=== PATIENT | female | born 1935 | race Caucasian/White ===

== ENCOUNTER 2016-07-17 08:41 | Emergency (ER) | payer MEDICARE, MEDICAID ==
[~2016-07-17] VITALS: Ht 154.9 cm; Wt 63.5 kg
[~2016-07-17 08:41] MED LIST: ACET325T38 PO; ALPR.25T PO; ALPR.5T PO; ALPR0.5T PO; ALPR0.5T7 PO; AMIT50TA3 PO; AMLO10TA82 PO; AMLO5TAB2 PO; ASP325T PO; ASP81TEC PO; ASPI81TA19 PO; BSP5T PO; BUSPIRONE 7.5MG PO; CARV12.5 PO; CARV12.53 PO; CARV3.122 PO; CARV3.12T PO; CHOL10003 PO; CITA10TA70 PO; CPR500T PO; DCS100C PO; DICL75TA2 PO; DIPH-681 PO; DIPH1TAB25 PO; DONE10TA41 PO; DONE10TA5 PO; DPAS20025 PO; ESCI20TA38 PO; ESCT10T PO; FLT05NA16 NSEACH; FLUT16SP22 NS; FLUT50DI IH; Famotidine PO; HCT25T PO; HSCO125 SL; KCL20TCR PO; LISI1TAB10 PO; LISI1TAB78 PO; LOPE2CAP PO; LORA10TA7 PO; LSNP20T PO; LVT.05T PO; Lisinopril PO; MECL-124 PO; MECL12.579 PO; MIRT15TA8 PO; MIRT45TA5 PO; MTP50T PO; NFAMINITAB PO; NISO8.5T PO; NITR1PAT3 TD; Nystatin PO; OMEP-10 PO; OMEP20TA2 PO; OMEP40CA36 PO; ONDN4T PO; POTA99TA15 PO; PRD20T PO; QUET25TA PO; QUET25TA33 PO; QUET50TA PO; QUET50TA43 PO; SIMV20TA3 PO; TRAZ-144 PO; TRZ100T PO; [UNRECOGNIZED DRUG - CODE] PO; [UNRECOGNIZED DRUG - CODE] PO; exforge PO
[2016-07-17 08:54] LABS: BASOPHILS % (AUTO) 1 % (0-10); EOSINOPHILS # (AUTO) 0.2 10^3/uL (0.0-0.3); EOSINOPHILS % (AUTO) 3 % (0-10); LYMPHOCYTES # (AUTO) 1.2 X 10^3 (1.0-4.0); LYMPHOCYTES % (AUTO) 19 % (12-44); MEAN CORPUSCULAR HEMOGLOBIN 31 PG (25-34); MEAN CORPUSCULAR HGB CONC 34 G/DL (32-36); MEAN CORPUSCULAR VOLUME 91 FL (80-99); MEAN PLATELET VOLUME 9.7 FL (7.4-10.4); MONOCYTES # (AUTO) 0.4 X 10^3 (0.0-1.0); MONOCYTES % (AUTO) 7 % (0-12); NEUTROPHILS # (AUTO) 4.4 X 10^3 (1.8-7.8); NEUTROPHILS % (AUTO) 71 % (42-75); PLATELET COUNT 303 10^3/uL (130-400); RED BLOOD COUNT 4.32 10^6/uL (4.35-5.85); RED CELL DISTRIBUTION WIDTH 12.4 % (10.0-14.5); WHITE BLOOD COUNT 6.2 10^3/uL (4.3-11.0)
[2016-07-17 09:05] LABS: INR 1.1 (0.8-1.4); PROTHROMBIN TIME PATIENT 13.7 SEC (12.2-14.7)
[2016-07-17 09:13] LABS: ALANINE AMINOTRANSFERASE 25 U/L (0-55); ALBUMIN 3.8 G/DL (3.2-4.5); ANION GAP 10 MMOL/L (5-14); ASPARTATE AMINO TRANSFERASE 22 U/L (5-34); BILIRUBIN,TOTAL 0.4 MG/DL (0.1-1.0); BLOOD UREA NITROGEN 18 MG/DL (7-18); BUN/CREATININE RATIO 18; CALCIUM 8.8 MG/DL (8.5-10.1); CARBON DIOXIDE 21 MMOL/L (21-32); CHLORIDE 113 MMOL/L (98-107); CREATININE SERUM 1.01 MG/DL (0.60-1.30); GFR ESTIMATED 52; GLUCOSE 110 MG/DL (70-105); POTASSIUM 3.5 MMOL/L (3.6-5.0); SODIUM 144 MMOL/L (135-145); TOTAL PROTEIN 6.7 G/DL (6.4-8.2)
--- NOTE | 2016-07-17 09:14 | Diagnostic Imaging Report ---
EXAMINATION: CT head without contrast. INDICATION: Unresponsive Contiguous axial sections were taken through the skull. There is no mass, shift of midline or hemorrhage to suggest an acute intracranial abnormality. As noted on the prior exam of 06/08/15 there is a prominent area of involving the left temporal and parietal lobes. Most likely this is a sequela from prior infarcts. There are also small areas of low density in the periventricular white matter bilaterally. These too may be related to previous infarcts. The ventricles are unchanged in size when compared to the prior exam. The cortical atrophy seen previously has not progressed. The bone windows show no evidence for a skull fracture. There is mucosal thickening of the left sphenoid sinus. This was also present on the prior exam. The sinuses are otherwise generally clear although the maxillary sinuses were not visualized in their entirety. The orbits seem to be symmetrical. There may be a long-standing fracture of the left infraorbital rim. IMPRESSION: 1. There is no evidence for an acute intracranial abnormality. When compare to the prior study there has been no adverse change. 2. If clinical concern regarding an acute abnormality persists, then MRI would be recommended for further study. 3. These results were discussed with Dr. Apodaca in the ER. Dictated by: Dictated on workstation # [id number]
[2016-07-17 09:20] LABS: TROPONIN I < 0.30 NG/ML (<0.30)
--- NOTE | 2016-07-17 09:28 | ED Neurological Problem ---
General Chief Complaint: Neuro-Stroke Like Symptoms Stated Complaint: WEAKNESS Nursing Triage Note: TO ED PER EMS FROM LONGTERM FOUND IN DOOR WAY OF ROOM CONFUSED APX 8A PMH OF STROKE AND TIA Nursing Sepsis Screen: No Definite Risk Source: patient, EMS, long term records, caregiver Exam Limitations: no limitations History of Present Illness Time seen by provider: 08:42 Initial Comments This 80-year-old woman presents to the emergency room from the long term where she was found to become generally weak this morning. She was found in her doorway having difficulty standing and with altered mental status. She reportedly would roll her eyes back and was not responding to staff. Last known well time was sometime last night. She arrives via EMS. 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 Her deficits today seem exacerbated per staff and family. She was noted to seem sluggish yesterday when seen by her primary care provider. Her Cymbalta dose was decreased and Xanax was stopped. Fingerstick blood sugar was 101. She is alert for this provider and talkative but is disoriented to place, age and month. Stroke activation was paged and patient was taken promptly to CT. Allergies and Home Medications Allergies Coded Allergies: Penicillins (Verified Allergy, Unknown, 10/11/13) Home Medications 5 ML SUSP #60 5 ML PO Q6HR Prescribed by: BRET NEGRON on 10/12/142030 10 MG TAB #30 10 MG PO DAILY@0900 Prescribed by: BRET NEGRON on 10/12/142030 20 MG TABLET #30 20 MG PO DAILY Prescribed by: BRET NEGRON on 10/12/142030 Acetaminophen 325 Mg Tablet 650 MG PO Q4H PRN PRN PAIN (Reported) TAKES 2 (325MG) TABLETS - NOT TO EXCEED 3GM OF ACETAMINOPHEN IN 24 HOURS FROM ALL SOURCES Aspirin 81 Mg Chew 81 MG PO DAILY (Reported) Carvedilol 12.5 Mg Tablet #60 12.5 MG PO BID Prescribed by: BRET NEGRON on 10/12/142030 Dipyridamole/Aspirin 1 Ea Cap 30Days 1 EA PO BID Prescribed by: RENETTA ELIZONDO on 10/05/14 0946 Donepezil Hcl 10 Mg Tablet 10 MG PO HS (Reported) Levothyroxine Sodium 50 Mcg Tab 50 MCG PO DAILY @ 1400 (Reported) Loratadine 10 Mg Tablet 10 MG PO DAILY (Reported) TAKE 1 (10MG) TABLET DAILY FOR CONGESTION FOR 3 WEEKS. START DATE 09-29-14 Quetiapine Fumarate 50 Mg Tabsr 50 MG PO HS (Reported) Simvastatin 20 Mg Tablet 20 MG PO HS (Reported) Constitutional: see HPI Eyes: No Symptoms Reported Ears, Nose, Mouth, Throat: no symptoms reported Respiratory: no symptoms reported Cardiovascular: no symptoms reported Gastrointestinal: no symptoms reported Genitourinary: no symptoms reported : No Musculoskeletal: no symptoms reported Skin: no symptoms reported Psychiatric/Neurological: See HPI Endocrine: No Symptoms Reported Past Goitxcy-Dbzoap-Gnqglm Hx Patient Social History Alcohol Use: Denies Use Recreational Drug Use: No Smoking Status: Never a Smoker Recent Foreign Travel: No Contact w/Someone Who Travel: No Recent Infectious Disease Expo: No Recent Hopitalizations: Yes ([facility] K+) Immunizations Up To Date Tetanus Booster (TDap): Unknown Date of Pneumonia Vaccine: Nov 22, 2009 Date of Influenza Vaccine: Feb 22, 2014 Seasonal Allergies Seasonal Allergies: No Surgeries HX Surgeries: Yes Surgeries: Hysterectomy Respiratory Hx Respiratory Disorders: No Cardiovascular Hx Cardiac Disorders: Yes Cardiac Disorders: High Cholesterol, Hypertension Neurological Hx Neurological Disorders: Yes (ALZHEIMERS. 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 Genitourinary Hx Genitourinary Disorders: Yes (history of urinary tract infections) Gastrointestinal Hx Gastrointestinal Disorders: Yes Gastrointestinal Disorders: Diverticulosis Musculoskeletal Hx Musculoskeletal Disorders: No Endocrine Hx Endocrine Disorders: No HEENT HX ENT Disorders: Yes HEENT Disorders: Glaucoma Cancer Hx Cancer: No Psychosocial Hx Psychiatric Problems: Yes Behavioral Health Disorders: Sleep Difficulties, Anxiety, Depression Integumentary HX Skin/Integumentary Disorder: No Blood Transfusions Hx Blood Disorders: No Adverse Reaction to a Blood Tr: No Family Medical History Significant Family History: Heart Disease Family Medial History: Alcoholism 03 FATHER Cancer BROTHERS/SISTERS(9 ALL TOGETHE Family history: Alzheimer's disease Family history: Arthritis 03 MOTHER BROTHERS/SISTERS(9 ALL TOGETHE Family history: Breast disease BROTHERS/SISTERS(9 ALL TOGETHE Family history: Cardiovascular disease 03 FATHER BROTHERS/SISTERS(9 ALL TOGETHE Family history: Hypertension 03 MOTHER BROTHERS/SISTERS(9 ALL TOGETHE Heart disease 03 FATHER BROTHERS/SISTERS(9 ALL TOGETHE Malignant neoplasm of lung BROTHERS/SISTERS(9 ALL TOGETHE Myocardial infarction 03 FATHER BROTHERS/SISTERS(9 ALL TOGETHE Psychotic disorder BROTHERS/SISTERS(9 ALL TOGETHE Physical Exam Vital Signs Vital Sign - Last 12Hours 07/17/16 08:41 Temp 97.6 Pulse 64 Resp 18 B/P 110/67 Pulse Ox 96 O2 Delivery Room Air Capillary Refill : Less Than 3 Seconds General Appearance: WD/WN no apparent distress HEENT: PERRL/EOMI normal ENT inspection pharynx normal Neck: normal inspection Respiratory: lungs clear normal breath sounds no respiratory distress no accessory muscle use Cardiovascular: regular rate, rhythm no edema no murmur Gastrointestinal: normal bowel sounds non tender soft Back: normal inspection Extremities: normal inspection no pedal edema Neurologic/Psychiatric: alert normal mood/affect other (patient has chronic deficits and generalized weakness. She has difficulty with speech and dysphasia at baseline. NIH stroke score was 11. Most of the scores due to chronic deficits.) Stroke NIH Stroke Scale Assessment Select: Initial Level of Consciousness: 0=Alert Level of Consciousness-Questio: 2=Answer neither question LOC Commands: 2=Performs neither task Gaze: 0=Normal Visual Al[place]ga: 0=No visual loss Facial Movement (Facial Paresi: 1=Minor paralysis Motor Function-Arms Right: 0=No drift Motor Function-Arms Left: 0=No drift Motor Function-Legs Right: 2=Some effort/gravity Motor Function-Legs Left: 2=Some effort/gravity Limb Ataxia: 0=Absent Sensory: 1=Mild to Moderate loss Best Language: 1=Mild to moderat aphasia Dysarthria: 1=Mild to moderate loss Extinction & Inattention: 1=Visual,tactile,auditory NIH Stroke Scale Score: 11 Stroke Thrombolytic Exclusion History of CVA: Yes Severe Hypertension: No GI or Bleed: No Subarachnoid Hemorrhage: No Intracranial Neoplasm/Aneurysm: No Puncture of Non-Compressible V: No Recent CPR: No Diabetic Hemorrhagic Retinopat: No Organ Biopsy: No Recent Obstetric Delivery: No Significant Hepatic Dysfunctio: No NIH Stoke Scale >22: No Improving Symptoms: Yes Progress/Results/Core Measures Results/Orders Lab Results Laboratory Tests Test 07/17/16 08:41 07/17/16 08:58 07/17/16 09:37 Range/Units Activated Partial Thromboplast Time 32 24-35 SEC Alanine Aminotransferase (ALT/SGPT) 25 0-55 U/L Albumin 3.8 3.2-4.5 G/DL Alkaline Phosphatase 83 40-136 U/L Anion Gap 10 5-14 MMOL/L Aspartate Amino Transf (AST/SGOT) 22 5-34 U/L BUN/Creatinine Ratio 18 Basophils # (Auto) 0.0 0.0-0.1 10^3/uL Basophils (%) (Auto) 1 0-10 % Blood Urea Nitrogen 18 7-18 MG/DL Calcium Level 8.8 8.5-10.1 MG/DL Carbon Dioxide Level 21 21-32 MMOL/L Chloride Level 113 H 98-107 MMOL/L Creatinine 1.01 0.60-1.30 MG/DL D-Dimer 0.44 0.00-0.49 UG/ML Eosinophils # (Auto) 0.2 0.0-0.3 10^3/uL Eosinophils (%) (Auto) 3 0-10 % Estimat Glomerular Filtration Rate 52 Free Thyroxine 0.89 0.70-1.48 NG/DL Glucose Level 110 H 70-105 MG/DL Hematocrit 39 35-52 % Hemoglobin 13.5 11.5-16.0 G/DL INR Comment 1.1 0.8-1.4 Lymphocytes # (Auto) 1.2 1.0-4.0 X 10^3 Lymphocytes (%) (Auto) 19 12-44 % Mean Corpuscular Hemoglobin 31 25-34 PG Mean Corpuscular Hemoglobin Concent 34 32-36 G/DL Mean Corpuscular Volume 91 80-99 FL Mean Platelet Volume 9.7 7.4-10.4 FL Monocytes # (Auto) 0.4 0.0-1.0 X 10^3 Monocytes (%) (Auto) 7 0-12 % Neutrophils # (Auto) 4.4 1.8-7.8 X 10^3 Neutrophils (%) (Auto) 71 42-75 % Platelet Count 303 130-400 10^3/uL Potassium Level 3.5 L 3.6-5.0 MMOL/L Prothrombin Time 13.7 12.2-14.7 SEC Red Blood Count 4.32 L 4.35-5.85 10^6/uL Red Cell Distribution Width 12.4 10.0-14.5 % Sodium Level 144 135-145 MMOL/L Thyroid Stimulating Hormone (TSH) 1.41 0.35-4.94 UIU/ML Total Bilirubin 0.4 0.1-1.0 MG/DL Total Protein 6.7 6.4-8.2 G/DL Troponin I < 0.30 <0.30 NG/ML White Blood Count 6.2 4.3-11.0 10^3/uL Glucometer 103 70-110 MG/DL Urine Bacteria TRACE /HPF Urine Bilirubin NEGATIVE NEGATIVE Urine Casts NONE /LPF Urine Clarity CLEAR Urine Color YELLOW Urine Crystals NONE /LPF Urine Culture Indicated YES Urine Glucose (UA) NEGATIVE NEGATIVE Urine Ketones NEGATIVE NEGATIVE Urine Leukocyte Esterase 1+ H NEGATIVE Urine Mucus NEGATIVE /LPF Urine Nitrite NEGATIVE NEGATIVE Urine Protein 1+ H NEGATIVE Urine RBC 0-2 /HPF Urine RBC (Auto) NEGATIVE NEGATIVE Urine Specific Hunters 1.020 1.016-1.022 Urine Squamous Epithelial Cells 2-5 /HPF Urine Urobilinogen NORMAL NORMAL MG/DL Urine WBC 2-5 /HPF Urine pH 6 5-9 Micro Results Microbiology 07/17/16 Influenza Types A,B Antigen (DEBBIE) - Final, Complete My Orders Orders-MITCHELL APODACA MD Ct Head Wo-R/O Stroke (07/17/16 08:44) Cbc With Automated Diff (07/17/16 08:48) Protime With Inr (07/17/16 08:48) Partial Thromboplastin Time (07/17/16 08:48) Comprehensive Metabolic Panel (07/17/16 08:48) Fibrin Degradation Products (07/17/16 08:48) Troponin I (07/17/16 08:48) Ua Culture If Indicated (07/17/16 08:48) Chest 1 View, Ap/Pa Only (07/17/16 08:48) Catheter(Urinary) Insert & Ass 03,15 (07/17/16 08:48) Ekg Tracing (07/17/16 08:48) Nothing By Mouth (07/17/16 Lunch) Accucheck Stat ONCE (07/17/16 08:48) Saline Lock/Iv-Start (07/17/16 08:48) Saline Lock/Iv-Start (07/17/16 08:48) Vital Signs-Stroke Q1H (07/17/16 08:48) O2 (07/17/16 08:48) Intake & Output 06,14,22 (07/17/16 08:48) Monitor-Rhythm Ecg Trace Only (07/17/16 08:48) Dysphagia Screening Tool (07/17/16 08:48) Urine Culture (07/17/16 09:37) Influenza A And B Antigens (07/17/16 10:41) Thyroid Stimulating Hormone (07/17/16 10:41) Free T4 (Free Thyroxine) (07/17/16 10:41) Vital Signs/I&O Vital Sign - Last 12Hours 07/17/16 07/17/16 07/17/16 07/17/16 08:41 08:53 09:45 11:25 Temp 97.6 Pulse 64 66 58 Resp 18 18 18 B/P 110/67 172/80 149/69 Pulse Ox 96 96 96 94 O2 Delivery Room Air Room Air Blood Pressure Mean: 81 Point of Care Testing Finger Stick Blood Glucose: 103 Progress Note #1: Time: 10:45 Progress Note Patient's workup was essentially unremarkable with the exception of intermittent bigeminy. I did get the patient up to walk. She was able to rise on her own power but required assistance with walking to prevent from falling over backwards. Family reports that she seems weaker and more sluggish than usual. It was noted that patient is due to have thyroid labs checked in September. Progress Note #2: Progress Note Thyroid labs were normal. Influenza screen was negative. I discussed the case with Dr. Elizondo who would like the patient to return back to the long term. He reports she has had numerous episodes similar to this in the past and generally recovers without incident. Instructions were written for long term staff to monitor her closely and check on her frequently. She is not to ambulate without assistance. ECG Initial ECG Impression Date: Jul 17, 2016 Initial ECG Impression Time: 09:30 Initial ECG Rate: 59 Comment Sinus rhythm alternating with ventricular bigeminy. No ST elevation or depression. No abnormal intervals or axis deviation. Diagnostic Imaging Diagonstic Imaging: CT Plain Films/CT/US/NM/MRI: head Comments CT head viewed by me and report reviewed. See report below: NAME: JONAS SALGADO Khadijah [facility] REC#: [id number] PT STATUS: REG ER : 1935 PHYSICIAN: MITCHELL APODACA MD ADMIT DATE: 07/17/16/ER Draft Date of Exam:07/17/16 CT HEAD WO-R/O STROKE EXAMINATION: CT head without contrast. INDICATION: Unresponsive Contiguous axial sections were taken through the skull. There is no mass, shift of midline or hemorrhage to suggest an acute intracranial abnormality. As noted on the prior exam of 06/08/15 there is a prominent area of involving the left temporal and parietal lobes. Most likely this is a sequela from prior infarcts. There are also small areas of low density in the periventricular white matter bilaterally. These too may be related to previous infarcts. The ventricles are unchanged in size when compared to the prior exam. The cortical atrophy seen previously has not progressed. The bone windows show no evidence for a skull fracture. There is mucosal thickening of the left sphenoid sinus. This was also present on the prior exam. The sinuses are otherwise generally clear although the maxillary sinuses were not visualized in their entirety. The orbits seem to be symmetrical. There may be a long-standing fracture of the left infraorbital rim. IMPRESSION: 1. There is no evidence for an acute intracranial abnormality. When compare to the prior study there has been no adverse change. 2. If clinical concern regarding an acute abnormality persists, then MRI would be recommended for further study. 3. These results were discussed with Dr. Apodaca in the ER. Dictated on workstation # [id number] Dict: 07/17/16 0852 Trans: 07/17/16 0913 [facility] [id number] Interpreted by: LUZ MARINA GALLOWAY MD Diagonstic Imaging: Xray Plain Films/CT/US/NM/MRI: chest Comments Chest x-ray viewed by me and report reviewed. See report below: NAME: JONAS SALGADO [facility] REC#: [id number] PT STATUS: REG ER : 1935 PHYSICIAN: MITCHELL APODACA MD ADMIT DATE: 07/17/16/ER Draft Date of Exam:07/17/16 CHEST 1 VIEW, AP/PA ONLY EXAM: Portable erect AP chest at 8:49 a.m. INDICATION: Weakness FINDINGS: There is a better inspiratory effort on this study than on the prior exam of 08/21/15. Allowing for this technical factor, the heart size is within normal limits. There is persistent elevation of the right hemidiaphragm. However, the lungs seem generally clear and well-aerated. There is no sign of failure, pneumonia or pleural effusion to suggest an acute abnormality. The mediastinum is not widened. The osseous structures are intact. IMPRESSION: There is no evidence for an acute cardiopulmonary abnormality. Dictated on workstation # [id number] Dict: 07/17/1632 Trans: 07/17/1642 [facility] [id number] Interpreted by: LUZ MARINA GALLOWAY MD Departure Impression Impression: Primary Impression: Generalized weakness Additional Impressions: Altered mental status Qualified Code: R41.82 - Altered mental status, unspecified Bigeminy Disposition: 01 HOME, SELF-CARE Condition: Improved Departure-Patient Inst. Decision time for Depature: 11:30 Referrals: [facility] (PCP) Primary Care Physician Patient Instructions: Preventing Falls in the Older Adult Add. Discharge Instructions: DO NOT ALLOW PATIENT TO AMBULATE WITHOUT SUPERVISION. PLEASE ASSIST PATIENT IN AMBULATION AND UP TO BATHROOM AT LEAST EVERY 4 HOURS. PATIENT HAS DIFFICULTY GETTING ATTENTION FROM STAFF DUE TO HER SPEECH DEFICITS. FOLLOW-UP WITH PRIMARY CARE PROVIDER WITHIN THE NEXT WEEK. All discharge instructions reviewed with patient and/or family. Voiced understanding. MITCHELL APODACA MD Jul 17, 2016 09:28
--- NOTE | 2016-07-17 09:42 | Diagnostic Imaging Report ---
EXAM: Portable erect AP chest at 8:49 a.m. INDICATION: Weakness FINDINGS: There is a better inspiratory effort on this study than on the prior exam of 08/21/15. Allowing for this technical factor, the heart size is within normal limits. There is persistent elevation of the right hemidiaphragm. However, the lungs seem generally clear and well-aerated. There is no sign of failure, pneumonia or pleural effusion to suggest an acute abnormality. The mediastinum is not widened. The osseous structures are intact. IMPRESSION: There is no evidence for an acute cardiopulmonary abnormality. Dictated by: Dictated on workstation # [id number]
[2016-07-17 09:45] VITALS: BP 172/80
[2016-07-17 09:50] LABS: BILIRUBIN,URINE NEGATIVE (NEGATIVE); KETONES,URINE NEGATIVE (NEGATIVE); LEUKOCYTE ESTERASE ,URINE 1+ (NEGATIVE); NITRITE,URINE NEGATIVE (NEGATIVE); PH,URINE 6 (5-9); PROTEIN,URINE 1+ (NEGATIVE); UROBILINOGEN,URINE NORMAL (NORMAL)
[2016-07-17 11:21] LABS: THYROID STIMULATING HORMONE 1.41 UIU/ML (0.35-4.94)
[2016-07-17 11:25] VITALS: BP 149/69
[2016-07-17 13:14] VITALS: BP 168/66
== END 2016-07-17 13:14 ==
LOC: EDUNIT# 08:41 → ER 08:42
DX: R41.82 Altered mental status, unspecified (principal); R53.1 Weakness; R00.8 Other abnormalities of heart beat; I69.921 Dysphasia following unspecified cerebrovascular disease; I10 Essential (primary) hypertension; Z79.82 Long term (current) use of aspirin; Z79.899 Other long term (current) drug therapy
CPT/HCPCS: 36415; 51701; 70450; 71010; 80053; 81000; 82962; 84439; 84443; 84484; 85025; 85379; 85610; 85730; 87088; 87804; 93005; 93041

== ENCOUNTER 2018-02-03 06:19 | Outpatient (CLI) | payer MEDICARE, MEDICAID ==
[~2018-02-03] VITALS: Ht 154.9 cm; Wt 79.8 kg
[2018-02-03] MEDS ORDERED: DPAS20025 PO (14:18)
[2018-02-03] MEDS ORDERED: CETI10TA17 PO (14:25)
[2018-02-03] MEDS ORDERED: LEVO50TA6 PO (14:25)
[2018-02-03] MEDS ORDERED: GUAI400T71 PO (14:25)
[2018-02-03] MEDS ORDERED: AMLO10TA6 PO (14:25)
[2018-02-03] MEDS ORDERED: DULO30CA3 PO (14:25)
[2018-02-03] MEDS ORDERED: MIRT30TA PO (14:25)
[2018-02-03] MEDS ORDERED: DOCU-143 PO (14:25)
[2018-02-03] MEDS ORDERED: MELA1TAB27 PO (14:25)
[2018-02-03] MEDS ORDERED: TRAM50TA2 PO (14:25)
[2018-02-03] MEDS ORDERED: LISI-552 PO (14:25)
[2018-02-03] MEDS ORDERED: CRV25T PO (14:25)
[2018-02-03] MEDS ORDERED: MEMA1CAP3 PO (14:25)
[2018-02-03] MEDS ORDERED: MONT10TA24 PO (14:25)
== END 2018-02-03 14:26 | disposition home or self-care (01) ==
LOC: PREOP 06:19
PROVIDERS: ATTEND Specialist
DX: Z01.818 Encounter for other preprocedural examination (principal)

== ENCOUNTER 2018-02-05 08:17 | Day surgery (SDC) | payer MEDICARE, MEDICAID ==
[~2018-02-05] VITALS: Ht 154.9 cm; Wt 79.8 kg
[~2018-02-05 08:17] MED LIST changes: +AMLO10TA6 PO; +CETI10TA17 PO; +CRV25T PO; +DOCU-143 PO; +DULO30CA3 PO; +GUAI400T71 PO; +LEVO50TA6 PO; +LISI-552 PO; +MELA1TAB27 PO; +MEMA1CAP3 PO; +MIRT30TA PO; +MONT10TA24 PO; +TRAM50TA2 PO
--- OUTSIDE RECORDS SUMMARY | 2018-02-05 08:21 | XMS REPORT ---
Author Author [facility] Medical Staff Organization [facility] Address [address] [place], [place] [id number] Phone [phone] Summary purpose CCDA Sent to [facility] Chief Complaint and Reason for Visit No authorized Reason for Visit (Admitting Diagnosis) is available for this visit. Problem list No authorized problems tracked for continuity of care are available for this visit. Encounters No authorized problems tracked for encounter diagnoses are available for this visit. Medications No medications recorded for this patient visit Allergies, adverse reactions, alerts Allergen Category Ingredient Status Reaction Severity Onset Penicillins Drug Penicillins Active Immunizations No immunizations recorded for this patient visit Relevant diagnostic tests and/or laboratory data No authorized results are available for this patient visit History of procedures No procedures recorded for this patient visit. Functional status No functional or cognitive status observations are available for this visit. Vital signs No authorized vital signs are available for this visit. Social history No Social History or smoking status observations were recorded for this visit. ( Unknown if ever smoked.) Treatment Plan No treatment plan text is available for this visit. Hospital discharge instructions No discharge instruction text is available for this visit.
--- OUTSIDE RECORDS SUMMARY | 2018-02-05 08:21 | XMS REPORT ---
Author Author [facility] Medical Staff Organization [facility] Address [address] [place], [place] [id number] Phone [phone] Summary purpose CCDA Sent to [facility] Chief Complaint and Reason for Visit No [...] for this patient visit History of procedures Procedure Code Code Type Description Date Performed Performing Physician 77513 CPT-4 ELECTROCARDIOGRAM REPORT 08-30-2016 [facility] Functional status No functional or cognitive status [...]
--- OUTSIDE RECORDS SUMMARY | 2018-02-05 08:21 | XMS REPORT ---
Author Author [facility] Medical Staff Organization [facility] Address [address] [place], [place] [id number] Phone [phone] Summary purpose CCDA Sent to [facility] Chief Complaint and Reason for Visit [...] Code Type Description Date Performed Performing Physician 36229 CPT-4 ELECTROCARDIOGRAM REPORT 08-26-2016 [facility] Functional status No functional or cognitive status [...]
--- OUTSIDE RECORDS SUMMARY | 2018-02-05 08:22 | XMS REPORT ---
Author Author MAXIMO SMALL Organization [facility] Address [address] [place] [address] Care Team Providers Care Ice Skater Name Role Phone MAXIMO SMALL Unavailable PROBLEMS Type Condition ICD9-CM Code [id number] Code Onset Dates Condition Status SNOMED Code Problem Benign essential hypertension I10 Active 1392683 Problem Hypothyroidism E03.9 Active 35556346 Problem CVA (cerebral vascular accident) I63.9 Active 782202355 Problem Major depressive disorder with single episode, in full remission F32.5 Active 67955058 Problem Arthropathy, unspecified M12.9 Active 850480773 Problem Reactive depression F32.9 Active 40142376 Problem 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 Active 98605604 Problem Other insomnia G47.09 Active 070149202 Problem Allergy, subsequent encounter T78.40XD Active 931098039 Problem 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, unspecified hemiplegia type I69.353 Active 448320523 Problem 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 Active 500880647 Problem Alzheimers disease with late onset G30.1 Active 014469763 Problem Glaucoma of both eyes, unspecified glaucoma H40.9 Active 35906602 Problem Gastroesophageal reflux disease without esophagitis K21.9 Active 666679087 Problem Aphasia R47.01 Active 61778556 Problem CVA, old, 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 Active 591039368 ALLERGIES No Information ENCOUNTERS Encounter Location Date Diagnosis [facility] [address] [facility] [id number] [address] Jan, [facility] [address] [place] [id number] Jan, Skin tag L91.8 [facility] [address] [facility] [id number], [place] [address] Dec, Arthropathy, unspecified M12.9 [facility] [place] [facility] [address] [place] [address] 07924- 2066 Dec, [facility] [id number] [place] [address] 08831- 6466 Nov, Arthropathy, unspecified M12.9 [facility] [address] [place] [id number] Nov, Major depressive disorder with single episode, in full remission F32.5 and CVA, old, 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 [facility] [id number] [place] [address] 08965- 4810 Nov, [facility] [id number] [place] [address] 62372- 2459 Nov, Arthropathy, unspecified M12.9 [facility] [id number] [place] [address] 64919- 6376 Oct, [facility] [id number] [place] [address] 31397- 2668 Oct, Arthropathy, unspecified M12.9 [facility] [id number] [place] [address] 62471- 2779 September, [facility] [address] [place] [id number] September, Reactive airway disease that is not asthma R09.89 [facility] [address] [place] [id number] September, Benign essential hypertension I10 and CVA, old, 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 [facility] [id number] [place] [address] 12122- 0603 September, [facility] [id number] [place] [address] 65746- 1217 September, Arthropathy, unspecified M12.9 [facility] [id number] [place] [address] 89427- 7289 Aug, [facility] [id number] [place] [address] 01649- 7836 Aug, [facility] [address] [id number] [address] Aug, Arthropathy, unspecified M12.9 [facility] [address] [place] [id number] Jul, Diarrhea, unspecified type R19.7 [facility] [address] [place] [address] [id number]- 3879 Jul, Arthropathy, unspecified M12.9 [facility] [id number] [place] [address] [id number] Jun, Arthropathy, unspecified M12.9 [facility] [id number] [place] [address] 825122- 5896 May, Arthropathy, unspecified M12.9 [facility] [id number] [place] [address] [id number] May, [facility] [address] [place] [id number] May, Localized edema R60.0 [facility] [id number] [place] [address] [id number] May, [facility] [id number] [place] [address] 53817823- 1601 Apr, Arthropathy, unspecified M12.9 [facility] [address] [place] [address] 41691- 0476 Mar, Arthropathy, unspecified M12.9 [facility] [address] [place] [address] [id number]- 5877 Feb, Reactive depression F32.9 and 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 [facility] [address] [place] [address] 97357- 7021 Feb, Reactive depression F32.9 and Rash R21 [facility] [address] [place] [address] 37184- 5101 Feb, Arthropathy, unspecified M12.9 [facility] [address] [place] [address] 42313- 1722 Feb, [facility] [id number] [place] [address] 86702- 5419 Jan, Reactive depression F32.9 ; Other insomnia G47.09 and 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 [facility] [id number] [place] [address] 58082- 5338 Jan, [facility] [id number] [place] [address] 02012- 1473 Jan, Arthropathy, unspecified M12.9 [facility] [id number] [place] [address] 91789- 0673 Jan, [facility] [id number] [place] [address] 77461- 8797 Dec, Arthropathy, unspecified M12.9 [facility] [address] [place] [id number] Dec, Skin tag L91.8 ; Wart of scalp B07.9 and Weight gain R63.5 [facility] [id number] [place] [address] [id number] Dec, [facility] [id number] [place] [address] 06462- 9292 Dec, Reactive depression F32.9 [facility] [id number] [place] [address] [id number] Nov, Arthropathy, unspecified M12.9 [facility] [id number] [place] [address] 83524- 8250 Oct, [facility] [id number] [place] [address] 93660- 5018 Oct, Arthropathy, unspecified M12.9 [facility] [address] [place] [id number] September, Reactive depression F32.9 and CVA (cerebral vascular accident) I63.9 [facility] [address] [address] 1609 September, Arthropathy, unspecified M12.9 [facility] [address] [address] 5172 September, [facility] [address] [place] [address] 02598- 7922 September, Arthropathy, unspecified M12.9 [facility] [address] [place] [address] 13657- 5336 Aug, Arthropathy, unspecified M12.9 [facility] [id number] [place] [address] 29303- 6473 Aug, [facility] [id number] [place] [address] [id number] Aug, [facility] [id number] [place] [address] 62420- 7263 Jul, [facility] [address] [place] [address] 59205- 9285 Jul, [facility] [id number] [place] [address] [id number] Jul, [facility] [address] [place] [id number] Jun, Reactive depression F32.9 [facility] [address] [place] [address] 34819- 4100 Jun, Reactive depression F32.9 [facility] [id number] [place] [address] [id number] Jun, [facility] [address] [place] [id number] Jun, Reactive depression F32.9 and Other insomnia G47.09 [facility] [address] [address]- 3929 Jun, [facility] [id number] [place] [address] 65874- 0426 May, [facility] [address] [id number] May, [facility] [address] [place] [id number] Apr, CVA, old, 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 ; Allergy, subsequent encounter T78.40XD and Reactive depression F32.9 [facility] [address] 60630- 5726 Mar, [facility] [address] [place] [id number] Feb, Benign essential hypertension I10 [facility] [address] 40026- 4676 Feb, [facility] [address] 60811- 4396 Feb, [facility] [address] 35728- 7516 Feb, [facility] [address] 60578- 2346 Feb, [facility] [address] 03760- 7586 Feb, [facility] [id number] [place] [address] 08825- 8456 Jan, [facility] [address] 86271 2546 Jan, [facility] [facility] [address] [place] [id number] Jan, CVA, old, 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 and Benign essential hypertension I10 [facility] [address] 41665 2546 Dec, [facility] [address] 39222 2546 Nov, [facility] [address] [place] [address]- 5181 14 Nov, 2015 [facility] [id number] [place] [address] 12522- 3048 Oct, [facility] [id number] [place] [address] 30797- 4123 Oct, [facility] [id number] [place] [address] 05869- 8167 Oct, 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 ; Benign essential hypertension I10 ; Reactive depression F32.9 and Urinary frequency R35.0 [facility] [id number] [place] [address] 26717- 0866 Aug, UTI (urinary tract infection) N39.0 [facility] [id number] [place] [address] 37800- 2667 Aug, 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 [facility] [id number] [place] [address] 40124- 5592 Jul, Benign essential hypertension I10 ; CVA, old, 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 and Hypothyroidism E03.9 [facility] [id number] [place] [address] 31161- 6809 Jun, [facility] [id number] [place] [address] 32831- 7478 Jun, Acute diarrhea R19.7 [facility] [id number] [place] [address] 00017- 5273 May, CVA (cerebral vascular accident) I63.9 [facility] [id number] [place] [address] 63690- 7272 Apr, [facility] [id number] [place] [address] 80747- 1202 Apr, [facility] [id number] [place] [address] 18123- 8426 Apr, [place] [facility] [id number] [place] [address] 21905- 3523 Apr, [facility] [id number] [place] [address] 14612- 0327 Apr, CVA (cerebral vascular accident) I63.9 and Constipation K59.00 [facility] [id number] [place] [address] 29211- 1664 Apr, [facility] [address] 89955- 2987 Mar, [facility] [id number] [place] [address] 08287- 9870 Mar, [facility] [address] 42695- 8694 Mar, [facility] [id number] [place] [address] 48508- 7062 Mar, [facility] [id number] [place] [address] 48104- 0657 Feb, [facility] [id number] [place] [address] 35129- 9658 Feb, CVA, old, 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 ; Allergic rhinitis J30.9 and Benign essential hypertension I10 [facility] [id number] [place] [address] 01650- 8172 Dec, CVA (cerebral vascular accident) 434.91 [facility] [id number] [place] [address] 57888- 7154 Dec, [facility] [id number] [place] [address] 73262- 4484 Oct, [facility] [id number] [place] [address] 36870- 4029 Oct, [facility] [id number] [place] [address] 71918- 7006 Oct, CVA (cerebral vascular accident) 434.91 [facility] [address] [address]- 1553 Oct, [facility] [address] [address]- 2226 September, [facility] [address] [address]- 0544 September, Allergic rhinitis 477.9 and Arthropathy 716.90 [facility] [address], [place] [address]- 5779 Aug, [facility] [address] [address]- 5392 Aug, [facility] [address], [place] [address]- 4507 Jun, [facility] [address] [address]- 7954 Jun, [address] [place] [id number] Jun, [facility] [address], [place] [address]- 8755 Jun, [facility] [address], [place] [address]- 8562 Jun, [facility] [address], [place] [address]- 8440 Jun, [facility] [address], [place] [address]- 8079 Jun, [facility] [address] [address]- 1126 May, [facility] [address]- 2526 May, [facility] [address] [address]- 5997 May, [facility] [place] [facility] [address] [id number] [place] [address]- 5309 May, [facility] [address] [id number] [place] [address]- 5359 Apr, [facility] [address] [id number] [place] [address]- 4178 Apr, [facility] [address] [id number] [place] [address]- 0575 Apr, [facility] [address] [facility] [place] [id number] Apr, [facility] [address] [id number] [place] [address]- 2597 Apr, [facility] [address] [id number] [place] [address]- 2924 Apr, [facility] [address] [id number] [place] [address]- 8114 Apr, [facility] [address] [id number] [place] [address]- 4379 Apr, [facility] [address] [id number] [place] [address]- 2841 Apr, [facility] [address] [id number] [place] [address]- 0331 Apr, [facility] [place] [facility] [address] [id number] [place] [address]- 6817 Apr, [facility] [place] [facility] [address] [id number] [place] [address]- 9851 Mar, [facility] [place] [facility] [address] [id number] [place] [address]- 5148 Mar, [facility] [place] [facility] [address] [id number] [place] [address]- 7666 Mar, [facility] [place] [facility] [address] [id number] [place] [address]- 5786 Mar, [facility] [place] [facility] [address] [id number] [place] [address]- 6764 Mar, [facility] [place] [facility] [address] [id number] [place] [address]- 6766 Mar, [facility] [place] [facility] [address] [id number] [place] [address]- 3850 Mar, [facility] [place] [facility] [address] [id number] [place] [address]- 4961 Mar, [facility] [place] [facility] [address] [id number] [place] [address]- 4258 Mar, [facility] [place] [facility] [address] [id number] [place] [address]- 7632 Mar, [facility] [place] [facility] [address] [id number] [place] [address]- 0067 Mar, [facility] [place] [facility] [address] [id number] [place] [address]- 2799 Mar, [facility] [place] [facility] [address] [id number] [place] [address]- 0926 Mar, [facility] [place] [facility] [address] [id number] [place] [address]- 3830 Feb, [facility] [place] [facility] [address] [id number] [place] [address]- 1866 Feb, [facility] [place] [facility] [address] [id number], [place] [address]- 7138 30 Feb, 2014 [facility] [place] [facility] [address] [id number] [place] [address]- 9870 30 Feb, 2014 [facility] [place] [facility] [address] [id number] [place] [address]- 8560 Feb, [facility] [place] [facility] [address] [id number] [place] [address]- 6333 Feb, [facility] [place] [facility] [address] [id number] [place] [address]- 8884 Feb, [facility] [place] [facility] [address] [id number] [place] [address]- 5494 Feb, [facility] [place] [facility] [address] [id number] [place] [address]- 4449 Jan, [facility] [place] [facility] [address] [id number] [place] [address]- 5128 Jan, [facility] [place] [facility] [address] [id number] [place] [address]- 6195 Dec, [facility] [place] [facility] [address] [id number] [place] [address]- 9823 Dec, [facility] [place] [facility] [address] [id number] [place] [address]- 9442 Dec, [facility] [place] [facility] [address] [id number] [place] [address]- 8767 Dec, [facility] [place] [facility] [address] [id number] [place] [address]- 6153 Nov, [facility] [place] [facility] [address] [id number] [place] [address]- 1851 Nov, [facility] [place] [facility] [address] [id number] [place] [address]- 8416 Nov, [facility] [place] [facility] [address] [id number] [place] [address]- 6087 Nov, [facility] [place] [facility] [address] [id number] [place] [address]- 7266 Nov, [facility] [place] [facility] [address] [id number] [place] [address]- 3260 Nov, [facility] [place] [facility] [address] [id number] [place] [address]- 4622 Nov, [facility] [place] [facility] [address] [id number] [place] [address]- 4649 Oct, [facility] [place] [facility] [address] [id number] [place] [address]- 5840 Oct, [facility] [place] [facility] [address] [id number] [place] [address]- 5160 Oct, [facility] [place] [facility] [address] [id number] [place] [address]- 4660 Oct, [facility] [place] [facility] [address] [id number] [place] [address]- 6368 Oct, [facility] [place] [facility] [address] [id number] [place] [address]- 3295 Oct, [facility] [place] [facility] [address] [id number] [place] [address]- 7857 September, [facility] [place] [facility] [address] [id number] [place] [address]- 2326 September, [facility] [place] [facility] [address] [id number] [place] [address]- 4890 September, [facility] [place] [facility] [address] [id number] [place] [address]- 1641 September, [facility] [place] [facility] [address] [id number] [place] [address]- 4189 September, [facility] [place] [facility] [address] [id number] [place] [address]- 5917 September, [facility] [place] [facility] [address] [id number] [place] [address]- 9933 September, [facility] [place] [facility] [address] [id number] [place] [address]- 2291 September, [facility] [place] [facility] [address] [id number] [place] [address]- 5848 September, [facility] [place] [facility] [address] [id number] [place] [address]- 6979 Aug, [facility] [place] [facility] [address] [id number] [place] [address]- 3521 Jun, [facility] [place] [facility] [address] [id number] [place] 9643 Jun, [facility] [place] [facility] [address] [id number] [place] [address]- 8640 May, [facility] [place] [facility] [address] [id number] [place] [address]- 9735 Mar, [facility] [place] [facility] [address] [id number] [place] [address]- 5902 Mar, [facility] [place] [facility] [address] [id number] [place] [address]- 7061 Oct, [facility] [place] [facility] [address] [id number] [place] [address]- 7336 September, [facility] [place] [facility] [address] [id number] [place] [address]- 1200 September, [facility] [place] [facility] [address] [id number] [place] [address]- 1446 Aug, [facility] [place] [facility] [address] [id number] [place] [address] Jul, [facility] [place] [facility] [address] [id number] [place] [address] May, [facility] [place] [facility] [address] [id number], [place] [address] May, [facility] [place] [facility] [address] [id number], [place] [address] May, [facility] [place] [facility] [address] [id number] [place] [address] Feb, [facility] [place] [facility] [address] [id number] [place] [address] Feb, [facility] [place] [facility] [address] [id number] [place] [address] Feb, [facility] [place] [facility] [address] [id number] [place] [address] Feb, [facility] [address] [id number] [place] [address] Feb, [facility] [address] [id number] [place] [id number] Feb, [facility] [address] [id number] [place] [address] Feb, [facility] [place] [facility] [address] [id number] [place] [address] Feb, [facility] [address] [id number] [place] [address] Feb, [facility] [place] [facility] [address] [id number] [place] [address] Jan, [facility] [address] [id number] [place] [address] Dec, [facility] [address] [id number] [place] [address] Dec, [facility] [place] [facility] [address] [id number] [place] [address] Dec, [facility] [address] [id number] [place] [address] Nov, [facility] [place] [facility] [address] [id number] [place] [address] Nov, [facility] [place] [facility] [address] [id number] [place] [address] Oct, [facility] [place] [facility] [address] [id number] [place] [address] September, [facility] [place] [facility] [address] [id number] [place] [address] Aug, [facility] [place] [facility] [address] [id number] [place] [address] Aug, [facility] [address] [facility] [id number], [place] [address] Jul, [facility] [address] [id number], [place] [address] Jul, [facility] [address] [facility] [id number], [place] [address] Jul, [facility] [address] [id number], [place] [address] Jun, [facility] [address] [facility] [id number], [place] [address] Jun, IMMUNIZATIONS No Known Immunizations SOCIAL HISTORY Never Assessed REASON FOR VISIT Controlled Med Refill PLAN OF CARE VITAL SIGNS MEDICATIONS Medication Instructions Dosage Frequency Start Date End Date Duration Status Tramadol HCl 50 mg Orally Once a day at HS 1 tablet Jul, 28 days Active RESULTS No Results PROCEDURES No Known procedures INSTRUCTIONS MEDICATIONS ADMINISTERED No Known Medications
--- OUTSIDE RECORDS SUMMARY | 2018-02-05 08:23 | XMS REPORT ---
Author Author MAXIMO SMALL [facility] Address [address] [place] [address] Care Team Providers Care Site Technician Name Role Phone MAXIMO SMALL Unavailable PROBLEMS Type Condition ICD9-CM Code SXD79-HT Code Onset Dates Condition Status SNOMED Code Problem Benign essential hypertension I10 Active 4883892 Problem Hypothyroidism E03.9 Active 24279879 Problem CVA (cerebral vascular accident) I63.9 Active 682276332 Problem Major depressive disorder with single episode, in full remission F32.5 Active 34692148 Problem Arthropathy, unspecified M12.9 Active 099376939 Problem Reactive depression F32.9 Active 37138830 Problem 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 Active 31550973 Problem Other insomnia G47.09 Active 283961242 Problem Allergy, subsequent encounter T78.40XD Active 381406684 Problem 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, unspecified hemiplegia type I69.353 Active 828619489 Problem 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 Active 041242763 Problem Alzheimers disease with late onset G30.1 Active 885162125 Problem Glaucoma of both eyes, unspecified glaucoma H40.9 Active 80091872 Problem Gastroesophageal reflux disease without esophagitis K21.9 Active 392276892 Problem Aphasia R47.01 Active 67813838 Problem CVA, old, 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 Active 442152996 ALLERGIES No Information ENCOUNTERS Encounter Location Date Diagnosis [facility] [id number], [place] [address] Dec, Arthropathy, unspecified M12.9 [facility] [id number], [place] [address] Dec, [facility] [id number], [place] [address] Nov, Arthropathy, unspecified M12.9 [facility] [address] [place] [id number] Nov, Major depressive disorder with single episode, in full remission F32.5 and CVA, old, 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 [facility] [id number] [place] [address] 20067- 7486 Nov, [facility] [id number] [place] [address] [id number]- 4806 Nov, Arthropathy, unspecified M12.9 [facility] [id number] [place] [address] 63056- 3556 Oct, [facility] [id number] [place] [address] 63189- 7996 Oct, Arthropathy, unspecified M12.9 [facility] [id number] [place] [address] 31896- 9476 September, [facility] [address] [place] [id number] September, Reactive airway disease that is not asthma R09.89 [facility] [address] [place] [id number] September, Benign essential hypertension I10 and CVA, old, 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 [facility] [address] [place] [address] 44778- 2206 September, [facility] [id number] [place] [address] 53679- 6926 September, Arthropathy, unspecified M12.9 [facility] [id number] [place] [address] 68105- 3016 Aug, [facility] [id number] [place] [address] 00904- 5606 Aug, [facility] [address] [place] [address] [id number]- 2377 Aug, Arthropathy, unspecified M12.9 [facility] [address] [place] [id number] Jul, Diarrhea, unspecified type R19.7 [facility] [id number] [place] [address] 33271- 6309 Jul, Arthropathy, unspecified M12.9 [facility] [id number] [place] [address] [id number] Jun, Arthropathy, unspecified M12.9 [facility] [id number] [place] [address] 76443- 5464 May, Arthropathy, unspecified M12.9 [facility] [id number] [place] [address] [id number] May, [facility] [address] [id number] May, Localized edema R60.0 [facility] [id number] [place] [address] [id number] May, [facility] [id number] [place] [address] 13428- 2465 Apr, Arthropathy, unspecified M12.9 [facility] [id number] [place] [address] 75944- 9044 Mar, Arthropathy, unspecified M12.9 [facility] [address] [place] [address] 74458- 4901 Feb, Reactive depression F32.9 and 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 [facility] [id number] [place] [address] 52976- 3764 Feb, Reactive depression F32.9 and Rash R21 [facility] [address] [address]- [address] Feb, Arthropathy, unspecified M12.9 [facility] [id number] [place] [address] 08304- 4135 Feb, [facility] [id number] [place] [address] 46530- 1800 Jan, Reactive depression F32.9 ; Other insomnia G47.09 and 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 [facility] [address] [place] [address] 04604- 1797 Jan, [facility] [id number] [place] [address] 94989- 7289 Jan, Arthropathy, unspecified M12.9 [facility] [id number] [place] [address] 11575- 6496 Jan, [facility] [id number] [place] [address] 22773- 3097 Dec, Arthropathy, unspecified M12.9 [facility] [address] [place] [id number] Dec, Skin tag L91.8 ; Wart of scalp B07.9 and Weight gain R63.5 [facility] [id number] [place] [address] [id number] Dec, [facility] [address] [place] [address] 44715- 9144 Dec, Reactive depression F32.9 [facility] [id number] [place] [address] [id number] Nov, Arthropathy, unspecified M12.9 [facility] [address], [place] [address] 8181 Oct, [facility] [address] [place] [address] 37836- 1447 Oct, Arthropathy, unspecified M12.9 [facility] [address] [id number] September, Reactive depression F32.9 and CVA (cerebral vascular accident) I63.9 [facility] [id number], [place] [address] 0710 September, Arthropathy, unspecified M12.9 [facility] [address], [place] [address]- 8517 September, [facility] [address] [place] [address] 51094- 5282 September, Arthropathy, unspecified M12.9 [facility] [address], [place] [address] 74[address] Aug, Arthropathy, unspecified M12.9 [facility] [id number] [place] [address] 24832- 5141 Aug, [facility] [id number] [place] [address] [id number] Aug, [facility] [id number] [place] [address] 41252- 7090 Jul, [facility] [id number] [place] [address] 46989- 5676 Jul, [facility] [id number] [place] [address] [id number] Jul, [facility] [address] [id number] Jun, Reactive depression F32.9 [facility] [id number] [place] [address] 51512 2546 Jun, Reactive depression F32.9 [facility] [id number] [place] [address] [id number] Jun, [facility] [address] [id number] Jun, Reactive depression F32.9 and Other insomnia G47.09 [facility] [address] [place] [address] 98096 2546 Jun, [facility] [address] [place] [address] 82325 2546 May, [facility] [id number] [id number] May, [facility] [address] [id number] Apr, CVA, old, 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 ; Allergy, subsequent encounter T78.40XD and Reactive depression F32.9 [facility] [id number] [place] [address] 37934 2546 Mar, [facility] [address] [id number] Feb, Benign essential hypertension I10 [facility] [id number] [place] [address] 48567- 3576 Feb, [facility] [id number] [place] [address] 98017- 5167 Feb, [facility] [id number] [place] [address] 30747- 1126 Feb, [facility] [id number] [place] [address] [id number]- 2218 Feb, [facility] [id number] [place] [address] 77937- 2475 Feb, [facility] [id number] [place] [address] 70470- 1075 Jan, [facility] [id number] [place] [address] 01849- 4946 Jan, [facility] [address] [id number] Jan, CVA, old, 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 and Benign essential hypertension I10 [facility] [id number] [place] [address] 99036- 7116 Dec, [facility] [address] [place] [address] 14879- 4776 Nov, [facility] [id number] [place] [address] 729485- 6252 Nov, [facility] [address] [place] [address] [id number]- 7585 Oct, [facility] [id number] [place] [address] 79480- 6710 Oct, [facility] [id number] [place] [address] 50774- 1567 Oct, 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 ; Benign essential hypertension I10 ; Reactive depression F32.9 and Urinary frequency R35.0 [facility] [id number] [place] [address] 27424- 5628 14 Aug, 2015 UTI (urinary tract infection) N39.0 [facility] [id number] [place] [address] 05367- 9681 Aug, 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 [facility] [id number] [place] [address] 78094- 6074 Jul, Benign essential hypertension I10 ; CVA, old, 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 and Hypothyroidism E03.9 [facility] [id number] [place] [address] 53296- 0941 Jun, [facility] [id number] [place] [address] 88549- 9443 Jun, Acute diarrhea R19.7 [facility] [id number] [place] [address] 21602- 0544 May, CVA (cerebral vascular accident) I63.9 [facility] [id number] [place] [address] 17559 2545 Apr, [facility] [id number] [place] [address] 94952 2548 Apr, [facility] [id number] [place] [address] 43908- 1952 Apr, [facility] [id number] [place] [address] 34540- 2549 Apr, [facility] [id number] [place] [address] 79361- 6765 Apr, CVA (cerebral vascular accident) I63.9 and Constipation K59.00 [facility] [id number] [place] [address] 42019- 2649 Apr, [facility] [id number] [place] [address] 92923- 2387 Mar, [facility] [id number] [place] [address] 64956- 1594 Mar, [facility] [address] 38039- 5211 Mar, [facility] [address] 64627- 1437 Mar, [facility] [id number] [place] [address] 14312- 1767 Feb, [facility] [address] 21875- 1342 Feb, CVA, old, 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 ; Allergic rhinitis J30.9 and Benign essential hypertension I10 [facility] [id number] [place] [address] 51893- 8820 Dec, CVA (cerebral vascular accident) 434.91 [facility] [id number] [place] [address] 61671- 1740 Dec, [facility] [id number] [place] [address] 51913- 2480 Oct, [facility] [id number] [place] [address] 60543- 2442 Oct, [facility] [id number] [place] [address] 46082- 8386 Oct, CVA (cerebral vascular accident) 434.91 [facility] [id number] [place] [address] 79104- 0515 Oct, [facility] [address] 08463- 1274 September, [facility] [address], [place] [address]- 3836 September, Allergic rhinitis 477.9 and Arthropathy 716.90 [facility] [address] [facility] [id number] [address]- 3099 Aug, [facility] [address] [place] [address] 55486- 6252 Aug, [facility] [address] [facility] [id number] [place] [address] 06626- 5769 Jun, [facility] [address] [place] [address] 08858- 2639 Jun, [facility] [address] [place] [id number] Jun, [facility] [address] [place] [address] 44630- 7520 Jun, [facility] [address], [place] [address]- 8112 Jun, [facility] [id number] [place] [address] 10873- 9871 Jun, [facility] [address], [place] [address]- 5563 Jun, [facility] [address], [place] [address]- 1609 May, [facility] [address], [place] [address]- 8263 May, [facility] [address], [place] [address]- 8519 May, [facility] [address] 1698 May, [facility] [id number], [place] [address]- 6003 Apr, [facility] [address] [id number] [place] [address]- 5702 Apr, [facility] [place] [facility] [address] [id number] [place] [address]- 2972 Apr, [facility] [address] [facility] [id number] Apr, [facility] [place] [facility] [address] [id number] [place] [address]- 4526 Apr, [facility] [place] [facility] [address] [id number] [place] [address]- 0524 Apr, [facility] [place] [facility] [address] [id number] [place] [address]- 7742 Apr, [facility] [place] [facility] [address] [id number] [place] [address]- 4955 Apr, [facility] [place] [facility] [address] [id number] [place] [address]- 4082 Apr, [facility] [place] [facility] [address] [id number] [place] [address]- 6720 Apr, [facility] [place] [facility] [address] [id number] [place] [address]- 1630 Apr, [facility] [place] [facility] [address] [id number] [place] [address]- 8403 Mar, [facility] [place] [facility] [address] [id number] [place] [address]- 3725 Mar, [facility] [place] [facility] [address] [id number] [place] [address]- 9028 Mar, [facility] [place] [facility] [address] [id number] [place] [address]- 1526 Mar, [facility] [place] [facility] [address] [id number] [place] [address]- 5756 17 Mar, 2014 [facility] [place] [facility] [address] [id number] [place] [address]- 9796 Mar, [facility] [place] [facility] [address] [id number] [place] [address]- 8957 Mar, [facility] [place] [facility] [address] [id number] [place] [address]- 3242 Mar, [facility] [place] [facility] [address] [id number] [place] [address]- 7822 Mar, [facility] [place] [facility] [address] [id number] [place] [address]- 2203 Mar, [facility] [place] [facility] [address] [id number] [place] [address]- 8308 Mar, [facility] [place] [facility] [address] [id number] [place] [address]- 3799 Mar, [facility] [place] [facility] [address] [id number] [place] [address]- 3953 Mar, [facility] [place] [facility] [address] [id number] [place] [address]- 6362 Feb, [facility] [place] [facility] [address] [id number] [place] [address]- 5142 31 Feb, 2014 [facility] [place] [facility] [address] [id number] [place] [address]- 5589 30 Feb, 2014 [facility] [place] [facility] [address] [id number], [place] [address]- 4727 30 Feb, 2014 [facility] [place] [facility] [address] [id number], [place] [address]- 8687 Feb, [facility] [place] [facility] [address] [id number] [place] [address]- 9629 28 Feb, 2014 [facility] [place] [facility] [address] [id number] [place] [address]- 0921 Feb, [facility] [place] [facility] [address] [id number] [place] [address]- 7790 10 Feb, 2014 [facility] [place] [facility] [address] [id number] [place] [address]- 3499 Jan, [facility] [place] [facility] [address] [id number] [place] [address]- 7530 Jan, [facility] [place] [facility] [address] [id number] [place] [address]- 3725 Dec, [facility] [place] [facility] [address] [id number] [place] [address]- 0294 Dec, [facility] [place] [facility] [address] [id number] [place] [address]- 0847 Dec, [facility] [place] [facility] [address] [id number] [place] [address]- 0729 Dec, [facility] [place] [facility] [address] [id number] [place] [address]- 3234 Nov, [facility] [place] [facility] [address] [id number] [place] [address]- 4450 Nov, [facility] [place] [facility] [address] [id number] [place] [address]- 4162 Nov, [facility] [place] [facility] [address] [id number] [place] [address]- 7242 Nov, [facility] [place] [facility] [address] [id number] [place] [address]- 8436 Nov, [facility] [place] [facility] [address] [id number] [place] [address]- 8321 Nov, [facility] [place] [facility] [address] [id number] [place] [address]- 1654 Nov, [facility] [place] [facility] [address] [id number] [place] [address]- 1706 Oct, [facility] [place] [facility] [address] [id number] [place] [address]- 7425 Oct, [facility] [place] [facility] [address] [id number] [place] [address]- 5623 Oct, [facility] [place] [facility] [address] [id number] [place] [address]- 2485 Oct, [facility] [place] [facility] [address] [id number] [place] [address]- 8196 Oct, [facility] [place] [facility] [address] [id number] [place] [address]- 8980 Oct, [facility] [place] [facility] [address] [id number] [place] [address]- 4396 September, [facility] [place] [facility] [address] [id number] [place] [address]- 2535 September, [facility] [place] [facility] [address] [id number] [place] [address]- 4309 September, [facility] [place] [facility] [address] [id number] [place] [address]- 0604 September, [facility] [place] [facility] [address] [id number] [place] [address]- 6319 September, [facility] [place] [facility] [address] [id number] [place] [address]- 5458 September, [facility] [place] [facility] [address] [id number] [place] [address]- 2656 September, [facility] [place] [facility] [address] [id number] [place] [address]- 0118 September, [facility] [place] [facility] [address] [id number], [place] [address]- 2265 September, [facility] [place] [facility] [address] [id number] [place] [address]- 7786 Aug, [facility] [place] [facility] [address] [id number] [place] [address]- 0714 Jun, [facility] [place] [facility] [address] [id number] [place] [address]- 7665 Jun, [facility] [place] [facility] [address] [id number], [place] [address]- 6285 May, [facility] [address] [id number] [place] [address]- 1167 Mar, [facility] [address] [id number], [place] [address] Mar, [facility] [address] [id number] [place] [address] Oct, [facility] [address] [id number] [place] [address] September, [facility] [address] [id number] [place] [address] September, [facility] [address] [id number] [place] [address] Aug, [facility] [address] [id number], [place] [address] Jul, [facility] [address] [id number] [place] [address] May, [facility] [address] [id number] [address] May, [facility] [address] [id number] [address] May, [facility] [address] [id number], [place] [address] Feb, [facility] [address] [id number], [place] [address] Feb, [facility] [address] [id number] [place] [address] Feb, [facility] [address] [facility] [id number] [place] [address] Feb, [facility] [address] [id number] [address] Feb, [facility] [address] [id number] [place] [id number] Feb, [facility] [address] [id number] [place] [address] Feb, [facility] [address] [id number] [place] [address] Feb, [facility] [address] [id number] [place] [address] Feb, [facility] [address] [id number] [place] [address] Jan, [facility] [address] [id number] [place] [address] Dec, [facility] [address] [id number] [place] [address] Dec, [facility] [address] [id number] [place] [address] Dec, [facility] [address] [id number] [place] [address] Nov, [facility] [address] [id number] [place] [address] Nov, [facility] [address] [id number] [place] [address] Oct, [facility] [place] [facility] [address] [id number] [place] [address] September, [facility] [address] [id number] [place] [address] Aug, [facility] [place] [facility] [address] [id number] [place] [address] Aug, [facility] [place] [facility] [address] [id number] [place] [address] Jul, [facility] [place] [facility] [address] [id number] [place] [address] Jul, [facility] [address] [facility] [id number] [place] [address] Jul, [facility] [address] [facility] [id number], [place] [address] Jun, [facility] [address] [facility] [id number], [place] [address] Jun, IMMUNIZATIONS No Known Immunizations SOCIAL HISTORY [...]
--- OUTSIDE RECORDS SUMMARY | 2018-02-05 08:23 | XMS REPORT ---
Author Author RENETTA ELIZONDO Organization [facility] Address [address] [place] [address] Care Team Providers Care Operating Room Specialist Name Role Phone RENETTA ELIZONDO Unavailable PROBLEMS Type Condition ICD9-CM Code NLL04-KJ Code Onset Dates Condition Status SNOMED Code Problem Benign essential hypertension I10 Active 2626258 Problem Hypothyroidism E03.9 Active 03705070 Problem CVA (cerebral vascular accident) I63.9 Active 397209137 Problem Major depressive disorder with single episode, in full remission F32.5 Active 52729065 Problem Arthropathy, unspecified M12.9 Active 994471788 Problem Reactive depression F32.9 Active 91579990 Problem 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 Active 37667665 Problem Other insomnia G47.09 Active 130148747 Problem Allergy, subsequent encounter T78.40XD Active 233895850 Problem 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, unspecified hemiplegia type I69.353 Active 153572573 Problem 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 Active 383414711 Problem Alzheimers disease with late onset G30.1 Active 271538531 Problem Glaucoma of both eyes, unspecified glaucoma H40.9 Active 78257559 Problem Gastroesophageal reflux disease without esophagitis K21.9 Active 394497540 Problem Aphasia R47.01 Active 37026602 Problem CVA, old, 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 Active 775100581 ALLERGIES No Information ENCOUNTERS Encounter Location Date Diagnosis [facility] [id number] [address] Dec, Arthropathy, unspecified M12.9 [facility] [id number] [address] Dec, [facility] [id number] [address] Nov, Arthropathy, unspecified M12.9 [facility] [address] [place] [id number] Nov, Major depressive disorder with single episode, in full remission F32.5 and CVA, old, 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 [facility] [id number] [place] [address] 01175- 4542 Nov, [facility] [id number] [place] [address] 83709- 1578 Nov, Arthropathy, unspecified M12.9 [facility] [id number] [place] [address] 27652- 1867 Oct, [facility] [id number] [place] [address] 46619- 5741 Oct, Arthropathy, unspecified M12.9 [facility] [id number] [place] [address] 83087- 3720 September, [facility] [address] [id number] September, Reactive airway disease that is not asthma R09.89 [facility] [address] [place] [id number] September, Benign essential hypertension I10 and CVA, old, 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 [facility] [id number] [place] [address] 56108- 0735 September, [facility] [id number] [place] [address] 39510- 6709 September, Arthropathy, unspecified M12.9 [facility] [id number] [place] [address] 97735- 6268 Aug, [facility] [id number] [place] [address] 50811- 6697 Aug, [facility] [id number] [place] [address] 79766- 6034 Aug, Arthropathy, unspecified M12.9 [facility] [address] [place] [id number] Jul, Diarrhea, unspecified type R19.7 [facility] [id number] [place] [address] 48946- 5468 Jul, Arthropathy, unspecified M12.9 [facility] [id number] [place] [address] [id number] Jun, Arthropathy, unspecified M12.9 [facility] [id number] [place] [address] 64797- 3614 May, Arthropathy, unspecified M12.9 [facility] [id number] [place] [address] [id number] May, [facility] [address] [place] [id number] May, Localized edema R60.0 [facility] [id number] [place] [address] [id number] May, [facility] [id number] [place] [address] 80165- 4236 Apr, Arthropathy, unspecified M12.9 [facility] [id number] [place] [address] 81474- 4544 Mar, Arthropathy, unspecified M12.9 [facility] [id number] [place] [address] 48716- 8657 Feb, Reactive depression F32.9 and 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 [facility] [id number] [place] [address] 37085- 3993 Feb, Reactive depression F32.9 and Rash R21 [facility] [address] [address]- 8328 Feb, Arthropathy, unspecified M12.9 [facility] [id number] [place] [address] 41664- 4639 Feb, [facility] [address] [address]- 0044 Jan, Reactive depression F32.9 ; Other insomnia G47.09 and 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 [facility] [id number] [place] [address] 51813- 8728 Jan, [facility] [address] [place] [address] 71678- 2602 Jan, Arthropathy, unspecified M12.9 [facility] [id number] [place] [address] 74064- 9268 Jan, [facility] [id number] [place] [address] 80805- 3170 Dec, Arthropathy, unspecified M12.9 [facility] [address] [place] [id number] Dec, Skin tag L91.8 ; Wart of scalp B07.9 and Weight gain R63.5 [facility] [id number] [place] [address] [id number] Dec, [facility] [address] [place] [address] 45543- 0728 Dec, Reactive depression F32.9 [facility] [id number] [place] [address] [id number] Nov, Arthropathy, unspecified M12.9 [facility] [address], [place] [address] 5919 Oct, [facility] [address] [place] [address] 47149- 8121 Oct, Arthropathy, unspecified M12.9 [facility] [address] [place] [id number] September, Reactive depression F32.9 and CVA (cerebral vascular accident) I63.9 [facility] [address], [place] [address] 3418 September, Arthropathy, unspecified M12.9 [facility] [id number] [address] September, [facility] [address], [place] [address]- 4745 September, Arthropathy, unspecified M12.9 [facility] [address], [place] [address] 2008 Aug, Arthropathy, unspecified M12.9 [facility] [address] [place] [address] 19453- 0684 Aug, [facility] [id number] [place] [address] [phone] Aug, [facility] [address] [place] [address] 22170- 4057 Jul, [facility] [address] [place] [address] 06852- 8216 Jul, [facility] [id number] [place] [address] [id number] Jul, [facility] [address] [place] [id number] Jun, Reactive depression F32.9 [facility] [id number] [place] [address] 86942- 8556 Jun, Reactive depression F32.9 [facility] [id number] [address] Jun, [facility] [address] [place] [address] Jun, Reactive depression F32.9 and Other insomnia G47.09 [facility] [address], [place] [address]- 7736 Jun, [facility] [address] [place] [address] 93770- 4656 May, [facility] [address] [id number] May, [facility] [address] [place] [address] Apr, CVA, old, 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 ; Allergy, subsequent encounter T78.40XD and Reactive depression F32.9 [facility] [id number] [place] [address] 57692 2546 Mar, [facility] [address] [place] [id number] Feb, Benign essential hypertension I10 [facility] [address] 79590- 0926 Feb, [facility] [id number] [place] [address] 42124- 6466 Feb, [facility] [id number] [place] [address] 38368- 6806 Feb, [facility] [id number] [place] [address] 72541- 6006 Feb, [facility] [id number] [place] [address] 49805- 1326 Feb, [facility] [id number] [place] [address] 43141- 7246 Jan, [facility] [id number] [place] [address] 90557- 6456 Jan, [facility] [address] [place] [id number] Jan, CVA, old, 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 and Benign essential hypertension I10 [facility] [id number] [place] [address] 94669- 7566 Dec, [facility] [id number] [place] [address] 14127- 1126 Nov, [facility] [id number] [place] [address] 57364- 2636 Nov, [facility] [id number] [place] [address] 38951- 1946 Oct, [facility] [address] [place] [address]- 4444 Oct, [facility] [id number] [place] [address] 15274- 3590 Oct, 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 ; Benign essential hypertension I10 ; Reactive depression F32.9 and Urinary frequency R35.0 [facility] [id number] [place] [address] 60852- 5736 14 Aug, 2015 UTI (urinary tract infection) N39.0 [facility] [id number] [place] [address] 05539 2540 07 Aug, 2015 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 [facility] [id number] [place] [address] 65589- 6526 Jul, Benign essential hypertension I10 ; CVA, old, 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 and Hypothyroidism E03.9 [facility] [id number] [place] [address] 24929- 8796 Jun, [facility] [id number] [place] [address] 67830- 2985 Jun, Acute diarrhea R19.7 [facility] [id number] [place] [address] 30991- 7982 May, CVA (cerebral vascular accident) I63.9 [facility] [id number] [place] [address] 54468- 0796 Apr, [facility] [id number] [place] [address] 21267 2546 Apr, [facility] [id number] [place] [address] 57726- 1846 Apr, [facility] [id number] [place] [address] 88298- 5856 Apr, [facility] [address] [place] [address] 05438- 6395 Apr, CVA (cerebral vascular accident) I63.9 and Constipation K59.00 [facility] [id number] [place] [address] 26935- 2476 Apr, [facility] [id number] [place] [address] 47051- 9835 Mar, [facility] [id number] [place] [address] 44776- 4826 Mar, [facility] [id number] [place] [address] 66267- 9565 Mar, [facility] [id number] [place] [address] 93917- 5888 Mar, [facility] [id number] [place] [address] 04985- 2821 Feb, [facility] [id number] [place] [address] 83790- 5429 Feb, CVA, old, 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 ; Allergic rhinitis J30.9 and Benign essential hypertension I10 [facility] [id number] [place] [address] 75401- 0706 Dec, CVA (cerebral vascular accident) 434.91 [facility] [id number] [place] [address] 08043- 9396 Dec, [facility] [id number] [place] [address] 52734- 9669 Oct, [facility] [id number] [place] [address] 58369- 8177 Oct, [facility] [id number] [place] [address] 56019- 4414 Oct, CVA (cerebral vascular accident) 434.91 [facility] [id number] [place] [address] 44157- 9497 Oct, [facility] [id number] [place] [address] 24462- 7171 September, [facility] [id number], [place] [address]- 5954 September, Allergic rhinitis 477.9 and Arthropathy 716.90 [facility] [address] [facility] [id number] [address]- 8600 Aug, [facility] [address], [place] [address]- 0104 Aug, [facility] [address] [facility] [id number] [address]- 6982 Jun, [facility] [address], [place] [address]- 8840 Jun, [facility] [address] [place] [id number] Jun, [facility] [address] [address]- 1670 Jun, [facility] [address] [address]- 4136 Jun, [facility] [address] [address]- 6674 Jun, [facility] [address], [place] [address]- 8102 Jun, [facility] [id number], [place] [address]- 6285 May, [facility] [id number] [address]- 1831 May, [facility] [id number], [place] [address]- 7933 May, [facility] [id number], [place] [address]- 7260 May, [facility] [id number] [address]- 7191 Apr, [facility] [place] [facility] [address] [id number] [place] [address]- 0759 Apr, [facility] [address] [id number] [place] [address]- 3513 Apr, [facility] [address] [facility] [id number] Apr, [facility] [address] [id number] [place] [address]- 7740 Apr, [facility] [place] [facility] [address] [id number] [place] [address]- 3501 Apr, [facility] [place] [facility] [address] [id number] [place] [address]- 8689 Apr, [facility] [place] [facility] [address] [id number] [place] [address]- 5423 Apr, [facility] [place] [facility] [address] [id number] [place] [address]- 1612 Apr, [facility] [place] [facility] [address] [id number] [place] [address]- 2717 Apr, [facility] [place] [facility] [address] [id number] [place] [address]- 0953 Apr, [facility] [place] [facility] [address] [id number] [place] [address]- 4223 Mar, [facility] [place] [facility] [address] [id number] [place] [address]- 2558 Mar, [facility] [place] [facility] [address] [id number] [place] [address]- 1211 Mar, [facility] [place] [facility] [address] [id number] [place] [address]- 3222 Mar, [facility] [place] [facility] [address] [id number] [place] [address]- 1443 Mar, [facility] [place] [facility] [address] [id number] [place] [address]- 4192 Mar, [facility] [place] [facility] [address] [id number] [place] [address]- 6961 Mar, [facility] [place] [facility] [address] [id number] [place] [address]- 5146 Mar, [facility] [place] [facility] [address] [id number] [place] [address]- 5605 Mar, [facility] [place] [facility] [address] [id number] [place] [address]- 5608 Mar, [facility] [place] [facility] [address] [id number] [place] [address]- 3593 Mar, [facility] [place] [facility] [address] [id number] [place] [address]- 9096 Mar, [facility] [place] [facility] [address] [id number] [place] [address]- 5617 Mar, [facility] [place] [facility] [address] [id number] [place] [address]- 3014 Feb, [facility] [place] [facility] [address] [id number] [place] [address]- 0806 Feb, [facility] [place] [facility] [address] [id number] [place] [address]- 3097 Feb, [facility] [place] [facility] [address] [id number] [place] [address]- 8850 30 Feb, 2014 [facility] [place] [facility] [address] [id number] [address]- 2268 Feb, [facility] [place] [facility] [address] [id number] [place] [address]- 6754 Feb, [facility] [place] [facility] [address] [id number] [place] [address]- 5182 Feb, [facility] [place] [facility] [address] [id number] [place] [address]- 9777 Feb, [facility] [place] [facility] [address] [id number] [place] [address]- 1227 Jan, [facility] [place] [facility] [address] [id number] [place] [address]- 7700 Jan, [facility] [place] [facility] [address] [id number] [place] [address]- 8234 Dec, [facility] [place] [facility] [address] [id number] [place] [address]- 7269 Dec, [facility] [place] [facility] [address] [id number] [place] [address]- 3541 Dec, [facility] [place] [facility] [address] [id number] [place] [address]- 2297 Dec, [facility] [place] [facility] [address] [id number] [place] [address]- 2090 Nov, [facility] [place] [facility] [address] [id number] [place] [address]- 4360 Nov, [facility] [place] [facility] [address] [id number] [place] [address]- 7026 Nov, [facility] [place] [facility] [address] [id number] [place] [address]- 2169 Nov, [facility] [place] [facility] [address] [id number] [place] [address]- 2241 Nov, [facility] [place] [facility] [address] [id number] [place] [address]- 0117 Nov, [facility] [place] [facility] [address] [id number] [place] [address]- 7832 Nov, [facility] [place] [facility] [address] [id number] [place] [address]- 7160 Oct, [facility] [place] [facility] [address] [id number] [place] [address]- 6807 Oct, [facility] [place] [facility] [address] [id number] [place] [address]- 7813 Oct, [facility] [place] [facility] [address] [id number] [place] [address]- 9879 Oct, [facility] [place] [facility] [address] [id number] [place] [address]- 1703 Oct, [facility] [place] [facility] [address] [id number] [place] 6533 Oct, [facility] [place] [facility] [address] [id number] [place] [address]- 2288 September, [facility] [place] [facility] [address] [id number] [place] [address]- 7891 September, [facility] [place] [facility] [address] [id number] [place] [address]- 8085 September, [facility] [place] [facility] [address] [id number] [place] [address]- 0752 September, [facility] [place] [facility] [address] [id number] [place] [address]- 3303 September, [facility] [place] [facility] [address] [id number] [place] [address]- 1583 September, [facility] [place] [facility] [address] [id number] [place] [address]- 2746 September, [facility] [place] [facility] [address] [id number] [place] [address]- 9765 September, [facility] [place] [facility] [address] [id number] [place] [address]- 6441 September, [facility] [place] [facility] [address] [id number] [place] [address]- 8988 Aug, [facility] [place] [facility] [address] [id number] [place] [address]- 9171 Jun, [facility] [place] [facility] [address] [id number] [place] [address]- 8687 Jun, [facility] [place] [facility] [address] [id number], [place] [address]- 2546 May, [facility] [address] [id number] [place] [address]- 8517 Mar, [facility] [address] [id number] [place] [address] Mar, [facility] [address] [id number] [place] [address] Oct, [facility] [address] [id number] [place] [address] September, [facility] [address] [id number] [place] [address] September, [facility] [address] [id number] [place] [address] Aug, [facility] [address] [id number] [place] [address] Jul, [facility] [address] [id number] [place] [address] May, [facility] [address] [id number] [place] [address] May, [facility] [address] [id number] [place] [address] May, [facility] [address] [id number], [place] [address] Feb, [facility] [address] [id number], [place] [address] Feb, [facility] [address] [id number] [place] [address] Feb, [facility] [address] [facility] [id number] [place] [address] Feb, [facility] [address] [facility] [id number] [place] [address] Feb, [facility] [address] [id number][place] [id number] Feb, [facility] [address] [id number] [place] [address] Feb, [facility] [place] [facility] [address] [id number] [place] [address] Feb, [facility] [place] [facility] [address] [id number] [place] [address] Feb, [facility] [place] [facility] [address] [id number] [place] [address] Jan, [facility] [place] [facility] [address] [id number] [place] [address] Dec, [facility] [place] [facility] [address] [id number] [place] [address] Dec, [facility] [place] [facility] [address] [id number] [place] [address] Dec, [facility] [place] [facility] [address] [id number] [place] [address] Nov, [facility] [place] [facility] [address] [id number] [place] [address] Nov, [facility] [place] [facility] [address] [id number] [place] [address] Oct, [facility] [place] [facility] [address] [id number] [place] [address] September, [facility] [place] [facility] [address] [id number] [place] [address] Aug, [facility] [place] [facility] [address] [id number] [place] [address] Aug, [facility] [place] [facility] [address] [facility] [id number] [place] [address] Jul, [facility] [place] [facility] [address] [id number], [place] [address] Jul, [facility] [address] [facility] [id number] [place] [id number] Jul, [facility] [address] [facility] [id number], [place] [address] 17 Jun, 2011 [facility] [address] [facility] [id number] [place] [address] 16 Jun, 2011 IMMUNIZATIONS No Known Immunizations SOCIAL HISTORY Never Assessed REASON FOR VISIT Requests return call PLAN OF CARE VITAL SIGNS MEDICATIONS Unknown Medications RESULTS No Results PROCEDURES No Known procedures INSTRUCTIONS MEDICATIONS ADMINISTERED No Known Medications
--- OUTSIDE RECORDS SUMMARY | 2018-02-05 08:24 | XMS REPORT ---
Author Author MAXIMO SMALL [facility] Address [address] [place] [address] Care Team Providers Care Health Actuary Name Role Phone MAXIMO SMALL Unavailable PROBLEMS Type Condition ICD9-CM Code [id number] Code Onset Dates Condition Status SNOMED Code Problem Benign essential hypertension I10 Active 1672242 Problem Hypothyroidism E03.9 Active 39623510 Problem CVA (cerebral vascular accident) I63.9 Active 089195705 Problem Major depressive disorder with single episode, in full remission F32.5 Active 61518852 Problem Arthropathy, unspecified M12.9 Active 402585495 Problem Reactive depression F32.9 Active 70315859 Problem 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 Active 42069740 Problem Other insomnia G47.09 Active 661533567 Problem Allergy, subsequent encounter T78.40XD Active 024622247 Problem 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, unspecified hemiplegia type I69.353 Active 052897561 Problem 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 Active 705441306 Problem Alzheimers disease with late onset G30.1 Active 176904151 Problem Glaucoma of both eyes, unspecified glaucoma H40.9 Active 05292838 Problem Gastroesophageal reflux disease without esophagitis K21.9 Active 948469779 Problem Aphasia R47.01 Active 24662947 Problem CVA, old, 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 Active [id number] ALLERGIES No Information ENCOUNTERS Encounter Location Date Diagnosis [facility] [place] [address] [facility] [id number] [address] Dec, [facility] [place] [address] [facility] [id number] [id number] Nov, Arthropathy, unspecified M12.9 [email or web address] [address] [place] [id number] Nov, Major depressive disorder with single episode, in full remission F32.5 and CVA, old, 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 [facility] [place] [id number] [place] [address] 92205- 0900 Nov, [facility] [place] [id number] [place] [address] 14614- 2355 Nov, Arthropathy, unspecified M12.9 [facility] [place] [address] [address]- 3906 Oct, [place] [id number] [place] [address] 31997- 7163 Oct, Arthropathy, unspecified M12.9 [place] [id number] [place] [address] 08398- 8655 September, [employer] [address] [place] [id number] September, Reactive airway disease that is not asthma R09.89 [facility] [address] [place] [id number] September, Benign essential hypertension I10 and CVA, old, 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 [place] [id number] [place] [address] 57119- 5242 September, [place] [id number] [place] [address] 18854- 2074 September, Arthropathy, unspecified M12.9 [place] [facility] [id number] [place] [address] 94549- 8966 Aug, [place] [id number] [place] [address] 00533- 3820 Aug, [facility] [place] [id number] [place] [address] 63314- 8767 Aug, Arthropathy, unspecified M12.9 [facility] [address] [place] [id number] Jul, Diarrhea, unspecified type R19.7 [place] [id number] [place] [address] 312751- 5436 Jul, Arthropathy, unspecified M12.9 [facility] [id number] [id number] Jun, Arthropathy, unspecified M12.9 [facility] [place] [address]005[address], [place] [address] 67[address] May, Arthropathy, unspecified M12.9 [facility] [id number] [place] [address] [id number] May, [facility] [address] [place] [id number] May, Localized edema R60.0 [facility] [id number] [place] [address] [id number] May, [facility] [place] [address] [place] [address] 18149- 0228 Apr, Arthropathy, unspecified M12.9 [facility] [place] [id number] [place] [address] 10602- 1864 Mar, Arthropathy, unspecified M12.9 [facility] [place] [address] [place] [address] 12319- 6012 Feb, Reactive depression F32.9 and 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 [facility] [place] [address] [place] [address] 82457- 4858 Feb, Reactive depression F32.9 and Rash R21 [facility] [place] [address]00565[address], [place] [address] 5115 Feb, Arthropathy, unspecified M12.9 [facility] [place] [id number] [place] [address] 42730- 2387 Feb, [facility] [place] [address], [place] [address] 69[address] Jan, Reactive depression F32.9 ; Other insomnia G47.09 and 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 [facility] [place] [id number] [place] [address] 32539- 1732 Jan, [facility] [place] [id number] [place] [address] 61328- 9164 Jan, Arthropathy, unspecified M12.9 [facility] [place] [id number] [place] [address] 13806- 4723 Jan, [facility] [place] [id number] [place] [address] 81759- 4710 Dec, Arthropathy, unspecified M12.9 [facility] [address] [place] [id number] Dec, Skin tag L91.8 ; Wart of scalp B07.9 and Weight gain R63.5 [facility] [id number] [place] [id number] Dec, [facility] [place] [id number] [place] [address] 09242- 6050 Dec, Reactive depression F32.9 [facility] [id number] [place] [address] [id number] Nov, Arthropathy, unspecified M12.9 [facility] [place] [id number] [place] [address] 26236- 7261 Oct, [facility] [place] [address] [place] [address] 80102- 3708 Oct, Arthropathy, unspecified M12.9 [facility] [address] [place] [id number] September, Reactive depression F32.9 and CVA (cerebral vascular accident) I63.9 [facility] [place] [id number] [place] [address] 24550- 2786 September, Arthropathy, unspecified M12.9 [facility] [place] [address] [place] [address] 80128- 0149 September, [facility] [place] [id number] [place] [address] 79317- 3916 September, Arthropathy, unspecified M12.9 [facility] [place] [address] [place] [address] 48906- 2156 Aug, Arthropathy, unspecified M12.9 [facility] [place] [address] [place] [address] 64189- 3676 Aug, [facility] [id number] [place] [address] [id number] Aug, [facility] [place] [address] [place] [address] 88705- 0322 Jul, [facility] [place] [id number] [place] [address] 90115- 5796 Jul, [facility] [id number] [place] [address] [id number] Jul, [facility] [address] [place] [id number] Jun, Reactive depression F32.9 [facility] [place] [address] [place] [address] 64658- 1018 Jun, Reactive depression F32.9 [facility] [id number] [place] [address] [id number] Jun, [facility] [address] [place] [id number] Jun, Reactive depression F32.9 and Other insomnia G47.09 [facility] [place] [address] [place] [address] 45737- 2136 Jun, [facility] [place] [id number] [place] [address] 56761- 6259 May, [facility] [id number] [place] [address] [id number] May, [facility] [address] [place] [id number] Apr, CVA, old, 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 ; Allergy, subsequent encounter T78.40XD and Reactive depression F32.9 [facility] [place] [address] [facility] [id number], [place] [address] 5156 Mar, [facility] [address] [place] [id number] Feb, Benign essential hypertension I10 [facility] [place] [address] [facility] [id number], [place] [address]- 6296 Feb, [facility] [place] [address] [facility] [id number] [place] [address] 42691- 7296 Feb, [facility] [place] [address] [facility] [id number] [place] [address] 53040- 2376 Feb, [facility] [place] [id number] [place] [address] 14861- 0426 Feb, [facility] [place] [id number] [place] [address] 26766- 3906 Feb, [facility] [place] [id number] [place] [address] 17363- 9286 Jan, [facility] [place] [address], [place] [address]- 9316 Jan, [facility] [address] [place] [id number] Jan, CVA, old, 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 and Benign essential hypertension I10 [facility] [place] [address], [place] [address] 2546 Dec, [facility] [place] [address], [place] [address]- 4856 Nov, [facility] [place] [id number], [place] [address]- 2204 Nov, [facility] [place] [address], [place] [address]- 8246 Oct, [facility] [place] [address], [place] [address] 2546 Oct, [facility] [place] [id number] [place] [address] 20563- 0498 Oct, 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 ; Benign essential hypertension I10 ; Reactive depression F32.9 and Urinary frequency R35.0 [facility] [place] [id number] [place] [address] 89869- 6635 14 Aug, 2015 UTI (urinary tract infection) N39.0 [facility] [place] [id number] [place] [address] 93047- 2977 07 Aug, 2015 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 [facility] [place] [id number] [place] [address] 75880- 7604 Jul, Benign essential hypertension I10 ; CVA, old, 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 and Hypothyroidism E03.9 [facility] [place] [id number] [place] [address] 73964- 5929 Jun, [facility] [place] [address] 70652- 0101 Jun, Acute diarrhea R19.7 [facility] [place] [id number] [place] [address] 72913- 4128 May, CVA (cerebral vascular accident) I63.9 [facility] [place] [id number] [place] [address] 58843- 7006 16 Apr, 2015 [facility] [place] [id number] [place] [address] 25104- 6455 Apr, [facility] [place] [id number] [place] [address] 02789 254 15 Apr, 2015 [facility] [place] [id number] [place] [address] 79962- 0742 04 Apr, 2015 [facility] [place] [id number] [place] [address] 27101 2545 03 Apr, 2015 CVA (cerebral vascular accident) I63.9 and Constipation K59.00 [facility] [place] [address] 44035- 0535 Apr, [facility] [place] [address], [place] [address]- 8499 Mar, [facility] [place] [id number] [place] [address] 883477- 3328 Mar, [facility] [place] [id number] [place] [address] 612090- 6018 Mar, [facility] [place] [id number] [place] [address] 103782- 2341 Mar, [facility] [place] [id number] [place] [address] 601462- 9131 Feb, [facility] [place] [id number] [place] [address] 539697- 9476 Feb, CVA, old, 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 ; Allergic rhinitis J30.9 and Benign essential hypertension I10 [facility] [place] [id number] [place] [address] 74474- 4169 Dec, CVA (cerebral vascular accident) 434.91 [facility] [place] [id number] [place] [address] 62483- 4249 Dec, [facility] [place] [id number] [place] [address] 09244- 0555 Oct, [facility] [place] [id number] [place] [address] 77263- 3127 Oct, [facility] [place] [id number] [place] [address] 42508- 3005 Oct, CVA (cerebral vascular accident) 434.91 [facility] [place] [address] [place] [address] 476159- 5456 Oct, [facility] [place] [id number] [place] [address] 79599- 2372 September, [facility] [place] [address] [place] [address] 75840- 4997 September, Allergic rhinitis 477.9 and Arthropathy 716.90 [facility] [address], [place] [address]- 6119 Aug, [facility] [address], [place] [address]- 3292 Aug, [facility] [address], [place] [address]- 3017 Jun, [facility] [address], [place] [address]- 5143 Jun, [facility] [address] [place] [id number] Jun, [facility] [address], [place] [address]- 2486 Jun, [facility] [place] [address], [place] [address]- 4627 Jun, [facility] [address], [place] [address]- 8505 Jun, [facility] [address], [place] [address]- 8891 Jun, [facility] [address], [place] [address]- 0177 May, [facility] [address], [place] [address]- 3422 May, [facility] [id number], [place] [address]- 7959 May, [facility] [address], [place] [address]- 3493 May, [facility] [address], [place] [address]- 5855 Apr, [facility] [id number], [place] [address]- 6894 Apr, [facility] [address] [id number] [place] [address]- 7600 18 Apr, 2014 [facility] [address] [facility] [id number] Apr, [facility] [address] [id number] [place] [address]- 8824 Apr, [facility] [address] [id number] [place] [address]- 5753 Apr, [facility] [place] [facility] [address] [id number] [place] [address]- 7742 Apr, [facility] [place] [facility] [address] [id number] [place] [address]- 9525 Apr, [facility] [place] [facility] [address] [id number] [place] [address]- 8986 Apr, [facility] [place] [facility] [address] [id number] [place] [address]- 3045 Apr, [facility] [place] [facility] [address] [id number] [place] [address]- 2401 Apr, [facility] [place] [facility] [address] [id number] [place] [address]- 8910 Mar, [facility] [place] [facility] [address] [id number] [place] [address]- 4862 Mar, [facility] [place] [facility] [address] [id number] [place] [address]- 4826 Mar, [facility] [place] [facility] [address] [id number] [place] [address]- 9247 Mar, [facility] [place] [facility] [address] [id number] [place] [address]- 5143 Mar, [facility] [place] [facility] [address] [id number] [place] [address]- 7571 Mar, [facility] [place] [facility] [address] [id number] [place] [address]- 9081 Mar, [facility] [place] [facility] [address] [id number] [place] [address]- 1362 Mar, [facility] [place] [facility] [address] [id number] [place]- 0998 Mar, [facility] [place] [facility] [address] [id number] [place] [address]- 9481 Mar, [facility] [place] [facility] [address] [id number] [place] [address]- 2649 Mar, [facility] [place] [facility] [address] [id number] [place] [address]- 1711 Mar, [facility] [place] [facility] [address] [id number] [place] [address]- 8217 Mar, [facility] [place] [facility] [address] [id number] [place] [address]- 1712 Feb, [facility] [place] [facility] [address] [id number] [place] [address]- 3536 Feb, [facility] [place] [facility] [address] [id number] [place] [address]- 0287 Feb, [facility] [place] [facility] [address] [id number] [place] [address]- 1108 30 Feb, 2014 [facility] [place] [facility] [address] [id number] [place] [address]- 6556 Feb, [facility] [place] [facility] [address] [id number] [place] [address]- 9727 28 Feb, 2014 [facility] [place] [facility] [address] [id number] [place] [address]- 9616 Feb, [facility] [place] [facility] [address] [id number] [place] [address]- 6951 10 Feb, 2014 [facility] [place] [facility] [address] [id number] [place]- 3436 11 Jan, 2014 [facility] [place] [facility] [address] [id number] [place] [address]- 6308 Jan, [facility] [place] [facility] [address] [id number] [place] [address]- 8315 Dec, [facility] [place] [facility] [address] [id number] [place] [address]- 8469 Dec, [facility] [place] [facility] [address] [id number] [place] [address]- 7272 Dec, [facility] [place] [facility] [address] [id number] [place] [address]- 6347 Dec, [facility] [place] [facility] [address] [id number] [place] [address]- 3117 Nov, [facility] [place] [facility] [address] [id number] [place] [address] Nov, [facility] [place] [facility] [address] [id number] [place] [address] Nov, [facility] [place] [facility] [address] [id number] [place] [address] Nov, [facility] [place] [facility] [address] [id number] [place] [address] Nov, [facility] [place] [facility] [address] [id number] [place] [address] Nov, [facility] [place] [facility] [address] [id number] [place] [address] Nov, [facility] [place] [facility] [address] [id number] [place] [address] Oct, [facility] [place] [facility] [address] [id number] [place] [address] Oct, [facility] [place] [facility] [address] [id number] [place] [address] Oct, [facility] [place] [facility] [address] [id number] [place] [address] Oct, [facility] [place] [facility] [address] [id number] [place] [address] Oct, [facility] [address] [id number] [place] [address] Oct, [facility] [place] [facility] [address] [id number] [place] [address] September, [facility] [address] [id number] [place] [address] September, [facility] [place] [facility] [address] [id number] [place] [address] September, [facility] [address] [id number] [place] [address] September, [facility] [address] [id number] [place] [address] September, [facility] [address] [id number] [place] [address] September, [facility] [address] [id number] [place] [address] September, [facility] [place] [facility] [address] [id number] [place] [address] September, [facility] [address] [id number] [place] [address] September, [facility] [place] [facility] [address] [id number] [place] [address] Aug, [facility] [place] [facility] [address] [id number] [place] [address] Jun, [facility] [place] [facility] [address] [id number] [place] [address] Jun, [facility] [place] [facility] [address] [id number] [place] [id number] May, [facility] [place] [facility] [address] [id number] [place] [address] Mar, [facility] [address] [id number], [place] [address] Mar, [facility] [address] [id number], [place] [address] Oct, [facility] [address] [id number], [place] [address] September, [facility] [address] [id number], [place] [address] September, [facility] [address] [id number] [place] [address] Aug, [facility] [address] [id number], [place] [address] Jul, [facility] [address] [id number], [place] [address] May, [facility] [address] [id number], [place] [address] May, [facility] [address] [id number], [place] [address] May, [facility] [address] [facility] [id number], [place] [address] Feb, [facility] [address] [id number], [place] [address] Feb, [facility] [place] [facility] [address] [id number], [place] [address] Feb, [facility] [address] [id number], [place] [address] Feb, [facility] [address] [facility] [id number], [place] [address] Feb, [facility] [address] [id number] [id number] Feb, [facility] [address] [id number], [place] [address] Feb, [facility] [place] [facility] [address] [id number] [place] [address] Feb, [facility] [place] [facility] [address] [id number] [place] [address] Feb, [facility] [place] [facility] [address] [id number] [place] [address] Jan, [facility] [place] [facility] [address] [id number] [place] [address] Dec, [facility] [place] [facility] [address] [id number] [place] [address] Dec, [facility] [place] [facility] [address] [id number] [place] [address] Dec, [facility] [place] [facility] [address] [id number] [place] [address] Nov, [facility] [place] [facility] [address] [id number] [place] [address] Nov, [facility] [place] [facility] [address] [id number] [place] [address] Oct, [facility] [place] [facility] [address] [id number] [place] [address] September, [facility] [place] [facility] [address] [id number] [place] [address] Aug, [facility] [place] [facility] [address] [id number] [place] [address] Aug, [facility] [place] [facility] [address] [id number] [place] [address] Jul, [facility] [place] [facility] [address] [id number] [place] [address] 16 Jul, 2011 [facility] [place] [facility] [address] [id number] [place] [address] Jul, [facility] [place] [facility] [address] [facility] [id number] [place] [id number] 17 Jun, 2011 [facility] [address] [facility] [id number], [place] [address] Jun, IMMUNIZATIONS No Known Immunizations SOCIAL HISTORY Never Assessed REASON FOR VISIT Medication List Updated PLAN OF CARE VITAL SIGNS MEDICATIONS Medication Instructions Dosage Frequency Start Date End Date Duration Status Zyrtec Allergy 10 MG Orally Once a day 1 tablet 24h Active Namzaric 28-10 MG Orally Once a day 1 capsule in the evening 24h Active Tramadol HCl 50 mg Orally Once a day at HS 1 tablet Jul, 28 days Active Colace 100 mg Orally once weekly on Thursday for constipation 1 capsule Active Melatonin 3 MG Orally Once a day 2 tablets at bedtime as needed with food 24h May, Active Artificial Saliva - 2 drops in both eyes Active Remeron 30 MG Orally Once a day 1 tablet at bedtime 24h Active Loperamide HCl 2 MG Orally every 6 hours as needed for supplement related to diarrhea 1 capsule as needed Active Cymbalta 30 MG Orally 2 times a day 1 capsule 12h Active Amlodipine Besylate 10 MG Orally Once a day 1 tablet 24h Active Singulair 10 MG Orally Once a day 1 tablet in the evening 24h Aug, 30 day(s) Active Aggrenox 25-200 MG Orally Twice a day 1 capsule 12h Active Pepcid 20 MG Orally Once a day 1 tablet at bedtime 24h Active Levothroid 50 MCG Orally Once a day 1 tablet on an empty stomach in the morning 24h Active Guaifenesin 400 mg Orally 2 times a day as needed for cough and congestion 1 tablet as needed September, Active Tums 500 mg Orally every 1 hours as needed for supplement 3 tablet Active Coreg 25 MG Orally 2 times a day 1 tablet 12h Active Milk of Magnesia Concentrate 2400 MG/10ML Orally Once a day prn constipation 30 ML Active Tylenol Extra Strength 500 mg Orally every 8 hours as needed for moderate pain 2 tablet as needed Active Lisinopril 20 MG Orally Once a day 1 tablet 24h Active RESULTS No Results PROCEDURES No Known procedures INSTRUCTIONS MEDICATIONS ADMINISTERED No Known Medications
--- OUTSIDE RECORDS SUMMARY | 2018-02-05 08:24 | XMS REPORT ---
Author Author MAXIMO SMALL [facility] Address [address] [place] [address] Care Team Providers Care Behavioral Therapy Coordinator Name Role Phone MAXIMO SMALL Unavailable PROBLEMS Type Condition ICD9-CM Code EIS90-DD Code Onset Dates Condition Status SNOMED Code Problem Benign essential hypertension I10 Active 6759564 Problem Hypothyroidism E03.9 Active 77301733 Problem CVA (cerebral vascular accident) I63.9 Active 417619636 Problem Major depressive disorder with single episode, in full remission F32.5 Active 98471177 Problem Arthropathy, unspecified M12.9 Active 216238338 Problem Reactive depression F32.9 Active 94477552 Problem 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 Active 83149551 Problem Other insomnia G47.09 Active 664052207 Problem Allergy, subsequent encounter T78.40XD Active 398710434 Problem 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, unspecified hemiplegia type I69.353 Active 514973570 Problem 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 Active 588140484 Problem Alzheimers disease with late onset G30.1 Active 070718784 Problem Glaucoma of both eyes, unspecified glaucoma H40.9 Active 11925250 Problem Gastroesophageal reflux disease without esophagitis K21.9 Active 854066060 Problem Aphasia R47.01 Active 80947023 Problem CVA, old, 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 Active 905119933 ALLERGIES No Information ENCOUNTERS Encounter Location Date Diagnosis [facility], [place] [address] [facility] [id number], [place] [address] Dec, [facility], [place] [address] [facility] [id number] [id number] Nov, Arthropathy, unspecified M12.9 [employer] [address] [id number] Nov, Major depressive disorder with single episode, in full remission F32.5 and CVA, old, 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 [facility], [place] [id number] [place] [address] 25220- 6695 Nov, [facility], [place] [id number] [place] [address] 09956- 1466 Nov, Arthropathy, unspecified M12.9 [facility], [place] [address] [address]- 4541 Oct, [place] [id number] [place] [address] 91063- 9594 Oct, Arthropathy, unspecified M12.9 [place] [id number] [place] [address] 95636- 9489 September, [employer] [address] [place] [id number] September, Reactive airway disease that is not asthma R09.89 [employer] [address] [place] [id number] September, Benign essential hypertension I10 and CVA, old, 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 [place] [id number] [place] [address] 43652- 2727 September, [place] [id number] [place] [address] 00644- 0294 September, Arthropathy, unspecified M12.9 [place] [id number] [place] [address] 38993- 5439 Aug, [place] [id number] [place] [address] 11965- 1369 Aug, [facility], [place] [id number] [place] [address] 84519- 7458 Aug, Arthropathy, unspecified M12.9 [employer] [address] [place] [id number] Jul, Diarrhea, unspecified type R19.7 [place] [id number] [place] [address] 132317- 4356 Jul, Arthropathy, unspecified M12.9 [facility] [id number] [id number] Jun, Arthropathy, unspecified M12.9 [facility], [place] [address], [place] [address] 0146 May, Arthropathy, unspecified M12.9 [facility] [id number] [place] [address] [phone] May, [employer] [address] [place] [id number] May, Localized edema R60.0 [facility] [id number] [place] [address] [id number] May, [facility], [place] [id number] [place] [address] 02569- 0428 Apr, Arthropathy, unspecified M12.9 [facility], [place] [id number] [place] [address] 76548- 0789 Mar, Arthropathy, unspecified M12.9 [facility], [place] [id number] [place] [address] 37280- 4717 Feb, Reactive depression F32.9 and 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 [facility], [place] [id number] [place] [address] 04916- 3014 Feb, Reactive depression F32.9 and Rash R21 [facility], [place] [address], [place] [address] 3374 Feb, Arthropathy, unspecified M12.9 [facility], [place] [id number] [place] [address] 47132- 7484 Feb, [facility], [place] [address], [place] [address] 2084 Jan, Reactive depression F32.9 ; Other insomnia G47.09 and 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 [facility], [place] [id number] [place] [address] 04935- 7691 Jan, [facility], [place] [id number] [place] [address] 54772- 5885 Jan, Arthropathy, unspecified M12.9 [facility], [place] [id number] [place] [address] 09862- 4567 Jan, [facility], [place] [id number] [place] [address] 43962- 8391 Dec, Arthropathy, unspecified M12.9 [employer] [address] [place] [id number] Dec, Skin tag L91.8 ; Wart of scalp B07.9 and Weight gain R63.5 [facility] [id number] [place] [address] [id number] Dec, [facility], [place] [id number] [place] [address] 73345- 6225 Dec, Reactive depression F32.9 [facility] [id number] [place] [address] [id number] Nov, Arthropathy, unspecified M12.9 [facility], [place] [id number] [place] [address] 32553- 3093 Oct, [facility], [place] [address] [place] [address] 24440- 0654 Oct, Arthropathy, unspecified M12.9 [employer] [address] [place] [id number] September, Reactive depression F32.9 and CVA (cerebral vascular accident) I63.9 [facility], [place] [id number] [place] [address] 69457- 1203 September, Arthropathy, unspecified M12.9 [facility], [place] [id number] [place] [address] 05669- 8993 September, [facility], [place] [id number] [place] [address] 56050- 8166 September, Arthropathy, unspecified M12.9 [facility], [place] [id number] [place] [address] 32692- 7926 Aug, Arthropathy, unspecified M12.9 [facility], [place] [id number] [place] [address] 79185- 3776 Aug, [facility] [id number] [place] [address] [id number] Aug, [facility], [place] [id number] [place] [address] 66841- 3749 Jul, [facility], [place] [id number] [place] [address] 37111- 8456 Jul, [facility] [id number] [place] [address] [id number] Jul, [employer] [address] [place] [id number] Jun, Reactive depression F32.9 [facility], [place] [id number] [place] [address] 98994- 1741 Jun, Reactive depression F32.9 [facility] [id number] [place] [address] [id number] Jun, [employer] [address] [place] [id number] Jun, Reactive depression F32.9 and Other insomnia G47.09 [facility], [place] [id number] [place] [address] 48517- 1156 Jun, [facility], [place] [id number] [place] [address] 95867- 4000 May, [facility] [id number] [place] [address] [id number] May, [employer] [address] [id number] Apr, CVA, old, 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 ; Allergy, subsequent encounter T78.40XD and Reactive depression F32.9 [facility], [place] [address] [facility] [id number], [place] [address]- 7176 Mar, [employer] [address] [id number] Feb, Benign essential hypertension I10 [facility], [place] [address] [facility] [id number], [place] [address]- 8366 Feb, [facility], [place] [address] [facility] [id number] [place] [address] 52422- 5756 Feb, [facility], [place] [address] [facility] [id number] [place] [address] 25721- 5476 Feb, [facility], [place] [id number] [place] [address] 03904- 5976 Feb, [facility], [place] [id number] [place] [address] 94423- 4136 Feb, [facility], [place] [id number] [place] [address] 48676- 3336 Jan, [facility], [place] [address], [place] [address]- 8896 Jan, [employer] [address] [id number] Jan, CVA, old, 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 and Benign essential hypertension I10 [facility], [place] [address], [place] [address] 2546 Dec, [facility], [place] [address], [place] [address]- 9416 Nov, [facility], [place] [address] [id number], [place] [address]- 9509 Nov, [facility], [place] [address], [place] [address]- 0346 Oct, [facility], [place] [address], [place] [address] 2546 Oct, [facility], [place] [id number] [place] [address] 75572- 0242 Oct, 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 ; Benign essential hypertension I10 ; Reactive depression F32.9 and Urinary frequency R35.0 [facility], [place] [id number] [place] [address] 87382- 0445 14 Aug, 2015 UTI (urinary tract infection) N39.0 [facility], [place] [id number] [place] [address] 56906- 1667 07 Aug, 2015 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 [facility], [place] [id number] [place] [address] 98723- 0030 Jul, Benign essential hypertension I10 ; CVA, old, 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 and Hypothyroidism E03.9 [facility], [place] [id number] [place] [address] 99068- 6765 Jun, [facility], [place] [address] [address]- 0174 Jun, Acute diarrhea R19.7 [facility], [place] [id number] [place] [address] 89094- 7863 May, CVA (cerebral vascular accident) I63.9 [facility], [place] [id number] [place] [address] 42137- 5634 16 Apr, 2015 [facility], [place] [id number] [place] [address] 00585- 7871 Apr, [facility], [place] [id number] [place] [address] 24866 2545 15 Apr, 2015 [facility], [place] [id number] [place] [address] 29723- 1383 04 Apr, 2015 [facility] [place] [id number] [place] [address] 64831 254 03 Apr, 2015 CVA (cerebral vascular accident) I63.9 and Constipation K59.00 [facility], [place] [address] 12132- 0124 Apr, [facility], [place] [address], [place] [address]- 1782 Mar, [facility], [place] [id number] [place] [address] 648764- 5253 Mar, [facility], [place] [id number] [place] [address] 338978- 9860 Mar, [facility], [place] [id number] [place] [address] 894694- 7733 Mar, [facility], [place] [id number] [place] [address] 965608- 6879 Feb, [facility], [place] [id number] [place] [address] 370500- 2167 Feb, CVA, old, 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 ; Allergic rhinitis J30.9 and Benign essential hypertension I10 [facility], [place] [id number] [place] [address] 64038- 3319 Dec, CVA (cerebral vascular accident) 434.91 [facility], [place] [id number] [place] [address] 25643- 8325 Dec, [facility], [place] [id number] [place] [address] 11046- 5070 Oct, [facility], [place] [id number] [place] [address] 20230- 5069 Oct, [facility], [place] [id number] [place] [address] 91236- 0930 Oct, CVA (cerebral vascular accident) 434.91 [facility], [place] [id number] [place] [address] 318494- 9001 Oct, [facility], [place] [id number] [place] [address] 12650- 6055 September, [facility], [place] [id number] [place] [address] 27119- 6534 September, Allergic rhinitis 477.9 and Arthropathy 716.90 [facility] [address], [place] [address]- 6358 Aug, [facility] [address], [place] [address]- 8315 Aug, [facility] [address], [place] [address]- 3220 Jun, [facility] [address], [place] [address]- 7235 Jun, [facility] [address] [id number] Jun, [facility] [address], [place] [address]- 9086 Jun, [facility] [place] [address], [place] [address]- 3287 Jun, [facility] [address], [place] [address]- 0576 Jun, [facility] [address], [place] [address]- 6509 Jun, [facility] [address], [place] [address]- 1470 May, [facility] [address], [place] [address]- 4865 May, [facility] [id number], [place] [address]- 8382 May, [facility] [address], [place] [address]- 7716 May, [facility] [address], [place] [address]- 2920 Apr, [facility] [id number], [place] [address]- 4544 Apr, [facility] [address] [id number] [place] [address]- 1711 18 Apr, 2014 [facility] [address] [facility] [id number] Apr, [facility] [address] [id number] [place] [address]- 3150 Apr, [facility] [address] [id number] [place] [address]- 1899 Apr, [facility] [place] [facility] [address] [id number] [place] [address]- 0583 Apr, [facility] [place] [facility] [address] [id number] [place] [address]- 5412 Apr, [facility] [place] [facility] [address] [id number] [place] [address]- 8125 Apr, [facility] [place] [facility] [address] [id number] [place] [address]- 2658 Apr, [facility] [place] [facility] [address] [id number] [place] [address]- 8825 Apr, [facility] [place] [facility] [address] [id number] [place] [address]- 7208 Mar, [facility] [place] [facility] [address] [id number] [place] [address]- 7065 Mar, [facility] [place] [facility] [address] [id number] [place] [address]- 0099 Mar, [facility] [place] [facility] [address] [id number] [place] [address]- 8005 Mar, [facility] [place] [facility] [address] [id number] [place] [address]- 1417 Mar, [facility] [place] [facility] [address] [id number] [place] [address]- 5824 Mar, [facility] [place] [facility] [address] [id number] [place] [address]- 2548 Mar, [facility] [place] [facility] [address] [id number] [place] [address]- 2769 Mar, [facility] [place] [facility] [address] [id number] [place]- 1551 Mar, [facility] [place] [facility] [address] [id number] [place] [address]- 4024 Mar, [facility] [place] [facility] [address] [id number] [place] [address]- 4495 Mar, [facility] [place] [facility] [address] [id number] [place] [address]- 9903 Mar, [facility] [place] [facility] [address] [id number] [place] [address]- 9214 Mar, [facility] [place] [facility] [address] [id number] [place] [address]- 9369 Feb, [facility] [place] [facility] [address] [id number] [place] [address]- 7547 Feb, [facility] [place] [facility] [address] [id number] [place] [address]- 3635 Feb, [facility] [place] [facility] [address] [id number] [place] [address]- 2638 30 Feb, 2014 [facility] [place] [facility] [address] [id number] [place] [address]- 7893 Feb, [facility] [place] [facility] [address] [id number] [place] [address]- 0203 28 Feb, 2014 [facility] [place] [facility] [address] [id number] [place] [address]- 5997 Feb, [facility] [place] [facility] [address] [id number] [place] [address]- 0368 10 Feb, 2014 [facility] [place] [facility] [address] [id number] [place] 6261 11 Jan, 2014 [facility] [place] [facility] [address] [id number] [place] [address]- 9987 Jan, [facility] [place] [facility] [address] [id number] [place] [address]- 1095 Dec, [facility] [place] [facility] [address] [id number] [place] [address]- 0495 Dec, [facility] [place] [facility] [address] [id number] [place] [address]- 9639 Dec, [facility] [place] [facility] [address] [id number] [place] [address]- 7403 Dec, [facility] [place] [facility] [address] [id number] [place] [address] Nov, [facility] [place] [facility] [address] [id number] [place] [address] Nov, [facility] [place] [facility] [address] [id number] [place] [address] Nov, [facility] [place] [facility] [address] [id number] [place] [address] Nov, [facility] [place] [facility] [address] [id number] [place] [address] Nov, [facility] [place] [facility] [address] [id number] [place] [address] Nov, [facility] [place] [facility] [address] [id number] [place] [address] Nov, [facility] [place] [facility] [address] [id number] [place] [address] Oct, [facility] [place] [facility] [address] [id number] [place] [address] Oct, [facility] [place] [facility] [address] [id number] [place] [address] Oct, [facility] [place] [facility] [address] [id number] [place] [address] Oct, [facility] [place] [facility] [address] [id number] [place] [address] Oct, [facility] [address] [id number] [place] [address] Oct, [facility] [place] [facility] [address] [id number] [place] [address] September, [facility] [address] [id number] [place] [address] September, [facility] [place] [facility] [address] [id number] [place] [address] September, [facility] [address] [id number] [place] [address] September, [facility] [address] [id number] [place] [address] September, [facility] [address] [id number] [place] [address] September, [facility] [address] [id number] [place] [address] September, [facility] [place] [facility] [address] [id number] [place] [address] September, [facility] [address] [id number] [place] [address] September, [facility] [place] [facility] [address] [id number] [place] [address] Aug, [facility] [place] [facility] [address] [id number] [place] [address] Jun, [facility] [place] [facility] [address] [id number] [place] [address] Jun, [facility] [place] [facility] [address] [id number] [place] [address] May, [facility] [place] [facility] [address] [id number] [place] [address] Mar, [facility] [address] [id number], [place] [address] Mar, [facility] [address] [id number], [place] [address] Oct, [facility] [address] [id number], [place] [address] September, [facility] [address] [id number], [place] [address] September, [facility] [address] [id number] [place] [address] Aug, [facility] [address] [id number], [place] [address] Jul, [facility] [address] [id number], [place] [address] May, [facility] [address] [id number], [place] [address]- [address] May, [facility] [address] [id number], [place] [address] May, [facility] [address] [facility] [id number], [place] [address] Feb, [facility] [address] [id number], [place] [address] Feb, [facility] [place] [facility] [address] [id number], [place] [address] Feb, [facility] [address] [id number], [place] [address] Feb, [facility] [address] [facility] [id number], [place] [address] Feb, [facility] [address] [id number] [id number] Feb, [facility] [address] [id number] [address] Feb, [facility] [place] [facility] [address] [id number] [place] [address] Feb, [facility] [place] [facility] [address] [id number] [place] [address] Feb, [facility] [place] [facility] [address] [id number] [place] [address] Jan, [facility] [place] [facility] [address] [id number] [place] [address] Dec, [facility] [place] [facility] [address] [id number] [place] [address] Dec, [facility] [place] [facility] [address] [id number] [place] [address] Dec, [facility] [place] [facility] [address] [id number] [place] [address] Nov, [facility] [place] [facility] [address] [id number] [place] [address] Nov, [facility] [place] [facility] [address] [id number] [place] [address] Oct, [facility] [place] [facility] [address] [id number] [place] [address] September, [facility] [place] [facility] [address] [id number] [place] [address] Aug, [facility] [place] [facility] [address] [id number] [place] [address] Aug, [facility] [place] [facility] [address] [id number] [place] [address] Jul, [facility] [place] [facility] [address] [id number] [place] [address] 16 Jul, 2011 [facility] [place] [facility] [address] [id number] [place] [address] Jul, [facility] [place] [facility] [address] [facility] [id number] [place] [address] Jun, [facility] [address] [facility] [id number], [place] [address] Jun, IMMUNIZATIONS No Known Immunizations SOCIAL HISTORY [...]
--- OUTSIDE RECORDS SUMMARY | 2018-02-05 08:25 | XMS REPORT ---
Author Author MAXIMO SMALL 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 Name Role Phone MAXIMO SMALL Unavailable PROBLEMS Type Condition ICD9-CM Code EVC89-OP Code Onset Dates Condition Status SNOMED Code Problem Benign essential hypertension I10 Active 3014263 Problem Hypothyroidism E03.9 Active 44911105 Problem CVA (cerebral vascular accident) I63.9 Active 330964360 Problem Major depressive disorder with single episode, in full remission F32.5 Active 87428243 Problem Arthropathy, unspecified M12.9 Active 471663446 Problem Reactive depression F32.9 Active 03388978 Problem 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 Active 04552866 Problem Other insomnia G47.09 Active 472181802 Problem Allergy, subsequent encounter T78.40XD Active 752338250 Problem 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, unspecified hemiplegia type I69.353 Active 631960736 Problem 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 Active 507525732 Problem Alzheimers disease with late onset G30.1 Active 088398971 Problem Glaucoma of both eyes, unspecified glaucoma H40.9 Active 61980450 Problem Gastroesophageal reflux disease without esophagitis K21.9 Active 562690469 Problem Aphasia R47.01 Active 14764951 Problem CVA, old, 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 Active 925660728 ALLERGIES No Information ENCOUNTERS Encounter Location Date Diagnosis [facility] [address] [facility] [id number] [address] Dec, [facility] [address] [facility] [id number] [address] Nov, Arthropathy, unspecified M12.9 [employer] [address] [place] [id number] Nov, Major depressive disorder with single episode, in full remission F32.5 and CVA, old, 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 [facility] [id number] [place] [address] 30089- 6347 Nov, [facility] [id number] [place] [address] 52124- 6195 Nov, Arthropathy, unspecified M12.9 [facility] [address] [address]- [address] Oct, [facility] [id number] [place] [address] 25051- 7786 Oct, Arthropathy, unspecified M12.9 [facility] [id number] [place] [address] 41777- 0753 September, [employer] [address] [place] [id number] September, Reactive airway disease that is not asthma R09.89 [employer] [address] [place] [id number] September, Benign essential hypertension I10 and CVA, old, 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 [facility] [id number] [place] [address] 01112- 1630 September, [facility] [id number] [place] [address] 22630- 7299 September, Arthropathy, unspecified M12.9 [facility] [id number] [place] [address] 84442- 3438 Aug, [facility] [id number] [place] [address] 15792- 9709 Aug, [facility] [id number] [place] [address] 96594- 5838 Aug, Arthropathy, unspecified M12.9 [employer] [address] [place] [id number] Jul, Diarrhea, unspecified type R19.7 [facility] [id number] [place] [address] 501594- 2826 Jul, Arthropathy, unspecified M12.9 [facility] [id number] [address] Jun, Arthropathy, unspecified M12.9 [facility] [address] [address] 3[address] May, Arthropathy, unspecified M12.9 [facility] [id number] [place] [address] [id number] May, [employer] [address] [place] [id number] May, Localized edema R60.0 [facility] [id number] [place] [address] [id number] May, [facility] [address] [place] [address] 19304- 5338 Apr, Arthropathy, unspecified M12.9 [facility] [address] [place] [address] 32885- 1168 Mar, Arthropathy, unspecified M12.9 [facility] [address] [place] [address] 88851- 3400 Feb, Reactive depression F32.9 and 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 [facility] [address] [place] [address] 06371- 9528 Feb, Reactive depression F32.9 and Rash R21 [facility] [address]65[address] [address] 3533 Feb, Arthropathy, unspecified M12.9 [facility] [address] [place] [address] 16708- 0097 Feb, [facility] [address] [address] 2058 Jan, Reactive depression F32.9 ; Other insomnia G47.09 and 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 [facility] [address] [place] [address] 93365- 8025 Jan, [facility] [id number] [place] [address] 12364- 4768 Jan, Arthropathy, unspecified M12.9 [facility] [id number] [place] [address] 32440- 3356 Jan, [facility] [id number] [place] [address] 53527- 1156 Dec, Arthropathy, unspecified M12.9 [employer] [address] [place] [id number] Dec, Skin tag L91.8 ; Wart of scalp B07.9 and Weight gain R63.5 [facility] [id number] [place] [address] [id number] Dec, [facility] [id number] [place] [address] 88072- 0629 Dec, Reactive depression F32.9 [facility] [id number] [place] [address] [id number] Nov, Arthropathy, unspecified M12.9 [facility] [id number] [place] [address] 09367- 6101 Oct, [facility] [address] [place] [address] 07786- 5334 Oct, Arthropathy, unspecified M12.9 [employer] [address] [place] [id number] September, Reactive depression F32.9 and CVA (cerebral vascular accident) I63.9 [facility] [id number] [place] [address] 16253- 4476 September, Arthropathy, unspecified M12.9 [facility] [address] [place] [address] 54802- 9437 September, [facility] [id number] [place] [address] 05651- 9066 September, Arthropathy, unspecified M12.9 [facility] [address] [place] [address] 07431- 8166 Aug, Arthropathy, unspecified M12.9 [facility] [address] [place] [address] 52829- 9456 Aug, [facility] [id number] [place] [address] [id number] Aug, [facility] [address] [place] [address] 61879- 7517 Jul, [facility] [id number] [place] [address] 95768- 0706 Jul, [facility] [id number] [place] [address] [id number] Jul, [employer] [address] [place] [id number] Jun, Reactive depression F32.9 [facility] [address] [place] [address] 37500- 1931 Jun, Reactive depression F32.9 [facility] [id number] [place] [address] [id number] Jun, [employer] [address] [place] [id number] Jun, Reactive depression F32.9 and Other insomnia G47.09 [facility] [address] [place] [address] 80913- 1926 Jun, [facility] [address] [place] [address] 64023- 2512 May, [facility] [id number] [place] [address] [id number] May, [employer] [address] [place] [id number] Apr, CVA, old, 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 ; Allergy, subsequent encounter T78.40XD and Reactive depression F32.9 [facility] [address] [facility] [id number] [address] 8696 Mar, [employer] [address] [place] [id number] Feb, Benign essential hypertension I10 [facility] [address] [facility] [id number] [address]- 9566 Feb, [facility] [address] [facility] [id number] [place] [address] 07204- 7236 Feb, [facility] [address] [facility] [id number] [place] [address] 18760- 6456 Feb, [facility] [id number] [place] [address] 97211- 7036 Feb, [facility] [id number] [place] [address] 88087- 8956 Feb, [facility] [id number] [place] [address] 99179- 7166 Jan, [facility] [address] [address] 1996 Jan, [employer] [address] [place] [id number] Jan, CVA, old, 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 and Benign essential hypertension I10 [facility] [address] [address] 2546 Dec, [facility] [address] [address]- 4196 Nov, [facility] [id number] [address]- 2409 Nov, [facility] [address] [address]- 5626 Oct, [facility] [address] [address] 2546 Oct, [facility] [id number] [place] [address] 25489- 1161 Oct, 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 ; Benign essential hypertension I10 ; Reactive depression F32.9 and Urinary frequency R35.0 [facility] [id number] [place] [address] 69647- 1486 14 Aug, 2015 UTI (urinary tract infection) N39.0 [facility] [id number] [place] [address] 99835- 9563 07 Aug, 2015 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 [facility] [id number] [place] [address] 86763- 2831 Jul, Benign essential hypertension I10 ; CVA, old, 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 and Hypothyroidism E03.9 [facility] [id number] [place] [address] 30101- 6716 Jun, [facility] [address] 87007- 8356 Jun, Acute diarrhea R19.7 [facility] [id number] [place] [address] 34459- 7931 May, CVA (cerebral vascular accident) I63.9 [facility] [id number] [place] [address] 63348- 5594 16 Apr, 2015 [facility] [id number] [place] [address] 41384- 5219 Apr, [facility] [id number] [place] [address] 55894 2542 15 Apr, 2015 [facility] [id number] [place] [address] 76217- 5758 04 Apr, 2015 [facility] [id number] [place] [address] 93842 2544 03 Apr, 2015 CVA (cerebral vascular accident) I63.9 and Constipation K59.00 [facility] [address] 24572- 8248 Apr, [facility] [address] [address]- 2119 Mar, [facility] [id number] [place] [address] 945304- 0556 Mar, [facility] [id number] [place] [address] 004710- 2658 Mar, [facility] [id number] [place] [address] 729818- 8154 Mar, [facility] [id number] [place] [address] 338814- 7562 Feb, [facility] [id number] [place] [address] 207420- 6460 Feb, CVA, old, 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 ; Allergic rhinitis J30.9 and Benign essential hypertension I10 [facility] [id number] [place] [address] 76983- 6244 Dec, CVA (cerebral vascular accident) 434.91 [facility] [id number] [place] [address] 49731- 6827 Dec, [facility] [id number] [place] [address] 45267- 0684 Oct, [facility] [id number] [place] [address] 36585- 2480 Oct, [facility] [id number] [place] [address] 52383- 8961 Oct, CVA (cerebral vascular accident) 434.91 [facility] [address] [place] [address] 145391- 4450 Oct, [facility] [id number] [place] [address] 72478- 5569 September, [facility] [address] [place] [address] 43541- 6304 September, Allergic rhinitis 477.9 and Arthropathy 716.90 [facility] [address] [address]- 4728 Aug, [facility] [address], [place] [address]- 6715 Aug, [facility] [address], [place] [address]- 1483 Jun, [facility] [address], [place] [address]- 3094 Jun, [facility] [address] [id number] Jun, [facility] [address], [place] [address]- 7084 Jun, [facility] [address] [address]- 9491 Jun, [facility] [address], [place] [address]- 3580 Jun, [facility] [address], [place] [address]- 1435 Jun, [facility] [address], [place] [address]- 2004 May, [facility] [address], [place] [address]- 8439 May, [facility] [id number] [address]- 5478 May, [facility] [address], [place] [address]- 6565 May, [facility] [address], [place] [address]- 0823 Apr, [facility] [id number] [address]- 1052 Apr, [facility] [address] [id number] [place] [address]- 7341 18 Apr, 2014 [facility] [address] [facility] [id number] Apr, [facility] [address] [id number] [place] [address]- 2657 Apr, [facility] [address] [id number] [place] [address]- 8799 Apr, [facility] [place] [facility] [address] [id number] [place] [address]- 4015 Apr, [facility] [place] [facility] [address] [id number] [place] [address]- 8536 Apr, [facility] [place] [facility] [address] [id number] [place] [address]- 7364 Apr, [facility] [place] [facility] [address] [id number] [place] [address]- 9039 Apr, [facility] [place] [facility] [address] [id number] [place] [address]- 8868 Apr, [facility] [place] [facility] [address] [id number] [place] [address]- 6352 Mar, [facility] [place] [facility] [address] [id number] [place] [address]- 9758 Mar, [facility] [place] [facility] [address] [id number] [place] [address]- 5720 Mar, [facility] [place] [facility] [address] [id number] [place] [address]- 9933 Mar, [facility] [place] [facility] [address] [id number] [place] [address]- 9147 Mar, [facility] [place] [facility] [address] [id number] [place] [address]- 6057 Mar, [facility] [place] [facility] [address] [id number] [place] [address]- 9079 Mar, [facility] [place] [facility] [address] [id number] [place] [address]- 7542 Mar, [facility] [place] [facility] [address] [id number] [place] 6634 Mar, [facility] [place] [facility] [address] [id number] [place] [address]- 4022 Mar, [facility] [place] [facility] [address] [id number] [place] [address]- 5203 Mar, [facility] [place] [facility] [address] [id number] [place] [address]- 8722 Mar, [facility] [place] [facility] [address] [id number] [place] [address]- 9278 Mar, [facility] [place] [facility] [address] [id number] [place] [address]- 8488 Feb, [facility] [place] [facility] [address] [id number] [place] [address]- 3872 Feb, [facility] [place] [facility] [address] [id number] [place] [address]- 7030 Feb, [facility] [place] [facility] [address] [id number] [place] [address]- 8613 30 Feb, 2014 [facility] [place] [facility] [address] [id number] [place] [address]- 6639 Feb, [facility] [place] [facility] [address] [id number] [place] [address]- 0698 28 Feb, 2014 [facility] [place] [facility] [address] [id number] [place] [address]- 6257 Feb, [facility] [place] [facility] [address] [id number] [place] [address]- 7191 10 Feb, 2014 [facility] [place] [facility] [address] [id number] [place]- 3069 11 Jan, 2014 [facility] [place] [facility] [address] [id number] [place] [address]- 7155 Jan, [facility] [place] [facility] [address] [id number] [place] [address]- 2459 Dec, [facility] [place] [facility] [address] [id number] [place] [address]- 6043 Dec, [facility] [place] [facility] [address] [id number] [place] [address]- 3026 Dec, [facility] [place] [facility] [address] [id number] [place] [address]- 8093 Dec, [facility] [place] [facility] [address] [id number] [place] [address]- 7095 Nov, [facility] [place] [facility] [address] [id number] [place] [address]- 6318 Nov, [facility] [place] [facility] [address] [id number] [place] [address]- 9321 Nov, [facility] [place] [facility] [address] [id number] [place] [address]- 2871 Nov, [facility] [place] [facility] [address] [id number] [place] [address]- 5887 Nov, [facility] [place] [facility] [address] [id number] [place] [address]- 2775 Nov, [facility] [place] [facility] [address] [id number] [place] [address]- 3650 Nov, [facility] [place] [facility] [address] [id number] [place] [address]- 5279 Oct, [facility] [place] [facility] [address] [id number] [place] [address]- 6059 Oct, [facility] [place] [facility] [address] [id number] [place] [address]- 7302 Oct, [facility] [place] [facility] [address] [id number] [place] [address]- 7289 Oct, [facility] [place] [facility] [address] [id number] [place] [address]- 5096 Oct, [facility] [address] [id number] [place] [address]- 9503 Oct, [facility] [place] [facility] [address] [id number] [place] [address]- 1588 September, [facility] [address] [id number] [place] [address]- 2924 September, [facility] [place] [facility] [address] [id number] [place] [address]- 9689 September, [facility] [address] [id number] [place] [address]- 6448 September, [facility] [address] [id number] [place] [address]- 7044 September, [facility] [address] [id number] [place] [address]- 3538 September, [facility] [address] [id number] [place] [address]- 0759 September, [facility] [place] [facility] [address] [id number] [place] [address]- 2110 September, [facility] [address] [id number] [place] [address]- 1855 September, [facility] [place] [facility] [address] [id number] [place] [address]- 7379 Aug, [facility] [place] [facility] [address] [id number] [place] [address]- 7413 Jun, [facility] [place] [facility] [address] [id number] [place] [address]- 5644 Jun, [facility] [place] [facility] [address] [id number] [place] [address]- 1626 May, [facility] [place] [facility] [address] [id number] [place] [address]- 2416 Mar, [facility] [address] [id number] [address] Mar, [facility] [address] [id number] [address] Oct, [facility] [address] [id number] [address] September, [facility] [address] [id number] [address] September, [facility] [address] [id number] [place] [address] Aug, [facility] [address] [id number] [address] Jul, [facility] [address] [id number] [address] May, [facility] [address] [id number], [place] [address] May, [facility] [address] [id number] [address] May, [facility] [address] [facility] [id number] [address] Feb, [facility] [address] [id number], [place] [address] Feb, [facility] [place] [facility] [address] [id number] [address] Feb, [facility] [address] [id number] [address] Feb, [facility] [address] [facility] [id number][place] [address] Feb, [facility] [address] [id number] [id number] Feb, [facility] [address] [id number][place] [address] Feb, [facility] [place] [facility] [address] [id number] [place] [address] Feb, [facility] [place] [facility] [address] [id number] [place] [address] Feb, [facility] [place] [facility] [address] [id number] [place] [address] Jan, [facility] [place] [facility] [address] [id number] [place] [address] Dec, [facility] [place] [facility] [address] [id number] [place] [address] Dec, [facility] [place] [facility] [address] [id number] [place] [address] Dec, [facility] [place] [facility] [address] [id number] [place] [address] Nov, [facility] [place] [facility] [address] [id number] [place] [address] Nov, [facility] [place] [facility] [address] [id number] [place] [address] Oct, [facility] [place] [facility] [address] [id number] [place] [address] September, [facility] [place] [facility] [address] [id number] [place] [address] Aug, [facility] [place] [facility] [address] [id number] [place] [address] Aug, [facility] [place] [facility] [address] [id number] [place] [address] Jul, [facility] [place] [facility] [address] [id number] [place] [address] 16 Jul, 2011 [facility] [place] [facility] [address] [id number] [place] [address] Jul, [facility] [place] [facility] [address] [facility] [id number] [place] [id number] Jun, [facility] [address] [facility] [id number] [place] [id number] Jun, IMMUNIZATIONS No Known Immunizations SOCIAL HISTORY Never Assessed REASON FOR VISIT med refill PLAN OF CARE VITAL SIGNS MEDICATIONS Unknown Medications RESULTS No Results PROCEDURES No Known procedures INSTRUCTIONS MEDICATIONS ADMINISTERED No Known Medications
--- OUTSIDE RECORDS SUMMARY | 2018-02-05 08:25 | XMS REPORT ---
Author Author MAXIMO SMALL [facility] Address [address] [place] [address] Care Team Providers Care Cub Reporter Name Role Phone MAXIMO SMALL Unavailable PROBLEMS Type Condition ICD9-CM Code RQO26-ZU Code Onset Dates Condition Status SNOMED Code Problem Benign essential hypertension I10 Active 1909813 Problem Hypothyroidism E03.9 Active 06550287 Problem CVA (cerebral vascular accident) I63.9 Active 076051809 Problem Major depressive disorder with single episode, in full remission F32.5 Active 33059344 Problem Arthropathy, unspecified M12.9 Active 441377774 Problem Reactive depression F32.9 Active 37742826 Problem 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 Active 70589153 Problem Other insomnia G47.09 Active 837271807 Problem Allergy, subsequent encounter T78.40XD Active 930609966 Problem 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, unspecified hemiplegia type I69.353 Active 972634201 Problem 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 Active 595875590 Problem Alzheimers disease with late onset G30.1 Active 791246489 Problem Glaucoma of both eyes, unspecified glaucoma H40.9 Active 09813058 Problem Gastroesophageal reflux disease without esophagitis K21.9 Active 776899188 Problem Aphasia R47.01 Active 47414275 Problem CVA, old, 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 Active 799093833 ALLERGIES No Information ENCOUNTERS Encounter Location Date Diagnosis [facility] [address] [facility] [id number], [place] [address] Dec, [facility] [address] [facility] [id number] [address] Nov, Arthropathy, unspecified M12.9 [facility] [address] [place] [id number] Nov, Major depressive disorder with single episode, in full remission F32.5 and CVA, old, 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 [address] [place] [id number] September, Reactive airway disease that is not asthma R09.89 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 [facility] [id number] [place] [address] 43305- 9156 September, [facility] [id number] [place] [address] 08847- 2059 September, Arthropathy, unspecified M12.9 [facility] [id number] [place] [address] 29158- 5055 Aug, [facility] [id number] [place] [address] 68068- 6392 Aug, [facility] [id number] [place] [address] 26627- 9765 Aug, Arthropathy, unspecified M12.9 [facility] [address] [place] [id number] Jul, Diarrhea, unspecified type R19.7 [facility] [id number] [place] [address] 925383- 4656 Jul, Arthropathy, unspecified M12.9 [facility] [place] [id number] [id number] Jun, Arthropathy, unspecified M12.9 [facility] [address]00565[address], [place] [address] May, Arthropathy, unspecified M12.9 [facility] [place] [id number] [place] [address] [id number] May, [facility] [address] [place] [id number] May, Localized edema R60.0 [facility] [place] [id number] [place] [address] [id number] May, [facility] [address] [place] [address] 32865- 9966 Apr, Arthropathy, unspecified M12.9 [facility] [address] [place] [address] 78923- 4126 Mar, Arthropathy, unspecified M12.9 [facility] [address] [place] [address] 10434- 2594 Feb, Reactive depression F32.9 and 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 [facility] [address] [place] [address] 15457- 1007 Feb, Reactive depression F32.9 and Rash R21 [facility] [address], [place] [address] 8680 Feb, Arthropathy, unspecified M12.9 [facility] [address] [place] [address] 14130- 4885 Feb, [facility] [address], [place] [address] 7332 Jan, Reactive depression F32.9 ; Other insomnia G47.09 and 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 [facility] [address] [place] [address] 04927- 6198 Jan, [facility] [id number] [place] [address] 36837- 1552 Jan, Arthropathy, unspecified M12.9 [facility] [id number] [place] [address] 06952- 6180 Jan, [facility] [id number] [place] [address] 49306- 5655 Dec, Arthropathy, unspecified M12.9 [facility] [address] [place] [id number] Dec, Skin tag L91.8 ; Wart of scalp B07.9 and Weight gain R63.5 [facility] [place] [id number] [place] [address] [id number] Dec, [facility] [id number] [place] [address] 75512- 4780 Dec, Reactive depression F32.9 [facility] [place] [id number] [place] [address] [id number] Nov, Arthropathy, unspecified M12.9 [facility] [id number] [place] [address] 45043- 4686 Oct, [facility] [address] [place] [address] 88914- 9617 Oct, Arthropathy, unspecified M12.9 [facility] [address] [place] [id number] September, Reactive depression F32.9 and CVA (cerebral vascular accident) I63.9 [facility] [id number] [place] [address] 35742- 1115 September, Arthropathy, unspecified M12.9 [facility] [address] [place] [address] 99423- 1105 September, [facility] [id number] [place] [address] 70884- 2636 September, Arthropathy, unspecified M12.9 [facility] [address] [place] [address] 20300- 9156 Aug, Arthropathy, unspecified M12.9 [facility] [address] [place] [address] 89158- 6986 Aug, [facility] [place] [id number] [place] [address] [id number] Aug, [facility] [address] [place] [address] 07242- 9503 Jul, [facility] [id number] [place] [address] 19569- 8196 Jul, [facility] [place] [id number] [place] [address] [id number] Jul, [facility] [address] [place] [id number] Jun, Reactive depression F32.9 [facility] [address] [place] [address] 92238- 0878 Jun, Reactive depression F32.9 [facility] [place] [id number] [place] [address] [id number] Jun, [facility] [address] [place] [id number] Jun, Reactive depression F32.9 and Other insomnia G47.09 [facility] [address] [place] [address] 87332- 4946 Jun, [facility] [address] [place] [address] 39974- 7770 May, [facility] [place] [id number] [place] [address] [id number] May, [facility] [address] [place] [id number] Apr, CVA, old, 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 ; Allergy, subsequent encounter T78.40XD and Reactive depression F32.9 [facility] [address] [facility] [id number], [place] [address] 3826 Mar, [facility] [address] [place] [id number] Feb, Benign essential hypertension I10 [facility] [address] [facility] [id number], [place] [address] 6976 Feb, [facility] [address] [facility] [place] [id number] [place] [address] 20264- 4696 Feb, [facility] [address] [facility] [place] [id number] [place] [address] 08553- 2946 Feb, [facility] [id number] [place] [address] 97552- 3816 Feb, [facility] [id number] [place] [address] 81977- 8116 Feb, [facility] [id number] [place] [address] 29618- 2786 Jan, [facility] [address], [place] [address]- 0796 Jan, [facility] [address] [place] [id number] Jan, CVA, old, 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 and Benign essential hypertension I10 [facility] [address], [place] [address] 2546 Dec, [facility] [address], [place] [address]- 5506 Nov, [facility] [id number], [place] [address]- 8254 Nov, [facility] [address], [place] [address]- 7536 Oct, [facility] [address], [place] [address] 2546 Oct, [facility] [id number] [place] [address] 45971- 2787 Oct, 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 ; Benign essential hypertension I10 ; Reactive depression F32.9 and Urinary frequency R35.0 [facility] [id number] [place] [address] 28105- 2428 14 Aug, 2015 UTI (urinary tract infection) N39.0 [facility] [id number] [place] [address] 93721- 6451 07 Aug, 2015 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 [facility] [id number] [place] [address] 03842- 7339 Jul, Benign essential hypertension I10 ; CVA, old, 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 and Hypothyroidism E03.9 [facility] [id number] [place] [address] 52546- 3688 Jun, [facility] [address] 76943- 0214 Jun, Acute diarrhea R19.7 [facility] [id number] [place] [address] 01692- 4379 May, CVA (cerebral vascular accident) I63.9 [facility] [id number] [place] [address] 91108- 6816 16 Apr, 2015 [facility] [id number] [place] [address] 47273- 2299 Apr, [facility] [id number] [place] [address] 79186 2541 15 Apr, 2015 [facility] [id number] [place] [address] 18873- 6885 04 Apr, 2015 [facility] [id number] [place] [address] 63778 2541 03 Apr, 2015 CVA (cerebral vascular accident) I63.9 and Constipation K59.00 [facility] [address] 94717- 0795 Apr, [facility] [address], [place] [address]- 1168 Mar, [facility] [id number] [place] [address] 841294- 4615 Mar, [facility] [id number] [place] [address] 103065- 9069 Mar, [facility] [id number] [place] [address] 204928- 8252 Mar, [facility] [id number] [place] [address] 359638- 8378 Feb, [facility] [id number] [place] [address] 936787- 8115 Feb, CVA, old, 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 ; Allergic rhinitis J30.9 and Benign essential hypertension I10 [facility] [id number] [place] [address] 81836- 9389 Dec, CVA (cerebral vascular accident) 434.91 [facility] [id number] [place] [address] 50172- 5355 Dec, [facility] [id number] [place] [address] 67702- 8265 Oct, [facility] [id number] [place] [address] 27077- 2000 Oct, [facility] [id number] [place] [address] 55366- 4495 Oct, CVA (cerebral vascular accident) 434.91 [facility] [address] [place] [address] 502236- 5810 Oct, [facility] [id number] [place] [address] 50700- 6525 September, [facility] [address] [place] [address] 17173- 6276 September, Allergic rhinitis 477.9 and Arthropathy 716.90 [facility] [address], [place] [address]- 8830 Aug, [facility] [address], [place] [address]- 7328 Aug, [facility] [address], [place] [address]- 6277 Jun, [facility] [address], [place] [address]- 3371 Jun, [facility] [address] [id number] Jun, [facility] [address], [place] [address]- 6544 Jun, [facility] [address], [place] [address]- 6955 Jun, [facility] [address], [place] [address]- 0792 Jun, [facility] [address], [place] [address]- 0662 Jun, [facility] [address], [place] [address]- 9132 May, [facility] [address], [place] [address]- 0758 May, [facility] [id number], [place] [address]- 5887 May, [facility] [address], [place] [address]- 9947 May, [facility] [address], [place] [address]- 7204 Apr, [facility] [id number], [place] [address]- 0373 Apr, [facility] [address] [id number] [place] [address]- 3556 18 Apr, 2014 [facility] [address] [id number] Apr, [facility] [address] [id number] [place] [address]- 9392 Apr, [facility] [address] [id number] [place] [address]- 5693 Apr, [facility] [place] [facility] [address] [id number] [place] [address]- 9457 Apr, [facility] [place] [facility] [address] [id number] [place] [address]- 3768 Apr, [facility] [place] [facility] [address] [id number] [place] [address]- 6710 Apr, [facility] [place] [facility] [address] [id number] [place] [address]- 8604 Apr, [facility] [place] [facility] [address] [id number] [place] [address]- 5810 Apr, [facility] [place] [facility] [address] [id number] [place] [address]- 1224 Mar, [facility] [place] [facility] [address] [id number] [place] [address]- 9796 Mar, [facility] [place] [facility] [address] [id number] [place] [address]- 0999 Mar, [facility] [place] [facility] [address] [id number] [place] [address]- 2795 Mar, [facility] [place] [facility] [address] [id number] [place] [address]- 4191 Mar, [facility] [place] [facility] [address] [id number] [place] [address]- 2208 Mar, [facility] [place] [facility] [address] [id number] [place] [address]- 9171 Mar, [facility] [place] [facility] [address] [id number] [place] [address]- 4147 Mar, [facility] [place] [facility] [address] [id number] [place] 0416 Mar, [facility] [place] [facility] [address] [id number] [place] [address]- 0966 Mar, [facility] [place] [facility] [address] [id number] [place] [address]- 6682 Mar, [facility] [place] [facility] [address] [id number] [place] [address]- 9328 Mar, [facility] [place] [facility] [address] [id number] [place] [address]- 8273 Mar, [facility] [place] [facility] [address] [id number] [place] [address]- 3649 Feb, [facility] [place] [facility] [address] [id number] [place] [address]- 9686 Feb, [facility] [place] [facility] [address] [id number] [place] [address]- 9560 Feb, [facility] [place] [facility] [address] [id number] [place] [address]- 3333 30 Feb, 2014 [facility] [place] [facility] [address] [id number] [place] [address]- 7189 Feb, [facility] [place] [facility] [address] [id number] [place] [address]- 6028 28 Feb, 2014 [facility] [place] [facility] [address] [id number] [place] [address]- 0183 Feb, [facility] [place] [facility] [address] [id number] [place] [address]- 2957 10 Feb, 2014 [facility] [place] [facility] [address] [id number] [place] 9768 11 Jan, 2014 [facility] [place] [facility] [address] [id number] [place] [address]- 2512 Jan, [facility] [place] [facility] [address] [id number] [place] [address]- 3737 Dec, [facility] [place] [facility] [address] [id number] [place] [address]- 3836 Dec, [facility] [place] [facility] [address] [id number] [place] [address]- 5892 Dec, [facility] [place] [facility] [address] [id number] [place] [address]- 8760 Dec, [facility] [place] [facility] [address] [id number] [place] [address]- 2053 Nov, [facility] [place] [facility] [address] [id number] [place] [address]- 0827 Nov, [facility] [place] [facility] [address] [id number] [place] [address]- 9875 Nov, [facility] [place] [facility] [address] [id number] [place] [address]- 5492 Nov, [facility] [place] [facility] [address] [id number] [place] [address]- 6540 Nov, [facility] [place] [facility] [address] [id number] [place] [address]- 1396 Nov, [facility] [place] [facility] [address] [id number] [place] [address]- 3732 Nov, [facility] [place] [facility] [address] [id number] [place] [address]- 5183 Oct, [facility] [place] [facility] [address] [id number] [place] [address]- 4297 Oct, [facility] [place] [facility] [address] [id number] [place] [address]- 9947 Oct, [facility] [place] [facility] [address] [id number] [place] [address]- 7996 Oct, [facility] [place] [facility] [address] [id number] [place] [address]- 3586 Oct, [facility] [address] [id number] [place] [address]- 7390 Oct, [facility] [place] [facility] [address] [id number] [place] [address]- 6505 September, [facility] [address] [id number] [place] [address]- 7293 September, [facility] [place] [facility] [address] [id number] [place] [address]- 7931 September, [facility] [address] [id number] [place] [address]- 0468 September, [facility] [address] [id number] [place] [address] September, [facility] [address] [id number] [place] [address] September, [facility] [address] [id number] [place] [address] September, [facility] [place] [facility] [address] [id number] [place] [address] September, [facility] [address] [id number] [place] [address] September, [facility] [place] [facility] [address] [id number] [place] [address] Aug, [facility] [place] [facility] [address] [id number] [place] [address] Jun, [facility] [place] [facility] [address] [id number] [place] [address] Jun, [facility] [place] [facility] [address] [id number] [place] [address] May, [facility] [place] [facility] [address] [id number] [place] [address] Mar, [facility] [address] [id number], [place] [address] Mar, [facility] [address] [id number], [place] [address] Oct, [facility] [address] [id number], [place] [address] September, [facility] [address] [id number], [place] [address] September, [facility] [address] [id number] [place] [address] Aug, [facility] [address] [id number], [place] [address] Jul, [facility] [address] [id number], [place] [address] May, [facility] [address] [id number], [place] [address] May, [facility] [address] [id number], [place] [address] May, [facility] [address] [facility] [id number], [place] [address] Feb, [facility] [address] [id number], [place] [address] Feb, [facility] [place] [facility] [address] [id number], [place] [address] Feb, [facility] [address] [id number], [place] [address] Feb, [facility] [address] [facility] [id number], [place] [address] Feb, [facility] [address] [id number] [id number] Feb, [facility] [address] [id number], [place] [address] Feb, [facility] [place] [facility] [address] [id number] [place] [address] Feb, [facility] [place] [facility] [address] [id number] [place] [address] Feb, [facility] [place] [facility] [address] [id number] [place] [address] Jan, [facility] [place] [facility] [address] [id number] [place] [address] Dec, [facility] [place] [facility] [address] [id number] [place] [address] Dec, [facility] [place] [facility] [address] [id number] [place] [address] Dec, [facility] [place] [facility] [address] [id number] [place] [address] Nov, [facility] [place] [facility] [address] [id number] [place] [address] Nov, [facility] [place] [facility] [address] [id number] [place] [address] Oct, [facility] [place] [facility] [address] [id number] [place] [address] September, [facility] [place] [facility] [address] [id number] [place] [address] Aug, [facility] [place] [facility] [address] [id number] [place] [address] Aug, [facility] [place] [facility] [address] [id number] [place] [address] Jul, [facility] [place] [facility] [address] [id number] [place] [address] 16 Jul, 2011 [facility] [place] [facility] [address] [id number] [place] [address] Jul, [facility] [place] [facility] [address] [facility] [place] [id number] [place] [address] 17 Jun, 2011 [facility] [address] [facility] [id number] [address] Jun, IMMUNIZATIONS No Known Immunizations SOCIAL HISTORY Never Assessed REASON FOR VISIT Allergies PLAN OF CARE Activity Details Follow Up prn Reason: VITAL SIGNS MEDICATIONS Medication Instructions Dosage Frequency Start Date End Date Duration Status Melatonin 3 MG Orally Once a day 2 tablets at bedtime as needed with food 24h May, Active Albuterol Sulfate (2.5 MG/3ML) 0.083% Inhalation every 6 hours 3 ml as needed 6h September, Active Guaifenesin 400 mg Orally 2 times a day 1 tablet as needed 12h September, Active Pepcid 20 mg Orally Once a day 1 tablet at bedtime 24h September,Oct 30 day(s) Active Tramadol HCl 50 mg Orally Once a day at HS 1 tablet Jul, 28 days Active Singulair 10 MG Orally Once a day 1 tablet in the evening 24h Aug, 30 day(s) Active Colace 100 mg Orally once a week 1 capsule Active RESULTS No Results PROCEDURES Procedure Date Ordered Result Body Site Minor complication (15 mins) October 20, 2017 INSTRUCTIONS MEDICATIONS ADMINISTERED No Known Medications
--- OUTSIDE RECORDS SUMMARY | 2018-02-05 08:26 | XMS REPORT ---
Author Author MAXIMO SMALL [facility] Address [address] [place] [address] Care Team Providers Care Beet End Supervisor Name Role Phone MAXIMO SMALL Unavailable PROBLEMS Type Condition ICD9-CM Code CRG19-EO Code Onset Dates Condition Status SNOMED Code Problem Benign essential hypertension I10 Active 9303404 Problem Hypothyroidism E03.9 Active 46154357 Problem CVA (cerebral vascular accident) I63.9 Active 018435654 Problem Major depressive disorder with single episode, in full remission F32.5 Active 01189046 Problem Arthropathy, unspecified M12.9 Active 132339428 Problem Reactive depression F32.9 Active 02733282 Problem 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 Active 18923270 Problem Other insomnia G47.09 Active 537891026 Problem Allergy, subsequent encounter T78.40XD Active 798651289 Problem 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, unspecified hemiplegia type I69.353 Active 733312702 Problem 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 [id number], [place] [address] Dec, [facility] [place] [address] 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 [facility] [place] [id number] [place] [address] 15891- 4047 Nov, [facility] [place] [id number] [place] [address] 06931- 4796 Nov, Arthropathy, unspecified M12.9 [facility] [place] [address] [address] Oct, [facility] [id number] [place] [address] 07730- 9285 Oct, Arthropathy, unspecified M12.9 [facility] [id number] [place] [address] 54797- 2388 September, [employer] [address] [place] [id number] September, Reactive airway disease that is not asthma R09.89 [employer] [address] [place] [id number] September, Benign essential hypertension I10 and CVA, old, 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 [facility] [id number] [place] [address] 76814- 7825 September, [facility] [id number] [place] [address] 43828- 0232 September, Arthropathy, unspecified M12.9 [facility] [id number] [place] [address] 65640- 3619 Aug, [facility] [id number] [place] [address] 77082- 9160 Aug, [facility] [place] [id number] [place] [address] 95452- 1307 Aug, Arthropathy, unspecified M12.9 [employer] [address] [place] [id number] Jul, Diarrhea, unspecified type R19.7 [facility] [facility] [id number] [place] [address] 424270- 2206 Jul, Arthropathy, unspecified M12.9 [facility] [id number] [id number] Jun, Arthropathy, unspecified M12.9 [facility] [place] [address]65[address], [place] [address] May, Arthropathy, unspecified M12.9 [facility] [id number] [place] [address] [id number] May, [employer] [address] [place] [id number] May, Localized edema R60.0 [facility] [id number] [place] [address] [id number] May, [facility] [place] [id number] [place] [address] 86611- 8947 Apr, Arthropathy, unspecified M12.9 [facility] [place] [id number] [place] [address] 58290- 5388 Mar, Arthropathy, unspecified M12.9 [facility] [place] [id number] [place] [address] 48589- 1107 Feb, Reactive depression F32.9 and 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 [facility] [place] [address] [place] [address] 60862- 4248 Feb, Reactive depression F32.9 and Rash R21 [facility] [place] [address], [place] [address] 4933 Feb, Arthropathy, unspecified M12.9 [facility] [place] [address] [place] [address] 03304- 6222 Feb, [facility] [place] [address], [place] [address] 2658 Jan, Reactive depression F32.9 ; Other insomnia G47.09 and 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 [facility] [place] [address] [place] [address] 20257- 0367 Jan, [facility] [place] [id number] [place] [address] 24665- 1196 Jan, Arthropathy, unspecified M12.9 [facility] [place] [id number] [place] [address] 67458- 2628 Jan, [facility] [place] [id number] [place] [address] 51670- 9186 Dec, Arthropathy, unspecified M12.9 [employer] [address] [place] [id number] Dec, Skin tag L91.8 ; Wart of scalp B07.9 and Weight gain R63.5 [facility] [id number] [place] [address] [id number] Dec, [facility] [place] [id number] [place] [address] 01718- 3637 Dec, Reactive depression F32.9 [facility] [id number] [place] [address] [id number] Nov, Arthropathy, unspecified M12.9 [facility] [place] [id number] [place] [address] 18141- 0142 Oct, [facility] [place] [address] [place] [address] 98115- 3784 Oct, Arthropathy, unspecified M12.9 [employer] [address] [place] [id number] September, Reactive depression F32.9 and CVA (cerebral vascular accident) I63.9 [facility] [place] [id number] [place] [address] 52680- 2821 September, Arthropathy, unspecified M12.9 [facility] [place] [address] [place] [address] 56104- 8439 September, [facility] [place] [id number] [place] [address] 00812- 8826 September, Arthropathy, unspecified M12.9 [facility] [place] [address] [place] [address] 90235- 7046 Aug, Arthropathy, unspecified M12.9 [facility] [place] [id number] [place] [address] 67058- 9966 Aug, [facility] [id number] [place] [address] [id number] Aug, [facility] [place] [address] [place] [address] 91308- 0177 Jul, [facility] [place] [id number] [place] [address] 66227- 0956 Jul, [facility] [id number] [place] [address] [id number] Jul, [employer] [address] [place] [id number] Jun, Reactive depression F32.9 [facility] [place] [address] [place] [address] 75989- 9681 Jun, Reactive depression F32.9 [facility] [id number] [place] [address] [id number] Jun, [employer] [address] [place] [id number] Jun, Reactive depression F32.9 and Other insomnia G47.09 [facility] [place] [address] [place] [address] 02081- 5776 Jun, [facility] [place] [address] [place] [address] 65626- 5352 May, [facility] [id number] [place] [address] [id number] May, [employer] [address] [place] [id number] Apr, CVA, old, 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 [id number], [place] [address]- 4786 Mar, [employer] [address] [place] [id number] Feb, Benign essential hypertension I10 [facility] [place] [address] [facility] [id number], [place] [address]- 6746 Feb, [facility] [place] [address] [facility] [id number] [place] [address] 20760- 0456 Feb, [facility] [place] [address] [facility] [id number] [place] [address] 63765- 5206 Feb, [facility] [place] [id number] [place] [address] 62741- 1976 Feb, [facility] [place] [id number] [place] [address] 51730- 8086 Feb, [facility] [place] [id number] [place] [address] 70018- 0816 Jan, [facility] [place] [address], [place] [address]- 9396 Jan, [employer] [address] [place] [id number] Jan, CVA, old, 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 and Benign essential hypertension I10 [facility] [place] [address], [place] [address] 2546 Dec, [facility] [place] [address], [place] [address]- 7146 Nov, [facility] [place] [id number], [place] [address]- 8238 Nov, [facility] [place] [address], [place] [address]- 0936 Oct, [facility] [place] [address], [place] [address] 2546 Oct, [facility] [place] [id number] [place] [address] 41167- 8162 Oct, 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 ; Benign essential hypertension I10 ; Reactive depression F32.9 and Urinary frequency R35.0 [facility] [place] [id number] [place] [address] 51134- 8439 14 Aug, 2015 UTI (urinary tract infection) N39.0 [facility] [place] [id number] [place] [address] 13842- 0620 07 Aug, 2015 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 [facility] [place] [id number] [place] [address] 32155- 8658 Jul, Benign essential hypertension I10 ; CVA, old, 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 and Hypothyroidism E03.9 [facility] [place] [id number] [place] [address] 51773- 3036 Jun, [facility] [place] [address] 35502- 5790 Jun, Acute diarrhea R19.7 [facility] [place] [id number] [place] [address] 02825- 9619 May, CVA (cerebral vascular accident) I63.9 [facility] [place] [id number] [place] [address] 76847- 8931 16 Apr, 2015 [facility] [place] [id number] [place] [address] 61285- 3822 Apr, [facility] [place] [id number] [place] [address] 26619 2549 15 Apr, 2015 [facility] [place] [id number] [place] [address] 23728- 5754 04 Apr, 2015 [facility] [place] [id number] [place] [address] 61104 2548 03 Apr, 2015 CVA (cerebral vascular accident) I63.9 and Constipation K59.00 [facility] [place] [address] 11628- 0732 Apr, [facility] [place] [address], [place] [address]- 8242 Mar, [facility] [place] [id number] [place] [address] 341847- 3402 Mar, [facility] [place] [id number] [place] [address] 013453- 1395 Mar, [facility] [place] [id number] [place] [address] 881249- 5533 Mar, [facility] [place] [id number] [place] [address] 561937- 1658 Feb, [facility] [place] [id number] [place] [address] 063186- 2380 Feb, CVA, old, 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 ; Allergic rhinitis J30.9 and Benign essential hypertension I10 [facility] [place] [id number] [place] [address] 16630- 7595 Dec, CVA (cerebral vascular accident) 434.91 [facility] [place] [id number] [place] [address] 76488- 8698 Dec, [facility] [place] [id number] [place] [address] 38961- 7435 Oct, [facility] [place] [id number] [place] [address] 24815- 0413 Oct, [facility] [place] [id number] [place] [address] 44441- 5596 Oct, CVA (cerebral vascular accident) 434.91 [facility] [place] [address] [place] [address] 123619- 7828 Oct, [facility] [place] [id number] [place] [address] 02653- 9639 September, [facility] [place] [address] [place] [address] 25919- 2765 September, Allergic rhinitis 477.9 and Arthropathy 716.90 [facility] [address], [place] [address]- 0816 Aug, [facility] [address], [place] [address]- 0558 Aug, [facility] [address]65100[place], [place] [address]- 4279 Jun, [facility] [address], [place] [address]- 5283 Jun, [facility] [address] [place] [id number] Jun, [facility] [address]100[place], [place] [address]- 6383 Jun, [facility] [place] [address], [place] [address]- 2364 Jun, [facility] [address], [place] [address]- 1084 Jun, [facility] [address], [place] [address]- 9690 Jun, [facility] [address], [place] [address]- 3781 May, [facility] [address], [place] [address]- 7615 May, [facility] [id number], [place] [address]- 6040 May, [facility] [address], [place] [address]- 4358 May, [facility] [address], [place] [address]- 9969 Apr, [facility] [id number], [place] [address]- 6443 Apr, [facility] [address] [id number] [place] [address]- 2808 18 Apr, 2014 [facility] [address] [facility] [id number] Apr, [facility] [address] [id number] [place] [address]- 7124 Apr, [facility] [address] [id number] [place] [address]- 8799 Apr, [facility] [place] [facility] [address] [id number] [place] [address]- 1313 Apr, [facility] [place] [facility] [address] [id number] [place] [address]- 8474 Apr, [facility] [place] [facility] [address] [id number] [place] [address]- 1944 Apr, [facility] [place] [facility] [address] [id number] [place] [address]- 1865 Apr, [facility] [place] [facility] [address] [id number] [place] [address]- 3033 Apr, [facility] [place] [facility] [address] [id number] [place] [address]- 4028 Mar, [facility] [place] [facility] [address] [id number] [place] [address]- 3620 Mar, [facility] [place] [facility] [address] [id number] [place] [address]- 8460 Mar, [facility] [place] [facility] [address] [id number] [place] [address]- 9744 Mar, [facility] [place] [facility] [address] [id number] [place] [address]- 9785 Mar, [facility] [place] [facility] [address] [id number] [place] [address]- 2643 Mar, [facility] [place] [facility] [address] [id number] [place] [address]- 7355 Mar, [facility] [place] [facility] [address] [id number] [place] [address]- 6510 Mar, [facility] [place] [facility] [address] [id number] [place] 0500 Mar, [facility] [place] [facility] [address] [id number] [place] [address]- 6660 Mar, [facility] [place] [facility] [address] [id number] [place] [address]- 4859 Mar, [facility] [place] [facility] [address] [id number] [place] [address]- 4404 Mar, [facility] [place] [facility] [address] [id number] [place] [address]- 5654 Mar, [facility] [place] [facility] [address] [id number] [place] [address]- 4311 Feb, [facility] [place] [facility] [address] [id number] [place] [address]- 2336 Feb, [facility] [place] [facility] [address] [id number] [place] [address]- 0306 Feb, [facility] [place] [facility] [address] [id number] [place] [address]- 6135 30 Feb, 2014 [facility] [place] [facility] [address] [id number] [place] [address]- 9257 Feb, [facility] [place] [facility] [address] [id number] [place] [address]- 7189 28 Feb, 2014 [facility] [place] [facility] [address] [id number] [place] [address]- 0721 Feb, [facility] [place] [facility] [address] [id number] [place] [address]- 1076 10 Feb, 2014 [facility] [place] [facility] [address] [id number] [place] [address] 11 Jan, 2014 [facility] [place] [facility] [address] [id number] [place] [address] Jan, [facility] [place] [facility] [address] [id number] [place] [address] Dec, [facility] [place] [facility] [address] [id number] [place] [address] Dec, [facility] [place] [facility] [address] [id number] [place] [address] Dec, [facility] [place] [facility] [address] [id number] [place] [address] Dec, [facility] [place] [facility] [address] [id number] [place] [address] Nov, [facility] [place] [facility] [address] [id number] [place] [address] Nov, [facility] [place] [facility] [address] [id number] [place] [address] Nov, [facility] [place] [facility] [address] [id number] [place] [address] Nov, [facility] [place] [facility] [address] [id number] [place] [address] Nov, [facility] [place] [facility] [address] [id number] [place] [address] Nov, [facility] [place] [facility] [address] [id number] [place] [address] Nov, [facility] [place] [facility] [address] [id number] [place] [address] Oct, [facility] [place] [facility] [address] [id number] [place] [address] Oct, [facility] [place] [facility] [address] [id number] [place] [address] Oct, [facility] [place] [facility] [address] [id number] [place] [address] Oct, [facility] [place] [facility] [address] [id number] [place] [address] Oct, [facility] [address] [id number] [place] [address] Oct, [facility] [place] [facility] [address] [id number] [place] [address] September, [facility] [address] [id number] [place] [address] September, [facility] [place] [facility] [address] [id number] [place] [address] September, [facility] [address] [id number] [place] [address] September, [facility] [address] [id number] [place] [address] September, [facility] [address] [id number] [place] [address] September, [facility] [address] [id number] [place] [address] September, [facility] [place] [facility] [address] [id number] [place] [address] September, [facility] [address] [id number] [place] [address] September, [facility] [place] [facility] [address] [id number] [place] [address] Aug, [facility] [place] [facility] [address] [id number] [place] [address] Jun, [facility] [place] [facility] [address] [id number] [place] [address] Jun, [facility] [place] [facility] [address] [id number] [place] [address] May, [facility] [place] [facility] [address] [id number] [place] [address] Mar, [facility] [address] [id number], [place] [address] Mar, [facility] [address] [id number], [place] [address] Oct, [facility] [address] [id number], [place] [address] September, [facility] [address] [id number], [place] [address] September, [facility] [address] [id number] [place] [address] Aug, [facility] [address] [id number], [place] [address] Jul, [facility] [address] [id number], [place] [address] May, [facility] [address] [id number], [place] [address] May, [facility] [address] [id number], [place] [address] May, [facility] [address] [facility] [id number], [place] [address] Feb, [facility] [address] [id number], [place] [address] Feb, [facility] [place] [facility] [address] [id number], [place] [address] Feb, [facility] [address] [id number], [place] [address] Feb, [facility] [address] [facility] [id number], [place] [address] Feb, [facility] [address] [id number][place] [id number] Feb, [facility] [address] [id number], [place] [address] Feb, [facility] [place] [facility] [address] [id number] [place] [address] Feb, [facility] [place] [facility] [address] [id number] [place] [address] Feb, [facility] [place] [facility] [address] [id number] [place] [address] Jan, [facility] [place] [facility] [address] [id number] [place] [address] Dec, [facility] [place] [facility] [address] [id number] [place] [address] Dec, [facility] [place] [facility] [address] [id number] [place] [address] Dec, [facility] [place] [facility] [address] [id number] [place] [address] Nov, [facility] [place] [facility] [address] [id number] [place] [address] Nov, [facility] [place] [facility] [address] [id number] [place] [address] Oct, [facility] [place] [facility] [address] [id number] [place] [address] September, [facility] [place] [facility] [address] [id number] [place] [address] Aug, [facility] [place] [facility] [address] [id number] [place] [address] Aug, [facility] [place] [facility] [address] [id number] [place] [address] Jul, [facility] [place] [facility] [address] [id number] [place] [address] 16 Jul, 2011 [facility] [place] [facility] [address] [id number] [place] [address] Jul, [facility] [place] [facility] [address] [facility] [id number] [place] [address] 17 Jun, 2011 [facility] [address] [facility] [id number] [place] [address] Jun, IMMUNIZATIONS No Known Immunizations SOCIAL HISTORY Never Assessed REASON FOR VISIT routine visit PLAN OF CARE Activity Details Follow Up prn Reason: VITAL SIGNS MEDICATIONS Medication Instructions Dosage Frequency Start Date End Date Duration Status Pepcid 20 mg Orally Once a day 1 tablet at bedtime 24h September,Oct 30 day(s) Active Colace 100 mg Orally once a week 1 capsule Active Melatonin 3 MG Orally Once a day 2 tablets at bedtime as needed with food 24h May, Active Tramadol HCl 50 mg Orally Once a day at HS 1 tablet Jul, 28 days Active Singulair 10 MG Orally Once a day 1 tablet in the evening 24h Aug, 30 day(s) Active RESULTS No Results PROCEDURES Procedure Date Ordered Result Body Site Stable Visit (10 minutes) October 06, 2017 INSTRUCTIONS MEDICATIONS ADMINISTERED No Known Medications
--- OUTSIDE RECORDS SUMMARY | 2018-02-05 08:26 | XMS REPORT ---
Author Author MAXIMO SMALL [facility] Address [address] [place] [address] Care Team Providers Care Flying I Instructor Name Role Phone MAXIMO SMALL Unavailable PROBLEMS Type Condition ICD9-CM Code UFV37-FZ Code Onset Dates Condition Status SNOMED Code Problem Benign essential hypertension I10 Active 9725174 Problem Hypothyroidism E03.9 Active 97092531 Problem CVA (cerebral vascular accident) I63.9 Active 679182397 Problem Major depressive disorder with single episode, in full remission F32.5 Active 39700119 Problem Arthropathy, unspecified M12.9 Active 472925399 Problem Reactive depression F32.9 Active 19577056 Problem 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 Active 61336289 Problem Other insomnia G47.09 Active 600717181 Problem Allergy, subsequent encounter T78.40XD Active 885365123 Problem 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, unspecified hemiplegia type I69.353 Active 548180618 Problem 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 Active 677802600 Problem Alzheimers disease with late onset G30.1 Active 335194189 Problem Glaucoma of both eyes, unspecified glaucoma H40.9 Active 87346369 Problem Gastroesophageal reflux disease without esophagitis K21.9 Active 602728018 Problem Aphasia R47.01 Active 63029779 Problem CVA, old, 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 Active 801574551 ALLERGIES No Information ENCOUNTERS Encounter Location Date Diagnosis [facility] [id number] [address] Nov, Arthropathy, unspecified M12.9 [facility] [employer] [address] [id number] Nov, Major depressive disorder with single episode, in full remission F32.5 and CVA, old, 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 [facility] [id number] [place] [address] 91644- 8331 Nov, [facility] [id number] [place] [address] 54458- 6153 Nov, Arthropathy, unspecified M12.9 [facility] [id number] [place] [address] 69003- 6240 Oct, [facility] [id number] [place] [address] 78772- 4967 Oct, Arthropathy, unspecified M12.9 [facility] [id number] [place] [address] 05097- 5818 September, [employer] [address] [place] [id number] September, Reactive airway disease that is not asthma R09.89 [facility] [address] [place] [id number] September, Benign essential hypertension I10 and CVA, old, 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 [facility] [id number] [place] [address] 96581- 5458 September, [facility] [id number] [place] [address] 17910- 6634 September, Arthropathy, unspecified M12.9 [facility] [id number] [place] [address] 49887- 7467 Aug, [facility] [id number] [place] [address] 47297- 0015 Aug, [facility] [id number] [place] [address] 90198- 8169 Aug, Arthropathy, unspecified M12.9 [employer] [facility] [address] [place] [id number] Jul, Diarrhea, unspecified type R19.7 [facility] [address] [address] Jul, Arthropathy, unspecified M12.9 [facility] [id number] [place] [id number] Jun, Arthropathy, unspecified M12.9 [facility] [id number] [place] [address] 485449- 6136 May, Arthropathy, unspecified M12.9 [facility] [id number] [place] [address] May, [employer] [address] [id number] May, Localized edema R60.0 [facility] [id number] [place] [address] [id number] May, [facility] [id number] [place] [address] 43815- 7887 Apr, Arthropathy, unspecified M12.9 [facility] [address] [place] [address] 64501- 7249 Mar, Arthropathy, unspecified M12.9 [facility] [address] [place] [address] 75534- 5565 Feb, Reactive depression F32.9 and 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 [facility] [id number] [place] [address] 21837- 8099 Feb, Reactive depression F32.9 and Rash R21 [facility] [id number] [place] [address] 31611- 9736 Feb, Arthropathy, unspecified M12.9 [facility] [id number] [place] [address] 80216- 3959 Feb, [facility] [id number] [place] [address] 07035- 3582 Jan, Reactive depression F32.9 ; Other insomnia G47.09 and 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 [facility] [id number] [place] [address] 90098- 4557 Jan, [facility] [id number] [address] 5970 Jan, Arthropathy, unspecified M12.9 [facility] [address] [address]- 0896 Jan, [facility] [id number] [place] [address] 05503- 7820 Dec, Arthropathy, unspecified M12.9 [facility] [address] [id number] Dec, Skin tag L91.8 ; Wart of scalp B07.[address] [facility] [id number] [place] [address] [id number] Dec, [facility] [id number] [place] [address] 77891- 8395 Dec, Reactive depression F32.9 [facility] [id number] [place] [address] [id number] Nov, Arthropathy, unspecified M12.9 [facility] [address] [address] 4107 Oct, [facility] [address] [address]- 8935 Oct, Arthropathy, unspecified M12.9 [employer] [facility] [address] [id number] September, Reactive depression F32.9 and CVA (cerebral vascular accident) I63.9 [facility] [address] [address] 3781 September, Arthropathy, unspecified M12.9 [facility] [address] [address]- 5302 September, [facility] [address] [address] 1285 September, Arthropathy, unspecified M12.9 [facility] [id number] [place] [address] 84010- 2317 Aug, Arthropathy, unspecified M12.9 [facility] [address] 21145[address]- [address]130 Aug, [facility] [id number] [place] [address] [id number] Aug, [facility] [address] 10842- 8934 Jul, [facility] [address] 51071- 7326 Jul, [address] [id number] Jul, [employer] [facility] [address] [place] [id number] Jun, Reactive depression F32.9 [facility] [address] [address]- 8826 Jun, Reactive depression F32.9 [facility] [id number] [place] [address] [id number] Jun, [facility] [employer] [address] [place] [address] Jun, Reactive depression F32.9 and Other insomnia G47.09 [facility] [id number] [place] [address] 38503- 0848 Jun, [facility] [id number] [place] [address] [id number]- 9120 May, 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 ; Allergy, subsequent encounter T78.40XD and Reactive depression F32.9 [facility] [id number] [place] [address] 72295- 2723 Mar, [facility] [address] [id number] Feb, Benign essential hypertension I10 [facility] [address] [address]- 8796 Feb, [facility] [address] [address]- 7276 Feb, [facility] [id number] [place] [address] 42161- 6085 Feb, [facility] [address] [place] [address] 77671- 2851 Feb, [facility] [id number] [place] [address] 59308- 1238 Feb, [facility] [id number] [place] [address] 08154- 7195 Jan, [facility] [id number] [place] [address] 73035- 3906 Jan, [facility] [address] [id number] Jan, CVA, old, 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 and Benign essential hypertension I10 [facility] [address] [address]- 0446 Dec, [facility] [address] [address]- 5206 Nov, [facility] [address] [address]- 9846 Nov, [facility] [address] [address]- 6608 Oct, [facility] [id number] [address]- 0936 Oct, [facility] [address] [address]- 6632 Oct, 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 ; Benign essential hypertension I10 ; Reactive depression F32.9 and Urinary frequency R35.0 [facility] [id number] [place] [address] 98968- 7642 14 Aug, 2015 UTI (urinary tract infection) N39.0 [facility] [id number] [place] [address] 29749 2546 07 Aug, 2015 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 [facility] [id number] [place] [address] 80548 2546 Jul, Benign essential hypertension I10 ; CVA, old, 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 and Hypothyroidism E03.9 [facility] [address] 93106- 9936 Jun, [facility] [id number] [place] [address] 10396- 5233 Jun, Acute diarrhea R19.7 [facility] [address] [address]75 2549 May, CVA (cerebral vascular accident) I63.9 [facility] [id number] [place] [address] 76917- 5454 16 Apr, 2015 [facility] [id number] [place] [address] 30578 2540 16 Apr, 2015 [facility] [id number] [place] [address] 03664 2546 15 Apr, 2015 [facility] [id number] [place] [address] 65696 2546 Apr, [facility] [id number] [place] [address] 16911 2547 03 Apr, 2015 CVA (cerebral vascular accident) I63.9 and Constipation K59.00 [facility] [id number] [place] [address] 78326 2549 Apr, [facility] [address] 39917- 5523 Mar, [facility] [address] [place] [address] 09191- 4593 Mar, [facility] [id number] [place] [address] 71797- 1030 Mar, [facility] [id number] [place] [address] 02074- 8981 Mar, [facility] [id number] [place] [address] 01560- 3711 Feb, [facility] [id number] [place] [address] 90076- 3516 Feb, CVA, old, 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 ; Allergic rhinitis J30.9 and Benign essential hypertension I10 [facility] [id number] [place] [address] 67954- 3251 Dec, CVA (cerebral vascular accident) 434.91 [facility] [id number] [place] [address] 26775- 4694 Dec, [facility] [id number] [place] [address] 34367- 5534 Oct, [facility] [id number] [place] [address] 27524- 5213 Oct, [facility] [id number] [place] [address] 38525- 7573 Oct, CVA (cerebral vascular accident) 434.91 [facility] [id number] [place] [address] 42741- 9396 Oct, [facility] [id number] [place] [address] 87204- 7453 September, [facility] [id number] [place] [address] 28222- 7209 September, Allergic rhinitis 477.9 and Arthropathy 716.90 [facility] [id number] [place] [address] 86403- 5782 14 Aug, 2014 [facility] [address] [id number] [place] [address]- 3729 Aug, [facility] [address] [id number] [place] [address]- 1361 Jun, [facility] [address] [facility] [id number] [place] [address]- 5542 Jun, [facility] [address] [place] [id number] Jun, [facility] [address] [id number] [place] [address]- 9206 Jun, [facility] [address] [facility] [id number] [place] [address]- 2727 Jun, [facility] [address] [facility] [id number] [place] [address]- 0737 Jun, [facility] [address] [facility] [id number] [place] [address]- 5002 Jun, [facility] [address] [facility] [id number] [place] [address]- 5412 May, [facility] [address] [facility] [id number] [place] [address]- 6218 May, [facility] [address] [facility] [id number] [place] [address]- 7097 May, [facility] [address] [facility] [id number] [place] [address]- 9291 May, [facility] [address] [facility] [id number] [place] [address]- 3963 Apr, [facility] [address] [id number] [place] [address]- 1483 Apr, [facility] [address] [facility] [id number] [place] [address]- 1843 Apr, [facility] [address] [place] [id number] 04 Apr, 2014 [facility] [place] [facility] [address] [id number] [place] [address]- 3492 Apr, [facility] [place] [facility] [address] [id number] [place] [address]- 3417 Apr, [facility] [place] [facility] [address] [id number] [place] [address]- 9835 Apr, [facility] [place] [facility] [address] [id number] [place] [address]- 4300 Apr, [facility] [place] [facility] [address] [id number] [place] [address]- 6446 Apr, [facility] [place] [facility] [address] [id number] [place] [address]- 8731 Apr, [facility] [place] [facility] [address] [id number] [place] [address]- 8543 Apr, [facility] [place] [facility] [address] [id number] [place] [address]- 4695 Mar, [facility] [place] [facility] [address] [id number] [place] [address]- 9983 Mar, [facility] [place] [facility] [address] [id number] [place] [address]- 2076 Mar, [facility] [place] [facility] [address] [id number] [place] [address]- 8915 Mar, [facility] [place] [facility] [address] [id number] [place] [address]- 7705 Mar, [facility] [place] [facility] [address] [id number] [place] [address]- 1532 Mar, [facility] [place] [facility] [address] [id number] [place] [address]- 5559 Mar, [facility] [place] [facility] [address] [id number] [place] [address]- 8176 Mar, [facility] [place] [facility] [address] [id number] [place] [address]- 7717 Mar, [facility] [place] [facility] [address] [id number] [place] [address]- 1192 Mar, [facility] [place] [facility] [address] [id number] [place] [address]- 9547 Mar, [facility] [place] [facility] [address] [id number] [place] [address]- 6174 Mar, [facility] [place] [facility] [address] [id number] [place] [address]- 9857 Mar, [facility] [place] [facility] [address] [id number] [place] [address]- 8587 Feb, [facility] [place] [facility] [address] [id number] [place] [address]- 3577 Feb, [facility] [place] [facility] [address] [id number] [place] [address]- 2471 Feb, [facility] [place] [facility] [address] [id number] [place] [address]- 8593 30 Feb, 2014 [facility] [place] [facility] [address] [id number] [place] [address]- 8532 Feb, [facility] [place] [facility] [address] [id number] [place] [address]- 5345 Feb, [facility] [place] [facility] [address] [id number] [place] [address]- 4811 Feb, [facility] [place] [facility] [address] [id number] [place] [address]- 5772 Feb, [facility] [place] [facility] [address] [id number] [place] [address]- 1639 11 Jan, 2014 [facility] [place] [facility] [address] [id number] [place] 0718 11 Jan, 2014 [facility] [place] [facility] [address] [id number] [place] [address]- 4148 Dec, [facility] [place] [facility] [address] [id number] [place] [address]- 1296 Dec, [facility] [place] [facility] [address] [id number] [place] [address]- 8473 Dec, [facility] [place] [facility] [address] [id number] [place] [address]- 4255 Dec, [facility] [place] [facility] [address] [id number] [place] [address]- 3156 Nov, [facility] [place] [facility] [address] [id number] [place] [address]- 2121 Nov, [facility] [place] [facility] [address] [id number] [place] [address]- 6001 Nov, [facility] [place] [facility] [address] [id number] [place] [address]- 6597 Nov, [facility] [place] [facility] [address] [id number] [place] [address]- 6640 Nov, [facility] [place] [facility] [address] [id number] [place] [address]- 9148 Nov, [facility] [place] [facility] [address] [id number] [place] [address]- 8330 Nov, [facility] [place] [facility] [address] [id number] [place] [address]- 7119 Oct, [facility] [place] [facility] [address] [id number] [place] [address]- 2572 Oct, [facility] [place] [facility] [address] [id number] [place] [address]- 5219 Oct, [facility] [place] [facility] [address] [id number] [place] [address]- 7928 Oct, [facility] [place] [facility] [address] [id number] [place] [address]- 1583 Oct, [facility] [place] [facility] [address] [id number] [place] [address]- 2428 Oct, [facility] [address] [id number] [place] [address]- 0711 September, [facility] [place] [facility] [address] [id number] [place] [address]- 6004 September, [facility] [address] [id number] [place] [address]- 4455 September, [facility] [place] [facility] [address] [id number] [place] [address]- 5339 September, [facility] [address] [id number] [place] [address]- 3903 September, [facility] [address] [id number] [place] [address]- 6463 September, [facility] [address] [id number] [place] [address]- 5723 September, [facility] [address] [id number] [place] [address]- 0855 September, [facility] [address] [id number] [place] [address]- 5888 September, [facility] [address] [id number] [place] [address]- 7563 Aug, [facility] [place] [facility] [address] [id number] [place] [address] Jun, [facility] [place] [facility] [address] [id number] [place] [address] Jun, [facility] [place] [facility] [address] [id number] [place] [address] May, [facility] [place] [facility] [address] [id number] [place] [address] Mar, [facility] [place] [facility] [address] [id number] [place] [address] Mar, [facility] [address] [id number] [place] [address] Oct, [facility] [address] [id number] [place] [address] September, [facility] [address] [facility] [id number] [place] [address] September, [facility] [address] [id number] [place] [address] Aug, [facility] [address] [id number] [place] [address] Jul, [facility] [address] [id number] [place] [address] May, [facility] [address] [id number] [place] [address] May, [facility] [address] [id number] [place] [address] May, [facility] [address] [id number] [place] [address] Feb, [facility] [address] [facility] [id number] [place] [address] Feb, [facility] [address] [id number] [place] [address] Feb, [facility] [address] [id number] [place] [address] Feb, [facility] [address] [facility] [id number] [place] [address] Feb, [facility] [address] [id number][place] [id number] Feb, [facility] [address] [facility] [id number] [place] [address] Feb, [facility] [address] [facility] [id number] [place] [address] Feb, [facility] [place] [facility] [address] [id number] [place] [address] Feb, [facility] [place] [facility] [address] [id number] [place] [address] Jan, [facility] [place] [facility] [address] [id number] [place] [address] Dec, [facility] [place] [facility] [address] [id number] [place] [address] Dec, [facility] [place] [facility] [address] [id number] [place] [address] Dec, [facility] [place] [facility] [address] [id number] [place] [address] Nov, [facility] [place] [facility] [address] [facility] [id number] [place] [address] Nov, [facility] [place] [facility] [address] [facility] [id number] [place] [address] Oct, [facility] [place] [facility] [address] [facility] [id number] [place] [address] September, [facility] [place] [facility] [address] [facility] [id number] [place] [address] Aug, [facility] [place] [facility] [address] [id number] [place] [address] Aug, [facility] [place] [facility] [address] [facility] [id number] [place] [address] Jul, [facility] [place] [facility] [address] [id number] [place] [address] Jul, [facility] [place] [facility] [address] [facility] [id number] [place] [address] Jul, [facility] [place] [facility] [address] [facility] [id number] [place] [address] Jun, [facility] [place] [facility] [address] [facility] [id number] [place] [id number] Jun, 2011 IMMUNIZATIONS No Known Immunizations SOCIAL HISTORY Never Assessed REASON FOR VISIT Acid reflux PLAN OF CARE VITAL SIGNS MEDICATIONS Medication Instructions Dosage Frequency Start Date End Date Duration Status Pepcid 20 mg Orally Once a day 1 tablet at bedtime 24h September,Oct 30 day(s) Active RESULTS No Results PROCEDURES No Known procedures INSTRUCTIONS MEDICATIONS ADMINISTERED No Known Medications
--- OUTSIDE RECORDS SUMMARY | 2018-02-05 08:27 | XMS REPORT ---
Author Author MAXIMO SMALL [facility] Address [address] [place] [address] Care Team Providers Care Mobile Service Rv Technician Name Role Phone MAXIMO SMALL Unavailable PROBLEMS Type Condition ICD9-CM Code VDV90-GE Code Onset Dates Condition Status SNOMED Code Problem Benign essential hypertension I10 Active 8724474 Problem Hypothyroidism E03.9 Active 18182700 Problem CVA (cerebral vascular accident) I63.9 Active 686574029 Problem Major depressive disorder with single episode, in full remission F32.5 Active 22900952 Problem Arthropathy, unspecified M12.9 Active 027125068 Problem Reactive depression F32.9 Active 73487942 Problem 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 Active 79587861 Problem Other insomnia G47.09 Active 500337334 Problem Allergy, subsequent encounter T78.40XD Active 251669622 Problem 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, unspecified hemiplegia type I69.353 Active 774702941 Problem 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 Active 910955863 Problem Alzheimers disease with late onset G30.1 Active 606183188 Problem Glaucoma of both eyes, unspecified glaucoma H40.9 Active 74806720 Problem Gastroesophageal reflux disease without esophagitis K21.9 Active 802482007 Problem Aphasia R47.01 Active 82603520 Problem CVA, old, 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 Active 456937534 ALLERGIES No Information ENCOUNTERS Encounter Location Date Diagnosis [facility] [id number] [address] Nov, Arthropathy, unspecified M12.9 [employer] [address] [place] [id number] Nov, Major depressive disorder with single episode, in full remission F32.5 and CVA, old, 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 [facility] [address] [place] [address] 22234- 7906 Nov, [facility] [id number] [place] [address] 15658- 5077 Nov, Arthropathy, unspecified M12.9 [facility] [id number] [place] [address] 50744- 6700 Oct, [facility] [id number] [place] [address] 43344- 0385 Oct, Arthropathy, unspecified M12.9 [facility] [id number] [place] [address] 51771- 5608 September, [facility] [address] [place] [id number] September, Reactive airway disease that is not asthma R09.89 [facility] [address] [place] [id number] September, Benign essential hypertension I10 and CVA, old, 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 [facility] [id number] [place] [address] 34369- 7107 September, [facility] [id number] [place] [address] 45784- 0542 September, Arthropathy, unspecified M12.9 [facility] [address] [place] [address] 61847- 2550 Aug, [facility] [address] [place] [address] 05998- 8359 Aug, [facility] [address] [place] [address] 67717- 2228 Aug, Arthropathy, unspecified M12.9 [employer] [address] [place] [id number] Jul, Diarrhea, unspecified type R19.7 [facility] [address] [address] 1007 Jul, Arthropathy, unspecified M12.9 [facility] [id number] [id number] Jun, Arthropathy, unspecified M12.9 [facility] [address] [place] [address] 918095- 5806 May, Arthropathy, unspecified M12.9 [facility] [id number] [id number] May, [employer] [address] [place] [id number] May, Localized edema R60.0 [facility] [id number] [place] [address] [id number] May, [facility] [id number] [place] [address] 55512- 8821 Apr, Arthropathy, unspecified M12.9 [facility] [address] [place] [address] 51497- 6992 Mar, Arthropathy, unspecified M12.9 [facility] [address] [place] [address] 17906- 2979 Feb, Reactive depression F32.9 and 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 [facility] [address] [place] [address] 43933- 9450 Feb, Reactive depression F32.9 and Rash R21 [facility] [address] [place] [address] 79941- 1147 Feb, Arthropathy, unspecified M12.9 [facility] [id number] [place] [address] 71209- 3120 Feb, [facility] [id number] [place] [address] 99224- 0776 Jan, Reactive depression F32.9 ; Other insomnia G47.09 and 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 [facility] [address] [place] [address] 08495- 0674 Jan, [facility] [id number] [address] 4612 Jan, Arthropathy, unspecified M12.9 [facility] [address] [address] 0326 Jan, [facility] [id number] [place] [address] 21947- 1818 Dec, Arthropathy, unspecified M12.9 [employer] [address] [place] [id number] Dec, Skin tag L91.8 ; Wart of scalp B07.9 and Weight gain R63.5 [facility] [id number] [place] [address] [id number] Dec, [facility] [id number] [place] [address] 88927- 6113 Dec, Reactive depression F32.9 [facility] [id number] [place] [address] [id number] Nov, Arthropathy, unspecified M12.9 [facility] [address] [address] 5360 Oct, [facility] [address] [address] 7050 Oct, Arthropathy, unspecified M12.9 [facility] [address] [id number] September, Reactive depression F32.9 and CVA (cerebral vascular accident) I63.9 [facility] [address] [address] September, Arthropathy, unspecified M12.9 [facility] [address] [address] 6650 September, [facility] [address] [address] 2236 September, Arthropathy, unspecified M12.9 [facility] [id number] [place] [address] 46901- 2289 Aug, Arthropathy, unspecified M12.9 [facility] [address] [id number]- 1898 Aug, [facility] [id number] [place] [address] [phone] Aug, [facility] [address] 02278- 6105 Jul, [facility] [address] 82406- 9837 Jul, [address] [id number] Jul, [facility] [address] [place] [id number] Jun, Reactive depression F32.9 [facility] [address] 876[address]99- 6114 Jun, Reactive depression F32.9 [facility] [id number] [place] [address] [id number] Jun, [employer] [address] [place] [id number] Jun, Reactive depression F32.9 and Other insomnia G47.09 [facility] [id number] [place] [address] 29611- 4284 Jun, [facility] [id number] [place] [address] 11220102- 9856 May, [facility] [id number] [place] [address] [phone] May, [employer] [address] [place] [id number] Apr, CVA, old, 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 ; Allergy, subsequent encounter T78.40XD and Reactive depression F32.9 [facility] [id number] [place] [address] 32013- 7812 Mar, [employer] [address] [place] [id number] Feb, Benign essential hypertension I10 [facility] [address] [address]- 2026 Feb, [facility] [address] [address] 5076 Feb, [facility] [id number] [place] [address] 30293- 2051 Feb, [facility] [address] [place] [address] 25924- 0344 Feb, [facility] [id number] [place] [address] 27299- 7814 Feb, [facility] [id number] [place] [address] 86118- 6794 Jan, [facility] [id number] [place] [address] 39008- 1156 Jan, [employer] [address] [place] [id number] Jan, CVA, old, 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 and Benign essential hypertension I10 [facility] [address] [address]- 6796 Dec, [facility] [address] [address]- 2866 Nov, [facility] [address] [address]- 8266 Nov, [facility] [address] [address]- 6213 Oct, [facility] [id number] [address]- 3626 Oct, [facility] [address] [address]- 6386 Oct, 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 ; Benign essential hypertension I10 ; Reactive depression F32.9 and Urinary frequency R35.0 [facility] [id number] [place] [address] 66903- 2700 14 Aug, 2015 UTI (urinary tract infection) N39.0 [facility] [id number] [place] [address] 09392 2546 07 Aug, 2015 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 [facility] [id number] [place] [address] 71408 2546 Jul, Benign essential hypertension I10 ; CVA, old, 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 and Hypothyroidism E03.9 [facility] [address] 88576- 7706 Jun, [facility] [id number] [place] [address] 02475- 5878 Jun, Acute diarrhea R19.7 [facility] [address] 80012 2545 May, CVA (cerebral vascular accident) I63.9 [facility] [id number] [place] [address] 68564- 0531 16 Apr, 2015 [facility] [id number] [place] [address] 39940 2540 16 Apr, 2015 [facility] [id number] [place] [address] 57560 2546 15 Apr, 2015 [facility] [id number] [place] [address] 67358 2546 Apr, [facility] [id number] [place] [address] 07082 2549 03 Apr, 2015 CVA (cerebral vascular accident) I63.9 and Constipation K59.00 [facility] [id number] [place] [address] 39045 254 Apr, [facility] [address] 88631- 1331 Mar, [facility] [address] [place] [address] 62232- 5038 Mar, [facility] [id number] [place] [address] 71516- 9913 Mar, [facility] [id number] [place] [address] 50603- 3678 Mar, [facility] [id number] [place] [address] 28416- 6319 Feb, [facility] [id number] [place] [address] 84450- 2696 Feb, CVA, old, 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 ; Allergic rhinitis J30.9 and Benign essential hypertension I10 [facility] [id number] [place] [address] 18900- 7977 Dec, CVA (cerebral vascular accident) 434.91 [facility] [id number] [place] [address] 14326- 4342 Dec, [facility] [id number] [place] [address] 55328- 9487 Oct, [facility] [id number] [place] [address] 32526- 0517 Oct, [facility] [id number] [place] [address] 54807- 4046 Oct, CVA (cerebral vascular accident) 434.91 [facility] [id number] [place] [address] 97412- 3129 Oct, [facility] [id number] [place] [address] 89703- 5455 September, [facility] [id number] [place] [address] 34206- 7743 September, Allergic rhinitis 477.9 and Arthropathy 716.90 [facility] [id number] [place] [address] 95435- 2197 14 Aug, 2014 [facility] [address] [id number] [place] [address]- 3577 Aug, [facility] [address] [id number] [place] [address]- 3851 Jun, [facility] [address] [facility] [id number] [place] [address]- 4046 Jun, [facility] [address] [place] [id number] Jun, [facility] [address] [id number] [place] [address]- 9607 Jun, [facility] [address] [facility] [id number] [place] [address]- 7191 Jun, [facility] [address] [facility] [id number] [place] [address]- 7619 Jun, [facility] [address] [facility] [id number] [place] [address]- 8646 Jun, [facility] [address] [facility] [id number] [place] [address]- 0982 May, [facility] [address] [facility] [id number] [place] [address]- 2913 May, [facility] [address] [facility] [id number] [place] [address]- 4500 May, [facility] [address] [facility] [id number] [place] [address]- 8774 May, [facility] [address] [facility] [id number] [place] [address]- 6358 Apr, [facility] [address] [id number] [place] [address]- 6738 Apr, [facility] [address] [facility] [id number] [place] [address]- 5273 Apr, [facility] [address] [id number] 04 Apr, 2014 [facility] [place] [facility] [address] [id number] [place] [address]- 6905 Apr, [facility] [place] [facility] [address] [id number] [place] [address]- 0479 Apr, [facility] [place] [facility] [address] [id number] [place] [address]- 3811 Apr, [facility] [place] [facility] [address] [id number] [place] [address]- 1010 Apr, [facility] [place] [facility] [address] [id number] [place] [address]- 9270 Apr, [facility] [place] [facility] [address] [id number] [place] [address]- 7862 Apr, [facility] [place] [facility] [address] [id number] [place] [address]- 9782 Apr, [facility] [place] [facility] [address] [id number] [place] [address]- 8544 Mar, [facility] [place] [facility] [address] [id number] [place] [address]- 1792 Mar, [facility] [place] [facility] [address] [id number] [place] [address]- 1352 Mar, [facility] [place] [facility] [address] [id number] [place] [address]- 4191 Mar, [facility] [place] [facility] [address] [id number] [place] [address]- 7852 Mar, [facility] [place] [facility] [address] [id number] [place] [address]- 3257 Mar, [facility] [place] [facility] [address] [id number] [place] [address]- 0989 Mar, [facility] [place] [facility] [address] [id number] [place] [address]- 0760 Mar, [facility] [place] [facility] [address] [id number] [place] [address]- 8296 Mar, [facility] [place] [facility] [address] [id number] [place] [address]- 2086 Mar, [facility] [place] [facility] [address] [id number] [place] [address]- 2482 Mar, [facility] [place] [facility] [address] [id number] [place] [address]- 3686 Mar, [facility] [place] [facility] [address] [id number] [place] [address]- 3247 Mar, [facility] [place] [facility] [address] [id number] [place] [address]- 4165 Feb, [facility] [place] [facility] [address] [id number] [place] [address]- 7170 Feb, [facility] [place] [facility] [address] [id number] [place] [address]- 6976 Feb, [facility] [place] [facility] [address] [id number] [place] [address]- 8475 30 Feb, 2014 [facility] [place] [facility] [address] [id number] [place] [address]- 9615 Feb, [facility] [place] [facility] [address] [id number] [place] [address]- 1339 Feb, [facility] [place] [facility] [address] [id number] [place] [address]- 6347 Feb, [facility] [place] [facility] [address] [id number] [place] [address]- 2886 Feb, [facility] [place] [facility] [address] [id number] [place] [address]- 9533 11 Jan, 2014 [facility] [place] [facility] [address] [id number] [place] 1358 11 Jan, 2014 [facility] [place] [facility] [address] [id number] [place] [address]- 8368 Dec, [facility] [place] [facility] [address] [id number] [place] [address]- 9960 Dec, [facility] [place] [facility] [address] [id number] [place] [address]- 2861 Dec, [facility] [place] [facility] [address] [id number] [place] [address]- 3935 Dec, [facility] [place] [facility] [address] [id number] [place] [address]- 1352 Nov, [facility] [place] [facility] [address] [id number] [place] [address]- 1830 Nov, [facility] [place] [facility] [address] [id number] [place] [address]- 9440 Nov, [facility] [place] [facility] [address] [id number] [place] [address]- 2119 Nov, [facility] [place] [facility] [address] [id number] [place] [address]- 7884 Nov, [facility] [place] [facility] [address] [id number] [place] [address]- 7775 Nov, [facility] [place] [facility] [address] [id number] [place] [address]- 3084 Nov, [facility] [place] [facility] [address] [id number] [place] [address]- 8419 Oct, [facility] [place] [facility] [address] [id number] [place] [address]- 4536 Oct, [facility] [place] [facility] [address] [id number] [place] [address]- 6361 Oct, [facility] [place] [facility] [address] [id number] [place] [address]- 4789 Oct, [facility] [place] [facility] [address] [id number] [place] [address]- 7734 Oct, [facility] [place] [facility] [address] [id number] [place] [address] Oct, [facility] [address] [id number] [place] [address] September, [facility] [place] [facility] [address] [id number] [place] [address] September, [facility] [address] [id number] [place] [address] September, [facility] [place] [facility] [address] [id number] [place] [address] September, [facility] [address] [id number] [place] [address] September, [facility] [address] [id number] [place] [address] September, [facility] [address] [id number] [place] [address] September, [facility] [address] [id number] [place] [address] September, [facility] [address] [id number] [place] [address] September, [facility] [address] [id number] [place] [address] Aug, [facility] [place] [facility] [address] [id number] [place] [address] Jun, [facility] [place] [facility] [address] [id number] [place] [address] Jun, [facility] [place] [facility] [address] [id number] [place] [address] May, [facility] [place] [facility] [address] [id number] [place] [address] Mar, [facility] [place] [facility] [address] [id number] [place] [address] Mar, [facility] [address] [id number] [place] [address] Oct, [facility] [address] [id number] [place] [address] September, [facility] [address] [facility] [id number] [place] [address] September, [facility] [address] [id number] [place] [address] Aug, [facility] [address] [id number] [place] [address] Jul, [facility] [address] [id number] [place] [address] May, [facility] [address] [id number] [place] [address] May, [facility] [address] [id number] [place] [address] May, [facility] [address] [id number] [place] [address] Feb, [facility] [address] [facility] [id number] [place] [address] Feb, [facility] [address] [id number] [place] [address] Feb, [facility] [address] [id number] [place] [address] Feb, [facility] [address] [facility] [id number] [place] [address] Feb, [facility] [address] [id number] [id number] Feb, [facility] [address] [facility] [id number] [place] [address] Feb, [facility] [address] [facility] [id number] [place] [address] Feb, [facility] [place] [facility] [address] [id number] [place] [address] Feb, [facility] [place] [facility] [address] [id number] [place] [address] Jan, [facility] [place] [facility] [address] [id number] [place] [address] Dec, [facility] [place] [facility] [address] [id number] [place] [address] Dec, [facility] [place] [facility] [address] [id number] [place] [address] Dec, [facility] [place] [facility] [address] [id number] [place] [id number] Nov, [facility] [place] [facility] [address] [facility] [id number] [place] [address] Nov, [facility] [place] [facility] [address] [facility] [id number] [place] [address] Oct, [facility] [place] [facility] [address] [facility] [id number] [place] [address] September, [facility] [place] [facility] [address] [facility] [id number] [place] [address] Aug, [facility] [place] [facility] [address] [id number] [place] [address] Aug, [facility] [place] [facility] [address] [facility] [id number] [place] [address] Jul, [facility] [place] [facility] [address] [id number] [place] [address] Jul, [facility] [place] [facility] [address] [facility] [id number] [place] [address] Jul, [facility] [place] [facility] [address] [facility] [id number] [place] [address] Jun, [facility] [place] [facility] [address] [facility] [id number] [place] [id number] Jun, 2011 IMMUNIZATIONS No Known Immunizations SOCIAL HISTORY Never Assessed REASON FOR VISIT allergies PLAN OF CARE VITAL SIGNS MEDICATIONS Medication Instructions Dosage Frequency Start Date End Date Duration Status Singulair 10 MG Orally Once a day 1 tablet in the evening 24h Aug, 30 day(s) Active RESULTS No Results PROCEDURES No Known procedures INSTRUCTIONS MEDICATIONS ADMINISTERED No Known Medications
--- OUTSIDE RECORDS SUMMARY | 2018-02-05 08:27 | XMS REPORT ---
Author Author MAXIMO SMALL [facility] Address [address] [place] [address] Care Team Providers Care Extension Course Coordinator Name Role Phone MAXIMO SMALL Unavailable PROBLEMS Type Condition ICD9-CM Code NQG06-CC Code Onset Dates Condition Status SNOMED Code Problem Benign essential hypertension I10 Active 0301749 Problem Hypothyroidism E03.9 Active 70009125 Problem CVA (cerebral vascular accident) I63.9 Active 254376221 Problem Major depressive disorder with single episode, in full remission F32.5 Active 85453431 Problem Arthropathy, unspecified M12.9 Active 171450880 Problem Reactive depression F32.9 Active 34282069 Problem 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 Active 71012208 Problem Other insomnia G47.09 Active 984169331 Problem Allergy, subsequent encounter T78.40XD Active 648964245 Problem 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, unspecified hemiplegia type I69.353 Active 682211986 Problem 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 Active 348216115 Problem Alzheimers disease with late onset G30.1 Active 400649772 Problem Glaucoma of both eyes, unspecified glaucoma H40.9 Active 19173082 Problem Gastroesophageal reflux disease without esophagitis K21.9 Active 152804147 Problem Aphasia R47.01 Active 24753766 Problem CVA, old, 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 Active 715045992 ALLERGIES No Information ENCOUNTERS Encounter Location Date Diagnosis [facility] [id number], [place] [address] Nov, Arthropathy, unspecified M12.9 [facility] [address] [id number] Nov, Major depressive disorder with single episode, in full remission F32.5 and CVA, old, 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 [facility] [id number] [place] [address] 04854- 6257 Nov, [facility] [id number] [place] [address] 39471- 1190 Nov, Arthropathy, unspecified M12.9 [facility] [id number] [place] [address] 83065- 4919 Oct, [facility] [id number] [place] [address] 36113- 6731 Oct, Arthropathy, unspecified M12.9 [facility] [id number] [place] [address] 66268- 2345 September, [facility] [address] [place] [id number] September, Reactive airway disease that is not asthma R09.89 [facility] [address] [place] [id number] September, Benign essential hypertension I10 and CVA, old, 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 [facility] [id number] [place] [address] 63978- 5059 September, [facility] [id number] [place] [address] 90780- 6851 September, Arthropathy, unspecified M12.9 [facility] [id number] [place] [address] 37401- 9360 Aug, [facility] [address] [place] [address] 86854- 7165 Aug, [facility] [address] [place] [address] 40749- 2569 Aug, Arthropathy, unspecified M12.9 [facility] [address] [place] [id number] Jul, Diarrhea, unspecified type R19.7 [facility] [address], [place] [address] Jul, Arthropathy, unspecified M12.9 [facility] [address] [id number] Jun, Arthropathy, unspecified M12.9 [facility] [address] [place] [address] 031544- 4416 May, Arthropathy, unspecified M12.9 [facility] [id number] [id number] May, [facility] [address] [id number] May, Localized edema R60.0 [facility] [id number] [place] [address] [id number] May, [facility] [id number] [place] [address] 45311- 8739 Apr, Arthropathy, unspecified M12.9 [facility] [id number] [place] [address] 34733- 2865 Mar, Arthropathy, unspecified M12.9 [facility] [address] [place] [address] 17740- 2443 Feb, Reactive depression F32.9 and 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 [facility] [address] [place] [address] 33529- 2869 Feb, Reactive depression F32.9 and Rash R21 [facility] [address] [place] [address] 95160- 6365 Feb, Arthropathy, unspecified M12.9 [facility] [id number] [place] [address] 78621- 4745 Feb, [facility] [id number] [place] [address] 64815- 0512 Jan, Reactive depression F32.9 ; Other insomnia G47.09 and 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 [facility] [address] [place] [address] 82010- 5434 Jan, [facility] [id number], [place] [address] 7705 Jan, Arthropathy, unspecified M12.9 [facility] [address], [place] [address] 9096 Jan, [facility] [id number] [place] [address] 30047- 3630 Dec, Arthropathy, unspecified M12.9 [facility] [address] [id number] Dec, Skin tag L91.8 ; Wart of scalp B07.9 and Weight gain R63.5 [facility] [id number] [place] [address] [id number] Dec, [facility] [id number] [place] [address] 31605- 2720 Dec, Reactive depression F32.9 [facility] [id number] [place] [address] [id number] Nov, Arthropathy, unspecified M12.9 [facility] [address], [place] [address] 4715 Oct, [facility] [address], [place] [address] 5298 Oct, Arthropathy, unspecified M12.9 [facility] [address] [id number] September, Reactive depression F32.9 and CVA (cerebral vascular accident) I63.9 [facility] [address], [place] [address] 8483 September, Arthropathy, unspecified M12.9 [facility] [address], [place] [address] 8796 September, [facility] [address], [place] [address] 7193 September, Arthropathy, unspecified M12.9 [facility] [id number] [place] [address] 27620- 6545 Aug, Arthropathy, unspecified M12.9 [facility] [address] [id number]- 3364 Aug, [facility] [id number] [place] [address] [id number] Aug, [facility] [address] 43871- 4788 Jul, [facility] [address] 11125- 1470 Jul, [place] [address] [id number] Jul, [facility] [address] [place] [id number] Jun, Reactive depression F32.9 [facility] [address] [id number]- 6331 Jun, Reactive depression F32.9 [facility] [id number] [place] [id number] Jun, [facility] [address] [place] [address] Jun, Reactive depression F32.9 and Other insomnia G47.09 [facility] [id number] [place] [address] 04855- 0659 Jun, [facility] [id number] [place] [address] 17205376- 6849 May, 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 ; Allergy, subsequent encounter T78.40XD and Reactive depression F32.9 [facility] [id number] [place] [address] 01793- 0348 Mar, [facility] [address] [id number] Feb, Benign essential hypertension I10 [facility] [address], [place] [address]- 8076 Feb, [facility] [address], [place] [address]- 6606 Feb, [facility] [id number] [place] [address] 85966- 2916 Feb, [facility] [address] [place] [address] 98852- 2573 Feb, [facility] [id number] [place] [address] 93816- 8432 Feb, [facility] [id number] [place] [address] 33214- 0353 Jan, [facility] [id number] [place] [address] 23661- 5366 Jan, [facility] [address] [id number] Jan, CVA, old, 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 and Benign essential hypertension I10 [facility] [address], [place] [address]- 7796 Dec, [facility] [address], [place] [address]- 4506 Nov, [facility] [address], [place] [address]- 5876 Nov, [facility] [address], [place] [address]- 2894 Oct, [facility] [address], [place] [address]- 9876 Oct, [facility] [address], [place] [address]- 2783 Oct, 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 ; Benign essential hypertension I10 ; Reactive depression F32.9 and Urinary frequency R35.0 [facility] [id number] [place] [address] 28747- 1930 14 Aug, 2015 UTI (urinary tract infection) N39.0 [facility] [id number] [place] [address] 57281 2546 07 Aug, 2015 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 [facility] [id number] [place] [address] 26958 2546 Jul, Benign essential hypertension I10 ; CVA, old, 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 and Hypothyroidism E03.9 [facility] [address] 67868- 3976 Jun, [facility] [id number] [place] [address] 90735- 1484 Jun, Acute diarrhea R19.7 [facility] [address] 77253 2545 May, CVA (cerebral vascular accident) I63.9 [facility] [id number] [place] [address] 80510- 1166 16 Apr, 2015 [facility] [id number] [place] [address] 86758 2541 16 Apr, 2015 [facility] [id number] [place] [address] 55376 2546 15 Apr, 2015 [facility] [id number] [place] [address] 81413 2546 Apr, [facility] [id number] [place] [address] 25955 2541 03 Apr, 2015 CVA (cerebral vascular accident) I63.9 and Constipation K59.00 [facility] [id number] [place] [address] 24272 2549 Apr, [facility] [address] 21864- 8376 Mar, [facility] [address] [place] [address] 78260- 0788 Mar, [facility] [id number] [place] [address] 99454- 3571 Mar, [facility] [id number] [place] [address] 37580- 2995 Mar, [facility] [id number] [place] [address] 90494- 0910 Feb, [facility] [id number] [place] [address] 59624- 2246 Feb, CVA, old, 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 ; Allergic rhinitis J30.9 and Benign essential hypertension I10 [facility] [id number] [place] [address] 97859- 5144 Dec, CVA (cerebral vascular accident) 434.91 [facility] [id number] [place] [address] 39269- 0331 Dec, [facility] [id number] [place] [address] 69644- 3891 Oct, [facility] [id number] [place] [address] 42059- 7293 Oct, [facility] [id number] [place] [address] 47758- 5226 Oct, CVA (cerebral vascular accident) 434.91 [facility] [id number] [place] [address] 06897- 7513 Oct, [facility] [id number] [place] [address] 69917- 2456 September, [facility] [id number] [place] [address] 11749- 7553 September, Allergic rhinitis 477.9 and Arthropathy 716.90 [facility] [id number] [place] [address] 77676- 5258 14 Aug, 2014 [facility] [address] [id number] [place] [address]- 3343 Aug, [facility] [address] [id number], [place] [address]- 5917 Jun, [facility] [address] [facility] [id number] [place] [address]- 6708 Jun, [facility] [address] [place] [id number] Jun, [facility] [address] [id number] [place] [address]- 4961 Jun, [facility] [address] [facility] [id number] [place] [address]- 1579 Jun, [facility] [address] [facility] [id number], [place] [address]- 5155 Jun, [facility] [address] [facility] [id number] [place] [address]- 6835 Jun, [facility] [address] [facility] [id number], [place] [address]- 4842 May, [facility] [address] [facility] [id number], [place] [address]- 3311 May, [facility] [address] [facility] [id number], [place] [address]- 6040 May, [facility] [address] [facility] [id number], [place] [address]- 6315 May, [facility] [address] [facility] [id number], [place] [address]- 1840 Apr, [facility] [address] [id number] [place] [address]- 5552 Apr, [facility] [address] [facility] [id number], [place] [address]- 1741 Apr, [facility] [address] [id number] 04 Apr, 2014 [facility] [place] [facility] [address] [id number] [place] [address]- 0312 Apr, [facility] [place] [facility] [address] [id number] [place] [address]- 3587 Apr, [facility] [place] [facility] [address] [id number] [place] [address]- 2774 Apr, [facility] [place] [facility] [address] [id number] [place] [address]- 4932 Apr, [facility] [place] [facility] [address] [id number] [place] [address]- 4112 Apr, [facility] [place] [facility] [address] [id number] [place] [address]- 2390 Apr, [facility] [place] [facility] [address] [id number] [place] [address]- 8742 Apr, [facility] [place] [facility] [address] [id number] [place] [address]- 4589 Mar, [facility] [place] [facility] [address] [id number] [place] [address]- 9830 Mar, [facility] [place] [facility] [address] [id number] [place] [address]- 0678 Mar, [facility] [place] [facility] [address] [id number] [place] [address]- 3051 Mar, [facility] [place] [facility] [address] [id number] [place] [address]- 2487 Mar, [facility] [place] [facility] [address] [id number] [place] [address]- 5160 Mar, [facility] [place] [facility] [address] [id number] [place] [address]- 2968 Mar, [facility] [place] [facility] [address] [id number] [place] [address]- 2616 Mar, [facility] [place] [facility] [address] [id number] [place] [address]- 9383 Mar, [facility] [place] [facility] [address] [id number] [place] [address]- 0351 Mar, [facility] [place] [facility] [address] [id number] [place] [address]- 3046 Mar, [facility] [place] [facility] [address] [id number] [place] [address]- 8305 Mar, [facility] [place] [facility] [address] [id number] [place] [address]- 0021 Mar, [facility] [place] [facility] [address] [id number] [place] [address]- 7057 Feb, [facility] [place] [facility] [address] [id number] [place] [address]- 2012 Feb, [facility] [place] [facility] [address] [id number] [place] [address]- 3523 Feb, [facility] [place] [facility] [address] [id number] [place] [address]- 4970 30 Feb, 2014 [facility] [place] [facility] [address] [id number] [place] [address]- 3152 Feb, [facility] [place] [facility] [address] [id number] [place] [address]- 5307 Feb, [facility] [place] [facility] [address] [id number] [place] [address]- 0502 Feb, [facility] [place] [facility] [address] [id number] [place] [address]- 2828 Feb, [facility] [place] [facility] [address] [id number] [place] [address]- 3425 11 Jan, 2014 [facility] [place] [facility] [address] [id number] [place] 3005 11 Jan, 2014 [facility] [place] [facility] [address] [id number] [place] [address]- 4634 Dec, [facility] [place] [facility] [address] [id number] [place] [address]- 1258 Dec, [facility] [place] [facility] [address] [id number] [place] [address]- 0506 Dec, [facility] [place] [facility] [address] [id number] [place] [address]- 6200 Dec, [facility] [place] [facility] [address] [id number] [place] [address]- 2214 Nov, [facility] [place] [facility] [address] [id number] [place] [address]- 1719 Nov, [facility] [place] [facility] [address] [id number] [place] [address]- 2068 Nov, [facility] [place] [facility] [address] [id number] [place] [address]- 4841 Nov, [facility] [place] [facility] [address] [id number] [place] [address]- 3454 Nov, [facility] [place] [facility] [address] [id number] [place] [address]- 7527 Nov, [facility] [place] [facility] [address] [id number] [place] [address]- 9648 Nov, [facility] [place] [facility] [address] [id number] [place] [address]- 4778 Oct, [facility] [place] [facility] [address] [id number] [place] [address]- 9771 Oct, [facility] [place] [facility] [address] [id number] [place] [address]- 4631 Oct, [facility] [place] [facility] [address] [id number] [place] [address]- 3247 Oct, [facility] [place] [facility] [address] [id number] [place] [address]- 6302 Oct, [facility] [place] [facility] [address] [id number] [place] [address]- 5339 Oct, [facility] [address] [id number] [place] [address]- 1887 September, [facility] [place] [facility] [address] [id number] [place] [address]- 5508 September, [facility] [address] [id number] [place] [address]- [address], [facility] [place] [facility] [address] [id number] [place] [address]- 5556 September, [facility] [address] [id number] [place] [address]- 6073 September, [facility] [address] [id number] [place] [address]- 2406 September, [facility] [address] [id number] [place] [address] September, [facility] [address] [id number] [place] [address] September, [facility] [address] [id number] [place] [address] September, [facility] [address] [id number] [place] [address] Aug, [facility] [place] [facility] [address] [id number] [place] [address] Jun, [facility] [place] [facility] [address] [id number] [place] [address] Jun, [facility] [place] [facility] [address] [id number] [place] [address] May, [facility] [place] [facility] [address] [id number] [place] [address] Mar, [facility] [place] [facility] [address] [id number] [place] [address] Mar, [facility] [address] [id number], [place] [address] Oct, [facility] [address] [id number], [place] [address] September, [facility] [address] [facility] [id number], [place] [address] September, [facility] [address] [id number], [place] [address] Aug, [facility] [address] [id number] [place] [address] Jul, [facility] [address] [id number], [place] [address] May, [facility] [address] [id number], [place] [address] May, [facility] [address] [id number], [place] [address] May, [facility] [address] [id number], [place] [address] Feb, [facility] [address] [facility] [id number], [place] [address] Feb, [facility] [address] [id number], [place] [address] Feb, [facility] [address] [id number], [place] [address] Feb, [facility] [address] [facility] [id number], [place] [address] Feb, [facility] [address] [id number][place] [id number] Feb, [facility] [address] [facility] [id number], [place] [address] Feb, [facility] [address] [facility] [id number], [place] [address] Feb, [facility] [place] [facility] [address] [id number] [place] [address] Feb, [facility] [place] [facility] [address] [id number] [place] [address] Jan, [facility] [place] [facility] [address] [id number] [place] [address] Dec, [facility] [place] [facility] [address] [id number] [place] [address] Dec, [facility] [place] [facility] [address] [id number] [place] [address] Dec, [facility] [place] [facility] [address] [id number] [place] [address] Nov, [facility] [place] [facility] [address] [facility] [id number] [place] [address] Nov, [facility] [place] [facility] [address] [facility] [id number] [place] [address] Oct, [facility] [place] [facility] [address] [facility] [id number] [place] [address] September, [facility] [place] [facility] [address] [facility] [id number] [place] [address] Aug, [facility] [place] [facility] [address] [id number] [place] [address] Aug, [facility] [place] [facility] [address] [facility] [id number] [place] [address] Jul, [facility] [place] [facility] [address] [id number] [place] [address] Jul, [facility] [place] [facility] [address] [facility] - [facility] [id number] [place] [address] Jul, [facility] [place] [facility] [address] [facility] [id number] [place] [address] Jun, [facility] [place] [facility] [address] [facility] [id number] [place] [id number] Jun, 2011 IMMUNIZATIONS No Known Immunizations SOCIAL HISTORY Never Assessed REASON FOR VISIT Controlled Med Refill 09/29/17 PLAN OF CARE VITAL SIGNS MEDICATIONS Medication Instructions Dosage Frequency Start Date End Date Duration Status Tramadol HCl 50 mg Orally Once a day at HS 1 tablet Jul, 28 days Active RESULTS No Results PROCEDURES No Known procedures INSTRUCTIONS MEDICATIONS ADMINISTERED No Known Medications
--- OUTSIDE RECORDS SUMMARY | 2018-02-05 08:28 | XMS REPORT ---
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 Active 00363539 Problem Hypothyroidism E03.9 Active 19364216 Problem Allergy, subsequent encounter T78.40XD Active 342808303 Problem Reactive depression F32.9 Active 33277483 Problem Aphasia R47.01 Active 04786550 Problem 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 Active 287201446 Problem 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, unspecified hemiplegia type I69.353 Active 249925103 Problem Alzheimers disease with late onset G30.1 Active 096447525 Problem Glaucoma of both eyes, unspecified glaucoma H40.9 Active 97245199 Problem Gastroesophageal reflux disease without esophagitis K21.9 Active [id number] ALLERGIES No Information ENCOUNTERS Encounter Location Date Diagnosis [facility] [place] [address] [facility] [id number] [address] Nov, [facility] [place] [address] [id number] [address] Nov, Arthropathy, unspecified M12.9 [facility] [place] [address] [id number] [address] Oct, [facility] [place] [id number] [place] [address] [id number]- 1018 Oct, Arthropathy, unspecified M12.9 [facility] [place] [id number] [place] [address] 75106- 6813 September, [facility] [address] [place] [id number] September, Reactive airway disease that is not asthma R09.89 [facility] [address] [place] [id number] September, Benign essential hypertension I10 and CVA, old, 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 [place] [address] [address] September, [place] [address] [address] September, Arthropathy, unspecified M12.9 [place] [address] 96394- 4804 Aug, [facility] [place] [id number] [place] [address] 31906- 6194 Aug, [facility] [place] [id number] [place] [address] 96487- 1173 Aug, Arthropathy, unspecified M12.9 [facility] [address] [place] [id number] Jul, Diarrhea, unspecified type R19.7 [facility] [place] [id number] [place] [address] 79907- 5796 Jul, Arthropathy, unspecified M12.9 [facility] [id number] [place] [address] [id number] Jun, Arthropathy, unspecified M12.9 [facility] [place] [id number] [place] [address] 25869- 1493 May, Arthropathy, unspecified M12.9 [facility] [id number] [place] [address] [id number] May, [facility] [address] [place] [id number] May, Localized edema R60.0 [facility] [id number] [place] [address] [id number] May, [facility] [place] [id number] [place] [address] 15269- 0913 Apr, Arthropathy, unspecified M12.9 [facility] [place] [id number] [place] [address] 64244- 4476 Mar, Arthropathy, unspecified M12.9 [facility] [place] [id number] [place] [address] 91553- 2143 Feb, Reactive depression F32.9 and 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 [facility] [place] [id number] [place] [address] 73329- 5073 Feb, Reactive depression F32.9 and Rash R21 [facility] [place] [id number] [place] [address] 93784- 1619 Feb, Arthropathy, unspecified M12.9 [facility] [place] [id number] [place] [address] 83426- 9022 Feb, [facility] [place] [id number] [place] [address] 48948- 0583 Jan, Reactive depression F32.9 ; Other insomnia G47.09 and 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 [facility] [place] [id number] [place] [address] 42197- 0686 Jan, [facility] [place] [id number] [place] [address] 56624- 2827 Jan, Arthropathy, unspecified M12.9 [facility] [place] [id number] [place] [address] 69077- 4963 Jan, [facility] [place] [id number] [place] [address] 19949- 4944 Dec, Arthropathy, unspecified M12.9 [facility] [address] [place] [id number] Dec, Skin tag L91.8 ; Wart of scalp B07.9 and Weight gain R63.5 [facility] [address] [id number] [id number] Dec, [facility] [place] [address] [address] Dec, Reactive depression F32.9 [facility] [id number] [place] [address] [id number] Nov, Arthropathy, unspecified M12.9 [facility] [place] [id number] [place] [address] 22511- 6226 Oct, [facility] [place] [id number] [place] [address] [id number]- 8851 Oct, Arthropathy, unspecified M12.9 [facility] [address] [place] [id number] September, Reactive depression F32.9 and CVA (cerebral vascular accident) I63.9 [facility] [place] [id number] [place] [address] 43578- 3480 September, Arthropathy, unspecified M12.9 [facility] [place] [address] [address] 6495 September, [facility] [place] [id number] [place] [address] 06510- 6292 September, Arthropathy, unspecified M12.9 [facility] [place] [address], [place] [address] 5307 Aug, Arthropathy, unspecified M12.9 [facility] [place] [id number] [place] [address] [id number]- 2099 Aug, [facility] [id number] [place] [address] [id number] Aug, [facility] [place] [id number] [place] [address] 76199- 1636 Jul, [facility] [place] [id number] [place] [address] 99517- 6012 Jul, [facility] [address] [id number] Jul, [facility] [address] [place] [id number] Jun, Reactive depression F32.9 [facility] [place] [address] 66785- 2695 Jun, Reactive depression F32.9 [facility] [address] [id number] Jun, [facility] [address] [place] [id number] Jun, Reactive depression F32.9 and Other insomnia G47.09 [facility] [place] [address] 42440- 7406 Jun, [facility] [place] [id number] [place] [address] 63874- 3044 May, [facility] [address] [id number] May, [facility] [address] [place] [id number] Apr, CVA, old, 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 ; Allergy, subsequent encounter T78.40XD and Reactive depression F32.9 [facility] [place] [id number] [place] [address] 02822- 9172 Mar, [facility] [address] [place] [id number] Feb, Benign essential hypertension I10 [facility] [place] [id number] [place] [address] [id number]- 5105 Feb, [facility] [place] [id number] [place] [address] [id number]- 0862 Feb, [facility] [place] [address] [place] [address]- 3348 Feb, [facility] [place] [id number] [place] [address] 24145- 7095 Feb, [facility] [place] [id number] [place] [address] 06328- 2548 Feb, [facility] [place] [id number] [place] [address] 37714- 7259 Jan, [facility] [place] [id number] [place] [address] 27405- 7658 Jan, [facility] [address] [place] [id number] Jan, CVA, old, 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 and Benign essential hypertension I10 [facility] [place] [id number] [place] [address] 71283- 4744 Dec, [facility] [place] [address] 06807- 2024 Nov, [facility] [place] [id number] [place] [address] 35827- 1220 Nov, [facility] [place] [id number] [place] [address] 50785- 1772 Oct, [facility] [place] [id number] [place] [address] 25144- 0399 Oct, [facility] [place] [id number] [place] [address] 03234- 9935 Oct, 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 ; Benign essential hypertension I10 ; Reactive depression F32.9 and Urinary frequency R35.0 [facility] [place] [address] 03754- 1140 Aug, UTI (urinary tract infection) N39.0 [facility] [place] [id number] [place] [address] 05172- 4240 07 Aug, 2015 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 [facility] [place] [id number] [place] [address] 94698 2546 Jul, Benign essential hypertension I10 ; CVA, old, 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 and Hypothyroidism E03.9 [facility] [place] [id number] [place] [address] 40640 2546 Jun, [facility] [place] [id number] [place] [address] 21680 2546 Jun, Acute diarrhea R19.7 [facility] [place] [id number] [place] [address] 81409 2546 May, CVA (cerebral vascular accident) I63.9 [facility] [place] [id number] [place] [address] 08562 2546 Apr, [facility] [place] [id number] [place] [address] 45207 2546 Apr, [facility] [place] [id number] [place] [address] 20454 2542 Apr, [facility] [place] [id number] [place] [address] 61962 2546 Apr, [facility] [place] [id number] [place] [address] 54531 2546 Apr, CVA (cerebral vascular accident) I63.9 and Constipation K59.00 [facility] [place] [id number] [place] [address] 72533 2546 Apr, [facility] [place] [id number] [place] [address] 62278 2546 Mar, [facility] [place] [id number] [place] [address] 46326 2546 Mar, [facility] [place] [id number] [place] [address] 69209 2546 Mar, [facility] [place] [id number] [place] [address] 95062 2546 Mar, [facility] [place] [id number] [place] [address] 38202- 6498 Feb, [facility] [place] [id number] [place] [address] 30077- 2492 Feb, CVA, old, 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 ; Allergic rhinitis J30.9 and Benign essential hypertension I10 [facility] [place] [id number] [place] [address] 97658- 0160 Dec, CVA (cerebral vascular accident) 434.91 [facility] [place] [id number] [place] [address] 06887- 2879 Dec, [facility] [place] [id number] [place] [address] 85403- 0225 Oct, [facility] [place] [id number] [place] [address] 44616- 5067 Oct, [facility] [place] [id number] [place] [address] 08390- 8773 Oct, CVA (cerebral vascular accident) 434.91 [facility] [place] [id number] [place] [address] 98180- 4232 Oct, [facility] [place] [id number] [place] [address] 16795- 4714 September, [facility] [place] [id number] [place] [address] 60771- 8179 September, Allergic rhinitis 477.9 and Arthropathy 716.90 [facility] [place] [id number] [place] [address] 33444- 1991 Aug, [facility] [place] [address] 68516- 0246 Aug, [facility] [place] [id number] [place] [address] 28575- 2663 Jun, [facility] [place] [id number] [place] [address] 06676- 6838 Jun, [facility] [address] [facility] [place] [id number] Jun, 2014 [facility] [address] [id number] [place] [address]- 6546 Jun, 2014 [facility] [address] [id number] [place] [address]- 3594 Jun, 2014 [facility] [address] [id number] [place] [address]- 9397 Jun, [facility] [address] [id number] [place] [address]- 5886 Jun, [facility] [address] [id number] [place] [address]- 7255 May, [facility] [address] [id number] [place] [address]- 8794 May, [facility] [address] [id number] [place] [address]- 5580 May, [facility] [address] [id number] [place] [address]- 0975 May, [facility] [address] [id number], [place] [address]- 3793 Apr, [facility] [address] [id number], [place] [address]- 0108 Apr, [facility] [address] [id number], [place] [address]- 1946 Apr, [facility] [address] [facility] [id number] Apr, [facility] [address] [id number] [place] [address]- 9392 Apr, [facility] [address] [id number] 2380 Apr, [facility] [address] [id number], [place] [address]- 9106 03 Apr, 2014 [facility] [place] [facility] [address] [id number] [place] [address]- 9436 Apr, [facility] [place] [facility] [address] [id number] [place] [address]- 2152 Apr, [facility] [place] [facility] [address] [facility] [id number] [place] [address]- 5824 Apr, [facility] [place] [facility] [address] [id number] [place] [address]- 6427 02 Apr, 2014 [facility] [place] [facility] [address] [id number] [place] [address]- 3699 18 Mar, 2014 [facility] [place] [facility] [address] [id number] [place] [address]- 7078 18 Mar, 2014 [facility] [place] [facility] [address] [id number] [place] [address]- 8238 18 Mar, 2014 [facility] [place] [facility] [address] [id number] [place] [address]- 9063 18 Mar, 2014 [facility] [place] [facility] [address] [id number] [place] [address]- 1370 17 Mar, 2014 [facility] [place] [facility] [address] [id number] [place] [address]- 2913 17 Mar, 2014 [facility] [place] [facility] [address] [id number], [place] [address]- 8559 17 Mar, 2014 [facility] [place] [facility] [address] [id number], [place] [address]- 9568 17 Mar, 2014 [facility] [place] [facility] [address] [id number] [place] [address]- 4737 16 Mar, 2014 [facility] [place] [facility] [address] [id number], [place] [address]- 8049 16 Mar, 2014 [facility] [place] [facility] [address] [id number], [place] [address]- 3256 05 Mar, 2014 [facility] [place] [facility] [address] [id number] [place] [address]- 4915 Mar, [facility] [place] [facility] [address] [id number] [place] [address]- 9046 Mar, [facility] [place] [facility] [address] [id number] [place] [address]- 8087 Feb, [facility] [place] [facility] [address] [id number] [place] [address]- 1207 Feb, [facility] [place] [facility] [address] [id number] [place] [address]- 9236 Feb, [facility] [place] [facility] [address] [id number] [place] [address]- 6484 Feb, [facility] [place] [facility] [address] [id number] [place] [address]- 6034 Feb, [facility] [place] [facility] [address] [id number] [place] [address]- 9784 Feb, [facility] [place] [facility] [address] [id number] [place] [address]- 1800 Feb, [facility] [place] [facility] [address] [id number] [place] [address]- 2881 Feb, [facility] [place] [facility] [address] [id number] [place] [address]- 9917 Jan, [facility] [place] [facility] [address] [id number] [place] [address]- 5469 Jan, [facility] [place] [facility] [address] [id number] [place] [address]- 5635 Dec, [facility] [place] [facility] [address] [id number] [place] [address]- 2175 Dec, [facility] [place] [facility] [address] [id number] [place] [address]- 6259 Dec, [facility] [place] [facility] [address] [id number] [place] [address] Dec, [facility] [place] [facility] [address] [id number] [place] [address] Nov, [facility] [place] [facility] [address] [id number] [place] [address] Nov, [facility] [place] [facility] [address] [id number] [place] [address] Nov, [facility] [place] [facility] [address] [id number] [place] [address] Nov, [facility] [place] [facility] [address] [id number] [place] [address] Nov, [facility] [place] [facility] [address] [id number] [place] [address] Nov, [facility] [place] [facility] [address] [id number] [place] [address] Nov, [facility] [place] [facility] [address] [id number] [place] [address] Oct, [facility] [place] [facility] [address] [id number] [place] [address] Oct, [facility] [place] [facility] [address] [id number] [place] [address] Oct, [facility] [place] [facility] [address] [id number] [place] [address] Oct, [facility] [place] [facility] [address] [id number] [place] [address] Oct, [facility] [place] [facility] [address] [id number] [place] [address] Oct, [facility] [place] [facility] [address] [id number] [place] [address] September, [facility] [place] [facility] [address] [id number] [place] [address] September, [facility] [place] [facility] [address] [id number] [address] September, [facility] [address] [id number] [place] [address] September, [facility] [address] [id number] [place] [address] September, [facility] [address] [id number] [place] [address] September, [facility] [place] [facility] [address] [id number] [place] [address] September, [facility] [address] [id number] [place] [address] September, [facility] [address] [id number] [place] [address] September, [facility] [address] [id number] [place] [address] Aug, [facility] [place] [facility] [address] [id number] [place] [address] Jun, [facility] [address] [id number] [place] [address] Jun, [facility] [address] [id number] [place] [address] May, [facility] [address] [id number] [place] [address] Mar, [facility] [place] [facility] [address] [id number] [place] [address] Mar, [facility] [place] [facility] [address] [id number] [place] [address] Oct, [facility] [place] [facility] [address] [id number] [place] [address] September, [facility] [place] [facility] [address] [id number] [place] [address] September, [facility] [place] [facility] [address] [id number] [place] [address] Aug, [facility] [place] [facility] [address] [id number] [place] [address] Jul, [facility] [place] [facility] [address] [id number] [place] [address] May, [facility] [place] [facility] [address] [id number] [place] [address] May, [facility] [place] [facility] [address] [id number] [place] [place] [address] May, [facility] [place] [facility] [address] [id number] [place] [address] Feb, [facility] [place] [facility] [address] [id number] [place] [address] Feb, [facility] [place] [facility] [address] [id number] [place] [address] Feb, [facility] [address] [id number] [place] [address] Feb, [facility] [address] [id number] [place] [address] Feb, [facility] [address] [id number] [id number] Feb, [facility] [place] [facility] [address] [id number] [place] [address] Feb, [facility] [place] [facility] [address] [id number] [place] [address] Feb, [facility] [place] [facility] [address] [id number] [place] [address] Feb, [facility] [place] [facility] [address] [id number] [place] [address] Jan, [facility] [place] [facility] [address] [id number] [place] [address] Dec, [facility] [place] [id number] [address] Dec, [facility] [place] [id number] [address] Dec, [facility] [place] [address] [facility] [id number], [place] [address] Nov, [facility] [place] [id number] [address] Nov, [facility] [place] [address] [facility] [id number], [place] [address] Oct, [facility] [place] [id number], [place] [address] September, [facility] [place] [id number], [place] [address] Aug, [facility] [place] [id number], [place] [address] Aug, [facility] [place] [id number] [address] Jul, [facility] [place] [id number], [place] [address] Jul, [facility] [place] [id number], [place] [address] Jul, [facility] [place] [id number], [place] [address] Jun, [facility] [place] [id number], [place] [address] Jun, IMMUNIZATIONS No Known Immunizations SOCIAL HISTORY [...]
--- OUTSIDE RECORDS SUMMARY | 2018-02-05 08:28 | XMS REPORT ---
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 69455894 Problem Hypothyroidism E03.9 Active 38712807 Problem Allergy, subsequent encounter T78.40XD Active 872017031 Problem Reactive depression F32.9 Active 04668246 Problem Aphasia R47.01 Active 07751198 Problem 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 Active 512224499 Problem 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, unspecified hemiplegia type I69.353 Active 420163991 Problem Alzheimers disease with late onset G30.1 Active 605975625 Problem Glaucoma of both eyes, unspecified glaucoma H40.9 Active 02627770 Problem Gastroesophageal reflux disease without esophagitis K21.9 Active 364420545 ALLERGIES No Information ENCOUNTERS Encounter Location Date Diagnosis [employer] [address] [id number] Nov, [facility] [address] [facility] [id number] [address] Nov, [facility] [address] [id number] [address] Nov, Arthropathy, unspecified M12.9 [facility] [id number] [place] [address] 43411- 8243 Oct, [facility] [id number] [place] [address] 10972- 3723 Oct, Arthropathy, unspecified M12.9 [facility] [id number] [place] [address] 59964672- 2726 September, [employer] [address] [id number] September, Reactive airway disease that is not asthma R09.89 [employer] [address] [place] [id number] September, Benign essential hypertension I10 and CVA, old, 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 [facility] [address] [address] September, [facility] [address] [address]- 0764 September, Arthropathy, unspecified M12.9 [facility] [id number] [place] [address] 02985- 2630 Aug, [facility] [id number] [place] [address] 94845- 7873 Aug, [facility] [id number] [place] [address] 27814- 2423 Aug, Arthropathy, unspecified M12.9 [employer] [address] [id number] Jul, Diarrhea, unspecified type R19.7 [facility] [id number] [place] [address] 79849- 1399 Jul, Arthropathy, unspecified M12.9 [facility] [address] [id number] Jun, Arthropathy, unspecified M12.9 [facility] [id number] [place] [address] 27469- 9029 May, Arthropathy, unspecified M12.9 [facility] [address] [id number] May, [employer] [address] [id number] May, Localized edema R60.0 [facility] [id number] [place] [address] [id number] May, [facility] [id number] [place] [address] 22748- 8887 Apr, Arthropathy, unspecified M12.9 [facility] [id number] [place] [address] 00869- 3083 Mar, Arthropathy, unspecified M12.9 [facility] [id number] [place] [address] 26081- 6985 Feb, Reactive depression F32.9 and 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 [facility] [id number] [place] [address] 60404- 0282 Feb, Reactive depression F32.9 and Rash R21 [facility] [id number] [place] [address] 06660- 5068 Feb, Arthropathy, unspecified M12.9 [facility] [id number] [place] [address] 03091- 3566 Feb, [facility] [id number] [place] [address] 13819- 0572 Jan, Reactive depression F32.9 ; Other insomnia G47.09 and 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5 [facility] [id number] [place] [address] [id number] Dec, [facility] [id number] [place] [address] 45730- 9435 Dec, Reactive depression F32.9 [facility] [id number] [place] [address] [id number] Nov, Arthropathy, unspecified M12.9 [facility] [id number] [place] [address] [id number]- 9931 Oct, [facility] [id number] [place] [address] 80811- 6170 Oct, Arthropathy, unspecified M12.9 [employer] [address] [id number] September, Reactive depression F32.9 and CVA (cerebral vascular accident) I63.9 [facility] [address] [place] [address] 95029- 0279 September, Arthropathy, unspecified M12.9 [facility] [address] [address] 7510 September, [facility] [id number] [place] [address] 96182- 9900 September, Arthropathy, unspecified M12.9 [facility] [id number] [place] [address] 13065- 2539 Aug, Arthropathy, unspecified M12.9 [facility] [address] [address] 3624 Aug, [facility] [id number] [place] [address] [id number] Aug, [facility] [address] [address] 3296 Jul, [facility] [id number] [place] [address] 86971 2546 Jul, [facility] [id number] [place] [address] [id number] Jul, [employer] [address] [id number] Jun, Reactive depression F32.9 [facility] [id number] [place] [address] 35710- 2812 Jun, Reactive depression F32.9 [facility] [id number] [place] [address] [id number] Jun, [employer] [address] [id number] Jun, Reactive depression F32.9 and Other insomnia G47.09 [facility] [id number] [place] [address] 79225- 4836 Jun, [facility] [id number] [place] [address] 53377- 4972 May, [facility] [id number] [place] [address] [id number] May, [employer] [address] [id number] Apr, CVA, old, 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 ; Allergy, subsequent encounter T78.40XD and Reactive depression F32.9 [facility] [address] [address] 1439 Mar, [employer] [address] [id number] Feb, Benign essential hypertension I10 [facility] [address] [place] [address] [id number]- 9104 Feb, [facility] [id number] [place] [address] 49027- 2577 Feb, [facility] [address] [place] [address] 39292- 7497 Feb, [facility] [id number] [place] [address] 39132- 2249 Feb, [facility] [id number] [place] [address] 22407- 1311 Feb, [facility] [id number] [place] [address] 93436- 0093 Jan, [facility] [id number] [place] [address] 32351- 9251 Jan, [employer] [address] [id number] Jan, CVA, old, 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 and Benign essential hypertension I10 [facility] [id number] [place] [address] 15226- 6725 Dec, [facility] [id number] [place] [address] 71345- 8075 Nov, [facility] [id number] [place] [address] 38931- 0553 Nov, [facility] [id number] [place] [address] 45413- 2900 Oct, [facility] [address] [place] [address] 58298- 4497 Oct, [facility] [id number] [place] [address] 98599- 1747 Oct, 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 ; Benign essential hypertension I10 ; Reactive depression F32.9 and Urinary frequency R35.0 [facility] [address] [place] [address] 72029- 1099 Aug, UTI (urinary tract infection) N39.0 [facility] [id number] [place] [address] 46600- 4729 07 Apr, 2016 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 [facility] [address] [address]- 2546 Jul, Benign essential hypertension I10 ; CVA, old, 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 and Hypothyroidism E03.9 [facility] [id number] [place] [address] 26813 2546 Jun, [facility] [id number] [place] [address] 96013 2546 Jun, Acute diarrhea R19.7 [facility] [id number] [place] [address] 97949- 2546 May, CVA (cerebral vascular accident) I63.9 [facility] [id number] [place] [address] 58671 2546 Apr, [facility] [id number] [place] [address] 69605 2546 Apr, [facility] [id number] [place] [address] 06078 2546 Apr, [facility] [id number] [place] [address] 49494 2546 Apr, [facility] [id number] [place] [address] 78630 2546 Apr, CVA (cerebral vascular accident) I63.9 and Constipation K59.00 [facility] [id number] [place] [address] 02752 2546 Apr, [facility] [id number] [place] [address] 12969 2546 Mar, [facility] [id number] [place] [address] 34392 2546 Mar, [facility] [address] [id number] [address] 2546 Mar, [facility] [id number] [place] [address]- 8434 Mar, [facility] [id number] [place] [address] 79579- 5138 Feb, [facility] [id number] [place] [address] 877713- 0424 Feb, CVA, old, 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 ; Allergic rhinitis J30.9 and Benign essential hypertension I10 [facility] [id number] [place] [address] 05764- 6317 Dec, CVA (cerebral vascular accident) 434.91 [facility] [address] 89370- 1277 Dec, [facility] [address] 08999- 5600 Oct, [facility] [address] 69652- 1359 Oct, [facility] [id number] [place] [address] 23737- 7441 Oct, CVA (cerebral vascular accident) 434.91 [facility] [id number] [place] [address] 81011- 6704 Oct, [facility] [id number] [place] [address] 45552- 1007 September, [facility] [id number] [place] [address] 10289- 0373 September, Allergic rhinitis 477.9 and Arthropathy 716.90 [facility] [id number] [place] [address] 09292- 6659 Aug, [facility] [id number] [place] [address] 34431- 3340 Aug, [facility] [id number] [place] [address] 76980- 7629 Jun, [facility] [place] [facility] [address] [id number] [place] [address]- 0416 17 Jun, 2014 [facility] [address] [place] [id number] Jun, [facility] [address] [id number] [place] [address]- 7802 Jun, 2014 [facility] [address] [id number] [place] [address]- 8283 Jun, 2014 [facility] [address] [id number] [place] [address]- 1962 Jun, 2014 [facility] [address] [id number] [place] [address]- 9724 Jun, [facility] [address] [id number] [place] [address]- 1502 May, [facility] [address] [id number] [place] [address]- 0279 May, [facility] [address] [id number] [place] [address]- 3643 May, [facility] [address] [id number] [place] [address]- 8831 May, [facility] [address] [id number] [place] [address]- 1284 Apr, [facility] [address] [id number] [place] [address]- 4054 Apr, [facility] [address] [id number] [place] [address]- 2873 Apr, [facility] [address] [place] [id number] Apr, [facility] [address] [id number] [place] [address]- 0458 Apr, [facility] [address] [id number] [address]- 0592 Apr, [facility] [place] [facility] [address] [id number] [place] [address]- 2515 Apr, [facility] [place] [facility] [address] [id number] [place] [address]- 4036 Apr, [facility] [place] [facility] [address] [id number] [place] 2780 Apr, [facility] [place] [facility] [address] [id number] [place] [address]- 5594 Apr, [facility] [place] [facility] [address] [id number] [place] [address]- 8845 Apr, [facility] [place] [facility] [address] [id number] [place] [address]- 1042 Mar, [facility] [place] [facility] [address] [id number] [place] [address]- 8875 18 Mar, 2014 [facility] [place] [facility] [address] [id number] [place] [address]- 9890 18 Mar, 2014 [facility] [place] [facility] [address] [id number] [place] [address]- 3691 18 Mar, 2014 [facility] [place] [facility] [address] [id number] [place] [address]- 8986 Mar, [facility] [place] [facility] [address] [id number] [place] [address]- 4984 17 Mar, 2014 [facility] [place] [facility] [address] [id number] [place] [address]- 8630 17 Mar, 2014 [facility] [place] [facility] [address] [id number] [place] [address]- 4009 17 Mar, 2014 [facility] [place] [facility] [address] [id number] [place] [address]- 1393 16 Mar, 2014 [facility] [place] [facility] [address] [id number] [place] [address]- 3564 16 Mar, 2014 [facility] [place] [facility] [address] [id number] [place] [address]- 2546 Mar, [facility] [place] [facility] [address] [id number] [place] [address]- 6407 Mar, [facility] [place] [facility] [address] [id number] [place] [address]- 9584 Mar, [facility] [place] [facility] [address] [id number] [place] [address]- 7420 Feb, [facility] [place] [facility] [address] [id number] [place] [address]- 6395 Feb, [facility] [place] [facility] [address] [id number] [place] [address]- 4868 Feb, [facility] [place] [facility] [address] [id number] [place] [address]- 7700 Feb, [facility] [place] [facility] [address] [id number] [place] [address]- 3200 Feb, [facility] [place] [facility] [address] [id number] [place] [address]- 5988 Feb, [facility] [place] [facility] [address] [id number] [place] [address]- 1500 Feb, [facility] [place] [facility] [address] [id number] [place] [address]- 3162 Feb, [facility] [place] [facility] [address] [id number] [place] [address]- 2648 Jan, [facility] [place] [facility] [address] [id number] [place] [address]- 6608 Jan, [facility] [place] [facility] [address] [id number] [place] [address]- 3219 Dec, [facility] [place] [facility] [address] [id number] [place] [address]- 6657 Dec, [facility] [place] [facility] [address] [id number] [place] [address]- 3595 Dec, [facility] [place] [facility] [address] [id number] [place] [address]- 3056 Dec, [facility] [place] [facility] [address] [id number] [place] [address]- 9267 Nov, [facility] [place] [facility] [address] [id number] [place] [address]- 8657 Nov, [facility] [place] [facility] [address] [id number] [place] [address]- 5508 Nov, [facility] [place] [facility] [address] [id number] [place] [address]- 6486 Nov, [facility] [place] [facility] [address] [id number] [place] [address]- 1436 Nov, [facility] [place] [facility] [address] [id number] [place] [address]- 3132 Nov, [facility] [place] [facility] [address] [id number] [place] [address]- 1357 Nov, [facility] [place] [facility] [address] [id number] [place] [address]- 2092 Oct, [facility] [place] [facility] [address] [id number] [place] [address]- 8719 Oct, [facility] [place] [facility] [address] [id number] [place] [address]- 7636 Oct, [facility] [place] [facility] [address] [id number] [place] [address]- 3474 Oct, [facility] [place] [facility] [address] [id number] [place] [address]- 7670 Oct, [facility] [place] [facility] [address] [id number] [place] [address]- 1323 Oct, [facility] [place] [facility] [address] [id number] [place] [address]- 2646 September, [facility] [place] [facility] [address] [id number] [place] [address]- 3959 September, [facility] [address] [id number] [place] [address]- 8902 September, [facility] [place] [facility] [address] [id number] [place] [address]- 3986 September, [facility] [place] [facility] [address] [id number] [place] [address]- 0894 September, [facility] [place] [facility] [address] [id number] [place] [address]- 4011 September, [facility] [address] [id number] [place] [address] September, [facility] [place] [facility] [address] [id number] [place] [address] September, [facility] [place] [facility] [address] [id number] [place] [address] September, [facility] [place] [facility] [address] [id number] [place] [address] Aug, [facility] [place] [facility] [address] [id number] [place] [address] Jun, [facility] [place] [facility] [address] [id number] [place] [address] Jun, [facility] [place] [facility] [address] [id number] [place] [address] May, [facility] [place] [facility] [address] [id number] [place] [address] Mar, [facility] [place] [facility] [address] [id number] [place] [address] Mar, [facility] [place] [facility] [address] [id number] [place] [address] Oct, [facility] [place] [facility] [address] [id number] [place] [address] September, [facility] [place] [facility] [address] [id number] [place] [address] September, [facility] [place] [facility] [address] [id number] [place] [address] Aug, [facility] [place] [facility] [address] [id number] [place] [address] Jul, [facility] [place] [facility] [address] [id number] [place] [address] May, [facility] [place] [facility] [address] [id number] [place] [address] May, [facility] [place] [facility] [address] [id number] [place] [address] May, [facility] [place] [facility] [address] [id number] [place] [address] Feb, [facility] [place] [facility] [address] [id number] [place] [address] Feb, [facility] [place] [facility] [address] [id number] [place] [address] Feb, [facility] [place] [facility] [address] [id number] [place] [address] Feb, [facility] [address] [id number] [address] Feb, [facility] [address] [id number][place] [id number] Feb, [facility] [place] [facility] [address] [id number] [address] Feb, [facility] [place] [facility] [address] [id number] [place] [address] Feb, [facility] [place] [facility] [address] [id number] [address] Feb, [facility] [place] [facility] [address] [id number] [place] [address] Jan, [facility] [place] [facility] [id number] [address] Dec, [facility] [id number] [address] Dec, [facility] [id number] [address] Dec, [facility] [id number] [address] Nov, [facility] [id number] [address] Nov, [facility] [id number] [address] Oct, [facility] [id number] [address] September, [facility] [id number] [address] Aug, [facility] [id number] [address] Aug, [facility] [id number] [address] Jul, [facility] [id number] [address] Jul, [facility] [id number] [address] Jul, [facility] [address] [id number] [address] Jun, [facility] [address] [id number] [address] Jun, IMMUNIZATIONS No Known Immunizations SOCIAL HISTORY Never Assessed REASON FOR VISIT trouble sleeping PLAN OF CARE VITAL SIGNS MEDICATIONS Medication Instructions Dosage Frequency Start Date End Date Duration Status Melatonin 3 MG Orally Once a day 2 tablets at bedtime as needed with food 24h May, Active RESULTS No Results PROCEDURES No Known procedures INSTRUCTIONS MEDICATIONS ADMINISTERED No Known Medications
--- OUTSIDE RECORDS SUMMARY | 2018-02-05 08:29 | XMS REPORT ---
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 88726859 Problem Hypothyroidism E03.9 Active 40377753 Problem Allergy, subsequent encounter T78.40XD Active 258118641 Problem Reactive depression F32.9 Active 84773637 Problem Aphasia R47.01 Active 78696699 Problem 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 [id number] [address] Nov, [facility] [address] [id number] [address] Nov, Arthropathy, unspecified M12.9 [facility] [address] [id number], [place] [address] 72[address] Oct, [facility] [id number] [place] [address] [id number]- 9877 Oct, Arthropathy, unspecified M12.9 [facility] [id number] [place] [address] 36962- 5541 September, [facility] [address] [place] [id number] September, Reactive airway disease that is not asthma R09.89 [facility] [address] [place] [id number] September, Benign essential hypertension I10 and CVA, old, 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 [place] [address] [address]- [address] September, [place] [address] [address]- 9807 September, Arthropathy, unspecified M12.9 [place] [address] 26[address]- 8949 Aug, [facility] [id number] [place] [address] 85104- 6605 Aug, [facility] [id number] [place] [address] 89227- 6520 Aug, Arthropathy, unspecified M12.9 [facility] [address] [place] [id number] Jul, Diarrhea, unspecified type R19.7 [facility] [id number] [place] [address] 64583- 6733 Jul, Arthropathy, unspecified M12.9 [facility] [id number] [place] [address] [id number] Jun, Arthropathy, unspecified M12.9 [facility] [id number] [place] [address] 31734- 8993 May, Arthropathy, unspecified M12.9 [facility] [id number] [place] [address] [id number] May, [facility] [address] [place] [id number] May, Localized edema R60.0 [facility] [id number] [place] [address] [id number] May, [facility] [id number] [place] [address] 45919- 5104 Apr, Arthropathy, unspecified M12.9 [facility] [id number] [place] [address] 60868- 8629 Mar, Arthropathy, unspecified M12.9 [facility] [address] [place] [address] 29450- 4215 Feb, Reactive depression F32.9 and 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 [facility] [id number] [place] [address] 78242- 9108 Feb, Reactive depression F32.9 and Rash R21 [facility] [id number] [place] [address] 38367- 5179 Feb, Arthropathy, unspecified M12.9 [facility] [address] [place] [address] 24395- 8104 Feb, [facility] [id number] [place] [address] 10887- 0696 Jan, Reactive depression F32.9 ; Other insomnia G47.09 and 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 [facility] [address] [place] [address] 17011- 5857 Jan, [facility] [id number] [place] [address] 82155- 5830 Jan, Arthropathy, unspecified M12.9 [facility] [id number] [place] [address] 82206- 0948 Jan, [facility] [id number] [place] [address] 22713- 4818 Dec, Arthropathy, unspecified M12.9 [facility] [address] [place] [id number] Dec, Skin tag L91.8 ; Wart of scalp B07.9 and Weight gain R63.5 [facility] [address] [id number] [id number] Dec, [facility] [address] [address] Dec, Reactive depression F32.9 [facility] [id number] [place] [address] [id number] Nov, Arthropathy, unspecified M12.9 [facility] [id number] [place] [address] 15953- 7406 Oct, [facility] [id number] [place] [address] [id number]- 3802 Oct, Arthropathy, unspecified M12.9 [facility] [address] [place] [id number] September, Reactive depression F32.9 and CVA (cerebral vascular accident) I63.9 [facility] [id number] [place] [address] 97984- 7912 September, Arthropathy, unspecified M12.9 [facility] [address], [place] [address] 5[address] September, [facility] [id number] [place] [address] 48621- 0896 September, Arthropathy, unspecified M12.9 [facility] [address], [place] [address] Aug, Arthropathy, unspecified M12.9 [facility] [address] [place] [address] [id number]- 8387 Aug, [facility] [id number] [place] [address] [id number] Aug, [facility] [id number] [place] [address] 92328- 8986 Jul, [facility] [id number] [place] [address] 82863- 1540 Jul, [facility] [address] [id number] Jul, [facility] [address] [place] [id number] Jun, Reactive depression F32.9 [facility] [address] 26543- 0332 Jun, Reactive depression F32.9 [facility] [address] [id number] Jun, [facility] [address] [place] [id number] Jun, Reactive depression F32.9 and Other insomnia G47.09 [facility] [address] 25100- 9286 Jun, [facility] [id number] [place] [address] 76098- 3756 May, [facility] [address] [id number] May, [facility] [address] [place] [id number] Apr, CVA, old, 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 ; Allergy, subsequent encounter T78.40XD and Reactive depression F32.9 [facility] [id number] [place] [address] 35233- 2586 Mar, [facility] [address] [place] [id number] Feb, Benign essential hypertension I10 [facility] [id number] [place] [address] [id number]- 7161 Feb, [facility] [id number] [place] [address] [id number]- 2940 Feb, [facility] [address] [place] [address]- 3587 Feb, [facility] [id number] [place] [address] 82126- 2839 Feb, [facility] [id number] [place] [address] 80470- 6951 Feb, [facility] [id number] [place] [address] 95569- 6382 Jan, [facility] [id number] [place] [address] 88517- 3904 Jan, [facility] [address] [place] [id number] Jan, CVA, old, 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 and Benign essential hypertension I10 [facility] [id number] [place] [address] 66055- 2234 Dec, [facility] [address] 54656- 9278 Nov, [facility] [id number] [place] [address] 39268- 1559 Nov, [facility] [id number] [place] [address] 43597- 7956 Oct, [facility] [id number] [place] [address] 66120- 8623 Oct, [facility] [id number] [place] [address] 56986- 8834 Oct, 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 ; Benign essential hypertension I10 ; Reactive depression F32.9 and Urinary frequency R35.0 [facility] [address] 80766- 8361 Aug, UTI (urinary tract infection) N39.0 [facility] [id number] [place] [address] 12073- 3479 07 Aug, 2015 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 [facility] [id number] [place] [address] 85897 2546 Jul, Benign essential hypertension I10 ; CVA, old, 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 and Hypothyroidism E03.9 [facility] [id number] [place] [address] 71357 2546 Jun, [facility] [id number] [place] [address] 70547 2546 Jun, Acute diarrhea R19.7 [facility] [id number] [place] [address] 53450 2546 May, CVA (cerebral vascular accident) I63.9 [facility] [id number] [place] [address] 71260 2546 Apr, [facility] [id number] [place] [address] 15098 2546 Apr, [facility] [id number] [place] [address] 80803 2542 Apr, [facility] [id number] [place] [address] 58336 2546 Apr, [facility] [id number] [place] [address] 42647 2546 Apr, CVA (cerebral vascular accident) I63.9 and Constipation K59.00 [facility] [id number] [place] [address] 46221 2546 Apr, [facility] [id number] [place] [address] 73446 2546 Mar, [facility] [id number] [place] [address] 28408 2546 Mar, [facility] [id number] [place] [address] 27812 2546 Mar, [facility] [id number] [place] [address] 30501 2546 Mar, [facility] [id number] [place] [address] 01019- 9616 Feb, [facility] [id number] [place] [address] 18336- 5190 Feb, CVA, old, 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 ; Allergic rhinitis J30.9 and Benign essential hypertension I10 [facility] [id number] [place] [address] 53774- 6699 Dec, CVA (cerebral vascular accident) 434.91 [facility] [id number] [place] [address] 95218- 8665 Dec, [facility] [id number] [place] [address] 20506- 0119 Oct, [facility] [id number] [place] [address] 91686- 7433 Oct, [facility] [id number] [place] [address] 52750- 8387 Oct, CVA (cerebral vascular accident) 434.91 [facility] [id number] [place] [address] 76553- 6506 Oct, [facility] [id number] [place] [address] 00377- 0113 September, [facility] [id number] [place] [address] 66456- 1417 September, Allergic rhinitis 477.9 and Arthropathy 716.90 [facility] [id number] [place] [address] 29091- 0190 Aug, [facility] [address] 89365- 5870 Aug, [facility] [id number] [place] [address] 22530- 5615 Jun, [facility] [id number] [place] [address] 05036- 8126 Jun, [facility] [address] [facility] [place] [id number] Jun, 2014 [facility] [address] [id number] [place] [address]- 6926 Jun, 2014 [facility] [address] [id number] [place] [address]- 7630 Jun, 2014 [facility] [address] [id number] [place] [address]- 1868 Jun, [facility] [address] [id number] [place] [address]- 2268 Jun, [facility] [address] [id number] [place] [address]- 3440 May, [facility] [address] [id number] [place] [address]- 7199 May, [facility] [address] [id number] [place] [address]- 4438 May, [facility] [address] [id number] [place] [address]- 2818 May, [facility] [address] [id number], [place] [address]- 0275 Apr, [facility] [address] [id number], [place] [address]- 2578 Apr, [facility] [address] [id number], [place] [address]- 1210 Apr, [facility] [address] [facility] [place] [id number] Apr, [facility] [address] [id number] [place] [address]- 4944 Apr, [facility] [address] [id number] 7350 Apr, [facility] [address] [id number], [place] [address]- 4802 03 Apr, 2014 [facility] [place] [facility] [address] [id number] [place] [address]- 5209 Apr, [facility] [place] [facility] [address] [id number] [place] [address]- 6357 Apr, [facility] [place] [facility] [address] [facility] [id number] [place] [address]- 4807 Apr, [facility] [place] [facility] [address] [id number] [place] [address]- 2617 02 Apr, 2014 [facility] [place] [facility] [address] [id number] [place] [address]- 5400 18 Mar, 2014 [facility] [place] [facility] [address] [id number] [place] [address]- 5534 18 Mar, 2014 [facility] [place] [facility] [address] [id number] [place] [address]- 9471 18 Mar, 2014 [facility] [place] [facility] [address] [id number] [place] [address]- 4842 18 Mar, 2014 [facility] [place] [facility] [address] [id number] [place] [address]- 8613 17 Mar, 2014 [facility] [place] [facility] [address] [id number] [place] [address]- 9085 17 Mar, 2014 [facility] [place] [facility] [address] [id number], [place] [address]- 1360 17 Mar, 2014 [facility] [place] [facility] [address] [id number], [place] [address]- 5858 17 Mar, 2014 [facility] [place] [facility] [address] [id number] [place] [address]- 8994 16 Mar, 2014 [facility] [place] [facility] [address] [id number], [place] [address]- 7093 16 Mar, 2014 [facility] [place] [facility] [address] [id number], [place] [address]- 2211 05 Mar, 2014 [facility] [place] [facility] [address] [id number] [place] [address]- 4814 Mar, [facility] [place] [facility] [address] [id number] [place] [address]- 4298 Mar, [facility] [place] [facility] [address] [id number] [place] [address]- 9241 Feb, [facility] [place] [facility] [address] [id number] [place] [address]- 7910 Feb, [facility] [place] [facility] [address] [id number] [place] [address]- 3295 Feb, [facility] [place] [facility] [address] [id number] [place] [address]- 8525 Feb, [facility] [place] [facility] [address] [id number] [place] [address]- 7229 Feb, [facility] [place] [facility] [address] [id number] [place] [address]- 4436 Feb, [facility] [place] [facility] [address] [id number] [place] [address]- 6921 Feb, [facility] [place] [facility] [address] [id number] [place] [address]- 6878 Feb, [facility] [place] [facility] [address] [id number] [place] [address]- 7478 Jan, [facility] [place] [facility] [address] [id number] [place] [address]- 6446 Jan, [facility] [place] [facility] [address] [id number] [place] [address]- 1151 Dec, [facility] [place] [facility] [address] [id number] [place] [address]- 2674 Dec, [facility] [place] [facility] [address] [id number] [place] [address]- 1347 Dec, [facility] [place] [facility] [address] [id number] [place] [address]- 6339 Dec, [facility] [place] [facility] [address] [id number] [place] [address]- 3473 Nov, [facility] [place] [facility] [address] [id number] [place] [address]- 8903 Nov, [facility] [place] [facility] [address] [id number] [place] [address]- 3065 Nov, [facility] [place] [facility] [address] [id number] [place] [address]- 1283 Nov, [facility] [place] [facility] [address] [id number] [place] [address]- 1940 Nov, [facility] [place] [facility] [address] [id number] [place] [address]- 1176 Nov, [facility] [place] [facility] [address] [id number] [place] [address]- 5938 Nov, [facility] [place] [facility] [address] [id number] [place] [address]- 6171 Oct, [facility] [place] [facility] [address] [id number] [place] [address]- 1902 Oct, [facility] [place] [facility] [address] [id number] [place] [address]- 1186 Oct, [facility] [place] [facility] [address] [id number] [place] [address]- 3671 Oct, [facility] [place] [facility] [address] [id number] [place] [address]- 1058 Oct, [facility] [place] [facility] [address] [id number] [place] [address]- 5224 Oct, [facility] [place] [facility] [address] [id number] [place] [address]- 4439 September, [facility] [place] [facility] [address] [id number] [place] 3261 September, [facility] [place] [facility] [address] [id number], [place] [address]- 7135 September, [facility] [address] [id number] [place] [address]- 9434 September, [facility] [address] [id number] [place] [address]- 4261 September, [facility] [address] [id number] [place] [address]- 2094 September, [facility] [place] [facility] [address] [id number] [place] [address]- 4846 September, [facility] [address] [id number] [place] [address]- 6024 September, [facility] [address] [id number] [place] [address]- 4680 September, [facility] [address] [id number] [place] [address]- 7529 Aug, [facility] [place] [facility] [address] [id number] [place] [address]- 8507 Jun, [facility] [address] [id number] [place] [address]- 8130 Jun, [facility] [address] [id number] [place] [address]- 2861 May, [facility] [address] [id number] [place] [address]- 9107 Mar, [facility] [place] [facility] [address] [id number] [place] [address]- 4571 Mar, [facility] [place] [facility] [address] [id number] [place] [address]- 5081 Oct, [facility] [place] [facility] [address] [id number] [place] [address]- 4824 September, [facility] [place] [facility] [address] [id number] [place] [address] September, [facility] [place] [facility] [address] [id number] [place] [address] Aug, [facility] [place] [facility] [address] [id number] [place] [address] Jul, [facility] [place] [facility] [address] [id number] [place] [address] May, [facility] [place] [facility] [address] [id number] [place] [address] May, [facility] [place] [facility] [address] [id number] [place] [address] May, [facility] [place] [facility] [address] [id number] [place] [address] Feb, [facility] [place] [facility] [address] [id number] [place] [address] Feb, [facility] [place] [facility] [address] [id number] [place] [address] Feb, [facility] [address] [id number] [place] [address] Feb, [facility] [address] [id number] [place] [address] Feb, [facility] [address] [id number] [place] [id number] Feb, [facility] [place] [facility] [address] [id number] [place] [address] Feb, [facility] [place] [facility] [address] [id number] [place] [address] Feb, [facility] [place] [facility] [address] [id number] [place] [address] Feb, [facility] [place] [facility] [address] [id number] [place] [address] Jan, [facility] [place] [facility] [address] [id number] [place] [address] Dec, [facility] [address] [id number] [address] Dec, [facility] [id number] [place] [address] Dec, [facility] [address] [id number] [address] Nov, [facility] [id number] [address] Nov, [facility] [id number] [place] [address] Oct, [facility] [id number] [address] September, [facility] [id number] [place] [address] Aug, [facility] [id number] [address] Aug, [facility] [id number] [place] [address] Jul, [facility] [id number] [place] [address] Jul, [facility] [address] [id number] [address] Jul, [facility] [id number] [place] [address] Jun, [facility] [address] [id number] [address] Jun, IMMUNIZATIONS No Known Immunizations SOCIAL HISTORY Never Assessed REASON FOR VISIT routine visit PLAN OF CARE Activity Details Follow Up prn Reason: VITAL SIGNS MEDICATIONS Medication Instructions Dosage Frequency Start Date End Date Duration Status Colace 100 mg Orally once a week 1 capsule Active RESULTS No Results PROCEDURES Procedure Date Ordered Result Body Site Stable Visit (10 minutes) August 04, 2017 INSTRUCTIONS MEDICATIONS ADMINISTERED No Known Medications
--- OUTSIDE RECORDS SUMMARY | 2018-02-05 08:29 | XMS REPORT ---
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 Active 37708396 Problem Hypothyroidism E03.9 Active 96387159 Problem Allergy, subsequent encounter T78.40XD Active 569313665 Problem Reactive depression F32.9 Active 18409284 Problem Aphasia R47.01 Active 67294146 Problem 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 Active 633826153 Problem 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, unspecified hemiplegia type I69.353 Active 786203345 Problem Alzheimers disease with late onset G30.1 Active 738468768 Problem Glaucoma of both eyes, unspecified glaucoma H40.9 Active 04893513 Problem Gastroesophageal reflux disease without esophagitis K21.9 Active 108026810 ALLERGIES No Information ENCOUNTERS Encounter Location Date Diagnosis [facility] [address] [facility] [id number] [address] Nov, Arthropathy, unspecified M12.9 [facility] [address] [id number] [address] 8139 Oct, [facility] [address] [id number] [address] 1465 Oct, Arthropathy, unspecified M12.9 [facility] [id number] [place] [address] 89263- 0126 September, [facility] [address] [place] [id number] September, Reactive airway disease that is not asthma R09.89 [facility] [address] [place] [id number] September, Benign essential hypertension I10 and CVA, old, 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 [facility] [id number] [place] [address] 37416- 7180 September, [facility] [id number] [place] [address] 43462- 3322 September, Arthropathy, unspecified M12.9 [facility] [id number] [place] [address] 77982- 2727 Aug, [facility] [id number] [place] [address] 59831- 8604 Aug, [facility] [id number] [place] [address] 99249- 1895 Aug, Arthropathy, unspecified M12.9 [facility] [address] [place] [id number] Jul, Diarrhea, unspecified type R19.7 [facility] [id number] [place] [address] 66341- 8141 Jul, Arthropathy, unspecified M12.9 [facility] [id number] [place] [address] [id number] Jun, Arthropathy, unspecified M12.9 [facility] [id number] [place] [address] 71133- 4346 May, Arthropathy, unspecified M12.9 [place] [facility] [id number] [place] [address] [id number] May, [facility] [address] [place] [id number] May, Localized edema R60.0 [place] [facility] [address] [id number] [id number] May, [facility] [address] [place] [address] 67687- 9297 Apr, Arthropathy, unspecified M12.9 [facility] [id number] [place] [address] 53318- 7759 Mar, Arthropathy, unspecified M12.9 [place] [facility] [id number] [place] [address] 27784- 6836 Feb, Reactive depression F32.9 and 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 [facility] [facility] [id number] [place] [address] 47389- 0851 Feb, Reactive depression F32.9 and Rash R21 [place] [facility] [id number] [place] [address] 19282- 8482 Feb, Arthropathy, unspecified M12.9 [place] [facility] [id number] [place] [address] 76316- 3871 Feb, [place] [facility] [id number] [place] [address] 12509- 2755 Jan, Reactive depression F32.9 ; Other insomnia G47.09 and 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 [place] [id number] [place] [address] 83500- 3872 Jan, [place] [facility] [id number] [place] [address] 60111- 4788 Jan, Arthropathy, unspecified M12.9 [place] [facility] [id number] [place] [address] 60818- 3781 Jan, [place] [facility] [id number] [place] [address] 65813- 3901 Dec, Arthropathy, unspecified M12.9 [facility] [address] [place] [id number] 15 Aug, 2017 Skin tag L91.8 ; Wart of scalp B07.9 and Weight gain R63.5 [facility] [id number] [id number] Dec, [facility] [id number] [place] [address] [id number]- 1565 Dec, Reactive depression F32.9 [facility] [id number] [place] [address] [id number] Nov, Arthropathy, unspecified M12.9 [facility] [id number] [place] [address] 77769- 0387 Oct, [facility] [id number] [place] [address] 26722- 1664 Oct, Arthropathy, unspecified M12.9 [facility] [address] [place] [id number] September, Reactive depression F32.9 and CVA (cerebral vascular accident) I63.9 [facility] [address] [address] 3552 September, Arthropathy, unspecified M12.9 [facility] [id number] [place] [address] 42585- 8409 September, [facility] [address] [place] [address] 84769- 4317 September, Arthropathy, unspecified M12.9 [facility] [id number] [place] [address] 32663- 7231 Aug, Arthropathy, unspecified M12.9 [facility] [address] [address] 0988 Aug, [facility] [id number] [place] [address] [id number] Aug, [facility] [address] [address] 0886 Jul, [facility] [address] [id number] [address] 2546 Jul, [facility] [id number] [place] [address] [id number] Jul, [facility] [address] [place] [id number] Jun, Reactive depression F32.9 [facility] [address] [place] [address] 85061- 9696 Jun, Reactive depression F32.9 [facility] [id number] [place] [address] [id number] Jun, [facility] [address] [place] [id number] Jun, Reactive depression F32.9 and Other insomnia G47.09 [facility] [id number] [place] [address] 58502- 3176 Jun, [facility] [id number] [place] [address] 57337- 9566 May, [facility] [id number] [place] [address] [id number] May, [facility] [address] [place] [id number] Apr, CVA, old, 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 ; Allergy, subsequent encounter T78.40XD and Reactive depression F32.9 [facility] [address] [place] [address] 45628- 2506 Mar, [facility] [address] [place] [id number] Feb, Benign essential hypertension I10 [facility] [id number] [place] [address] 20306079- 6005 Feb, [facility] [id number] [place] [address] 09527- 4236 Feb, [facility] [address] [place] [address] 182817- 9264 Feb, [facility] [id number] [place] [address] [place] [address]- 5555 Feb, [facility] [id number] [place] [address] 09145- 3134 Feb, [facility] [id number] [place] [address] 02235- 0799 Jan, [facility] [id number] [place] [address] 62409- 0150 Jan, [facility] [address] [place] [id number] Jan, CVA, old, 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 and Benign essential hypertension I10 [facility] [id number] [place] [address] 90060- 2125 Dec, [facility] [id number] [place] [address] 61872- 3683 Nov, [facility] [id number] [place] [address] 31089- 7746 Nov, [facility] [id number] [place] [address] 33099- 6308 Oct, [facility] [id number] [place] [address] 41293- 6218 Oct, [facility] [address] [place] [address] 17281- 7404 Oct, 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 ; Benign essential hypertension I10 ; Reactive depression F32.9 and Urinary frequency R35.0 [facility] [address] [place] [address] 55845- 6503 Aug, UTI (urinary tract infection) N39.0 [facility] [address] [place] [address] 96351- 5280 Aug, 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 [facility] [address] [place] [address] 80321- 4383 Jul, Benign essential hypertension I10 ; CVA, old, 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 and Hypothyroidism E03.9 [facility] [id number] [place] [address] 65509 2546 Jun, [facility] [id number] [place] [address] 01602 2546 Jun, Acute diarrhea R19.7 [facility] [id number] [place] [address] 64716 2546 May, CVA (cerebral vascular accident) I63.9 [facility] [id number] [place] [address] 83125 2546 Apr, [facility] [id number] [place] [address] 15873 2546 Apr, [facility] [id number] [place] [address] 65127 2546 Apr, [facility] [id number] [place] [address] 76618 2546 Apr, [facility] [id number] [place] [address] 60596 2546 Apr, CVA (cerebral vascular accident) I63.9 and Constipation K59.00 [facility] [id number] [place] [address] 44414 2546 Apr, [facility] [id number] [place] [address] 65385 2546 Mar, [facility] [id number] [place] [address] 99495 2546 Mar, [facility] [id number] [place] [address] 60208 2546 Mar, [facility] [id number] [place] [address] 27683 2546 Mar, [facility] [id number] [place] [address] 20079 2546 Feb, [facility] [address] [place] [address] 34121- 3524 Feb, CVA, old, 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 ; Allergic rhinitis J30.9 and Benign essential hypertension I10 [facility] [id number] [place] [address] 60371- 9004 Dec, CVA (cerebral vascular accident) 434.91 [facility] [address] 64168- 6785 Dec, [facility] [id number] [place] [address] 05297- 7086 Oct, [facility] [id number] [place] [address] 54288- 4762 Oct, [facility] [id number] [place] [address] 81843- 1254 Oct, CVA (cerebral vascular accident) 434.91 [facility] [id number] [place] [address] 81887- 4105 Oct, [facility] [id number] [place] [address] 25636- 6058 September, [facility] [id number] [place] [address] 14908- 9724 September, Allergic rhinitis 477.9 and Arthropathy 716.90 [facility] [id number] [place] [address] 19928- 2496 Aug, [facility] [address] [place] [address] 85491- 9990 Aug, [facility] [id number] [place] [address] 96941- 6295 Jun, [facility] [id number] [place] [address] 29534- 6013 Jun, [facility] [address] [place] [phone] Jun, [facility] [place] [facility] [address] [id number] [place] [address]- 4180 Jun, 2014 [facility] [address] [id number] [place] [address]- 5181 Jun, 2014 [facility] [address] [id number] [place] [address]- 5674 Jun, 2014 [facility] [place] [facility] [address] [id number] [place] [address]- 9195 Jun, [facility] [address] [id number] [place] [address]- 9130 May, [facility] [address] [id number] [place] [address]- 5937 May, [facility] [address] [id number] [place] [address]- 6594 May, [facility] [address] [id number] [place] [address]- 2756 May, [facility] [address] [id number] [place] [address]- 4896 Apr, [facility] [address] [id number] [address]- 2208 Apr, [facility] [address] [id number] [place] [address]- 3206 Apr, [facility] [address] [place] [id number] Apr, [facility] [address] [id number] [place] [address]- 6494 Apr, [facility] [place] [facility] [address] [id number] [place] [address]- 5425 Apr, [facility] [place] [facility] [address] [id number] [address]- 7012 Apr, [facility] [place] [facility] [address] [id number] [address]- 7125 Apr, [facility] [place] [facility] [address] [id number] [place] [address]- 4819 Apr, [facility] [place] [facility] [address] [id number] [place] [address]- 0141 Apr, [facility] [place] [facility] [address] [facility] [place] [id number] [place] [address]- 0285 Apr, [facility] [place] [facility] [address] [id number] [place] [address]- 9743 Mar, [facility] [place] [facility] [address] [id number] [place] [address]- 4385 Mar, [facility] [place] [facility] [address] [id number] [place] [address]- 0607 Mar, [facility] [place] [facility] [address] [id number] [place] [address]- 6427 Mar, [facility] [place] [facility] [address] [id number] [place] [address]- 2944 17 Mar, 2014 [facility] [place] [facility] [address] [id number] [place] [address]- 9443 Mar, [facility] [place] [facility] [address] [id number] [place] [address]- 8265 Mar, [facility] [place] [facility] [address] [id number] [address]- 8124 17 Mar, 2014 [facility] [place] [facility] [address] [id number] [address]- 8158 16 Mar, 2014 [facility] [place] [facility] [address] [id number] [place] [address]- 0110 Mar, [facility] [place] [facility] [address] [id number] [address]- 5163 05 Mar, 2014 [facility] [place] [facility] [address] [id number] [address]- 2580 Mar, [facility] [place] [facility] [address] [id number] [place] [address]- 0242 Mar, [facility] [place] [facility] [address] [id number] [place] [address]- 7111 Feb, [facility] [place] [facility] [address] [id number] [place] [address]- 4870 Feb, [facility] [place] [facility] [address] [id number] [place] [address]- 7548 Feb, [facility] [place] [facility] [address] [id number] [place] [address]- 6844 Feb, [facility] [place] [facility] [address] [id number] [place] [address]- 2682 Feb, [facility] [place] [facility] [address] [id number] [place] [address]- 0348 Feb, [facility] [place] [facility] [address] [id number] [place] [address]- 7171 Feb, [facility] [place] [facility] [address] [id number] [place] [address]- 3503 Feb, [facility] [place] [facility] [address] [id number] [place] [address]- 8610 Jan, [facility] [place] [facility] [address] [id number] [place] [address]- 9906 Jan, [facility] [place] [facility] [address] [id number] [place] [address]- 6937 Dec, [facility] [place] [facility] [address] [id number] [place] [address]- 6594 Dec, [facility] [place] [facility] [address] [id number] [place] [address]- 5457 Dec, [facility] [place] [facility] [address] [id number] [place] [address]- 7815 Dec, [facility] [place] [facility] [address] [id number] [place] [address]- 0006 Nov, [facility] [place] [facility] [address] [id number] [place] [address]- 1871 Nov, [facility] [place] [facility] [address] [id number] [place] [address]- 6223 Nov, [facility] [place] [facility] [address] [id number] [place] [address]- 9468 Nov, [facility] [place] [facility] [address] [id number] [place] [address]- 3700 Nov, [facility] [place] [facility] [address] [id number] [place] [address]- 1085 Nov, [facility] [place] [facility] [address] [id number] [place] [address]- 6034 Nov, [facility] [place] [facility] [address] [id number] [place] [address]- 5193 Oct, [facility] [place] [facility] [address] [id number] [place] [address]- 6057 Oct, [facility] [place] [facility] [address] [id number] [place] [address]- 7122 Oct, [facility] [place] [facility] [address] [id number] [place] [address]- 7602 Oct, [facility] [place] [facility] [address] [id number] [place] [address]- 9625 Oct, [facility] [place] [facility] [address] [id number] [place] [address]- 3919 Oct, [facility] [place] [facility] [address] [id number] [place] [address]- 2616 September, [facility] [place] [facility] [address] [id number] [place] [address]- 8070 September, [facility] [place] [facility] [address] [id number] [place] 4691 September, [facility] [place] [facility] [address] [id number] [address]- 7721 September, [facility] [address] [id number] [place] [address] September, [facility] [address] [id number] [place] September, [facility] [address] [id number] [place] [address] September, [facility] [place] [facility] [address] [id number] [place] [address] September, [facility] [address] [id number] [place] [address] September, [facility] [address] [id number] [place] [address] Aug, [facility] [address] [id number] [place] [address] Jun, [facility] [place] [facility] [address] [id number] [place] [address] Jun, [facility] [address] [id number] [place] [address] May, [facility] [address] [id number] [place] [address] Mar, [facility] [address] [id number] [place] [address] Mar, [facility] [place] [facility] [address] [id number] [address] Oct, [facility] [place] [facility] [address] [id number] [place] [address] September, [facility] [place] [facility] [address] [id number] [place] [address] September, [facility] [place] [facility] [address] [id number] [place] [address] Aug, [facility] [place] [facility] [address] [id number] [place] [address] Jul, [facility] [place] [facility] [address] [id number] [place] [address] May, [facility] [place] [facility] [address] [id number] [place] [address] May, [facility] [place] [facility] [address] [id number] [place] [address] May, [facility] [place] [facility] [address] [id number] [place] [address] Feb, [facility] [place] [facility] [address] [id number] [place] [address] Feb, [facility] [place] [facility] [address] [id number] [place] [address] Feb, [facility] [place] [facility] [address] [id number] [place] [address] Feb, [facility] [address] [id number] [place] [address] Feb, [facility] [address] [id number] [id number] Feb, [facility] [address] [id number] [place] [address] Feb, [facility] [place] [facility] [address] [id number] [place] [address] Feb, [facility] [place] [facility] [address] [id number] [place] [address] Feb, [facility] [place] [facility] [address] [id number] [place] [address] Jan, [facility] [place] [facility] [address] [id number] [place] [address] Dec, [facility] [place] [facility] [address] [id number] [place] [address] Dec, [facility] [address] [id number] [address] Dec, [facility] [id number] [address] Nov, [facility] [id number] [address] Nov, [facility] [id number] [address] Oct, [facility] [id number] [address] September, [facility] [address] [address] [address] Aug, [facility] [address] [address] Aug, [facility] [address] [address] Jul, [facility] [address] [address] 224[address] Jul, [facility] [address] [address] 25[address] Jul, [facility] [id number] [address] Jun, [facility] [id number] [address] Jun, IMMUNIZATIONS No Known Immunizations SOCIAL [...]
--- OUTSIDE RECORDS SUMMARY | 2018-02-05 08:30 | XMS REPORT ---
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 03291870 Problem Hypothyroidism E03.9 Active 69228476 Problem Allergy, subsequent encounter T78.40XD Active 789695045 Problem Reactive depression F32.9 Active 88366365 Problem Aphasia R47.01 Active 48991659 Problem 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 Active 486815109 Problem 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, unspecified hemiplegia type I69.353 Active 172043446 Problem Alzheimers disease with late onset G30.1 Active 006793075 Problem Glaucoma of both eyes, unspecified glaucoma H40.9 Active 00872977 Problem Gastroesophageal reflux disease without esophagitis K21.9 Active 380203719 ALLERGIES No Information ENCOUNTERS Encounter Location Date Diagnosis [facility] [address] [facility] [id number] [address] Oct, [facility] [address] [id number] [address] Oct, Arthropathy, unspecified M12.9 [facility] [address] [facility] [id number], [place] [address] September, [employer] [address] [place] [id number] September, Reactive airway disease that is not asthma R09.89 [employer] [address] [place] [id number] September, Benign essential hypertension I10 and CVA, old, 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 [facility] [id number] [place] [address] [id number]- 8522 September, [facility] [address] [id number]- [address] September, Arthropathy, unspecified M12.9 [facility] [id number] [place] [address] 15122- 4836 Aug, [facility] [id number] [place] [address] 05268- 0356 Aug, [facility] [id number] [place] [address] 26026- 0465 Aug, Arthropathy, unspecified M12.9 [employer] [address] [place] [id number] Jul, Diarrhea, unspecified type R19.7 [facility] [id number] [place] [address] 52145- 2586 Jul, Arthropathy, unspecified M12.9 [facility] [id number] [place] [address] [id number] Jun, Arthropathy, unspecified M12.9 [facility] [id number] [place] [address] [id number]- 9412 May, Arthropathy, unspecified M12.9 [facility] [id number] [place] [address] [id number] May, [employer] [address] [place] [id number] May, Localized edema R60.0 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 [facility] [id number] [place] [address] 33410- 2161 Feb, Reactive depression F32.9 and Rash R21 [facility] [facility] [address] [address]- 1664 Feb, Arthropathy, unspecified M12.9 [facility] [id number] [place] [address] 34278- 8383 Feb, [facility] [id number] [place] [address] 37695- 8090 Jan, Reactive depression F32.9 ; Other insomnia G47.09 and 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 [id number] [place] [address] [id number] Dec, [facility] [address] [address]- 8676 Dec, Reactive depression F32.9 [facility] [id number] [place] [address] [id number] Nov, Arthropathy, unspecified M12.9 [facility] [id number] [place] [address] 69014- 3486 Oct, [facility] [id number] [place] [address] 54015- 1591 Oct, Arthropathy, unspecified M12.9 [employer] [address] [place] [id number] September, Reactive depression F32.9 and CVA (cerebral vascular accident) I63.9 [facility] [address] [place] [address] 284563- 3466 September, Arthropathy, unspecified M12.9 [facility] [id number] [place] [address] [id number]- 6796 September, [facility] [id number] [place] [address] 546303- 6186 September, Arthropathy, unspecified M12.9 [facility] [id number] [place] [address] 66554- 6046 Aug, Arthropathy, unspecified M12.9 [facility] [address] [address]- 06[address] Aug, [facility] [id number] [id number] Aug, [facility] [address], [place] [address] 2546 Jul, [facility] [address] [address] 1906 Jul, [facility] [id number] [place] [address] [id number] Jul, [employer] [address] [place] [id number] Jun, Reactive depression F32.9 [facility] [id number] [place] [address] 06874- 2546 Jun, Reactive depression F32.9 [facility] [id number] [place] [address] [id number] Jun, [employer] [address] [place] [id number] Jun, Reactive depression F32.9 and Other insomnia G47.09 [facility] [id number] [place] [address] 39046- 3526 Jun, [facility] [id number] [place] [address] 33983- 3546 May, [facility] [id number] [place] [address] [id number] May, [employer] [address] [place] [id number] Apr, CVA, old, 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 ; Allergy, subsequent encounter T78.40XD and Reactive depression F32.9 [facility] [id number] [place] [address] 14261- 4366 Mar, [employer] [address] [place] [id number] Feb, Benign essential hypertension I10 [facility] [id number] [place] [address] [id number]- 5434 Feb, [facility] [id number] [place] [address] [id number]- 8451 18 Feb, 2016 [facility] [id number] [place] [address] [id number]- 7574 17 Feb, 2016 [facility] [id number] [place] [address] 454023- 0580 14 Feb, 2016 [facility] [address] [address]32- 0983 Feb, [facility] [address], [place] [address]- 8290 Jan, [facility] [id number] [place] [address] 43103- 2182 Jan, [employer] [address] [place] [id number] Jan, CVA, old, 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 and Benign essential hypertension I10 [facility] [address] [place] [address] 32224- 8474 Dec, [facility] [id number] [place] [address] 19278- 8857 Nov, [facility] [id number] [place] [address] 97999- 0434 Nov, [facility] [id number] [place] [address] 27447- 1029 Oct, [facility] [id number] [place] [address] 79430- 5109 Oct, [facility] [id number] [place] [address] 60211- 3375 Oct, 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 ; Benign essential hypertension I10 ; Reactive depression F32.9 and Urinary frequency R35.0 [facility] [id number] [place] [address] 71196- 7064 Aug, UTI (urinary tract infection) N39.0 [facility] [id number] [place] [address] 97035- 7732 Aug, 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 [facility] [id number] [place] [address] 62849- 1116 Jul, Benign essential hypertension I10 ; CVA, old, 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 and Hypothyroidism E03.9 [facility] [id number] [place] [address] 68243- 3498 Jun, [facility] [address], [place] [address]- 0631 Jun, Acute diarrhea R19.7 [facility] [id number] [place] [address] 79426 2546 May, CVA (cerebral vascular accident) I63.9 [facility] [id number] [place] [address] 67642 2546 Apr, [facility] [id number] [place] [address] 31423 2546 Apr, [facility] [id number] [place] [address] 37994- 6576 Apr, [facility] [id number] [place] [address] 56372 2546 Apr, [facility] [id number] [place] [address] 86564 2548 Apr, CVA (cerebral vascular accident) I63.9 and Constipation K59.00 [facility] [id number] [place] [address] 81828- 6407 Apr, [facility] [id number] [place] [address] 24861- 6126 Mar, [facility] [address], [place] [address]- 0686 Mar, [facility] [id number] [place] [address] 13476 2546 Mar, [facility] [address], [place] [address] 2546 Mar, [facility] [id number] [place] [address] 70460 2546 Feb, [facility] [address] [address] 2546 Feb, CVA, old, 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 ; Allergic rhinitis J30.9 and Benign essential hypertension I10 [facility] [address] [address]- 1302 Dec, CVA (cerebral vascular accident) 434.91 [facility] [address] [address]- 0025 Dec, [facility] [id number] [place] [address] 39585- 9225 Oct, [facility] [id number] [place] [address] 71255- 3654 Oct, [facility] [id number] [place] [address] 74069- 7973 Oct, CVA (cerebral vascular accident) 434.91 [facility] [id number] [place] [address] 93763- 6336 Oct, [facility] [id number] [place] [address] 65994- 1759 September, [facility] [id number] [place] [address] 61541- 0808 September, Allergic rhinitis 477.9 and Arthropathy 716.90 [facility] [address] [address]- 8741 Aug, [facility] [address], [place] [address]- 0622 Aug, [facility] [address], [place] [address]- 2510 Jun, [facility] [address], [place] [address]- 6491 Jun, [facility] [address] [place] [id number] Jun, [facility] [address], [place] [address]- 4725 Jun, [facility] [place] [facility] [address] [id number] [place] [address]- 8247 04 Jun, 2014 [facility] [address] [id number] [place] [address]- 7868 Jun, 2014 [facility] [address] [id number] [place] [address]- 1822 Jun, [facility] [address] [id number] [place] [address]- 6131 May, [facility] [address] [id number] [place] [address]- 8755 May, [facility] [address] [id number] [place] [address]- 4737 May, [facility] [address] [id number] [place] [address]- 7090 May, [facility] [address] [id number] [place] [address]- 2650 Apr, [facility] [address] [id number] [place] [address]- 5568 Apr, [facility] [address] [id number] [place] [address]- 2194 Apr, [facility] [address] [place] [id number] Apr, [facility] [address] [id number] [place] [address]- 7028 Apr, [facility] [address] [id number] [place] [address]- 5343 Apr, [facility] [address] [id number] [place] [address]- 3757 Apr, [facility] [address] [id number] [place] [address]- 2383 Apr, [facility] [address] [id number] [place] [address]- 9293 Apr, [facility] [place] [facility] [address] [id number] [place] [address]- 1503 Apr, [facility] [place] [facility] [address] [id number] [place] [address]- 4267 Apr, [facility] [place] [facility] [address] [id number] [place] [address]- 4601 Mar, [facility] [place] [facility] [address] [id number] [place] [address]- 5896 Mar, [facility] [place] [facility] [address] [id number] [place] [address]- 0174 Mar, [facility] [place] [facility] [address] [id number] [place] [address]- 3370 Mar, [facility] [place] [facility] [address] [id number] [place] [address]- 6513 Mar, [facility] [place] [facility] [address] [id number] [place] [address]- 6995 Mar, [facility] [place] [facility] [address] [id number] [place] [address]- 2472 Mar, [facility] [place] [facility] [address] [id number] [place] [address]- 2135 Mar, [facility] [place] [facility] [address] [id number] [place] [address]- 8937 16 Mar, 2014 [facility] [place] [facility] [address] [id number] [place] [address]- 7980 Mar, [facility] [place] [facility] [address] [id number] [place] [address]- 0505 Mar, [facility] [place] [facility] [address] [id number] [place] [address]- 4968 Mar, [facility] [place] [facility] [address] [id number] [place] [address]- 6131 Mar, [facility] [place] [facility] [address] [id number] [place] [address]- 7682 Feb, [facility] [place] [facility] [address] [id number] [place] [address]- 7642 Feb, [facility] [place] [facility] [address] [id number] [place] [address]- 2736 Feb, [facility] [place] [facility] [address] [id number] [place] [address]- 5839 Feb, [facility] [place] [facility] [address] [id number] [place] [address]- 2572 Feb, [facility] [place] [facility] [address] [id number] [place] [address]- 0849 Feb, [facility] [place] [facility] [address] [id number] [place] [address]- 1976 Feb, [facility] [place] [facility] [address] [id number] [place] [address]- 0290 Feb, [facility] [place] [facility] [address] [id number] [place] [address]- 2357 Jan, [facility] [place] [facility] [address] [id number] [place] [address]- 9895 Jan, [facility] [place] [facility] [address] [id number] [place] [address]- 1357 Dec, [facility] [place] [facility] [address] [id number] [place] [address]- 4035 Dec, [facility] [place] [facility] [address] [id number] [place] [address]- 7894 Dec, [facility] [place] [facility] [address] [id number] [place] [address]- 2554 Dec, [facility] [place] [facility] [address] [id number] [place] [address]- 8736 Nov, [facility] [place] [facility] [address] [id number] [place] [address]- 7788 Nov, [facility] [place] [facility] [address] [id number] [place] [address]- 7651 Nov, [facility] [place] [facility] [address] [id number] [place] [address]- 8565 Nov, [facility] [place] [facility] [address] [id number] [place] [address]- 2852 Nov, [facility] [place] [facility] [address] [id number] [place] [address]- 3283 Nov, [facility] [place] [facility] [address] [id number] [place] [address]- 0427 Nov, [facility] [place] [facility] [address] [id number] [place] [address]- 0691 Oct, [facility] [place] [facility] [address] [id number] [place] [address]- 0741 Oct, [facility] [place] [facility] [address] [id number] [place] [address]- 2459 Oct, [facility] [place] [facility] [address] [id number] [place] [address]- 9124 Oct, [facility] [place] [facility] [address] [id number] [place] [address]- 4387 Oct, [facility] [place] [facility] [address] [id number] [place] [address]- 6330 Oct, [facility] [place] [facility] [address] [id number] [place] [address]- 0909 September, [facility] [place] [facility] [address] [id number] [place] [address]- 8688 September, [facility] [place] [facility] [address] [id number] [place] [address]- 4058 September, [facility] [place] [facility] [address] [id number] [place] [address]- 2269 September, [facility] [place] [facility] [address] [id number] [place] [address]- 4110 September, [facility] [address] [id number] [place] [address]- 5525 September, [facility] [place] [facility] [address] [id number] [place] [address]- 7084 September, [facility] [place] [facility] [address] [id number] [place] [address]- 7104 September, [facility] [place] [facility] [address] [id number] [place] [address]- 6104 September, [facility] [place] [facility] [address] [id number] [place] 9147 Aug, [facility] [place] [facility] [address] [id number] [place] [address]- 6730 Jun, [facility] [place] [facility] [address] [id number] [place] [address]- 1947 Jun, [facility] [place] [facility] [address] [id number] [place] [address]- 4899 May, [facility] [place] [facility] [address] [id number] [place] [address]- 5682 Mar, [facility] [place] [facility] [address] [id number] [place] [address]- 4961 Mar, [facility] [place] [facility] [address] [id number] [place] [address] Oct, [facility] [place] [facility] [address] [id number] [place] [address] September, [facility] [place] [facility] [address] [id number] [place] [address] September, [facility] [place] [facility] [address] [id number] [place] [address] Aug, [facility] [place] [facility] [address] [id number] [place] [address] Jul, [facility] [place] [facility] [address] [id number] [place] [address] May, [facility] [place] [facility] [address] [id number] [place] [address] May, [facility] [place] [facility] [address] [id number] [place] [address] May, [facility] [place] [facility] [address] [id number] [place] [address] Feb, [facility] [place] [facility] [address] [id number] [place] [address] Feb, [facility] [place] [facility] [address] [id number] [place] [address] Feb, [facility] [place] [facility] [address] [id number] [place] [address] Feb, [facility] [place] [facility] [address] [id number] [place] [address] Feb, [facility] [id number] [id number] Feb, [facility] [place] [facility] [address] [id number] [place] [address] Feb, [facility] [place] [facility] [address] [id number] [place] [address] Feb, [facility] [place] [facility] [address] [id number] [address] Feb, [facility] [place] [facility] [address] [id number], [place] [address] Jan, [facility] [place] [facility] [address] [id number] [place] [address] Dec, [facility] [place] [facility] [address] [id number] [place] [address] Dec, [facility] [place] [facility] [address] [id number] [place] [address] Dec, [facility] [place] [facility] [id number] [address] Nov, [facility] [id number] [address] Nov, [facility] [id number], [place] [address] Oct, [facility] [id number], [place] [address] September, [facility] [id number] [address] Aug, [facility] [id number] [address] Aug, [facility] [id number], [place] [address] Jul, [facility] [id number], [place] [address] Jul, [facility] [id number], [place] [address] Jul, [facility] [id number] [address] Jun, [facility] [address] [id number], [place] [address] Jun, IMMUNIZATIONS No Known Immunizations SOCIAL HISTORY Never Assessed REASON FOR VISIT Request for Melatonin PLAN OF CARE VITAL SIGNS MEDICATIONS Medication Instructions Dosage Frequency Start Date End Date Duration Status Melatonin 3 MG Orally Once a day 1 tablet at bedtime as needed with food 24h May, 30 day(s) Active RESULTS No Results PROCEDURES No Known procedures INSTRUCTIONS MEDICATIONS ADMINISTERED No Known Medications
--- OUTSIDE RECORDS SUMMARY | 2018-02-05 08:30 | XMS REPORT ---
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 90191795 Problem Hypothyroidism E03.9 Active 03300819 Problem Allergy, subsequent encounter T78.40XD Active 174728257 Problem Reactive depression F32.9 Active 69681485 Problem Aphasia R47.01 Active 44883116 Problem 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 Active 331284455 Problem 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, unspecified hemiplegia type I69.353 Active 614067441 Problem Alzheimers disease with late onset G30.1 Active 657977052 Problem Glaucoma of both eyes, unspecified glaucoma H40.9 Active 83933853 Problem Gastroesophageal reflux disease without esophagitis K21.9 Active 918212671 ALLERGIES No Information ENCOUNTERS Encounter Location Date Diagnosis [facility] [address] [facility] [id number] [address] Nov, [facility] [address] [id number] [address] Nov, Arthropathy, unspecified M12.9 [facility] [address] [id number] [address] Oct, [facility] [id number] [place] [address] [id number] 9366 Oct, Arthropathy, unspecified M12.9 [facility] [id number] [place] [address] 77281- 2515 September, [facility] [address] [place] [id number] September, Reactive airway disease that is not asthma R09.89 [facility] [address] [place] [id number] September, Benign essential hypertension I10 and CVA, old, 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 [place] [address] [address] September, [place] [address] [address]- [address] September, Arthropathy, unspecified M12.9 [place] [address] 25281- 2733 Aug, [facility] [id number] [place] [address] 06568- 5529 Aug, [facility] [id number] [place] [address] 20332- 9216 Aug, Arthropathy, unspecified M12.9 [facility] [address] [place] [id number] Jul, Diarrhea, unspecified type R19.7 [facility] [id number] [place] [address] 94489- 7232 Jul, Arthropathy, unspecified M12.9 [facility] [id number] [place] [address] [id number] Jun, Arthropathy, unspecified M12.9 [facility] [id number] [place] [address] 36846- 7839 May, Arthropathy, unspecified M12.9 [facility] [id number] [place] [address] [id number] May, [facility] [address] [place] [id number] May, Localized edema R60.0 [facility] [id number] [place] [address] [id number] May, [facility] [id number] [place] [address] 62282- 6119 Apr, Arthropathy, unspecified M12.9 [facility] [id number] [place] [address] 94996- 4862 Mar, Arthropathy, unspecified M12.9 [facility] [id number] [place] [address] 44828- 9409 Feb, Reactive depression F32.9 and 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 [facility] [id number] [place] [address] 75533- 7466 Feb, Reactive depression F32.9 and Rash R21 [facility] [id number] [place] [address] 91041- 4144 Feb, Arthropathy, unspecified M12.9 [facility] [id number] [place] [address] 60620- 2037 Feb, [facility] [id number] [place] [address] 81067- 9878 Jan, Reactive depression F32.9 ; Other insomnia G47.09 and 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 [facility] [address] [place] [address] 39912- 5984 Jan, [facility] [address] [place] [address] 90253- 4040 Jan, Arthropathy, unspecified M12.9 [facility] [id number] [place] [address] 76586- 8717 Jan, [facility] [address] [place] [address] 27578- 7902 Dec, Arthropathy, unspecified M12.9 [facility] [address] [place] [id number] Dec, Skin tag L91.8 ; Wart of scalp B07.9 and Weight gain R63.5 [facility] [address] [id number] [id number] Dec, [facility] [address] [address] Dec, Reactive depression F32.9 [facility] [id number] [place] [address] [id number] Nov, Arthropathy, unspecified M12.9 [facility] [id number] [place] [address] 28386- 6276 Oct, [facility] [id number] [place] [address] [id number]- 8681 Oct, Arthropathy, unspecified M12.9 [facility] [address] [place] [id number] September, Reactive depression F32.9 and CVA (cerebral vascular accident) I63.9 [facility] [id number] [place] [address] 83480- 5206 September, Arthropathy, unspecified M12.9 [facility] [address], [place] [address] 2661 September, [facility] [id number] [place] [address] 98279- 4706 September, Arthropathy, unspecified M12.9 [facility] [address] [address]- 8007 Aug, Arthropathy, unspecified M12.9 [facility] [address] [place] [address] [id number]- 7691 Aug, [facility] [id number] [place] [address] [id number] Aug, [facility] [id number] [place] [address] 68749- 4466 Jul, [facility] [id number] [place] [address] 42816- 9059 Jul, [facility] [address] [id number] Jul, [facility] [address] [place] [id number] Jun, Reactive depression F32.9 [facility] [address] 91755- 0915 Jun, Reactive depression F32.9 [facility] [address] [id number] Jun, [facility] [address] [place] [id number] Jun, Reactive depression F32.9 and Other insomnia G47.09 [facility] [address] 86409- 0146 Jun, [facility] [id number] [place] [address] 20770- 1279 May, [facility] [address] [id number] May, [facility] [address] [place] [id number] Apr, CVA, old, 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 ; Allergy, subsequent encounter T78.40XD and Reactive depression F32.9 [facility] [id number] [place] [address] 43513- 1964 Mar, [facility] [address] [place] [id number] Feb, Benign essential hypertension I10 [facility] [id number] [place] [address] 24544162- 8181 Feb, [facility] [id number] [place] [address] [id number]- 2802 Feb, [facility] [address] [place] [address]- 8734 Feb, [facility] [id number] [place] [address] 66492- 3422 Feb, [facility] [id number] [place] [address] 34458- 4678 Feb, [facility] [id number] [place] [address] 78521- 0821 Jan, [facility] [id number] [place] [address] 43492- 1429 Jan, [facility] [address] [place] [id number] Jan, CVA, old, 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 and Benign essential hypertension I10 [facility] [id number] [place] [address] 75977- 3941 Dec, [facility] [address] 86132- 1966 Nov, [facility] [id number] [place] [address] 64464- 9143 Nov, [facility] [id number] [place] [address] 65919- 4168 Oct, [facility] [id number] [place] [address] 83556- 4648 Oct, [facility] [id number] [place] [address] 83851- 3003 Oct, 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 ; Benign essential hypertension I10 ; Reactive depression F32.9 and Urinary frequency R35.0 [facility] [address] 63359- 3344 Aug, UTI (urinary tract infection) N39.0 [facility] [id number] [place] [address] 35381- 2672 07 Aug, 2015 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 [facility] [id number] [place] [address] 97956 2546 Jul, Benign essential hypertension I10 ; CVA, old, 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 and Hypothyroidism E03.9 [facility] [id number] [place] [address] 45213 2546 Jun, [facility] [id number] [place] [address] 63828 2546 Jun, Acute diarrhea R19.7 [facility] [id number] [place] [address] 19949 2546 May, CVA (cerebral vascular accident) I63.9 [facility] [id number] [place] [address] 40575 2546 Apr, [facility] [id number] [place] [address] 76855 2546 Apr, [facility] [id number] [place] [address] 58453 2548 Apr, [facility] [id number] [place] [address] 66480 2546 Apr, [facility] [id number] [place] [address] 62210 2546 Apr, CVA (cerebral vascular accident) I63.9 and Constipation K59.00 [facility] [id number] [place] [address] 13040 2546 Apr, [facility] [id number] [place] [address] 46639 2546 Mar, [facility] [id number] [place] [address] 43519 2546 Mar, [facility] [id number] [place] [address] 96218 2546 Mar, [facility] [id number] [place] [address] 79026 2546 Mar, [facility] [id number] [place] [address] 65062- 3762 Feb, [facility] [id number] [place] [address] 14576- 2261 Feb, CVA, old, 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 ; Allergic rhinitis J30.9 and Benign essential hypertension I10 [facility] [id number] [place] [address] 69919- 2484 Dec, CVA (cerebral vascular accident) 434.91 [facility] [id number] [place] [address] 66555- 9900 Dec, [facility] [id number] [place] [address] 37981- 6226 Oct, [facility] [id number] [place] [address] 05312- 2773 Oct, [facility] [id number] [place] [address] 19402- 1982 Oct, CVA (cerebral vascular accident) 434.91 [facility] [id number] [place] [address] 13192- 7579 Oct, [facility] [id number] [place] [address] 25955- 4262 September, [facility] [id number] [place] [address] 44928- 5982 September, Allergic rhinitis 477.9 and Arthropathy 716.90 [facility] [id number] [place] [address] 79327- 6265 Aug, [facility] [address] 20254- 4340 Aug, [facility] [id number] [place] [address] 58946- 0677 Jun, [facility] [id number] [place] [address] 17969- 9765 Jun, [facility] [address] [facility] [id number] Jun, 2014 [facility] [address] [id number] [place] [address]- 2934 Jun, 2014 [facility] [address] [id number] [place] [address]- 9129 Jun, 2014 [facility] [address] [id number] [place] [address]- 1599 Jun, [facility] [address] [id number] [place] [address]- 4273 Jun, [facility] [address] [id number] [place] [address]- 4768 May, [facility] [address] [id number] [place] [address]- 7073 May, [facility] [address] [id number] [place] [address]- 5617 May, [facility] [address] [id number] [place] [address]- 3847 May, [facility] [address] [id number], [place] [address]- 1471 Apr, [facility] [address] [id number], [place] [address]- 9833 Apr, [facility] [address] [id number], [place] [address]- 9044 Apr, [facility] [address] [facility] [id number] Apr, [facility] [address] [id number] [place] [address]- 9647 Apr, [facility] [address] [id number] 3489 Apr, [facility] [address] [id number], [place] [address]- 9955 03 Apr, 2014 [facility] [place] [facility] [address] [id number] [place] [address]- 1164 Apr, [facility] [place] [facility] [address] [id number] [place] [address]- 2014 Apr, [facility] [place] [facility] [address] [facility] [id number] [place] [address]- 1025 Apr, [facility] [place] [facility] [address] [id number] [place] [address]- 0245 02 Apr, 2014 [facility] [place] [facility] [address] [id number] [place] [address]- 8056 18 Mar, 2014 [facility] [place] [facility] [address] [id number] [place] [address]- 1276 18 Mar, 2014 [facility] [place] [facility] [address] [id number] [place] [address]- 4805 18 Mar, 2014 [facility] [place] [facility] [address] [id number] [place] [address]- 9086 18 Mar, 2014 [facility] [place] [facility] [address] [id number] [place] [address]- 3168 17 Mar, 2014 [facility] [place] [facility] [address] [id number] [place] [address]- 9554 17 Mar, 2014 [facility] [place] [facility] [address] [id number], [place] [address]- 1283 17 Mar, 2014 [facility] [place] [facility] [address] [id number], [place] [address]- 3795 17 Mar, 2014 [facility] [place] [facility] [address] [id number] [place] [address]- 3883 16 Mar, 2014 [facility] [place] [facility] [address] [id number], [place] [address]- 1190 16 Mar, 2014 [facility] [place] [facility] [address] [id number], [place] [address]- 5453 05 Mar, 2014 [facility] [place] [facility] [address] [id number] [place] [address]- 0340 Mar, [facility] [place] [facility] [address] [id number] [place] [address]- 9032 Mar, [facility] [place] [facility] [address] [id number] [place] [address]- 3024 Feb, [facility] [place] [facility] [address] [id number] [place] [address]- 5098 Feb, [facility] [place] [facility] [address] [id number] [place] [address]- 2695 Feb, [facility] [place] [facility] [address] [id number] [place] [address]- 4274 Feb, [facility] [place] [facility] [address] [id number] [place] [address]- 1987 Feb, [facility] [place] [facility] [address] [id number] [place] [address]- 0056 Feb, [facility] [place] [facility] [address] [id number] [place] [address]- 0832 Feb, [facility] [place] [facility] [address] [id number] [place] [address]- 6002 Feb, [facility] [place] [facility] [address] [id number] [place] [address]- 4470 Jan, [facility] [place] [facility] [address] [id number] [place] [address]- 7808 Jan, [facility] [place] [facility] [address] [id number] [place] [address]- 8853 Dec, [facility] [place] [facility] [address] [id number] [place] [address]- 1041 Dec, [facility] [place] [facility] [address] [id number] [place] [address]- 5112 Dec, [facility] [place] [facility] [address] [id number] [place] [address]- 9722 Dec, [facility] [place] [facility] [address] [id number] [place] [address]- 1485 Nov, [facility] [place] [facility] [address] [id number] [place] [address]- 9880 Nov, [facility] [place] [facility] [address] [id number] [place] [address]- 9446 Nov, [facility] [place] [facility] [address] [id number] [place] [address]- 8437 Nov, [facility] [place] [facility] [address] [id number] [place] [address]- 2394 Nov, [facility] [place] [facility] [address] [id number] [place] [address]- 0186 Nov, [facility] [place] [facility] [address] [id number] [place] [address]- 6461 Nov, [facility] [place] [facility] [address] [id number] [place] [address]- 1946 Oct, [facility] [place] [facility] [address] [id number] [place] [address]- 6172 Oct, [facility] [place] [facility] [address] [id number] [place] [address]- 0362 Oct, [facility] [place] [facility] [address] [id number] [place] [address]- 9238 Oct, [facility] [place] [facility] [address] [id number] [place] [address]- 3722 Oct, [facility] [place] [facility] [address] [id number] [place] [address]- 8215 Oct, [facility] [place] [facility] [address] [id number] [place] [address]- 0679 September, [facility] [place] [facility] [address] [id number] [place] 2406 September, [facility] [place] [facility] [address] [id number], [place] [address]- 2786 September, [facility] [address] [id number] [place] [address]- 4303 September, [facility] [address] [id number] [place] [address]- 7197 September, [facility] [address] [id number] [place] [address]- 5419 September, [facility] [place] [facility] [address] [id number] [place] [address]- 7278 September, [facility] [address] [id number] [place] [address]- 3914 September, [facility] [address] [id number] [place] [address]- 0765 September, [facility] [address] [id number] [place] [address]- 9200 Aug, [facility] [place] [facility] [address] [id number] [place] [address]- 8021 Jun, [facility] [address] [id number] [place] [address]- 7641 Jun, [facility] [address] [id number] [place] [address]- 2725 May, [facility] [address] [id number] [place] [address]- 8633 Mar, [facility] [place] [facility] [address] [id number] [place] [address]- 0318 Mar, [facility] [place] [facility] [address] [id number] [place] [address]- 8702 Oct, [facility] [place] [facility] [address] [id number] [place] [address] September, [facility] [place] [facility] [address] [id number] [place] [address] September, [facility] [place] [facility] [address] [id number] [place] [address] Aug, [facility] [place] [facility] [address] [id number] [place] [address] Jul, [facility] [place] [facility] [address] [id number] [place] [address] May, [facility] [place] [facility] [address] [id number] [place] [address] May, [facility] [place] [facility] [address] [id number] [place] [address] May, [facility] [place] [facility] [address] [id number] [place] [address] Feb, [facility] [place] [facility] [address] [id number] [place] [address] Feb, [facility] [place] [facility] [address] [id number] [place] [address] Feb, [facility] [address] [id number] [place] [address] Feb, [facility] [address] [id number] [place] [address] Feb, [facility] [address] [id number] [id number] Feb, [facility] [place] [facility] [address] [id number] [place] [address] Feb, [facility] [place] [facility] [address] [id number] [place] [address] Feb, [facility] [place] [facility] [address] [id number] [place] [address] Feb, [facility] [place] [facility] [address] [id number] [place] [address] Jan, [facility] [place] [facility] [address] [id number] [place] [address] Dec, [facility] [address] [id number] [address] Dec, [facility] [id number] [address] Dec, [facility] [address] [facility] [id number], [place] [address] Nov, [facility] [id number] [address] Nov, [facility] [address] [facility] [id number], [place] [address] Oct, [facility] [id number] [address] September, [facility] [id number], [place] [address] Aug, [facility] [id number], [place] [address] Aug, [facility] [id number], [place] [address] Jul, [facility] [id number] [address] Jul, [facility] [address] [id number], [place] [address] Jul, [facility] [id number] [address] Jun, [facility] [address] [id number], [place] [address] Jun, IMMUNIZATIONS No Known Immunizations SOCIAL [...]
--- OUTSIDE RECORDS SUMMARY | 2018-02-05 08:31 | XMS REPORT ---
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 04299805 Problem Hypothyroidism E03.9 Active 00502474 Problem Allergy, subsequent encounter T78.40XD Active 515180686 Problem Reactive depression F32.9 Active 24279369 Problem Aphasia R47.01 Active 71218792 Problem 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 Active 345759995 Problem 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, unspecified hemiplegia type I69.353 Active 188204887 Problem Alzheimers disease with late onset G30.1 Active 011625219 Problem Glaucoma of both eyes, unspecified glaucoma H40.9 Active 75515727 Problem Gastroesophageal reflux disease without esophagitis K21.9 Active 447014560 ALLERGIES No Information ENCOUNTERS Encounter Location Date Diagnosis [facility] [address] [facility] [id number] [address] Oct, [facility] [address] [id number] [address] 8147 Oct, Arthropathy, unspecified M12.9 [facility] [address] [facility] [id number] [address] September, [facility] [address] [place] [id number] September, Reactive airway disease that is not asthma R09.89 [facility] [address] [place] [id number] September, Benign essential hypertension I10 and CVA, old, 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 [facility] [id number] [place] [address] [id number]- 4430 September, [facility] [address] [id number]- 9581 September, Arthropathy, unspecified M12.9 [facility] [id number] [place] [address] 62080- 8424 Aug, [facility] [id number] [place] [address] 21018- 6053 Aug, [facility] [id number] [place] [address] 38413- 4107 Aug, Arthropathy, unspecified M12.9 [facility] [address] [place] [id number] Jul, Diarrhea, unspecified type R19.7 [facility] [id number] [place] [address] 98048- 3512 Jul, Arthropathy, unspecified M12.9 [facility] [id number] [place] [address] [id number] Jun, Arthropathy, unspecified M12.9 [facility] [id number] [place] [address] [id number]- 8534 May, Arthropathy, unspecified M12.9 [facility] [id number] [place] [address] [id number] May, [facility] [address] [place] [id number] May, Localized edema R60.0 [facility] [id number] [place] [address] [id number] May, [facility] [id number] [place] [address] 51786- 4267 Apr, Arthropathy, unspecified M12.9 [place] [facility] [id number] [place] [address] 12789- 0243 Mar, Arthropathy, unspecified M12.9 [facility] [id number] [place] [address] 56458- 7000 Feb, Reactive depression F32.9 and 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 [place] [facility] [id number] [place] [address] 07787- 1352 Feb, Reactive depression F32.9 and Rash R21 [place] [address] 9[address]97- 4994 Feb, Arthropathy, unspecified M12.9 [place] [facility] [id number] [place] [address] 45659- 7177 Feb, [facility] [facility] [id number] [place] [address] 05236- 4093 Jan, Reactive depression F32.9 ; Other insomnia G47.09 and 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 [place] [facility] [id number] [place] [address] 52679- 8844 Jan, [place] [facility] [id number] [place] [address] 51485- 2955 Jan, Arthropathy, unspecified M12.9 [place] [facility] [id number] [place] [address] 68344- 9405 Jan, [place] [id number] [place] [address] 06356- 9130 Dec, Arthropathy, unspecified M12.9 [facility] [address] [place] [id number] Dec, Skin tag L91.8 ; Wart of scalp B07.9 and Weight gain R63.5 [facility] [id number] [place] [address] [id number] Dec, [facility] [address]005[address] [address] 6166 Dec, Reactive depression F32.9 [facility] [id number] [place] [address] [id number] Nov, Arthropathy, unspecified M12.9 [facility] [id number] [place] [address] 36090- 0762 Oct, [facility] [id number] [place] [address] 77687- 3590 Oct, Arthropathy, unspecified M12.9 [facility] [address] [place] [id number] September, Reactive depression F32.9 and CVA (cerebral vascular accident) I63.9 [facility] [id number] [place] [address] 770421- 4926 September, Arthropathy, unspecified M12.9 [facility] [id number] [place] [address] [phone]- 2336 September, [facility] [id number] [place] [address] 992951- 6236 September, Arthropathy, unspecified M12.9 [facility] [id number] [place] [address] 56496- 5066 Aug, Arthropathy, unspecified M12.9 [facility] [address] [address]- 4276 Aug, [facility] [address] [id number] [id number] Aug, [facility] [address]005[address] [address] 2546 Jul, [facility] [address] [address]- 7626 Jul, [facility] [id number] [place] [address] [id number] Jul, [facility] [address] [place] [id number] Jun, Reactive depression F32.9 [facility] [id number] [place] [address] 96509- 2546 Jun, Reactive depression F32.9 [facility] [id number] [place] [address] [id number] Jun, [facility] [address] [place] [id number] Jun, Reactive depression F32.9 and Other insomnia G47.09 [facility] [id number] [place] [address] 27860- 5146 Jun, [facility] [id number] [place] [address] 98616- 7786 May, [facility] [id number] [place] [address] [id number] May, [employer] [facility] [facility] [address] [place] [id number] Apr, CVA, old, 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 ; Allergy, subsequent encounter T78.40XD and Reactive depression F32.9 [facility] [id number] [place] [address] 03883- 5116 Mar, [employer] [address] [place] [id number] Feb, Benign essential hypertension I10 [facility] [id number] [place] [address] [phone]- 1042 Feb, [facility] [id number] [place] [address] [phone]- 1035 18 Feb, 2016 [facility] [id number] [place] [address] [phone]- 0660 17 Feb, 2016 [facility] [id number] [place] [address] 980942- 5624 14 Feb, 2016 [facility] [address] 46528- 2092 Feb, [facility] [address] [address]- 6524 Jan, [facility] [id number] [place] [address] 47528- 0844 Jan, [facility] [address] [place] [id number] Jan, CVA, old, 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 and Benign essential hypertension I10 [facility] [id number] [place] [address] 94152- 7153 Dec, [facility] [id number] [place] [address] 11097- 5657 Nov, [facility] [id number] [place] [address] 61558- 1743 Nov, [facility] [id number] [place] [address] 01645- 5609 Oct, [facility] [id number] [place] [address] 01716- 3979 Oct, [facility] [id number] [place] [address] 93920- 3905 Oct, 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 ; Benign essential hypertension I10 ; Reactive depression F32.9 and Urinary frequency R35.0 [facility] [id number] [place] [address] 52621- 3565 Aug, UTI (urinary tract infection) N39.0 [facility] [id number] [place] [address] 48256- 4311 Aug, 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 [facility] [id number] [place] [address] 61237- 3617 Jul, Benign essential hypertension I10 ; CVA, old, 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 and Hypothyroidism E03.9 [facility] [id number] [place] [address] 67371- 8470 Jun, [facility] [address] [address]- 3451 Jun, Acute diarrhea R19.7 [facility] [id number] [place] [address] 80421 2546 May, CVA (cerebral vascular accident) I63.9 [facility] [id number] [place] [address] 38936 2546 Apr, [facility] [id number] [place] [address] 25803 2546 Apr, [facility] [id number] [place] [address] 38177- 0746 Apr, [facility] [id number] [place] [address] 02523 2546 Apr, [facility] [id number] [place] [address] 21652 2547 Apr, CVA (cerebral vascular accident) I63.9 and Constipation K59.00 [facility] [id number] [place] [address] 62826- 1113 Apr, [facility] [id number] [place] [address] 55145- 1226 Mar, [facility] [address] [address]- 2232 Mar, [facility] [id number] [place] [address] 28153 2546 Mar, [facility] [address] [address] 2546 Mar, [facility] [id number] [place] [address] 64158 2546 Feb, [facility] [address] [address] 2546 Feb, CVA, old, 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 ; Allergic rhinitis J30.9 and Benign essential hypertension I10 [facility] [address] [address]- 1636 Dec, CVA (cerebral vascular accident) 434.91 [facility] [address] [address]- 1820 Dec, [facility] [id number] [place] [address] 94969- 6476 Oct, [facility] [id number] [place] [address] 23466- 5860 Oct, [facility] [id number] [place] [address] 08006- 6844 Oct, CVA (cerebral vascular accident) 434.91 [facility] [id number] [place] [address] 51383- 5329 Oct, [facility] [id number] [place] [address] 67895- 7864 September, [facility] [id number] [place] [address] 50938- 0382 September, Allergic rhinitis 477.9 and Arthropathy 716.90 [facility] [address] [address]- 4875 Aug, [facility] [address] [address]- 1641 Aug, [facility] [address] [address]- 6368 Jun, [facility] [address] [address]- 6034 Jun, [facility] [address] [place] [id number] Jun, [facility] [address] [address]- 1659 Jun, [facility] [place] [facility] [address] [id number] [place] [address]- 1569 04 Jun, 2014 [facility] [address] [id number] [place] [address]- 8210 Jun, 2014 [facility] [address] [id number] [place] [address]- 1387 Jun, [facility] [address] [id number] [place] [address]- 7910 May, [facility] [address] [id number] [place] [address]- 8796 May, [facility] [address] [id number] [place] [address]- 0965 May, [facility] [address] [id number] [place] [address]- 8605 May, [facility] [address] [id number] [place] [address]- 6602 Apr, [facility] [address] [id number] [place] [address]- 3514 Apr, [facility] [address] [id number] [place] [address]- 4186 Apr, [facility] [address] [place] [id number] Apr, [facility] [address] [id number] [place] [address]- 7362 Apr, [facility] [address] [id number] [place] [address]- 1869 Apr, [facility] [address] [id number] [place] [address]- 2971 Apr, [facility] [address] [id number] [place] [address]- 6281 Apr, [facility] [address] [id number] [place] [address]- 2888 Apr, [facility] [place] [facility] [address] [id number] [place] [address]- 5585 Apr, [facility] [place] [facility] [address] [id number] [place] [address]- 4157 Apr, [facility] [place] [facility] [address] [id number] [place] [address]- 6504 Mar, [facility] [place] [facility] [address] [id number] [place] [address]- 4030 Mar, [facility] [place] [facility] [address] [id number] [place] [address]- 1090 Mar, [facility] [place] [facility] [address] [id number] [place] [address]- 5644 Mar, [facility] [place] [facility] [address] [id number] [place] [address]- 8707 Mar, [facility] [place] [facility] [address] [id number] [place] [address]- 7614 Mar, [facility] [place] [facility] [address] [id number] [place] [address]- 7290 Mar, [facility] [place] [facility] [address] [id number] [place] [address]- 9063 Mar, [facility] [place] [facility] [address] [id number] [place] [address]- 6354 16 Mar, 2014 [facility] [place] [facility] [address] [id number] [place] [address]- 8680 Mar, [facility] [place] [facility] [address] [id number] [place] [address]- 5197 Mar, [facility] [place] [facility] [address] [id number] [place] [address]- 4678 Mar, [facility] [place] [facility] [address] [id number] [place] [address]- 2597 Mar, [facility] [place] [facility] [address] [id number] [place] [address]- 3289 Feb, [facility] [place] [facility] [address] [id number] [place] [address]- 2663 Feb, [facility] [place] [facility] [address] [id number] [place] [address]- 5948 Feb, [facility] [place] [facility] [address] [id number] [place] [address]- 1214 Feb, [facility] [place] [facility] [address] [id number] [place] [address]- 9192 Feb, [facility] [place] [facility] [address] [id number] [place] [address]- 1576 Feb, [facility] [place] [facility] [address] [id number] [place] [address]- 4150 Feb, [facility] [place] [facility] [address] [id number] [place] [address]- 4783 Feb, [facility] [place] [facility] [address] [id number] [place] [address]- 7938 Jan, [facility] [place] [facility] [address] [id number] [place] [address]- 2000 Jan, [facility] [place] [facility] [address] [id number] [place] [address]- 5724 Dec, [facility] [place] [facility] [address] [id number] [place] [address]- 1608 Dec, [facility] [place] [facility] [address] [id number] [place] [address]- 0615 Dec, [facility] [place] [facility] [address] [id number] [place] [address]- 7386 Dec, [facility] [place] [facility] [address] [id number] [place] [address]- 6668 Nov, [facility] [place] [facility] [address] [id number] [place] [address]- 5120 Nov, [facility] [place] [facility] [address] [id number] [place] [address]- 6520 Nov, [facility] [place] [facility] [address] [id number] [place] [address]- 5484 Nov, [facility] [place] [facility] [address] [id number] [place] [address]- 5832 Nov, [facility] [place] [facility] [address] [id number] [place] [address]- 3132 Nov, [facility] [place] [facility] [address] [id number] [place] [address]- 4978 Nov, [facility] [place] [facility] [address] [id number] [place] [address]- 2362 Oct, [facility] [place] [facility] [address] [id number] [place] [address]- 3518 Oct, [facility] [place] [facility] [address] [id number] [place] [address]- 6426 Oct, [facility] [place] [facility] [address] [id number] [place] [address]- 0206 Oct, [facility] [place] [facility] [address] [id number] [place] [address]- 2409 Oct, [facility] [place] [facility] [address] [id number] [place] [address]- 7349 Oct, [facility] [place] [facility] [address] [id number] [place] [address]- 8052 September, [facility] [place] [facility] [address] [id number] [place] [address]- 7994 September, [facility] [place] [facility] [address] [id number] [place] [address]- 3858 September, [facility] [place] [facility] [address] [id number] [place] [address]- 6960 September, [facility] [place] [facility] [address] [id number] [place] [address]- 6831 September, [facility] [address] [id number] [place] [address]- 1708 September, [facility] [place] [facility] [address] [id number] [place] [address]- 5334 September, [facility] [place] [facility] [address] [id number] [place] [address]- 4855 September, [facility] [place] [facility] [address] [id number] [place] [address]- 7726 September, [facility] [place] [facility] [address] [id number] [place] 5425 Aug, [facility] [place] [facility] [address] [id number] [place] [address]- 5595 Jun, [facility] [place] [facility] [address] [id number] [place] [address]- 3193 Jun, [facility] [place] [facility] [address] [id number] [place] [address]- 9908 May, [facility] [place] [facility] [address] [id number] [place] [address]- 0066 Mar, [facility] [place] [facility] [address] [id number] [place] [address]- 0059 Mar, [facility] [place] [facility] [address] [id number] [place] [address]- 2509 Oct, [facility] [place] [facility] [address] [id number] [place] [address]- 8164 September, [facility] [place] [facility] [address] [id number] [place] [address]- 3502 September, [facility] [place] [facility] [address] [id number] [place] [address]- 3735 Aug, [facility] [place] [facility] [address] [id number] [place] [address]- 6262 Jul, [facility] [place] [facility] [address] [id number] [place] [address]- 5511 May, [facility] [place] [facility] [address] [id number] [place] [address]- 0538 May, [facility] [place] [facility] [address] [id number] [place] [address]- 2826 May, [facility] [place] [facility] [address] [id number] [place] [address] Feb, [facility] [place] [facility] [address] [id number] [place] [address] Feb, [facility] [place] [facility] [address] [id number] [place] [address] Feb, [facility] [place] [facility] [address] [id number] [place] [address] Feb, [facility] [place] [facility] [address] [id number] [place] [address] Feb, [facility] [id number] [id number] Feb, [facility] [place] [facility] [address] [id number] [place] [address] Feb, [facility] [place] [facility] [address] [id number] [place] [address] Feb, [facility] [place] [facility] [address] [id number] [address] Feb, [facility] [place] [facility] [address] [id number] [place] [address] Jan, [facility] [place] [facility] [address] [id number] [place] [address] Dec, [facility] [place] [facility] [address] [id number] [place] [address] Dec, [facility] [place] [facility] [address] [id number] [place] [address] Dec, [facility] [place] [facility] [address] [id number] [address] Nov, [facility] [address] [id number] [address] Nov, [facility] [id number] [address] Oct, [facility] [id number] [address] September, [facility] [id number] [address] Aug, [facility] [id number] [address] Aug, [facility] [id number] [address] Jul, [facility] [id number] [address] Jul, [facility] [id number] [address] Jul, [facility] [id number] [address] Jun, [facility] [address] [id number] [address] Jun, IMMUNIZATIONS No Known Immunizations SOCIAL HISTORY Never Assessed REASON FOR VISIT Med list update PLAN OF CARE VITAL SIGNS MEDICATIONS Medication Instructions Dosage Frequency Start Date End Date Duration Status Lisinopril 20 mg Orally Once a day 1 tablet 24h 15 Feb, 2015 Active Norvasc 10 MG Orally Once a day 1 tablet 24h Active Tums 500 mg Orally Once a day 3 tablets as needed 24h Active Cymbalta 30 MG Orally twice a day 1 capsule 12h Mar, Active Imodium A-D 2 MG Orally every 6 hours as needed 1 tablet 09 Jun, 2015 Active Namzaric 28-10 MG Orally Once a day 1 capsule in the evening 24h May, Active Artificial Tear Active Tramadol HCl 50 mg Orally Once a day at HS 1 tablet Jul, 28 days Active Promethazine HCl 25 MG Orally every 6 hrsfor nausea 1 tablet as needed Not-Taking Remeron 15 MG Orally Once a day 1 tablet at bedtime 24h Active Milk of Magnesia 400 MG/5ML Orally Once a day 30 ml as needed 24h Active Seroquel 50 mg 1 tablet by Oral route 1 time per day hs Apr, Active Aggrenox 25-200 MG Orally Twice a day 1 capsule 12h September, Active Cetirizine HCl 10 mg Orally Once a day 1 tablet 24h September, Active Coreg 25 MG Orally twice a day 1 Tablet 12h September, Active Levothroid 50 mcg 1 Tablet by Oral route 1 time per day May, Active Triamcinolone Acetonide 0.5 % Externally Twice a day 1 application to affected area 12h Feb, Active Colace 100 mg Orally twice a day 1 capsule 12h Active Tylenol 325 MG Orally every 4 hrs 2 tablets as needed 4h 20 Jun, 2014 Active RESULTS No Results PROCEDURES No Known procedures INSTRUCTIONS MEDICATIONS ADMINISTERED No Known Medications
--- OUTSIDE RECORDS SUMMARY | 2018-02-05 08:31 | XMS REPORT ---
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 18608354 Problem Hypothyroidism E03.9 Active 80803543 Problem Allergy, subsequent encounter T78.40XD Active 527000529 Problem Reactive depression F32.9 Active 63976920 Problem Aphasia R47.01 Active 38625078 Problem 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 Active 706374036 Problem 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, unspecified hemiplegia type I69.353 Active 672569744 Problem Alzheimers disease with late onset G30.1 Active 462711519 Problem Glaucoma of both eyes, unspecified glaucoma H40.9 Active 73125399 Problem Gastroesophageal reflux disease without esophagitis K21.9 Active 842336591 ALLERGIES No Information ENCOUNTERS Encounter Location Date Diagnosis [facility] [address] [facility] [id number] [address] Oct, [facility] [address] [id number] [address] Oct, Arthropathy, unspecified M12.9 [facility] [address] [facility] [id number], [place] [address] September, [email or web address] [address] [place] [id number] September, Reactive airway disease that is not asthma R09.89 [facility] [address] [place] [address] September, Benign essential hypertension I10 and CVA, old, 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 [facility] [id number] [place] [address] [id number]- 4743 September, [facility] [address] [id number]- 5476 September, Arthropathy, unspecified M12.9 [facility] [id number] [place] [address] 98409- 2925 Aug, [facility] [id number] [place] [address] 71478- 8583 Aug, [facility] [id number] [place] [address] 18179- 5442 Aug, Arthropathy, unspecified M12.9 [facility] [address] [place] [id number] Jul, Diarrhea, unspecified type R19.7 [facility] [id number] [place] [address] 21751- 0424 Jul, Arthropathy, unspecified M12.9 [facility] [place] [id number] [place] [address] [id number] Jun, Arthropathy, unspecified M12.9 [facility] [id number] [place] [address] [id number]- 7218 May, Arthropathy, unspecified M12.9 [facility] [place] [id number] [place] [address] [phone] May, [facility] [address] [place] [id number] May, Localized edema R60.0 [facility] [place] [id number] [place] [address] [id number] May, [facility] [id number] [place] [address] 04043- 3687 Apr, Arthropathy, unspecified M12.9 [facility] [id number] [place] [address] 37004- 8493 Mar, Arthropathy, unspecified M12.9 [facility] [id number] [place] [address] 80736- 6315 Feb, Reactive depression F32.9 and 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 [facility] [id number] [place] [address] 83299- 0023 Feb, Reactive depression F32.9 and Rash R21 [address] 97180- 6872 Feb, Arthropathy, unspecified M12.9 [facility] [id number] [place] [address] 77814- 0820 Feb, [facility] [id number] [place] [address] 25279- 8451 Jan, Reactive depression F32.9 ; Other insomnia G47.09 and 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 [facility] [id number] [place] [address] 67110- 3029 Jan, [facility] [id number] [place] [address] 49141- 1482 Jan, Arthropathy, unspecified M12.9 [facility] [facility] [id number] [place] [address] 93307- 6901 Jan, [facility] [id number] [place] [address] 22902- 1738 Dec, Arthropathy, unspecified M12.9 [facility] [address] [place] [id number] Dec, Skin tag L91.8 ; Wart of scalp B07.9 and Weight gain R63.5 [facility] [place] [id number] [place] [address] [id number] Dec, [facility] [address], [place] [address] 4666 Dec, Reactive depression F32.9 [facility] [id number] [place] [address] [id number] Nov, Arthropathy, unspecified M12.9 [facility] [id number] [place] [address] 67413- 4634 Oct, [facility] [id number] [place] [address] 14515- 2710 Oct, Arthropathy, unspecified M12.9 [facility] [address] [place] [id number] September, Reactive depression F32.9 and CVA (cerebral vascular accident) I63.9 [facility] [id number] [place] [address] 878126- 7086 September, Arthropathy, unspecified M12.9 [facility] [id number] [place] [address] [id number]- 4226 September, [facility] [id number] [place] [address] 248683- 7106 September, Arthropathy, unspecified M12.9 [facility] [id number] [place] [address] 25153- 5816 Aug, Arthropathy, unspecified M12.9 [facility] [address], [place] [address] 8546 Aug, [facility] [place] [address] [id number] [id number] Aug, [facility] [address], [place] [address] 2546 Jul, [facility] [address], [place] [address] 5216 Jul, [facility] [id number] [place] [address] [id number] Jul, [facility] [address] [place] [id number] Jun, Reactive depression F32.9 [facility] [id number] [place] [address] 37073- 2546 Jun, Reactive depression F32.9 [facility] [place] [id number] [place] [address] [id number] Jun, [facility] [address] [place] [id number] Jun, Reactive depression F32.9 and Other insomnia G47.09 [facility] [id number] [place] [address] 44348- 7006 Jun, [facility] [id number] [place] [address] 34709- 1386 May, [facility] [id number] [place] [address] [id number] May, [facility] [facility] [address] [place] [id number] Apr, CVA, old, 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 ; Allergy, subsequent encounter T78.40XD and Reactive depression F32.9 [facility] [id number] [place] [address] 32947- 8406 Mar, [employer] [address] [place] [id number] Feb, Benign essential hypertension I10 [facility] [id number] [place] [address] [phone]- 2295 Feb, [facility] [id number] [place] [address] [id number]- 0577 18 Feb, 2016 [facility] [id number] [place] [address] [id number]- 6322 17 Feb, 2016 [facility] [id number] [place] [address] 689143- 1565 14 Feb, 2016 [facility] [address] 24226- 1347 Feb, [facility] [address], [place] [address]- 8197 Jan, [facility] [id number] [place] [address] 26339- 7753 Jan, [email or web address] [address] [place] [id number] Jan, CVA, old, 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 and Benign essential hypertension I10 [facility] [id number] [place] [address] 15778- 9355 Dec, [facility] [id number] [place] [address] 10725- 0541 Nov, [facility] [id number] [place] [address] 31535- 7293 Nov, [facility] [id number] [place] [address] 05260- 5677 Oct, [facility] [id number] [place] [address] 51371- 1669 Oct, [facility] [id number] [place] [address] 85845- 1849 Oct, 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 ; Benign essential hypertension I10 ; Reactive depression F32.9 and Urinary frequency R35.0 [facility] [address] [place] [address] 77614- 6634 Aug, UTI (urinary tract infection) N39.0 [facility] [id number] [place] [address] 60656- 9134 Aug, 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 [facility] [id number] [place] [address] 57746- 0973 Jul, Benign essential hypertension I10 ; CVA, old, 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 and Hypothyroidism E03.9 [facility] [id number] [place] [address] 60635- 6708 Jun, [facility] [address], [place] [address]- 4802 Jun, Acute diarrhea R19.7 [facility] [id number] [place] [address] 02021 2546 May, CVA (cerebral vascular accident) I63.9 [facility] [id number] [place] [address] 59965 2546 Apr, [facility] [id number] [place] [address] 47351 2546 Apr, [facility] [id number] [place] [address] 86250- 5076 Apr, [facility] [id number] [place] [address] 03305 2546 Apr, [facility] [id number] [place] [address] 85625 2540 Apr, CVA (cerebral vascular accident) I63.9 and Constipation K59.00 [facility] [id number] [place] [address] 28485- 8192 Apr, [facility] [id number] [place] [address] 22542- 2436 Mar, [facility] [address], [place] [address]- 9146 Mar, [facility] [id number] [place] [address] 60957 2546 Mar, [facility] [address], [place] [address] 2546 Mar, [facility] [id number] [place] [address] 61323 2546 Feb, [facility] [address], [place] [address] 2546 Feb, CVA, old, 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 ; Allergic rhinitis J30.9 and Benign essential hypertension I10 [facility] [address], [place] [address]- 5039 Dec, CVA (cerebral vascular accident) 434.91 [facility] [address], [place] [address]- 5549 Dec, [facility] [id number] [place] [address] 86573- 1970 Oct, [facility] [id number] [place] [address] 88561- 8393 Oct, [facility] [id number] [place] [address] 99057- 7215 Oct, CVA (cerebral vascular accident) 434.91 [facility] [id number] [place] [address] 89883- 9410 Oct, [facility] [id number] [place] [address] 60601- 2547 September, [facility] [id number] [place] [address] 52557- 5052 September, Allergic rhinitis 477.9 and Arthropathy 716.90 [facility] [address], [place] [address]- 4987 Aug, [facility] [address], [place] [address]- 1719 Aug, [facility] [address], [place] [address]- 4595 Jun, [facility] [address], [place] [address]- 7949 Jun, [facility] [address] [place] [id number] Jun, [facility] [address], [place] [address]- 8384 Jun, [facility] [place] [facility] [address] [id number] [place] [address]- 5224 04 Jun, 2014 [facility] [address] [id number] [place] [address]- 1261 Jun, 2014 [facility] [address] [id number] [place] [address]- 3947 Jun, [facility] [address] [id number] [place] [address]- 5565 May, [facility] [address] [id number] [place] [address]- 4055 May, [facility] [address] [id number] [place] [address]- 9636 May, [facility] [address] [id number] [place] [address]- 5085 May, [facility] [address] [id number] [place] [address]- 1746 Apr, [facility] [address] [id number] [place] [address]- 1873 Apr, [facility] [address] [id number] [place] [address]- 1162 Apr, [facility] [address] [place] [id number] Apr, [facility] [address] [id number] [place] [address]- 0894 Apr, [facility] [address] [id number] [place] [address]- 5551 Apr, [facility] [address] [id number] [place] [address]- 0093 Apr, [facility] [address] [id number] [place] [address]- 0334 Apr, [facility] [address] [id number] [place] [address]- 8138 Apr, [facility] [place] [facility] [address] [id number] [place] [address]- 2393 Apr, [facility] [place] [facility] [address] [id number] [place] [address]- 8087 Apr, [facility] [place] [facility] [address] [id number] [place] [address]- 0006 Mar, [facility] [place] [facility] [address] [id number] [place] [address]- 8271 Mar, [facility] [place] [facility] [address] [id number] [place] [address]- 1461 Mar, [facility] [place] [facility] [address] [id number] [place] [address]- 3982 Mar, [facility] [place] [facility] [address] [id number] [place] [address]- 1228 Mar, [facility] [place] [facility] [address] [id number] [place] [address]- 1050 Mar, [facility] [place] [facility] [address] [id number] [place] [address]- 6274 Mar, [facility] [place] [facility] [address] [id number] [place] [address]- 5346 Mar, [facility] [place] [facility] [address] [id number] [place] [address]- 7276 16 Mar, 2014 [facility] [place] [facility] [address] [id number] [place] [address]- 0698 Mar, [facility] [place] [facility] [address] [id number] [place] [address]- 3027 Mar, [facility] [place] [facility] [address] [id number] [place] [address]- 5688 Mar, [facility] [place] [facility] [address] [id number] [place] [address]- 7623 Mar, [facility] [place] [facility] [address] [id number] [place] [address]- 4503 Feb, [facility] [place] [facility] [address] [id number] [place] [address]- 7805 Feb, [facility] [place] [facility] [address] [id number] [place] [address]- 9003 Feb, [facility] [place] [facility] [address] [id number] [place] [address]- 6091 Feb, [facility] [place] [facility] [address] [id number] [place] [address]- 8138 Feb, [facility] [place] [facility] [address] [id number] [place] [address]- 4550 Feb, [facility] [place] [facility] [address] [id number] [place] [address]- 1931 Feb, [facility] [place] [facility] [address] [id number] [place] [address]- 8962 Feb, [facility] [place] [facility] [address] [id number] [place] [address]- 4804 Jan, [facility] [place] [facility] [address] [id number] [place] [address]- 3063 Jan, [facility] [place] [facility] [address] [id number] [place] [address]- 4528 Dec, [facility] [place] [facility] [address] [id number] [place] [address]- 7721 Dec, [facility] [place] [facility] [address] [id number] [place] [address]- 5622 Dec, [facility] [place] [facility] [address] [id number] [place] [address]- 6102 Dec, [facility] [place] [facility] [address] [id number] [place] [address]- 4750 Nov, [facility] [place] [facility] [address] [id number] [place] [address]- 3512 Nov, [facility] [place] [facility] [address] [id number] [place] [address]- 9197 Nov, [facility] [place] [facility] [address] [id number] [place] [address]- 4074 Nov, [facility] [place] [facility] [address] [id number] [place] [address]- 6536 Nov, [facility] [place] [facility] [address] [id number] [place] [address]- 2239 Nov, [facility] [place] [facility] [address] [id number] [place] [address]- 5526 Nov, [facility] [place] [facility] [address] [id number] [place] [address]- 6476 Oct, [facility] [place] [facility] [address] [id number] [place] [address]- 9038 Oct, [facility] [place] [facility] [address] [id number] [place] [address]- 8332 Oct, [facility] [place] [facility] [address] [id number] [place] [address]- 5557 Oct, [facility] [place] [facility] [address] [id number] [place] [address]- 1348 Oct, [facility] [place] [facility] [address] [id number] [place] [address]- 6808 Oct, [facility] [place] [facility] [address] [id number] [place] [address]- 2679 September, [facility] [place] [facility] [address] [id number] [place] [address]- 1078 September, [facility] [place] [facility] [address] [id number] [place] [address]- 4290 September, [facility] [place] [facility] [address] [id number] [place] [address]- 3222 September, [facility] [place] [facility] [address] [id number] [place] [address]- 2142 September, [facility] [address] [id number] [place] [address]- 9354 September, [facility] [place] [facility] [address] [id number] [place] [address]- 7647 September, [facility] [place] [facility] [address] [id number] [place] [address]- 2668 September, [facility] [place] [facility] [address] [id number] [place] [address]- 1094 September, [facility] [place] [facility] [address] [id number] [place] 5146 Aug, [facility] [place] [facility] [address] [id number] [place] [address]- 6158 Jun, [facility] [place] [facility] [address] [id number] [place] [address]- 8689 Jun, [facility] [place] [facility] [address] [id number] [place] [address]- 4278 May, [facility] [place] [facility] [address] [id number] [place] [address]- 3811 Mar, [facility] [place] [facility] [address] [id number] [place] [address]- 5177 Mar, [facility] [place] [facility] [address] [id number] [place] [address]- 9935 Oct, [facility] [place] [facility] [address] [id number] [place] [address]- 8844 September, [facility] [place] [facility] [address] [id number] [place] [address]- 6898 September, [facility] [place] [facility] [address] [id number] [place] [address]- 8539 Aug, [facility] [place] [facility] [address] [id number] [place] [address] Jul, [facility] [place] [facility] [address] [id number] [place] [address] May, [facility] [place] [facility] [address] [id number] [place] [address] May, [facility] [place] [facility] [address] [id number] [place] [address] May, [facility] [place] [facility] [address] [id number] [place] [address] Feb, [facility] [place] [facility] [address] [id number] [place] [address] Feb, [facility] [place] [facility] [address] [id number] [place] [address] Feb, [facility] [place] [facility] [address] [id number] [place] [address] Feb, [facility] [place] [facility] [address] [id number] [place] [address] Feb, [facility] [id number] [place] [id number] Feb, [facility] [place] [facility] [address] [id number] [place] [address] Feb, [facility] [place] [facility] [address] [id number] [place] [address] Feb, [facility] [place] [facility] [address] [id number], [place] [address] Feb, [facility] [place] [facility] [address] [id number], [place] [address] Jan, [facility] [place] [facility] [address] [id number] [place] [address] Dec, [facility] [place] [facility] [address] [id number] [place] [address] Dec, [facility] [place] [facility] [address] [id number] [place] [address] Dec, [facility] [place] [facility] [address] [id number], [place] [address] Nov, [facility] [id number], [place] [address] Nov, [facility] [id number], [place] [address] Oct, [facility] [id number], [place] [address] September, [facility] [id number], [place] [address] Aug, [facility] [id number], [place] [address] Aug, [facility] [id number], [place] [address] Jul, [facility] [id number], [place] [address] Jul, [facility] [id number], [place] [address] Jul, [facility] [id number], [place] [address] Jun, [facility] [address] [id number], [place] [address] Jun, IMMUNIZATIONS No Known Immunizations SOCIAL HISTORY Never Assessed REASON FOR VISIT Routine Visit PLAN OF CARE Activity Details Follow Up prn Reason: VITAL SIGNS MEDICATIONS Medication Instructions Dosage Frequency Start Date End Date Duration Status Aggrenox 25-200 MG Orally Twice a day 1 capsule 12h September, Active Levothroid 50 mcg 1 Tablet by Oral route 1 time per day May, Active Cetirizine HCl 10 mg Orally Once a day 1 tablet 24h September, Active Colace 100 mg Orally twice a day 1 capsule 12h Active Coreg 25 MG Orally twice a day 1 Tablet 12h September, Active Tums 500 mg Orally Once a day 3 tablets as needed 24h Active Milk of Magnesia 400 MG/5ML Orally Once a day 30 ml as needed 24h Active Remeron 30 MG Orally Once a day 1 tablet at bedtime 24h Active Cymbalta 30 MG Orally twice a day 1 capsule 12h Mar, Active Lisinopril 20 mg Orally Once a day 1 tablet 24h 15 Feb, 2015 Active Imodium A-D 2 MG Orally every 6 hours as needed 1 tablet 09 Jun, 2015 Active Tramadol HCl 50 mg Orally Once a day at HS 1 tablet Jul, 28 days Active Seroquel 50 mg 1 tablet by Oral route 1 time per day hs 17 Apr, 2015 Active Triamcinolone Acetonide 0.5 % Externally Twice a day 1 application to affected area 12h 24 Feb, 2017 Active Artificial Tear Active Norvasc 10 MG Orally Once a day 1 tablet 24h Active Tylenol 325 MG Orally every 4 hrs 2 tablets as needed 4h Jun, Active Promethazine HCl 25 MG Orally every 6 hrsfor nausea 1 tablet as needed Active RESULTS No Results PROCEDURES Procedure Date Ordered Result Body Site Stable Visit (10 minutes) Jun 02, 2017 INSTRUCTIONS MEDICATIONS ADMINISTERED No Known Medications
--- OUTSIDE RECORDS SUMMARY | 2018-02-05 08:32 | XMS REPORT ---
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
--- OUTSIDE RECORDS SUMMARY | 2018-02-05 08:32 | XMS REPORT ---
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
--- OUTSIDE RECORDS SUMMARY | 2018-02-05 08:32 | XMS REPORT ---
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
--- OUTSIDE RECORDS SUMMARY | 2018-02-05 08:32 | XMS REPORT ---
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 11932945 Problem Hypothyroidism E03.9 Active 39996093 Problem Allergy, subsequent encounter T78.40XD Active 297106321 Problem Reactive depression F32.9 Active 77121112 Problem Aphasia R47.01 Active 23800310 Problem 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
--- OUTSIDE RECORDS SUMMARY | 2018-02-05 08:32 | XMS REPORT ---
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
--- OUTSIDE RECORDS SUMMARY | 2018-02-05 08:32 | XMS REPORT ---
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
--- OUTSIDE RECORDS SUMMARY | 2018-02-05 08:32 | XMS REPORT ---
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 64584378 Problem Hypothyroidism E03.9 Active 13914107 Problem Allergy, subsequent encounter T78.40XD Active 111335304 Problem Reactive depression F32.9 Active 62294593 Problem Aphasia R47.01 Active 54483496 Problem 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 Active 586404115 Problem 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 [address] [id number] [id number] Jun, Arthropathy, unspecified M12.9 [facility] [address], [place] [address] May, Arthropathy, unspecified M12.9 [facility] [id number] [place] [id number] May, [facility] [address] [place] [id number] May, Localized edema R60.0 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 [place] [facility] [id number] [place] [address] 77036- 3030 Feb, Reactive depression F32.9 and Rash R21 [place] [id number] [place] [address] 03478- 0622 Feb, Arthropathy, unspecified M12.9 [facility] [id number] [place] [address] 74835- 6181 Feb, [facility] [id number] [place] [address] 36933- 0120 Jan, Reactive depression F32.9 ; Other insomnia G47.09 and 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 [address] [id number] [id number] Dec, [facility] [id number] [place] [address] 59962- 1348 Dec, Reactive depression F32.9 [facility] [id number] [place] [address] [id number] Nov, Arthropathy, unspecified M12.9 [facility] [address]65[address], [place] [address]34 Oct, [facility] [address], [place] [address] 2786 Oct, Arthropathy, unspecified M12.9 [facility] [address] [place] [id number] September, Reactive depression F32.9 and CVA (cerebral vascular accident) I63.9 [facility] [address], [place] [address] September, Arthropathy, unspecified M12.9 [facility] [address]65[address], [place] [address] September, [facility] [address], [place] [address] September, Arthropathy, unspecified M12.9 [facility] [address] [id number], [place] [address] Aug, Arthropathy, unspecified M12.9 [facility] [address]65[address], [place] [address] 2546 Aug, [facility] [id number] [place] [address] [id number] Aug, [facility] [address], [place] [address] 2[address] Jul, [facility] [id number] [place] [address] 57262 2546 Jul, [facility] [id number] [place] [id number] Jul, [facility] [address] [place] [id number] Jun, Reactive depression F32.9 [place] [facility] [id number] [place] [address] 63594 2546 Jun, Reactive depression F32.9 [facility] [id number] [place] [address] [id number] Jun, [facility] [address] [place] [id number] Jun, Reactive depression F32.9 and Other insomnia G47.09 [place] [facility] [address] [place] [address] 19772 2546 Jun, [facility] [facility] [address] [place] [address] 91481 2546 May, 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 ; Allergy, subsequent encounter T78.40XD and Reactive depression F32.9 [facility] [address], [place] [address] 2546 Mar, [facility] [address] [place] [id number] Feb, Benign essential hypertension I10 [facility] [id number] [place] [address] 62721- 3598 Feb, [facility] [id number] [place] [address] 40[address]- 7537 18 Feb, 2016 [facility] [id number] [place] [address] 61623- 1516 Feb, [facility] [id number] [place] [address] 27604- 3085 Feb, [facility] [id number] [place] [address] 46107- 0062 Feb, [facility] [id number] [place] [address] 78409- 1681 Jan, [facility] [id number] [place] [address] 25547- 7891 Jan, [facility] [address] [place] [id number] Jan, CVA, old, 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 and Benign essential hypertension I10 [facility] [id number] [place] [address] 77758- 1083 Dec, [facility] [id number] [place] [address] 10784- 9892 Nov, [facility] [id number] [place] [address] 43025- 1275 Nov, [facility] [address] [place] [address] 62403- 7181 Oct, [facility] [id number] [place] [address] 72699- 1148 Oct, [facility] [id number] [place] [address] 55062- 8629 Oct, 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 ; Benign essential hypertension I10 ; Reactive depression F32.9 and Urinary frequency R35.0 [facility] [id number] [place] [address] 03332- 2546 14 Aug, 2015 UTI (urinary tract infection) N39.0 [facility] [id number] [place] [address] 26927 2546 07 Aug, 2015 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 [facility] [id number] [place] [address] 51878 2546 17 Jul, 2015 Benign essential hypertension I10 ; CVA, old, 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 and Hypothyroidism E03.9 [facility] [id number] [place] [address] 32615 2546 Jun, [facility] [id number] [place] [address] 10843- 3296 Jun, Acute diarrhea R19.7 [facility] [id number] [place] [address] 48178 2546 May, CVA (cerebral vascular accident) I63.9 [facility] [id number] [place] [address] 34370 2546 16 Apr, 2015 [facility] [id number] [place] [address] 40952 2546 Apr, [facility] [id number] [place] [address] 40626 2546 Apr, [facility] [id number] [place] [address] 89284 2546 Apr, [facility] [id number] [place] [address] 85255 2546 Apr, CVA (cerebral vascular accident) I63.9 and Constipation K59.00 [facility] [id number] [place] [address] 37340 2546 Apr, [facility] [id number] [place] [address] 05967 2546 Mar, [facility] [id number] [place] [address] 26862- 1235 Mar, [facility] [id number] [place] [address] 91499- 2862 Mar, [facility] [address] [address]37- 3407 Mar, [facility] [address] 58653- 1701 Feb, [facility] [address] 85921- 1353 Feb, CVA, old, 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 ; Allergic rhinitis J30.9 and Benign essential hypertension I10 [facility] [address] 9[address]45- 9312 Dec, CVA (cerebral vascular accident) 434.91 [facility] [id number] [place] [address] 68543- 6351 Dec, [facility] [id number] [place] [address] 71331- 9698 Oct, [facility] [id number] [place] [address] 84235- 5198 Oct, [facility] [id number] [place] [address] 86187- 9142 Oct, CVA (cerebral vascular accident) 434.91 [facility] [id number] [place] [address] 45707- 5811 Oct, [facility] [id number] [place] [address] 85133- 6570 September, [facility] [id number] [place] [address] 94537- 5438 September, Allergic rhinitis 477.9 and Arthropathy 716.90 [facility] [id number] [place] [address] 79886- 0999 Aug, [facility] [address] 88174- 2546 Aug, [facility] [address] [id number] [place] [address]- 8542 Jun, [facility] [address] [facility] [id number], [place] [address]- 9883 Jun, [facility] [address] [id number] Jun, [facility] [address] [id number], [place] [address]- 3385 Jun, [facility] [address] [id number] [place] [address]- 2302 Jun, [facility] [address] [facility] [id number] [place] [address]- 9483 Jun, [facility] [address] [facility] [id number], [place] [address]- 2234 Jun, [facility] [address] [facility] [id number], [place] [address]- 6914 May, [facility] [address] [id number], [place] [address]- 4356 May, [facility] [address] [facility] [id number], [place] [address]- 1985 May, [facility] [address] [facility] [id number], [place] [address]- 5627 May, [facility] [address] [facility] [id number], [place] [address]- 3874 Apr, [facility] [address] [id number], [place] [address]- 3791 Apr, [facility] [address] [facility] [id number], [place] [address]- 3074 Apr, [facility] [address] [id number] Apr, [facility] [address] [id number] [place] [address]- 7290 04 Apr, 2014 [facility] [place] [facility] [address] [id number] [place] [address]- 5028 03 Apr, 2014 [facility] [place] [facility] [address] [id number] [place] [address]- 9310 03 Apr, 2014 [facility] [place] [facility] [address] [id number] [place] [address]- 8602 03 Apr, 2014 [facility] [place] [facility] [address] [id number] [place] [address]- 7070 03 Apr, 2014 [facility] [place] [facility] [address] [id number] [place] [address]- 7645 02 Apr, 2014 [facility] [place] [facility] [address] [id number] [place] [address]- 8934 02 Apr, 2014 [facility] [place] [facility] [address] [id number] [place] [address]- 1566 18 Mar, 2014 [facility] [place] [facility] [address] [id number] [place] [address]- 6750 18 Mar, 2014 [facility] [place] [facility] [address] [id number] [place] [address]- 8980 18 Mar, 2014 [facility] [place] [facility] [address] [id number] [place] [address]- 3008 18 Mar, 2014 [facility] [place] [facility] [address] [id number] [place] [address]- 5095 17 Mar, 2014 [facility] [place] [facility] [address] [id number] [place] [address]- 0024 17 Mar, 2014 [facility] [place] [facility] [address] [id number] [place] [address]- 2206 17 Mar, 2014 [facility] [place] [facility] [address] [id number] [place] [address]- 9894 17 Mar, 2014 [facility] [place] [facility] [address] [id number] [place] [address]- 8197 16 Mar, 2014 [facility] [place] [facility] [address] [id number] [place] [address]- 7505 16 Mar, 2014 [facility] [place] [facility] [address] [id number] [place] [address]- 1413 Mar, [facility] [place] [facility] [address] [id number] [place] [address]- 8237 Mar, [facility] [place] [facility] [address] [id number] [place] [address]- 2072 Mar, [facility] [place] [facility] [address] [id number] [place] [address]- 9169 Feb, [facility] [place] [facility] [address] [id number] [place] [address]- 6841 Feb, [facility] [place] [facility] [address] [id number] [place] [address]- 6635 Feb, [facility] [place] [facility] [address] [id number] [place] [address]- 6805 Feb, [facility] [place] [facility] [address] [id number] [place] [address]- 7042 Feb, [facility] [place] [facility] [address] [id number] [place] [address]- 5824 Feb, [facility] [place] [facility] [address] [id number] [place] [address]- 4790 Feb, [facility] [place] [facility] [address] [id number] [place] [address]- 6839 Feb, [facility] [place] [facility] [address] [id number] [place] [address]- 9042 Jan, [facility] [place] [facility] [address] [id number] [place] [address]- 2464 Jan, [facility] [place] [facility] [address] [id number] [place] [address]- 0667 29 Dec, 2013 [facility] [place] [facility] [address] [id number] [place] [address]- 9682 Dec, [facility] [place] [facility] [address] [id number] [place] [address]- 7178 Dec, [facility] [place] [facility] [address] [id number] [place] [address]- 1211 Dec, [facility] [place] [facility] [address] [id number] [place] [address]- 4615 Nov, [facility] [place] [facility] [address] [id number] [place] [address]- 4018 Nov, [facility] [place] [facility] [address] [id number] [place] [address]- 4706 Nov, [facility] [place] [facility] [address] [id number] [place] [address]- 8461 Nov, [facility] [place] [facility] [address] [id number] [place] [address]- 4231 Nov, [facility] [place] [facility] [address] [id number] [place] [address]- 1559 Nov, [facility] [place] [facility] [address] [id number] [place] [address]- 4896 Nov, [facility] [place] [facility] [address] [id number] [place] [address]- 6796 Oct, [facility] [place] [facility] [address] [id number] [place] [address]- 8621 Oct, [facility] [place] [facility] [address] [id number] [place] [address]- 8774 Oct, [facility] [place] [facility] [address] [id number] [place] [address]- 7577 Oct, [facility] [place] [facility] [address] [id number] [place] [address]- 5686 Oct, [facility] [place] [facility] [address] [id number] [place] [address]- 3939 Oct, [facility] [place] [facility] [address] [id number] [place] [address]- 5315 September, [facility] [address] [id number] [place] [address]- 7519 September, [facility] [address] [id number] [place] [address]- 9897 September, [facility] [address] [id number] [place] [address]- 6106 September, [facility] [address] [id number] [place] [address]- 3190 September, [facility] [address] [id number] [place] [address]- 9309 September, [facility] [address] [id number] [place] [address]- 0236 September, [facility] [address] [id number] [place] [address]- 8206 September, [facility] [address] [id number] [place] [address]- 5729 September, [facility] [address] [id number] [place] [address]- 1330 Aug, [facility] [address] [id number] [place] [address]- 6935 Jun, [facility] [address] [id number] [place] [address]- 4989 Jun, [facility] [address] [id number] [place] [address]- 8530 May, [facility] [address] [id number] [place] [address]- 5332 Mar, [facility] [address] [id number] [place] [address]- 0877 Mar, [facility] [address] [id number] [place] [address]- 0128 Oct, [facility] [address] [id number] [place] [address]- 3154 September, [facility] [place] [facility] [address] [id number] [place] [address]- 1416 September, [facility] [place] [facility] [address] [id number] [place] [address]- 6842 Aug, [facility] [place] [facility] [address] [id number] [place] [address]- 1891 Jul, [facility] [place] [facility] [address] [id number] [place] [address]- 0603 May, [facility] [place] [facility] [address] [id number] [place] [address]- 7742 May, [facility] [place] [facility] [address] [id number] [place] [address]- 7247 May, [facility] [place] [facility] [address] [id number], [place] [address]- 0081 Feb, [facility] [address] [id number], [place] [address]- 4266 Feb, [facility] [place] [facility] [address] [id number], [place] [address]- 1251 Feb, [facility] [address] [id number], [place] [address]- 7800 Feb, [facility] [address] [id number], [place] [address]- 1891 Feb, [facility] [address] [id number] [id number] Feb, [facility] [place] [facility] [address] [id number], [place] [address]- 5162 Feb, [facility] [place] [facility] [address] [id number], [place] [address]- 4462 Feb, [facility] [place] [facility] [address] [id number], [place] [address]- 9506 Feb, [facility] [address] [facility] [id number] [place] [address]- 1516 Jan, [facility] [address] [facility] [id number] [place] [address]- 2546 Dec, [facility] [address] [facility] [id number] [place] [address] 2546 Dec, [facility] [address] [facility] [id number] [place] [address]- 9176 Dec, [facility] [address] [facility] [id number] [place] [address] Nov, [facility] [address] [facility] [id number] [place] [address] Nov, [facility] [address] [facility] [id number], [place] [address] Oct, [facility] [address] [facility] [id number], [place] [address] September, [facility] [address] [facility] [id number], [place] [address] Aug, [facility] [address] [facility] [id number], [place] [address] Aug, [facility] [address] [facility] [id number], [place] [address] Jul, [facility] [address] [facility] [id number], [place] [address] Jul, [facility] [address] [facility] [id number], [place] [address] Jul, [facility] [address] [facility] [id number], [place] [address] Jun, [facility] [address] [facility] [id number], [place] [address] Jun, IMMUNIZATIONS No Known Immunizations SOCIAL HISTORY [...]
--- OUTSIDE RECORDS SUMMARY | 2018-02-05 08:32 | XMS REPORT ---
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
--- OUTSIDE RECORDS SUMMARY | 2018-02-05 08:32 | XMS REPORT ---
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 Active 17731079 Problem Hypothyroidism E03.9 Active 19256793 Problem Allergy, subsequent encounter T78.40XD Active 117427405 Problem Reactive depression F32.9 Active 61662707 Problem Aphasia R47.01 Active 62261626 Problem 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 Active 845886784 Problem 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, unspecified hemiplegia type I69.353 Active 313299432 Problem Alzheimers disease with late onset G30.1 Active 124974570 Problem Glaucoma of both eyes, unspecified glaucoma H40.9 Active 65742682 Problem Gastroesophageal reflux disease without esophagitis K21.9 Active 496744637 ALLERGIES No Information ENCOUNTERS Encounter Location Date Diagnosis [facility] [address] [facility] [id number] [address] Aug, [facility] [id number] [address] Aug, Arthropathy, unspecified M12.9 [facility] [address] [place] [id number] Jul, Diarrhea, unspecified type R19.7 [facility] [address] [address] [address] Jul, Arthropathy, unspecified M12.9 [facility] [id number] [place] [address] [id number] Jun, Arthropathy, unspecified M12.9 [facility] [id number] [place] [address] [id number]- 1672 May, Arthropathy, unspecified M12.9 [facility] [id number] [place] [address] [id number] May, [employer] [employer] [address] [place] [id number] May, Localized edema R60.0 [facility] [id number] [place] [address] [id number] May, [facility] [id number] [place] [address] 63707- 5641 Apr, Arthropathy, unspecified M12.9 [facility] [id number] [place] [address] 66103- 6542 Mar, Arthropathy, unspecified M12.9 [facility] [id number] [place] [address] 65304- 9351 Feb, Reactive depression F32.9 and 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 [facility] [id number] [place] [address] 25374- 6984 Feb, Reactive depression F32.9 and Rash R21 [facility] [id number] [place] [address] 54307- 0435 Feb, Arthropathy, unspecified M12.9 [facility] [id number] [place] [address] 53107- 2932 Feb, [facility] [id number] [place] [address] 99599- 5510 Jan, Reactive depression F32.9 ; Other insomnia G47.09 and 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 [facility] [address], [place] [address] 9525 Jan, [facility] [id number] [place] [address] 67667- 7384 Jan, Arthropathy, unspecified M12.9 [facility] [id number] [place] [address] 09841- 6574 Jan, [facility] [id number] [place] [address] 88115- 8656 Dec, Arthropathy, unspecified M12.9 [facility] [address] [place] [id number] Dec, Skin tag L91.8 ; Wart of scalp B07.9 and Weight gain R63.5 [facility] [id number] [place] [address] [id number] Dec, [facility] [id number] [place] [address] 63699- 0636 Dec, Reactive depression F32.9 [facility] [id number] [place] [address] [id number] Nov, Arthropathy, unspecified M12.9 [facility] [address], [place] [address] 0714 Oct, [facility] [id number] [place] [address] 88141- 5155 Oct, Arthropathy, unspecified M12.9 [facility] [address] [place] [id number] September, Reactive depression F32.9 and CVA (cerebral vascular accident) I63.9 [facility] [id number] [place] [address] 07075- 0475 September, Arthropathy, unspecified M12.9 [facility] [address], [place] [address] 3601 September, [facility] [id number] [address] 3547 September, Arthropathy, unspecified M12.9 [facility] [id number] [place] [address] 76601- 2842 Aug, Arthropathy, unspecified M12.9 [facility] [id number] [place] [address] 66102- 1451 Aug, [facility] [id number] [place] [address] [id number] Aug, [facility] [id number] [place] [address] [id number]- 1846 Jul, [facility] [id number] [place] [address] 944755- 0406 Jul, [facility] [id number] [place] [address] [id number] Jul, [facility] [address] [place] [id number] Jun, Reactive depression F32.9 [facility] [id number] [place] [address] 37858- 8697 Jun, Reactive depression F32.9 [facility] [id number] [place] [address] [id number] Jun, [facility] [address] [place] [id number] Jun, Reactive depression F32.9 and Other insomnia G47.09 [facility] [address] [place] [address] 05605- 0481 Jun, [facility] [address] [place] [address] 85610- 2894 May, [facility] [id number] [place] [address] [id number] May, [facility] [address] [place] [id number] Apr, CVA, old, 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 ; Allergy, subsequent encounter T78.40XD and Reactive depression F32.9 [facility] [address] [address] 1576 Mar, [employer] [address] [place] [id number] Feb, Benign essential hypertension I10 [facility] [address], [place] [address]- 4016 Feb, [facility] [id number] [place] [address] 20181- 6336 Feb, [facility] [id number] [place] [address] 04087- 0256 Feb, [facility] [id number] [place] [address] 52428- 2376 Feb, [facility] [id number] [place] [address] 49025 2546 Feb, [facility] [id number] [place] [address] 26383- 8836 Jan, [facility] [address] [place] [address] 81938- 2816 Jan, [facility] [address] [place] [id number] Jan, CVA, old, 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 and Benign essential hypertension I10 [facility] [address], [place] [address] 2546 Dec, [facility] [address], [place] [address]- 2736 Nov, [facility] [address], [place] [address]- 6036 Nov, [facility] [id number] [place] [address] 33820- 3326 Oct, [facility] [address], [place] [address] 2546 Oct, [facility] [address] [place] [address]- 9420 02 Oct, 2015 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 ; Benign essential hypertension I10 ; Reactive depression F32.9 and Urinary frequency R35.0 [facility] [id number] [place] [address] 40691 254 14 Aug, 2015 UTI (urinary tract infection) N39.0 [facility] [address] [address] 2546 07 Aug, 2015 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 [facility] [id number] [place] [address] 87458 2543 Jul, Benign essential hypertension I10 ; CVA, old, 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 and Hypothyroidism E03.9 [facility] [address] 73735- 3466 Jun, [facility] [address] 7[address]19 2545 Jun, Acute diarrhea R19.7 [facility] [id number] [place] [address] 99524 2548 May, CVA (cerebral vascular accident) I63.9 [facility] [id number] [place] [address] 76365 2542 16 Apr, 2015 [facility] [id number] [place] [address] 96855 2546 16 Apr, 2015 [facility] [id number] [place] [address] 80973 2541 15 Apr, 2015 [facility] [address] [address]20 2546 04 Apr, 2015 [facility] [id number] [place] [address] 66533 2549 03 Apr, 2015 CVA (cerebral vascular accident) I63.9 and Constipation K59.00 [facility] [address] [place] [address] 6045 Apr, [facility] [id number] [place] [address] 19506- 3414 Mar, [facility] [id number] [place] [address] 352363- 7503 Mar, [facility] [id number] [place] [address] 598535- 2488 Mar, [facility] [id number] [place] [address] 216623- 6016 Mar, [facility] [id number] [place] [address] 051800- 9239 Feb, [facility] [id number] [place] [address] 681762- 2075 Feb, CVA, old, 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 ; Allergic rhinitis J30.9 and Benign essential hypertension I10 [facility] [id number] [place] [address] 04675- 7587 Dec, CVA (cerebral vascular accident) 434.91 [facility] [id number] [place] [address] 30124- 4653 Dec, [facility] [id number] [place] [address] 60784- 5237 Oct, [facility] [id number] [place] [address] 872094- 5538 Oct, [facility] [id number] [place] [address] 23004- 6209 Oct, CVA (cerebral vascular accident) 434.91 [facility] [id number] [place] [address] 770147- 4810 Oct, [facility] [id number] [place] [address] 97938- 4645 September, [facility] [id number] [place] [address] 65798- 9374 September, Allergic rhinitis 477.9 and Arthropathy 716.90 [facility] [address], [place] [address]- 3032 14 Aug, 2014 [facility] [id number], [place] [address]- 2549 Aug, [facility] [address], [place] [address]- 0459 Jun, [facility] [id number] [address]- 0345 Jun, [facility] [address] [place] [id number] Jun, [facility] [address], [place] [address]- 9398 Jun, [facility] [id number] [place] [address] 24496- 1369 Jun, [facility] [address], [place] [address]- 7974 Jun, [facility] [address], [place] [address]- 3064 Jun, [facility] [address] [address]- 3059 May, [facility] [address], [place] [address]- 1428 May, [facility] [id number], [place] [address]- 6504 May, [facility] [address], [place] [address]- 6675 May, [facility] [id number] [address]- 2302 Apr, [facility] [id number], [place] [address]- 7610 Apr, [facility] [address] [id number] [place] [address]- 7975 Apr, [facility] [address] [facility] [id number] Apr, [facility] [place] [facility] [address] [id number] [place] [address]- 7944 Apr, [facility] [place] [facility] [address] [id number] [place] [address]- 2530 Apr, [facility] [place] [facility] [address] [id number] [place] [address]- 5727 Apr, [facility] [place] [facility] [address] [id number] [place] [address]- 6444 Apr, [facility] [place] [facility] [address] [id number] [place] [address]- 7986 Apr, [facility] [place] [facility] [address] [id number] [place] [address]- 3534 Apr, [facility] [place] [facility] [address] [id number] [place] [address]- 8027 Apr, [facility] [place] [facility] [address] [id number] [place] [address]- 8666 Mar, [facility] [place] [facility] [address] [id number] [place] [address]- 1607 Mar, [facility] [place] [facility] [address] [id number] [place] [address]- 4480 Mar, [facility] [place] [facility] [address] [id number] [place] [address]- 7457 Mar, [facility] [place] [facility] [address] [id number] [place] [address]- 6356 Mar, [facility] [place] [facility] [address] [id number] [place] [address]- 9927 Mar, [facility] [place] [facility] [address] [id number] [place] [address]- 2948 Mar, [facility] [place] [facility] [address] [id number] [place] [address]- 7535 Mar, [facility] [place] [facility] [address] [id number] [place] [address]- 5626 Mar, [facility] [place] [facility] [address] [id number] [place] 1051 Mar, [facility] [place] [facility] [address] [id number] [place] [address]- 1741 Mar, [facility] [place] [facility] [address] [id number] [place] [address]- 8049 Mar, [facility] [place] [facility] [address] [id number] [place] [address]- 2917 Mar, [facility] [place] [facility] [address] [id number] [place] [address]- 9591 Feb, [facility] [place] [facility] [address] [id number] [place] [address]- 2776 31 Feb, 2014 [facility] [place] [facility] [address] [id number] [place] [address]- 0735 30 Feb, 2014 [facility] [place] [facility] [address] [id number] [place] [address]- 3774 30 Feb, 2014 [facility] [place] [facility] [address] [id number], [place] [address]- 4995 Feb, [facility] [place] [facility] [address] [id number], [place] [address]- 1377 28 Feb, 2014 [facility] [place] [facility] [address] [id number] [place] [address]- 0157 10 Feb, 2014 [facility] [place] [facility] [address] [id number] [place] [address]- 8867 10 Feb, 2014 [facility] [place] [facility] [address] [id number] [place] [address]- 8251 11 Jan, 2014 [facility] [place] [facility] [address] [id number] [place] [address]- 9603 Jan, [facility] [place] [facility] [address] [id number] [place] [address]- 2057 Dec, [facility] [place] [facility] [address] [id number] [place] [address]- 9382 Dec, [facility] [place] [facility] [address] [id number] [place] [address]- 6765 Dec, [facility] [place] [facility] [address] [id number] [place] [address]- 4548 Dec, [facility] [place] [facility] [address] [id number] [place] [address]- 8059 Nov, [facility] [place] [facility] [address] [id number] [place] [address]- 1707 Nov, [facility] [place] [facility] [address] [id number] [place] [address]- 4937 Nov, [facility] [place] [facility] [address] [id number] [place] [address]- 6077 Nov, [facility] [place] [facility] [address] [id number] [place] [address]- 5406 Nov, [facility] [place] [facility] [address] [id number] [place] [address]- 4393 Nov, [facility] [place] [facility] [address] [id number] [place] [address]- 6357 Nov, [facility] [place] [facility] [address] [id number] [place] [address]- 2800 Oct, [facility] [place] [facility] [address] [id number] [place] [address]- 3976 Oct, [facility] [place] [facility] [address] [id number] [place] [address]- 5654 Oct, [facility] [place] [facility] [address] [id number] [place] [address]- 4878 Oct, [facility] [place] [facility] [address] [id number] [place] [address]- 5221 Oct, [facility] [place] [facility] [address] [id number] [place] 8275 Oct, [facility] [place] [facility] [address] [id number] [place] [address]- 5670 September, [facility] [place] [facility] [address] [id number] [place] [address]- 1133 September, [facility] [place] [facility] [address] [id number] [place] [address]- 7867 September, [facility] [place] [facility] [address] [id number] [place] [address]- 4295 September, [facility] [place] [facility] [address] [id number] [place] [address]- 1666 September, [facility] [place] [facility] [address] [id number] [place] [address]- 3628 September, [facility] [place] [facility] [address] [id number] [place] [address]- 6637 September, [facility] [place] [facility] [address] [id number] [place] [address]- 7718 September, [facility] [place] [facility] [address] [id number] [place] [address]- 2678 September, [facility] [place] [facility] [address] [id number] [place] [address]- 9474 Aug, [facility] [place] [facility] [address] [id number] [place] [address]- 9116 Jun, [facility] [place] [facility] [address] [id number] [place] [address]- 8321 Jun, [facility] [place] [facility] [address] [id number] [place] [address]- 3242 May, [facility] [place] [facility] [address] [id number], [place] [address]- 2837 Mar, [facility] [address] [id number], [place] [address]- 1364 Mar, [facility] [address] [id number], [place] [address]- 4579 Oct, [facility] [address] [id number], [place] [address]- 3088 September, [facility] [place] [facility] [address] [id number], [place] [address]- 4107 September, [facility] [address] [id number] [place] [address]- 6310 Aug, [facility] [address] [id number], [place] [address]- 0711 Jul, [facility] [address] [id number], [place] [address]- 3024 May, [facility] [address] [id number], [place] [address]- 7302 May, [facility] [address] [id number][place] [address]- 2749 May, [facility] [address] [facility] [id number], [place] [address] Feb, [facility] [address] [id number], [place] [address] Feb, [facility] [address] [id number][place] [address] Feb, [facility] [address] [id number], [place] [address] Feb, [facility] [place] [facility] [address] [facility] [id number][place] [address] Feb, [facility] [address] [id number] [place] [id number] Feb, [facility] [address] [facility] [id number] [place] [address] Feb, [facility] [place] [facility] [address] [id number] [place] [address] Feb, [facility] [place] [facility] [address] [id number] [place] [address] Feb, [facility] [place] [facility] [address] [id number] [place] [address] Jan, [facility] [place] [facility] [address] [id number] [place] [address] Dec, [facility] [place] [facility] [address] [id number] [place] [address] Dec, [facility] [place] [facility] [address] [id number] [place] [address] Dec, [facility] [place] [facility] [address] [id number] [place] [address] Nov, [facility] [place] [facility] [address] [id number] [place] [address] Nov, [facility] [place] [facility] [address] [id number] [place] [address] Oct, [facility] [place] [facility] [address] [id number] [place] [address] September, [facility] [place] [facility] [address] [id number] [place] [address] Aug, [facility] [place] [facility] [address] [id number] [place] [address] Aug, [facility] [place] [facility] [address] [id number] [place] [address] Jul, [facility] [place] [facility] [address] [id number] [place] [address] Jul, 2011 [facility] [place] [facility] [address] [id number] [place] [address] Jul, [facility] [address] [facility] [id number] [place] [id number] Jun, [facility] [address] [facility] [id number], [place] [address] Jun, IMMUNIZATIONS No Known Immunizations SOCIAL HISTORY Never Assessed REASON FOR VISIT Refill request PLAN OF CARE VITAL SIGNS MEDICATIONS Medication Instructions Dosage Frequency Start Date End Date Duration Status Tramadol HCl 50 mg Orally Once a day at HS 1 tablet Jul, 28 days Active RESULTS No Results PROCEDURES No Known procedures INSTRUCTIONS MEDICATIONS ADMINISTERED No Known Medications
--- OUTSIDE RECORDS SUMMARY | 2018-02-05 08:32 | XMS REPORT ---
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 64170485 Problem Hypothyroidism E03.9 Active 12919479 Problem Allergy, subsequent encounter T78.40XD Active 859020135 Problem Reactive depression F32.9 Active 43280817 Problem Aphasia R47.01 Active 77634712 Problem 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
--- OUTSIDE RECORDS SUMMARY | 2018-02-05 08:33 | XMS REPORT ---
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 33172207 Problem Hypothyroidism E03.9 Active 52527467 Problem Allergy, subsequent encounter T78.40XD Active 527883666 Problem Reactive depression F32.9 Active 61188975 Problem Aphasia R47.01 Active 36971739 Problem 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 Active 359369750 Problem 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, unspecified hemiplegia type I69.353 Active 137273943 Problem Alzheimers disease with late onset G30.1 Active 891254347 Problem Glaucoma of both eyes, unspecified glaucoma H40.9 Active 84330940 Problem Gastroesophageal reflux disease without esophagitis K21.9 Active 742021142 ALLERGIES No Information SOCIAL HISTORY Never Assessed PLAN OF CARE VITAL SIGNS MEDICATIONS Medication Instructions Dosage Frequency Start Date End Date Duration Status Tramadol HCl 50 mg Orally Once a day at HS 1 tablet Jul, 28 days Active RESULTS No Results PROCEDURES No Known procedures IMMUNIZATIONS No Known Immunizations
--- OUTSIDE RECORDS SUMMARY | 2018-02-05 08:33 | XMS REPORT ---
Author Author RENETTA ELIZONDO Organization [employer] Address Unknown Phone Unavailable Care Team Providers Care Seafood Team Member Name Role Phone RENETTA ELIZONDO CP Unavailable [...] Instructions Start Date End Date Status Dosage Plavix [facility] [address]-38 75 MG Orally to replace Aggrenox, [place] Aggrenox Once a day Mar 26, 2015 1 tablet Results No Known Results Summary Purpose [employer] Submission
--- OUTSIDE RECORDS SUMMARY | 2018-02-05 08:33 | XMS REPORT ---
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 34002654 Problem Hypothyroidism E03.9 Active 85659048 Problem Allergy, subsequent encounter T78.40XD Active 054329135 Problem Reactive depression F32.9 Active 86659726 Problem Aphasia R47.01 Active 43507134 Problem 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
--- OUTSIDE RECORDS SUMMARY | 2018-02-05 08:33 | XMS REPORT ---
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
--- OUTSIDE RECORDS SUMMARY | 2018-02-05 08:33 | XMS REPORT ---
Author Author RENETTA ELIZONDO Organization [employer] Address Unknown Phone Unavailable Care Team Providers Care Early Head Start Teacher Name Role Phone RENETTA ELIZONDO CP Unavailable [...]
--- OUTSIDE RECORDS SUMMARY | 2018-02-05 08:33 | XMS REPORT ---
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
--- OUTSIDE RECORDS SUMMARY | 2018-02-05 08:33 | XMS REPORT ---
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
--- OUTSIDE RECORDS SUMMARY | 2018-02-05 08:33 | XMS REPORT ---
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 50823636 Problem Hypothyroidism E03.9 Active 92542000 Problem Allergy, subsequent encounter T78.40XD Active 893004048 Problem Reactive depression F32.9 Active 21502415 Problem Aphasia R47.01 Active 39891214 Problem 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 Active 751546289 Problem 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
--- OUTSIDE RECORDS SUMMARY | 2018-02-05 08:33 | XMS REPORT ---
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 98326765 Problem Hypothyroidism E03.9 Active 47312056 Problem Allergy, subsequent encounter T78.40XD Active 772184924 Problem Reactive depression F32.9 Active 13451736 Problem Aphasia R47.01 Active 32632306 Problem 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 [id number] [address] Oct, Arthropathy, unspecified M12.9 [facility] [address] [facility] [id number], [place] [address] September, [facility] [address] [id number] September, Reactive airway disease that is not asthma R09.89 [facility] [address] [place] [id number] September, Benign essential hypertension I10 and CVA, old, 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 [facility] [id number] [place] [address] [id number]- 0220 September, [facility] [id number] [place] [address] [id number]- 6466 September, Arthropathy, unspecified M12.9 [facility] [address] [address]- [address] Aug, [facility] [id number] [place] [address] 46602- 4781 Aug, [facility] [id number] [place] [address] 64530- 5646 Aug, Arthropathy, unspecified M12.9 [facility] [address] [place] [id number] Jul, Diarrhea, unspecified type R19.7 [facility] [id number] [place] [address] 64279- 5722 Jul, Arthropathy, unspecified M12.9 [facility] [id number] [place] [address] [id number] Jun, Arthropathy, unspecified M12.9 [facility] [id number] [place] [address] 74134- 0319 May, Arthropathy, unspecified M12.9 [facility] [id number] [place] [address] [id number] May, [facility] [address] [place] [id number] May, Localized edema R60.0 [facility] [id number] [place] [address] [id number] May, [facility] [id number] [place] [address] 93702- 7562 Apr, Arthropathy, unspecified M12.9 [facility] [id number] [place] [address] 49530- 3999 Mar, Arthropathy, unspecified M12.9 [facility] [id number] [place] [address] 72469- 3636 Feb, Reactive depression F32.9 and 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 [facility] [id number] [place] [address] 17753- 2843 Feb, Reactive depression F32.9 and Rash R21 [facility] [id number] [place] [address] 18690- 4862 Feb, Arthropathy, unspecified M12.9 [facility] [id number] [place] [address] 83907- 0442 Feb, [facility] [id number] [place] [address] 14140- 0831 Jan, Reactive depression F32.9 ; Other insomnia G47.09 and 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 [facility] [id number] [place] [address] 35730- 0066 Jan, [facility] [id number] [place] [address] 80272- 3581 Jan, Arthropathy, unspecified M12.9 [facility] [id number] [place] [address] 30864- 6156 Jan, [facility] [id number] [place] [address] 85727- 3654 Dec, Arthropathy, unspecified M12.9 [facility] [address] [place] [id number] Dec, Skin tag L91.8 ; Wart of scalp B07.9 and Weight gain R63.5 [facility] [id number] [place] [address] [id number] Dec, [facility] [id number] [place] [address] 55550- 0539 Dec, Reactive depression F32.9 [facility] [address] [id number] [id number] Nov, Arthropathy, unspecified M12.9 [facility] [address], [place] [address] Oct, [facility] [address] [place] [address] 699676- 9785 Oct, Arthropathy, unspecified M12.9 [facility] [address] [id number] September, Reactive depression F32.9 and CVA (cerebral vascular accident) I63.9 [facility] [address] [place] [address] 25401- 7736 September, Arthropathy, unspecified M12.9 [facility] [address] [place] [address] 15079- 1226 September, [facility] [id number] [place] [address] 219222- 5736 September, Arthropathy, unspecified M12.9 [facility] [address] [place] [address] 90439- 2236 Aug, Arthropathy, unspecified M12.9 [facility] [address] [address] 8636 Aug, [facility] [id number] [place] [address] [id number] Aug, [facility] [address], [place] [address] 2546 Jul, [facility] [address] [place] [address] 95501 2546 Jul, [facility] [id number] [id number] Jul, [employer] [facility] [address] [id number] Jun, Reactive depression F32.9 [facility] [address] [address] Jun, Reactive depression F32.9 [facility] [id number] [place] [address] [id number] Jun, [facility] [address] [id number] Jun, Reactive depression F32.9 and Other insomnia G47.09 [facility] [id number] [place] [address] 71950- 1142 Jun, [facility] [id number] [place] [address] 06722- 9415 May, [facility] [id number] [place] [address] [id number] May, [facility] [address] [place] [id number] Apr, CVA, old, 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 ; Allergy, subsequent encounter T78.40XD and Reactive depression F32.9 [facility] [address] [place] [address] 94683- 5348 Mar, [employer] [facility] [address] [place] [id number] Feb, Benign essential hypertension I10 [facility] [address] [place] [address] 47543- 8799 Feb, [facility] [id number] [place] [address] 82686- 4610 18 Feb, 2016 [facility] [id number] [place] [address] 72808- 2674 17 Feb, 2016 [facility] [id number] [place] [address] 84148- 3107 14 Feb, 2016 [facility] [id number] [place] [address] 40983- 1889 07 Feb, 2016 [facility] [id number] [place] [address] 99953- 3499 Jan, [facility] [id number] [address] 4412 Jan, [facility] [address] [id number] Jan, CVA, old, 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 and Benign essential hypertension I10 [facility] [address], [place] [address]- 3954 Dec, [facility] [address] [place] [address] 87739- 9724 Nov, [facility] [id number] [place] [address] 91845- 5426 Nov, [facility] [id number] [place] [address] 94303- 6145 Oct, [facility] [id number] [place] [address] 97299- 8401 Oct, [facility] [id number] [place] [address] 05248- 5935 Oct, 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 ; Benign essential hypertension I10 ; Reactive depression F32.9 and Urinary frequency R35.0 [facility] [address], [place] [address]- 0400 Aug, UTI (urinary tract infection) N39.0 [facility] [address], [place] [address]- 3147 Aug, 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 [facility] [address], [place] [address]- 0566 Jul, Benign essential hypertension I10 ; CVA, old, 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 and Hypothyroidism E03.9 [facility] [address], [place] [address]- 1263 Jun, [facility] [id number] [place] [address] 50036- 0557 Jun, Acute diarrhea R19.7 [facility] [id number] [place] [address] 67446- 1520 May, CVA (cerebral vascular accident) I63.9 [facility] [id number] [place] [address] 15602- 4332 Apr, [facility] [id number] [place] [address] 30258- 3629 Apr, [facility] [id number] [place] [address] 67289- 8847 Apr, [facility] [address] 26213- 1877 Apr, [facility] [id number] [place] [address] 33140- 6309 Apr, CVA (cerebral vascular accident) I63.9 and Constipation K59.00 [facility] [id number] [place] [address] 75972- 3192 Apr, [facility] [id number] [place] [address] 78141- 4637 Mar, [facility] [id number] [place] [address] 90396- 9680 Mar, [facility] [id number] [place] [address] 81011- 0834 Mar, [facility] [id number] [place] [address] 60664- 6371 Mar, [facility] [id number] [place] [address] 43542- 8491 Feb, [facility] [id number] [place] [address] 17157- 5456 Feb, CVA, old, 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 ; Allergic rhinitis J30.9 and Benign essential hypertension I10 [facility] [id number] [place] [address] 56470- 4634 Dec, CVA (cerebral vascular accident) 434.91 [facility] [address], [place] [address]- 9615 Dec, [facility] [address], [place] [address]- 1820 Oct, [facility] [address], [place] [address]- 0814 Oct, [facility] [address], [place] [address]- 5417 Oct, CVA (cerebral vascular accident) 434.91 [facility] [address], [place] [address]- 4078 Oct, [facility] [address], [place] [address]- 4871 September, [facility] [address], [place] [address]- 7945 September, Allergic rhinitis 477.9 and Arthropathy 716.90 [facility] [address], [place] [address]- 0534 Aug, [facility] [address], [place] [address]- 8052 Aug, [facility] [address], [place] [address]- 7110 Jun, [facility] [address], [place] [address]- 8569 Jun, [facility] [address] [id number] Jun, [facility] [address], [place] [address]- 6698 Jun, [facility] [address], [place] [address]- 6789 Jun, [facility] [place] [facility] [address] [id number] [place] [address]- 7779 04 Jun, 2014 [facility] [address] [id number] [place] [address]- 4393 Jun, [facility] [address] [id number] [place] [address]- 8311 May, [facility] [address] [id number] [place] [address]- 1037 May, [facility] [address] [id number] [place] [address]- 1011 May, [facility] [address] [id number] [place] [address]- 9625 May, [facility] [address] [id number] [place] [address]- 4745 Apr, [facility] [address] [id number] [place] [address]- 0496 Apr, [facility] [address] [id number] [place] [address]- 4540 Apr, [facility] [address] [id number] Apr, [facility] [address] [id number] [place] [address]- 8794 Apr, [facility] [address] [id number] [place] [address]- 8651 Apr, [facility] [address] [id number] [place] [address]- 2506 Apr, [facility] [address] [id number] [place] [address]- 4717 Apr, [facility] [address] [id number] [place] [address]- 7127 Apr, [facility] [address] [id number] [place] [address]- 3059 Apr, [facility] [place] [facility] [address] [id number] [place] [address]- 3469 Apr, [facility] [place] [facility] [address] [id number] [place] [address]- 4588 Mar, [facility] [place] [facility] [address] [id number] [place] [address]- 7975 Mar, [facility] [place] [facility] [address] [id number] [place] [address]- 2835 Mar, [facility] [place] [facility] [address] [id number] [place] [address]- 5624 Mar, [facility] [place] [facility] [address] [id number] [place] [address]- 1369 Mar, [facility] [place] [facility] [address] [id number] [place] [address]- 1261 Mar, [facility] [place] [facility] [address] [id number] [place] [address]- 8747 Mar, [facility] [place] [facility] [address] [id number] [place] [address]- 6528 Mar, [facility] [place] [facility] [address] [id number] [place] [address]- 5229 Mar, [facility] [place] [facility] [address] [id number] [place] [address]- 2286 Mar, [facility] [place] [facility] [address] [id number] [place] [address]- 3562 Mar, [facility] [place] [facility] [address] [id number] [place] [address]- 4098 Mar, [facility] [place] [facility] [address] [id number] [place] [address]- 7314 Mar, [facility] [place] [facility] [address] [id number] [place] [address]- 1103 Feb, [facility] [place] [facility] [address] [id number], [place] [address]- 9843 Feb, [facility] [place] [facility] [address] [id number] [place] [address]- 3896 Feb, [facility] [place] [facility] [address] [id number] [place] [address]- 9553 Feb, [facility] [place] [facility] [address] [id number] [place] [address]- 8972 Feb, [facility] [place] [facility] [address] [id number] [place] [address]- 5986 Feb, [facility] [place] [facility] [address] [id number] [place] [address]- 9975 Feb, [facility] [place] [facility] [address] [id number] [place] [address]- 5317 Feb, [facility] [place] [facility] [address] [id number] [place] [address]- 0842 Jan, [facility] [place] [facility] [address] [id number] [place] [address]- 9490 Jan, [facility] [place] [facility] [address] [id number] [place] [address]- 8672 Dec, [facility] [place] [facility] [address] [id number] [place] [address]- 8888 Dec, [facility] [place] [facility] [address] [id number] [place] [address]- 2653 Dec, [facility] [place] [facility] [address] [id number] [place] [address]- 1922 Dec, [facility] [place] [facility] [address] [id number] [place] [address]- 8541 Nov, [facility] [place] [facility] [address] [id number] [place] [address]- 8763 Nov, [facility] [place] [facility] [address] [id number] [place] [address]- 9292 Nov, [facility] [place] [facility] [address] [id number] [place] [address]- 4085 Nov, [facility] [place] [facility] [address] [id number] [place] [address]- 1041 Nov, [facility] [place] [facility] [address] [id number] [place] [address]- 6389 Nov, [facility] [place] [facility] [address] [id number] [place] [address]- 4037 Nov, [facility] [place] [facility] [address] [id number] [place] [address]- 2092 Oct, [facility] [place] [facility] [address] [id number] [place] [address]- 3587 Oct, [facility] [place] [facility] [address] [id number] [place] [address]- 9524 Oct, [facility] [place] [facility] [address] [id number] [place] [address]- 0665 Oct, [facility] [address] [id number] [place] [address]- 6176 Oct, [facility] [place] [facility] [address] [id number] [place] [address]- 0978 Oct, [facility] [place] [facility] [address] [id number] [place] [address]- 8086 September, [facility] [place] [facility] [address] [id number] [place] [address]- 9902 September, [facility] [place] [facility] [address] [id number] [place] [address]- 8348 September, [facility] [place] [facility] [address] [id number] [place] [address]- 8146 September, [facility] [place] [facility] [address] [id number] [place] [address]- 8271 September, [facility] [place] [facility] [address] [id number] [place] [address]- 8573 September, [facility] [address] [id number] [place] [address]- 3166 September, [facility] [place] [facility] [address] [id number] [place] [address]- 5147 September, [facility] [place] [facility] [address] [id number] [place] [address]- 5707 September, [facility] [place] [facility] [address] [id number] [place] [address]- 1013 Aug, [facility] [place] [facility] [address] [id number] [place] [address]- 9452 Jun, [facility] [place] [facility] [address] [id number] [place] [address]- 4163 Jun, [facility] [place] [facility] [address] [id number] [place] [address]- 5962 May, [facility] [place] [facility] [address] [id number] [place] [address]- 0675 Mar, [facility] [place] [facility] [address] [id number] [place] [address]- 1540 Mar, [facility] [place] [facility] [address] [id number] [place] [address]- 3549 Oct, [facility] [place] [facility] [address] [id number] [place] [address]- 2431 September, [facility] [place] [facility] [address] [id number], [place] [address]- 5290 September, [facility] [place] [facility] [address] [id number] [place] [address]- 1547 Aug, [facility] [place] [facility] [address] [id number] [place] [address]- 4198 Jul, [facility] [place] [facility] [address] [id number] [place] [address]- 9068 May, [facility] [place] [facility] [address] [id number] [place] [address]- 0506 May, [facility] [place] [facility] [address] [id number] [place] [address] May, [facility] [place] [facility] [address] [facility] [id number] [place] [address] Feb, [facility] [place] [facility] [address] [id number] [place] [address] Feb, [facility] [place] [facility] [address] [id number] [place] [address] Feb, [facility] [place] [facility] [address] [id number] [place] [address] Feb, [facility] [place] [facility] [address] [id number] [place] [address] Feb, [facility] [address] [id number] [id number] Feb, [facility] [place] [facility] [address] [id number] [place] [address] Feb, [facility] [place] [facility] [address] [id number] [place] [address] Feb, [facility] [place] [facility] [address] [id number] [place] [address] Feb, [facility] [place] [facility] [address] [id number] [place] [address] Jan, [facility] [place] [facility] [address] [id number] [place] [address] Dec, [facility] [place] [facility] [address] [id number] [place] [address] Dec, [facility] [place] [facility] [address] [facility] [id number] [place] [address] Dec, [facility] [place] [facility] [address] [id number] [place] [address] Nov, [facility] [place] [facility] [id number] [address] Nov, [facility] [id number] [address] Oct, [facility] [id number] [address] September, [facility] [id number] [address] Aug, [facility] [id number], [place] [address] Aug, [facility] [id number] [place] [address] Jul, [facility] [id number] [address] Jul, [facility] [id number] [address] Jul, [facility] [id number] [address] Jun, [facility] [id number] [address] Jun, IMMUNIZATIONS No Known Immunizations SOCIAL HISTORY [...]
--- OUTSIDE RECORDS SUMMARY | 2018-02-05 08:34 | XMS REPORT ---
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 03566073 Problem Hypothyroidism E03.9 Active 02483396 Problem Allergy, subsequent encounter T78.40XD Active 884200348 Problem Reactive depression F32.9 Active 12157132 Problem Aphasia R47.01 Active 95009865 Problem 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 Active 636851227 Problem 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, unspecified hemiplegia type I69.353 Active 744325922 Problem Alzheimers disease with late onset G30.1 Active 864273481 Problem Glaucoma of both eyes, unspecified glaucoma H40.9 Active 03936224 Problem Gastroesophageal reflux disease without esophagitis K21.9 Active 785528153 ALLERGIES No Information ENCOUNTERS Encounter Location Date Diagnosis [facility] [id number] [address] Aug, [facility] [id number] [place] [address] 89936- 9580 Aug, [facility] [address] [id number], [place] [address] 79[address] Aug, Arthropathy, unspecified M12.9 [facility] [address] [id number] Jul, Diarrhea, unspecified type R19.7 [facility] [id number] [place] [address] 55745- 4660 Jul, Arthropathy, unspecified M12.9 [facility] [id number] [place] [address] [id number] Jun, Arthropathy, unspecified M12.9 [facility] [address] [address]- [address]9 May, Arthropathy, unspecified M12.9 [facility] [id number] [place] [address] [id number] May, [facility] [address] [id number] May, Localized edema R60.0 [facility] [id number] [place] [address] [id number] May, [facility] [id number] [place] [address] 55757- 6583 Apr, Arthropathy, unspecified M12.9 [facility] [id number] [place] [address] 86970- 6407 Mar, Arthropathy, unspecified M12.9 [facility] [id number] [place] [address] 79572- 1597 Feb, Reactive depression F32.9 and 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 [facility] [id number] [place] [address] 28492- 4863 Feb, Reactive depression F32.9 and Rash R21 [facility] [address] [address]99- 9729 Feb, Arthropathy, unspecified M12.9 [facility] [id number] [place] [address] 09887- 9808 Feb, [facility] [address] 28608- 3435 Jan, Reactive depression F32.9 ; Other insomnia G47.09 and 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 [id number] [place] [address] [id number] Dec, [facility] [id number] [place] [address] 33848- 3563 Dec, Reactive depression F32.9 [facility] [id number] [place] [address] [id number] Nov, Arthropathy, unspecified M12.9 [facility] [address], [place] [address] 6190 Oct, [facility] [address] [place] [address] 35810- 4488 Oct, Arthropathy, unspecified M12.9 [facility] [address] [id number] September, Reactive depression F32.9 and CVA (cerebral vascular accident) I63.9 [facility] [address], [place] [address] 4681 September, Arthropathy, unspecified M12.9 [facility] [id number] [address] 4392 September, [facility] [address] [place] [address] 45182- 4532 September, Arthropathy, unspecified M12.9 [facility] [address], [place] [address] 7998 Aug, Arthropathy, unspecified M12.9 [facility] [id number] [place] [address] 85348- 4952 Aug, [facility] [id number] [place] [address] [id number] Aug, [facility] [id number] [place] [address] 246050- 0752 Jul, [facility] [id number] [place] [address] 56958- 0676 Jul, [facility] [id number] [place] [address] [id number] Jul, [facility] [address] [id number] Jun, Reactive depression F32.9 [facility] [id number] [place] [address] 55951- 7626 Jun, Reactive depression F32.9 [facility] [id number] [place] [address] [id number] Jun, [facility] [address] [address] Jun, Reactive depression F32.9 and Other insomnia G47.09 [facility] [address], [place] [address] 4706 Jun, [facility] [address] [place] [address] 63088- 0076 May, 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 ; Allergy, subsequent encounter T78.40XD and Reactive depression F32.9 [facility] [id number] [place] [address] 21843 2546 Mar, [facility] [address] [place] [id number] Feb, Benign essential hypertension I10 [facility] [id number] [place] [address] 53033- 9436 Feb, [facility] [id number] [place] [address] 57003- 6550 Feb, [facility] [id number] [place] [address] 90272- 3756 Feb, [facility] [id number] [place] [address] 55541714- 0546 Feb, [facility] [id number] [place] [address] 932299- 4329 Feb, [facility] [id number] [place] [address] 30595- 7838 Jan, [facility] [id number] [place] [address] 04251- 7286 Jan, [facility] [address] [place] [id number] Jan, CVA, old, 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 and Benign essential hypertension I10 [facility] [id number] [place] [address] 41887- 2736 Dec, [facility] [id number] [place] [address] 86260- 1626 Nov, [facility] [id number] [place] [address] 03154- 4720 Nov, [facility] [id number] [place] [address] 069882- 2480 Oct, [facility] [address], [place] [address]- 2000 Oct, [facility] [id number] [place] [address] 62259- 9514 Oct, 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 ; Benign essential hypertension I10 ; Reactive depression F32.9 and Urinary frequency R35.0 [facility] [id number] [place] [address] 15933- 0479 14 Aug, 2015 UTI (urinary tract infection) N39.0 [facility] [id number] [place] [address] 66887- 7783 07 Aug, 2015 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 [facility] [id number] [place] [address] 32107- 0094 Jul, Benign essential hypertension I10 ; CVA, old, 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 and Hypothyroidism E03.9 [facility] [id number] [place] [address] 66077- 9614 Jun, [facility] [id number] [place] [address] 13221- 0827 Jun, Acute diarrhea R19.7 [facility] [id number] [place] [address] 90198- 6414 May, CVA (cerebral vascular accident) I63.9 [facility] [address] [place] [address] 49510 2546 Apr, [facility] [id number] [place] [address] 35960 2546 Apr, [facility] [id number] [place] [address] 61202 2549 Apr, [facility] [address] [place] [address] 32077- 2546 Apr, [facility] [address] [place] [address] 81061- 6675 Apr, CVA (cerebral vascular accident) I63.9 and Constipation K59.00 [facility] [id number] [place] [address] 02166- 1725 Apr, [facility] [id number] [place] [address] 22257- 6623 Mar, [facility] [id number] [place] [address] 83899- 1381 Mar, [facility] [address] 78747- 6410 Mar, [facility] [id number] [place] [address] 42405- 2998 Mar, [facility] [id number] [place] [address] 57689- 4240 Feb, [facility] [id number] [place] [address] 02522- 8570 Feb, CVA, old, 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 ; Allergic rhinitis J30.9 and Benign essential hypertension I10 [facility] [id number] [place] [address] 26081- 7793 Dec, CVA (cerebral vascular accident) 434.91 [facility] [id number] [place] [address] 26316- 8349 Dec, [facility] [id number] [place] [address] 65214- 8862 Oct, [facility] [id number] [place] [address] 70683- 1445 Oct, [facility] [id number] [place] [address] 05620- 8695 Oct, CVA (cerebral vascular accident) 434.91 [facility] [id number] [place] [address] 62651- 8620 Oct, [facility] [id number] [place] [address] 23372- 2998 September, [facility] [id number], [place] [address]- 2111 September, Allergic rhinitis 477.9 and Arthropathy 716.90 [facility] [address] [id number] [address]- 5159 Aug, [facility] [address] [id number], [place] [address]- 8844 Aug, [facility] [address] [id number], [place] [address]- 4402 Jun, [facility] [address], [place] [address]- 8959 Jun, [facility] [address] [place] [id number] Jun, [facility] [address], [place] [address]- 8627 Jun, [facility] [id number], [place] [address]- 2582 Jun, [facility] [address], [place] [address]- 5408 Jun, [facility] [address], [place] [address]- 3785 Jun, [facility] [address], [place] [address]- 5703 May, [facility] [id number], [place] [address]- 0587 May, [facility] [address], [place] [address]- 4233 May, [facility] [id number], [place] [address]- 4754 May, [facility] [id number], [place] [address]- 3489 Apr, [facility] [place] [facility] [address] [id number] [place] [address]- 8032 Apr, [facility] [place] [facility] [address] [id number] [place] [address]- 5770 Apr, [facility] [address] [facility] [id number] Apr, [facility] [place] [facility] [address] [id number] [place] [address]- 5181 Apr, [facility] [place] [facility] [address] [id number] [place] [address]- 2940 Apr, [facility] [place] [facility] [address] [id number] [place] [address]- 3639 Apr, [facility] [place] [facility] [address] [id number] [place] [address]- 4727 Apr, [facility] [place] [facility] [address] [id number] [place] [address]- 0162 Apr, [facility] [place] [facility] [address] [id number] [place] [address]- 2326 Apr, [facility] [place] [facility] [address] [id number] [place] [address]- 1072 Apr, [facility] [place] [facility] [address] [id number] [place] [address]- 4192 Mar, [facility] [place] [facility] [address] [id number] [place] [address]- 8855 Mar, [facility] [place] [facility] [address] [id number] [place] [address]- 0718 Mar, [facility] [place] [facility] [address] [id number] [place] [address]- 3354 Mar, [facility] [place] [facility] [address] [id number] [place] 9700 17 Mar, 2014 [facility] [place] [facility] [address] [id number] [place] [address]- 0000 Mar, [facility] [place] [facility] [address] [id number] [place] [address]- 5131 Mar, [facility] [place] [facility] [address] [id number] [place] [address]- 4633 Mar, [facility] [place] [facility] [address] [id number] [place] [address]- 4913 Mar, [facility] [place] [facility] [address] [id number] [place] [address]- 2115 Mar, [facility] [place] [facility] [address] [id number] [place] [address]- 9819 Mar, [facility] [place] [facility] [address] [id number] [place] [address]- 8343 Mar, [facility] [place] [facility] [address] [id number] [place] [address]- 6413 Mar, [facility] [place] [facility] [address] [id number] [place] [address]- 1663 Feb, [facility] [place] [facility] [address] [id number] [place] [address]- 1074 31 Feb, 2014 [facility] [place] [facility] [address] [id number] [place] [address]- 3167 30 Feb, 2014 [facility] [place] [facility] [address] [id number], [place] [address]- 2375 30 Feb, 2014 [facility] [place] [facility] [address] [id number], [place] [address]- 6046 Feb, [facility] [place] [facility] [address] [id number] [place] [address]- 9889 28 Feb, 2014 [facility] [place] [facility] [address] [id number] [place] [address]- 2662 Feb, [facility] [place] [facility] [address] [id number], [place] [address]- 7321 10 Feb, 2014 [facility] [place] [facility] [address] [id number] [place] [address]- 9538 Jan, [facility] [place] [facility] [address] [id number] [place] [address]- 7335 Jan, [facility] [place] [facility] [address] [id number] [place] [address]- 2648 Dec, [facility] [place] [facility] [address] [id number] [place] [address]- 9195 Dec, [facility] [place] [facility] [address] [id number] [place] [address]- 6594 Dec, [facility] [place] [facility] [address] [id number] [place] [address]- 2769 Dec, [facility] [place] [facility] [address] [id number] [place] [address]- 3672 Nov, [facility] [place] [facility] [address] [id number] [place] [address]- 4076 Nov, [facility] [place] [facility] [address] [id number] [place] [address]- 6252 Nov, [facility] [place] [facility] [address] [id number] [place] [address]- 3222 Nov, [facility] [place] [facility] [address] [id number] [place] [address]- 5205 Nov, [facility] [place] [facility] [address] [id number] [place] [address]- 6285 Nov, [facility] [place] [facility] [address] [id number] [place] [address]- 9104 Nov, [facility] [place] [facility] [address] [id number] [place] [address]- 2952 Oct, [facility] [place] [facility] [address] [id number] [place] [address]- 9389 Oct, [facility] [place] [facility] [address] [id number] [place] [address]- 1626 Oct, [facility] [place] [facility] [address] [id number] [place] [address]- 3865 Oct, [facility] [place] [facility] [address] [id number] [place] [address]- 3457 Oct, [facility] [place] [facility] [address] [id number] [place] [address]- 1101 Oct, [facility] [place] [facility] [address] [id number] [place] [address]- 8829 September, [facility] [place] [facility] [address] [id number] [place] [address]- 3659 September, [facility] [place] [facility] [address] [id number] [place] [address]- 8037 September, [facility] [place] [facility] [address] [id number] [place] [address]- 3522 September, [facility] [place] [facility] [address] [id number] [place] [address]- 1054 September, [facility] [place] [facility] [address] [id number] [place] [address]- 3174 September, [facility] [place] [facility] [address] [id number] [place] [address]- 5110 September, [facility] [place] [facility] [address] [id number] [place] [address]- 2696 September, [facility] [place] [facility] [address] [id number] [place] [address]- 1095 September, [facility] [place] [facility] [address] [id number] [place] [address]- 5305 Aug, [facility] [place] [facility] [address] [id number] [place] [address]- 0859 Jun, [facility] [place] [facility] [address] [id number] [place] 1397 Jun, [facility] [place] [facility] [address] [id number], [place] [address]- 6709 May, [facility] [address] [id number] [place] [address]- 1770 Mar, [facility] [address] [id number], [place] [address]- 0056 Mar, [facility] [address] [id number] [place] [address]- 1397 Oct, [facility] [address] [id number], [place] [address]- 1241 September, [facility] [address] [id number] [place] [address]- 6368 September, [facility] [address] [id number] [place] [address]- 1694 Aug, [facility] [address] [id number], [place] [address]- 7612 Jul, [facility] [address] [id number] [place] [address]- 6802 May, [facility] [address] [id number], [place] [address]- 9011 May, [facility] [address] [id number], [place] [address]- 8579 May, [facility] [address] [id number], [place] [address]- 6520 Feb, [facility] [address] [id number], [place] [address]- 8268 Feb, [facility] [address] [id number] [place] [address]- 1951 Feb, [facility] [address] [id number], [place] [address]- 9693 Feb, [facility] [address] [id number] [place] [address]- 5471 Feb, [facility] [address] [id number] [place] [id number] Feb, [facility] [address] [id number] [place] [address] Feb, [facility] [place] [facility] [address] [id number] [place] [address] Feb, [facility] [address] [id number] [place] [address] Feb, [facility] [place] [facility] [address] [id number] [place] [address] Jan, [facility] [address] [id number] [place] [address] Dec, [facility] [place] [facility] [address] [id number] [place] [address] Dec, [facility] [address] [id number] [place] [address] Dec, [facility] [address] [id number] [place] [address] Nov, [facility] [place] [facility] [address] [id number] [place] [address] Nov, [facility] [address] [id number] [place] [address] Oct, [facility] [place] [facility] [address] [id number] [place] [address] September, [facility] [place] [facility] [address] [id number] [place] [address] Aug, [facility] [place] [facility] [address] [id number] [place] [address] Aug, [facility] [place] [facility] [address] [id number] [place] [address] Jul, [facility] [place] [facility] [address] [id number] [place] [address] Jul, [facility] [address] [id number] [place] [address] Jul, [facility] [address] [id number], [place] [address] Jun, [facility] [address] [id number] [place] [id number] Jun, IMMUNIZATIONS No Known Immunizations SOCIAL HISTORY Never Assessed REASON FOR VISIT Has been having behaviours PLAN OF CARE VITAL SIGNS MEDICATIONS Unknown Medications RESULTS No Results PROCEDURES No Known procedures INSTRUCTIONS MEDICATIONS ADMINISTERED No Known Medications
--- OUTSIDE RECORDS SUMMARY | 2018-02-05 08:34 | XMS REPORT ---
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 69169658 Problem Hypothyroidism E03.9 Active 21316507 Problem Allergy, subsequent encounter T78.40XD Active 008382264 Problem Reactive depression F32.9 Active 71474665 Problem Aphasia R47.01 Active 69421831 Problem 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 Active 237363548 Problem 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, unspecified hemiplegia type I69.353 Active 350196318 Problem Alzheimers disease with late onset G30.1 Active 689337800 Problem Glaucoma of both eyes, unspecified glaucoma H40.9 Active 94535699 Problem Gastroesophageal reflux disease without esophagitis K21.9 Active 033383666 ALLERGIES Substance Reaction Event Type Date Status Seroquel Xr 50 Mg Tablet Extended Release 24 Hr weight gain continues and it was a preexisting condition Non Drug Allergy Feb, Active Penicillins Unknown Non Drug Allergy Feb, Active ENCOUNTERS Encounter Location Date Diagnosis [facility] [address] [id number] September, Benign essential hypertension I10 and CVA, old, 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 [facility] [address] [facility] [id number] [address] September, [facility] [address] [address] September, Arthropathy, unspecified M12.9 [facility] [id number] [place] [address] 58409- 9106 Aug, [facility] [id number] [place] [address] 66662- 4466 Aug, [facility] [id number] [place] [address] 84183- 8095 Aug, Arthropathy, unspecified M12.9 [facility] [address] [id number] Jul, Diarrhea, unspecified type R19.7 [facility] [id number] [place] [address] 63025- 4226 Jul, Arthropathy, unspecified M12.9 [facility] [id number] [place] [address] [id number] Jun, Arthropathy, unspecified M12.9 [facility] [id number] [place] [address] 88209- 1461 May, Arthropathy, unspecified M12.9 [facility] [id number] [place] [address] [id number] May, [facility] [address] [place] [id number] May, Localized edema R60.0 [facility] [id number] [place] [address] [id number] May, [facility] [id number] [place] [address] 66102- 6862 Apr, Arthropathy, unspecified M12.9 [facility] [id number] [place] [address] 28785- 8966 Mar, Arthropathy, unspecified M12.9 [facility] [id number] [place] [address] 46083- 6549 Feb, Reactive depression F32.9 and 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 [facility] [id number] [place] [address] 01659- 1214 Feb, Reactive depression F32.9 and Rash R21 [facility] [id number] [place] [address] 88737- 3001 Feb, Arthropathy, unspecified M12.9 [facility] [id number] [place] [address] 33745- 1284 Feb, [facility] [id number] [place] [address] 15523- 1215 Jan, Reactive depression F32.9 ; Other insomnia G47.09 and 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 [facility] [id number] [place] [address] 98217- 8777 Jan, [facility] [id number] [place] [address] 11940- 9968 Jan, Arthropathy, unspecified M12.9 [facility] [id number] [place] [address] 38683- 0486 Jan, [facility] [id number] [place] [address] 34141- 3201 Dec, Arthropathy, unspecified M12.9 [facility] [address] [id number] Dec, Skin tag L91.8 ; Wart of scalp B07.9 and Weight gain R63.5 [facility] [id number] [place] [address] [id number] Dec, [facility] [id number] [place] [address] 85595- 4227 Dec, Reactive depression F32.9 [facility] [id number] [place] [address] [id number] Nov, Arthropathy, unspecified M12.9 [facility] [address] [address] 7413 Oct, [facility] [address] [place] [address] 70383- 9776 Oct, Arthropathy, unspecified M12.9 [facility] [address] [id number] September, Reactive depression F32.9 and CVA (cerebral vascular accident) I63.9 [facility] [address] [address] 267[address] September, Arthropathy, unspecified M12.9 [facility] [address] [place] [address] 98210- 6244 September, [facility] [id number] [place] [address] 97032- 3135 September, Arthropathy, unspecified M12.9 [facility] [id number] [place] [address] 97530- 8829 Aug, Arthropathy, unspecified M12.9 [facility] [address] [address] 33[address] Aug, [facility] [id number] [place] [address] [id number] Aug, [facility] [address] [address] 7517 Jul, [facility] [address] [address] 6979 Jul, [facility] [id number] [place] [address] [id number] Jul, [facility] [address] [id number] Jun, Reactive depression F32.9 [facility] [address] [place] [address] 55190- 9015 Jun, Reactive depression F32.9 [facility] [id number] [place] [address] [id number] Jun, [facility] [address] [id number] Jun, Reactive depression F32.9 and Other insomnia G47.09 [facility] [address] [address] 2546 Jun, [facility] [address] 96944- 6026 May, [facility] [address] [id number] May, [facility] [address] [place] [id number] Apr, CVA, old, 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 ; Allergy, subsequent encounter T78.40XD and Reactive depression F32.9 [facility] [id number] [place] [address] 34354- 0066 Mar, [facility] [address] [place] [id number] Feb, Benign essential hypertension I10 [facility] [id number] [place] [address] 38587276- 0783 Feb, [facility] [address] 686356- 4836 Feb, [facility] [id number] [place] [address] [id number]- 4698 Feb, [facility] [id number] [place] [address] 98499- 2866 14 Feb, 2016 [facility] [id number] [place] [address] 01356- 3301 Feb, [facility] [address] 10096- 3966 Jan, [facility] [id number] [place] [address] 78300 2546 Jan, [facility] [address] [place] [address] Jan, CVA, old, 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 and Benign essential hypertension I10 [facility] [address] [address]- 1336 Dec, [facility] [id number] [place] [address] 42490- 6353 Nov, [facility] [id number] [place] [address] 41371- 7170 Nov, [facility] [id number] [place] [address] 68672- 4078 Oct, [facility] [id number] [place] [address] 32199- 5349 Oct, [facility] [id number] [place] [address] 02265- 0665 Oct, 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 ; Benign essential hypertension I10 ; Reactive depression F32.9 and Urinary frequency R35.0 [facility] [address] [place] [address] 49106- 5750 Aug, UTI (urinary tract infection) N39.0 [facility] [id number] [place] [address] 32899- 0201 Aug, 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 [facility] [address] [place] [address] 19923- 2277 Jul, Benign essential hypertension I10 ; CVA, old, 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 and Hypothyroidism E03.9 [facility] [address] [address]- 9073 Jun, [facility] [id number] [place] [address] 69504- 6908 Jun, Acute diarrhea R19.7 [facility] [address] [place] [address] 98308- 2782 May, CVA (cerebral vascular accident) I63.9 [address] [facility] [address] [address]- 7000 Apr, [facility] [id number] [place] [address] 70389- 5063 Apr, [facility] [id number] [place] [address] 08740- 7903 Apr, [facility] [id number] [place] [address] 66964- 4624 Apr, [facility] [id number] [place] [address] 94349- 6177 Apr, CVA (cerebral vascular accident) I63.9 and Constipation K59.00 [facility] [id number] [place] [address] 62285- 1222 Apr, [facility] [id number] [place] [address] 84170- 1306 Mar, [facility] [id number] [place] [address] 25671- 7542 Mar, [facility] [id number] [place] [address] 76965- 2559 Mar, [facility] [id number] [place] [address] 66243- 5770 Mar, [facility] [id number] [place] [address] 39517- 9507 Feb, [facility] [id number] [place] [address] 38996- 6938 Feb, CVA, old, 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 ; Allergic rhinitis J30.9 and Benign essential hypertension I10 [facility] [address] [place] [address] 34976- 4619 Dec, CVA (cerebral vascular accident) 434.91 [facility] [id number] [place] [address] 77081- 1902 Dec, [facility] [address] [address]- 4965 Oct, [facility] [address] [address]- 3749 Oct, [facility] [address] [address]- 8301 Oct, CVA (cerebral vascular accident) 434.91 [facility] [address] [address]- 6116 Oct, [facility] [address] [address]- 2528 September, [facility] [id number] [place] [address] 71885- 8565 September, Allergic rhinitis 477.9 and Arthropathy 716.90 [facility] [address] [place] [address] 08406- 4693 Aug, [facility] [address] [address]- 9793 Aug, [facility] [address] [address]- 5240 Jun, [facility] [address] [address]- 4405 Jun, [facility] [address] [id number] Jun, [facility] [address] [address]- 1570 Jun, [facility] [address] [address]- 9528 Jun, [facility] [address] [address]- 3689 Jun, [facility] [address] [address]- 2825 Jun, [facility] [address] [id number] [place] [address]- 7431 May, [facility] [address] [id number] [place] [address]- 0404 May, [facility] [address] [id number] [place] [address]- 0121 May, [facility] [address] [id number] [place] [address]- 6221 May, [facility] [address] [id number] [place] [address]- 9741 Apr, [facility] [address] [id number] [place] [address]- 8233 Apr, [facility] [address] [facility] [id number] [place] [address]- 7305 Apr, [address] [id number] Apr, [facility] [address] [id number] [place] [address]- 2836 Apr, [facility] [address] [id number] [place] [address]- 1880 Apr, [facility] [address] [facility] [id number] [place] [address]- 7410 Apr, [facility] [place] [facility] [address] [id number] [place] [address]- 7094 Apr, [facility] [address] [id number] [place] [address]- 8185 Apr, [facility] [place] [facility] [address] [id number] [place] [address]- 0837 Apr, [facility] [address] [id number] [place] [address]- 6229 Apr, [facility] [place] [facility] [address] [id number] [place] 5468 Mar, [facility] [place] [facility] [address] [id number] [place] [address]- 1108 Mar, [facility] [place] [facility] [address] [id number] [place] [address]- 1842 Mar, [facility] [place] [facility] [address] [id number] [place] [address]- 0594 Mar, [facility] [place] [facility] [address] [id number] [place] [address]- 2722 Mar, [facility] [place] [facility] [address] [id number] [place] [address]- 9527 Mar, [facility] [place] [facility] [address] [id number] [place] [address]- 8084 Mar, [facility] [place] [facility] [address] [id number] [place] [address]- 5498 Mar, [facility] [place] [facility] [address] [id number] [place] [address]- 1372 Mar, [facility] [place] [facility] [address] [id number] [place] [address]- 3540 Mar, [facility] [place] [facility] [address] [id number] [place] [address]- 9039 Mar, [facility] [place] [facility] [address] [id number] [place] [address]- 0012 Mar, [facility] [place] [facility] [address] [id number] [address]- 7239 Mar, [facility] [place] [facility] [address] [id number] [place] [address]- 3126 Feb, [facility] [place] [facility] [address] [id number] [place] [address]- 3699 Feb, [facility] [place] [facility] [address] [id number] [place] [address]- 8352 30 Feb, 2014 [facility] [place] [facility] [address] [id number] [place] [address]- 8016 Feb, [facility] [place] [facility] [address] [id number] [place] [address]- 4324 Feb, [facility] [place] [facility] [address] [id number] [place] [address]- 7561 Feb, [facility] [place] [facility] [address] [id number] [place] [address]- 9176 Feb, [facility] [place] [facility] [address] [id number] [place] [address]- 4914 Feb, [facility] [place] [facility] [address] [id number] [place] [address]- 6181 Jan, [facility] [place] [facility] [address] [id number] [place] [address]- 5518 Jan, [facility] [place] [facility] [address] [id number] [place] [address]- 4262 Dec, [facility] [place] [facility] [address] [id number] [place] [address]- 1080 Dec, [facility] [place] [facility] [address] [id number] [place] [address]- 9038 Dec, [facility] [place] [facility] [address] [id number] [place] [address]- 6700 Dec, [facility] [place] [facility] [address] [id number] [place] [address]- 3926 Nov, [facility] [place] [facility] [address] [id number] [place] [address]- 1224 Nov, [facility] [place] [facility] [address] [id number] [place] [address]- 6137 Nov, [facility] [place] [facility] [address] [id number] [place] [address]- 5654 Nov, [facility] [place] [facility] [address] [id number] [place] [address]- 9408 Nov, [facility] [place] [facility] [address] [id number] [place] [address]- 9568 Nov, [facility] [place] [facility] [address] [id number] [place] [address]- 2126 Nov, [facility] [place] [facility] [address] [id number] [place] [address]- 8675 Oct, [facility] [place] [facility] [address] [id number] [place] [address]- 5070 Oct, [facility] [place] [facility] [address] [id number] [place] [address]- 9243 Oct, [facility] [place] [facility] [address] [id number] [place] [address]- 4628 Oct, [facility] [place] [facility] [address] [id number] [place] [address]- 0204 Oct, [facility] [place] [facility] [address] [id number] [place] [address]- 1849 Oct, [facility] [place] [facility] [address] [id number] [place] [address]- 3878 September, [facility] [place] [facility] [address] [id number] [place] [address]- 6698 September, [facility] [place] [facility] [address] [id number] [place] [address]- 5421 September, [facility] [place] [facility] [address] [id number] [place] [address]- 1879 September, [facility] [place] [facility] [address] [id number] [place] [address]- 2757 September, [facility] [place] [facility] [address] [id number] [place] [address]- 9261 September, [facility] [place] [facility] [address] [id number] [place] [address]- 9220 September, [facility] [place] [facility] [address] [id number] [place] [address]- 6800 September, [facility] [address] [id number] [place] [address]- 3045 September, [facility] [place] [facility] [address] [id number] [place] [address]- 2126 Aug, [facility] [place] [facility] [address] [id number] [place] [address]- 2064 Jun, [facility] [place] [facility] [address] [id number] [place] [address]- 2120 Jun, [facility] [place] [facility] [address] [id number] [place] [address]- 8020 May, [facility] [place] [facility] [address] [id number] [place] [address]- 9319 Mar, [facility] [place] [facility] [address] [id number] [place] [address]- 0086 Mar, [facility] [place] [facility] [address] [id number] [place] [address]- 9160 Oct, [facility] [place] [facility] [address] [id number] [place] [address]- 9665 September, [facility] [place] [facility] [address] [id number] [place] [address]- 8641 September, [facility] [place] [facility] [address] [id number] [place] [address]- 3536 Aug, [facility] [place] [facility] [address] [id number] [address] 2544 Jul, [facility] [place] [facility] [address] [id number] [place] [address]- 8326 May, [facility] [place] [facility] [address] [id number] [place] [address]- 5238 May, [facility] [place] [facility] [address] [id number] [place] [address] May, [facility] [place] [facility] [address] [id number] [place] [address] Feb, [facility] [address] [id number] [place] [address] Feb, [facility] [place] [facility] [address] [facility] [id number] [place] [address] Feb, [facility] [address] [id number] [place] [address] Feb, [facility] [place] [facility] [address] [facility] [id number] [place] [address] Feb, [facility] [address] [id number] [id number] Feb, [facility] [address] [facility] [id number] [place] [address] Feb, [facility] [address] [id number] [place] [address] Feb, [facility] [place] [facility] [address] [facility] [id number] [place] [address] Feb, [facility] [place] [facility] [address] [id number] [place] [address] Jan, [facility] [place] [facility] [address] [facility] [id number] [place] [address] Dec, [facility] [place] [facility] [address] [id number] [place] [address] Dec, [facility] [place] [facility] [address] [id number] [place] [address] Dec, [facility] [place] [facility] [address] [id number] [place] [address] Nov, [facility] [place] [facility] [address] [facility] [id number] [place] [address] Nov, [facility] [place] [facility] [address] [facility] [id number] [place] [address] Oct, [facility] [place] [facility] [id number] [address] September, [facility] [id number] [address] Aug, [facility] [id number] [address] Aug, [facility] [id number] [place] [address] Jul, [facility] [id number] [address] Jul, [facility] [id number] [address] Jul, [facility] [address] [address] Jun, [facility] [address] [address] Jun, IMMUNIZATIONS No Known Immunizations SOCIAL HISTORY Never Assessed REASON FOR VISIT [facility] PLAN OF CARE Activity Details Follow Up 2 Months Reason:Anxiety VITAL SIGNS MEDICATIONS Unknown Medications RESULTS No Results PROCEDURES Procedure Date Ordered Result Body Site Psychotherapy, patient &/family, 30 minutes, established patient Mar 24, 2017 INSTRUCTIONS MEDICATIONS ADMINISTERED No Known Medications
--- OUTSIDE RECORDS SUMMARY | 2018-02-05 08:34 | XMS REPORT ---
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 85833859 Problem Hypothyroidism E03.9 Active 41747434 Problem Allergy, subsequent encounter T78.40XD Active 232451962 Problem Reactive depression F32.9 Active 82122790 Problem Aphasia R47.01 Active 46995337 Problem 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 Active 456906883 Problem 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, unspecified hemiplegia type I69.353 Active 465441012 Problem Alzheimers disease with late onset G30.1 Active 603754057 Problem Glaucoma of both eyes, unspecified glaucoma H40.9 Active 42792351 Problem Gastroesophageal reflux disease without esophagitis K21.9 Active 287367876 ALLERGIES Unknown Allergies SOCIAL HISTORY No smoking Hx information available PLAN OF CARE Activity Details Follow Up 2 Months Reason: VITAL SIGNS MEDICATIONS Unknown Medications RESULTS No Results PROCEDURES Procedure Date Ordered Related Diagnosis Body Site Minor complication (15 mins) May 08, 2016 IMMUNIZATIONS No Known Immunizations
--- OUTSIDE RECORDS SUMMARY | 2018-02-05 08:35 | XMS REPORT ---
Author Author RENETTA ELIZONDO Organization [employer] Address Unknown Phone Unavailable Care Team Providers Care Launchman Name Role Phone RENETTA ELIZONDO CP Unavailable [...] to conditions classified elsewhere 294.8 Active Medications No Known Medications Results No Known Results Summary Purpose [employer] Submission
--- OUTSIDE RECORDS SUMMARY | 2018-02-05 08:35 | XMS REPORT ---
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 Active 62248902 Problem Hypothyroidism E03.9 Active 50306768 Problem Allergy, subsequent encounter T78.40XD Active 862115648 Problem Reactive depression F32.9 Active 50493891 Problem Aphasia R47.01 Active 96640875 Problem 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 Active 252420076 Problem 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, unspecified hemiplegia type I69.353 Active 266631974 Problem Alzheimers disease with late onset G30.1 Active 590794448 Problem Glaucoma of both eyes, unspecified glaucoma H40.9 Active 90425084 Problem Gastroesophageal reflux disease without esophagitis K21.9 Active 298061882 ALLERGIES No Information ENCOUNTERS Encounter Location Date Diagnosis [facility] [id number] [address] Aug, [facility] [id number] [place] [address] 16035- 9501 Aug, [facility] [id number], [place] [address] 9685 Aug, Arthropathy, unspecified M12.9 [employer] [address] [id number] Jul, Diarrhea, unspecified type R19.7 [facility] [id number] [place] [address] 43512- 8880 Jul, Arthropathy, unspecified M12.9 [facility] [id number] [place] [address] [id number] Jun, Arthropathy, unspecified M12.9 [facility] [address] [address]- [address] May, Arthropathy, unspecified M12.9 [facility] [id number] [place] [address] [id number] May, [employer] [address] [id number] May, Localized edema R60.0 [facility] [id number] [place] [address] [id number] May, [facility] [id number] [place] [address] 95577- 6913 Apr, Arthropathy, unspecified M12.9 [facility] [id number] [place] [address] 66117- 4382 Mar, Arthropathy, unspecified M12.9 [facility] [id number] [place] [address] 43724- 6908 Feb, Reactive depression F32.9 and 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 [facility] [id number] [place] [address] 55319- 0542 Feb, Reactive depression F32.9 and Rash R21 [facility] [address] 64290- 0293 Feb, Arthropathy, unspecified M12.9 [facility] [id number] [place] [address] 73185- 8216 Feb, [facility] [address] 32542- 2186 Jan, Reactive depression F32.9 ; Other insomnia G47.09 and 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 [facility] [id number] [place] [address] 89387- 6829 Jan, [facility] [id number] [place] [address] 11021- 2336 Jan, Arthropathy, unspecified M12.9 [facility] [id number] [place] [address] 16768- 7114 Jan, [facility] [id number] [place] [address] 23698- 4302 Dec, Arthropathy, unspecified M12.9 [employer] [address] [id number] Dec, Skin tag L91.8 ; Wart of scalp B07.9 and Weight gain R63.5 [facility] [id number] [place] [address] [id number] Dec, [facility] [address] [place] [address] 98766- 8337 Dec, Reactive depression F32.9 [facility] [id number] [place] [address] [id number] Nov, Arthropathy, unspecified M12.9 [facility] [address], [place] [address] 1066 Oct, [facility] [address] [place] [address] 61397- 9719 Oct, Arthropathy, unspecified M12.9 [employer] [address] [id number] September, Reactive depression F32.9 and CVA (cerebral vascular accident) I63.9 [facility] [address], [place] [address] September, Arthropathy, unspecified M12.9 [facility] [id number] [address] September, [facility] [address] [place] [address] 01356- 8646 September, Arthropathy, unspecified M12.9 [facility] [address], [place] [address] 9801 Aug, Arthropathy, unspecified M12.9 [facility] [id number] [place] [address] 14640- 4800 Aug, [facility] [id number] [place] [address] [id number] Aug, [facility] [id number] [place] [address] 074994- 4875 Jul, [facility] [id number] [place] [address] 24051- 2866 Jul, [facility] [id number] [place] [address] [id number] Jul, [employer] [address] [id number] Jun, Reactive depression F32.9 [facility] [id number] [place] [address] 29711- 1286 Jun, Reactive depression F32.9 [facility] [id number] [place] [address] [id number] Jun, [employer] [address] [id number] Jun, Reactive depression F32.9 and Other insomnia G47.09 [facility] [address], [place] [address] 3746 Jun, [facility] [address] [place] [address] 93039- 5836 May, [facility] [id number] [id number] May, [employer] [address] [id number] Apr, CVA, old, 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 ; Allergy, subsequent encounter T78.40XD and Reactive depression F32.9 [facility] [id number] [place] [address] 59800 2546 Mar, [employer] [address] [place] [id number] Feb, Benign essential hypertension I10 [facility] [id number] [place] [address] 52594- 4196 Feb, [facility] [id number] [place] [address] 68325- 5004 Feb, [facility] [id number] [place] [address] 53407- 6376 Feb, [facility] [id number] [place] [address] [id number]- 3863 Feb, [facility] [id number] [place] [address] 889735- 9034 Feb, [facility] [id number] [place] [address] 57640- 2611 Jan, [facility] [id number] [place] [address] 87052- 6386 Jan, [employer] [address] [place] [id number] Jan, CVA, old, 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 and Benign essential hypertension I10 [facility] [id number] [place] [address] 76308- 8816 Dec, [facility] [id number] [place] [address] 32500- 1416 Nov, [facility] [id number] [place] [address] 55101- 9055 Nov, [facility] [id number] [place] [address] 862555- 5804 Oct, [facility] [address] [place], [place] [address]- 8630 Oct, [facility] [id number] [place] [address] 28264- 5007 Oct, 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 ; Benign essential hypertension I10 ; Reactive depression F32.9 and Urinary frequency R35.0 [facility] [id number] [place] [address] 68233- 4790 14 Aug, 2015 UTI (urinary tract infection) N39.0 [facility] [id number] [place] [address] 52238- 3293 07 Aug, 2015 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 [facility] [id number] [place] [address] 22630- 5059 Jul, Benign essential hypertension I10 ; CVA, old, 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 and Hypothyroidism E03.9 [facility] [id number] [place] [address] 35486- 9545 Jun, [facility] [id number] [place] [address] 15442- 5295 Jun, Acute diarrhea R19.7 [facility] [id number] [place] [address] 04184- 9832 May, CVA (cerebral vascular accident) I63.9 [facility] [address] [place] [address] 04647 2546 Apr, [facility] [id number] [place] [address] 04762 2546 Apr, [facility] [id number] [place] [address] 63757 2542 Apr, [facility] [address] [place] [address] 59292- 2546 Apr, [facility] [address] [place] [address] 99301- 2470 Apr, CVA (cerebral vascular accident) I63.9 and Constipation K59.00 [facility] [id number] [place] [address] 40733- 9726 Apr, [facility] [id number] [place] [address] 80823- 8316 Mar, [facility] [id number] [place] [address] 30153- 8034 Mar, [facility] [address] 63472- 3106 Mar, [facility] [id number] [place] [address] 60926- 5312 Mar, [facility] [id number] [place] [address] 02184- 5623 Feb, [facility] [id number] [place] [address] 07789- 4098 Feb, CVA, old, 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 ; Allergic rhinitis J30.9 and Benign essential hypertension I10 [facility] [id number] [place] [address] 66586- 5481 Dec, CVA (cerebral vascular accident) 434.91 [facility] [id number] [place] [address] 10562- 7416 Dec, [facility] [id number] [place] [address] 44374- 5777 Oct, [facility] [id number] [place] [address] 01207- 8573 Oct, [facility] [id number] [place] [address] 87198- 8183 Oct, CVA (cerebral vascular accident) 434.91 [facility] [id number] [place] [address] 17135- 6181 Oct, [facility] [id number] [place] [address] 12384- 8123 September, [facility] [id number], [place] [address]- 0714 September, Allergic rhinitis 477.9 and Arthropathy 716.90 [facility] [address] [facility] [id number] [address]- 4174 Aug, [facility] [address] [facility] [id number] [address]- 3071 Aug, [facility] [address] [facility] [id number], [place] [address]- 2418 Jun, [facility] [address], [place] [address]- 4612 Jun, [facility] [address] [id number] Jun, [facility] [address] [address]- 8023 Jun, [facility] [id number], [place] [address]- 8638 Jun, [facility] [address], [place] [address]- 3178 Jun, [facility] [address], [place] [address]- 9998 Jun, [facility] [address], [place] [address]- 3443 May, [facility] [id number], [place] [address]- 8973 May, [facility] [address], [place] [address]- 0358 May, [facility] [id number] [address]- 0624 May, [facility] [id number], [place] [address]- 8903 Apr, [facility] [place] [facility] [address] [id number] [place] [address]- 5524 Apr, [facility] [place] [facility] [address] [id number] [place] [address]- 5000 Apr, [facility] [address] [facility] [place] [id number] Apr, [facility] [place] [facility] [address] [id number] [place] [address]- 7333 Apr, [facility] [place] [facility] [address] [id number] [place] [address]- 9010 Apr, [facility] [place] [facility] [address] [id number] [place] [address]- 9804 Apr, [facility] [place] [facility] [address] [id number] [place] [address]- 2525 Apr, [facility] [place] [facility] [address] [id number] [place] [address]- 4687 Apr, [facility] [place] [facility] [address] [id number] [place] [address]- 4242 Apr, [facility] [place] [facility] [address] [id number] [place] [address]- 9463 Apr, [facility] [place] [facility] [address] [id number] [place] [address]- 2030 Mar, [facility] [place] [facility] [address] [id number] [place] [address]- 3728 Mar, [facility] [place] [facility] [address] [id number] [place] [address]- 3736 Mar, [facility] [place] [facility] [address] [id number] [place] [address]- 1270 Mar, [facility] [place] [facility] [address] [id number] [place]- 4582 17 Mar, 2014 [facility] [place] [facility] [address] [id number] [place] [address]- 1772 Mar, [facility] [place] [facility] [address] [id number] [place] [address]- 1904 Mar, [facility] [place] [facility] [address] [id number] [place] [address]- 7020 Mar, [facility] [place] [facility] [address] [id number] [place] [address]- 0243 Mar, [facility] [place] [facility] [address] [id number] [place] [address]- 3116 Mar, [facility] [place] [facility] [address] [id number] [place] [address]- 4600 Mar, [facility] [place] [facility] [address] [id number] [place] [address]- 6146 Mar, [facility] [place] [facility] [address] [id number] [place] [address]- 1501 Mar, [facility] [place] [facility] [address] [id number] [place] [address]- 3374 Feb, [facility] [place] [facility] [address] [id number] [place] [address]- 1064 31 Feb, 2014 [facility] [place] [facility] [address] [id number] [place] [address]- 2427 30 Feb, 2014 [facility] [place] [facility] [address] [id number], [place] [address]- 1171 30 Feb, 2014 [facility] [place] [facility] [address] [id number], [place] [address]- 0216 Feb, [facility] [place] [facility] [address] [id number] [place] [address]- 4800 28 Feb, 2014 [facility] [place] [facility] [address] [id number] [place] [address]- 4050 Feb, [facility] [place] [facility] [address] [id number], [place] [address]- 0822 10 Feb, 2014 [facility] [place] [facility] [address] [id number] [place] [address]- 3964 Jan, [facility] [place] [facility] [address] [id number] [place] [address]- 2699 Jan, [facility] [place] [facility] [address] [id number] [place] [address]- 5806 Dec, [facility] [place] [facility] [address] [id number] [place] [address]- 8450 Dec, [facility] [place] [facility] [address] [id number] [place] [address]- 8320 Dec, [facility] [place] [facility] [address] [id number] [place] [address]- 6961 Dec, [facility] [place] [facility] [address] [id number] [place] [address]- 9867 Nov, [facility] [place] [facility] [address] [id number] [place] [address]- 8295 Nov, [facility] [place] [facility] [address] [id number] [place] [address]- 9657 Nov, [facility] [place] [facility] [address] [id number] [place] [address]- 1275 Nov, [facility] [place] [facility] [address] [id number] [place] [address]- 9963 Nov, [facility] [place] [facility] [address] [id number] [place] [address]- 7180 Nov, [facility] [place] [facility] [address] [id number] [place] [address]- 0595 Nov, [facility] [place] [facility] [address] [id number] [place] [address]- 4715 Oct, [facility] [place] [facility] [address] [id number] [place] [address]- 7493 Oct, [facility] [place] [facility] [address] [id number] [place] [address]- 9828 Oct, [facility] [place] [facility] [address] [id number] [place] [address]- 8056 Oct, [facility] [place] [facility] [address] [id number] [place] [address]- 4224 Oct, [facility] [place] [facility] [address] [id number] [place] [address]- 0930 Oct, [facility] [place] [facility] [address] [id number] [place] [address]- 9472 September, [facility] [place] [facility] [address] [id number] [place] [address]- 0662 September, [facility] [place] [facility] [address] [id number] [place] [address]- 3573 September, [facility] [place] [facility] [address] [id number] [place] [address]- 0062 September, [facility] [place] [facility] [address] [id number] [place] [address]- 7028 September, [facility] [place] [facility] [address] [id number] [place] [address]- 6086 September, [facility] [place] [facility] [address] [id number] [place] [address]- 1639 September, [facility] [place] [facility] [address] [id number] [place] [address]- 5467 September, [facility] [place] [facility] [address] [id number] [place] [address]- 7823 September, [facility] [place] [facility] [address] [id number] [place] [address]- 9558 Aug, [facility] [place] [facility] [address] [id number] [place] [address]- 3887 Jun, [facility] [place] [facility] [address] [id number] [place] 7065 Jun, [facility] [place] [facility] [address] [id number], [place] [address]- 1766 May, [facility] [address] [id number] [place] [address]- 9491 Mar, [facility] [address] [id number], [place] [address]- 7105 Mar, [facility] [address] [id number] [place] [address] Oct, [facility] [address] [id number], [place] [address] September, [facility] [address] [id number] [place] [address] September, [facility] [address] [id number] [place] [address] Aug, [facility] [address] [facility] [id number], [place] [address] Jul, [facility] [address] [id number] [place] [address] May, [facility] [address] [id number], [place] [address] May, [facility] [address] [id number], [place] [address] May, [facility] [address] [id number], [place] [address] Feb, [facility] [address] [id number], [place] [address] Feb, [facility] [address] [id number] [place] [address] Feb, [facility] [address] [facility] [id number], [place] [address] Feb, [facility] [address] [facility] [id number] [place] [address] Feb, [facility] [address] [id number] [place] [id number] Feb, [facility] [address] [id number] [place] [address] Feb, [facility] [place] [facility] [address] [id number] [place] [address] Feb, [facility] [address] [id number] [place] [address] Feb, [facility] [place] [facility] [address] [id number] [place] [address] Jan, [facility] [address] [id number] [place] [address] Dec, [facility] [place] [facility] [address] [id number] [place] [address] Dec, [facility] [address] [id number] [place] [address] Dec, [facility] [address] [id number] [place] [address] Nov, [facility] [place] [facility] [address] [id number] [place] [address] Nov, [facility] [address] [id number] [place] [address] Oct, [facility] [place] [facility] [address] [id number] [place] [address] September, [facility] [place] [facility] [address] [id number] [place] [address] Aug, [facility] [place] [facility] [address] [id number] [place] [address] Aug, [facility] [place] [facility] [address] [id number] [place] [address] Jul, [facility] [place] [facility] [address] [id number] [place] [address] Jul, [facility] [address] [facility] [id number] [place] [address] Jul, [facility] [address] [facility] [id number], [place] [address] Jun, [facility] [address] [facility] [id number] [place] [address] Jun, IMMUNIZATIONS No Known Immunizations SOCIAL HISTORY [...]
--- OUTSIDE RECORDS SUMMARY | 2018-02-05 08:35 | XMS REPORT ---
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 92994375 Problem Hypothyroidism E03.9 Active 91934907 Problem Allergy, subsequent encounter T78.40XD Active 071247441 Problem Reactive depression F32.9 Active 08874655 Problem Aphasia R47.01 Active 30964753 Problem 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 Active 737449474 Problem 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, unspecified hemiplegia type I69.353 Active 338222571 Problem Alzheimers disease with late onset G30.1 Active 412640608 Problem Glaucoma of both eyes, unspecified glaucoma H40.9 Active 30202307 Problem Gastroesophageal reflux disease without esophagitis K21.9 Active 833023360 ALLERGIES No Information SOCIAL HISTORY Never Assessed PLAN OF CARE VITAL SIGNS MEDICATIONS Medication Instructions Dosage Frequency Start Date End Date Duration Status Tramadol HCl 50 mg Orally Once a day at HS 1 tablet Jul, September, 30 days Active RESULTS No Results PROCEDURES No Known procedures IMMUNIZATIONS No Known Immunizations
--- OUTSIDE RECORDS SUMMARY | 2018-02-05 08:35 | XMS REPORT ---
Author Author RENETTA ELIZONDO Organization [employer] Address Unknown Phone Unavailable Care Team Providers Care Line Director Name Role Phone RENETTA ELIZONDO CP Unavailable [...] Start Date End Date Status Dosage Xanax [facility] [address]-92 0.25 MG Orally q 4 hours PRN Apr 16, 2015 1 tablet Results No Known Results Summary Purpose [employer] Submission
--- OUTSIDE RECORDS SUMMARY | 2018-02-05 08:35 | XMS REPORT ---
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 52290473 Problem Hypothyroidism E03.9 Active 71071214 Problem Allergy, subsequent encounter T78.40XD Active 504659943 Problem Reactive depression F32.9 Active 49964603 Problem Aphasia R47.01 Active 15161690 Problem 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 Active 987800453 Problem 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, unspecified hemiplegia type I69.353 Active 100959039 Problem Alzheimers disease with late onset G30.1 Active 858036181 Problem Glaucoma of both eyes, unspecified glaucoma H40.9 Active 26048396 Problem Gastroesophageal reflux disease without esophagitis K21.9 Active 288149037 ALLERGIES No Information SOCIAL HISTORY Never Assessed PLAN OF CARE Activity Details Follow Up prn Reason: VITAL SIGNS MEDICATIONS Medication Instructions Dosage Frequency Start Date End Date Duration Status Norvasc 5 mg Orally Once a day 1 tablet 24h Jul, Active Aricept 10 MG Orally Once a day 1 tablet at bedtime 24h Active Imodium A-D 2 MG Orally every 6 hours as needed 1 tablet Jun, Active Tylenol 325 MG Orally every 4 hrs 2 tablets as needed 4h Jun, Active Aggrenox 25-200 MG Orally Twice a day 1 capsule 12h September, Active Seroquel 50 mg 1 tablet by Oral route 1 time per day hs Apr, Active Coreg 3.125 mg 1 Tablet by Oral route 1 time per day for htn Dec, Active Melatonin 10 MG Orally Once a day at HS 1 tablet at bedtime as needed with food Dec, Active Aricept 10 mg Orally Once a day 1 tablet at bedtime 24h Apr, Active Cymbalta 30 MG Orally Once a day 1 capsule 24h Mar, Active Metamucil Smooth Texture 28.3 % Orally Once a day 1 packet with 8 ounces of liquid as needed 24h Jul, Active Guaifenesin 100 MG/5ML Orally every 6 hrs 10 ml as needed 6h Aug, Active Benadryl 25 MG Orally Once a day 2 capsule as needed 24h Apr, Active Coreg 25 MG Orally Once a day 1 Tablet 24h September, Active Lomotil 2.5-0.025 MG Orally Four times a day 1 tablet as needed 6h 26 Jun, 2015 Active Benadryl 25 MG Orally Once a day for insomnia 2 capsule Active Promethazine HCl 25 MG Orally every 6 hrs 1 tablet as needed 6h Jul, Active Lisinopril 20 mg Orally Once a day 1 tablet 24h Feb, Active Cetirizine HCl 10 mg Orally Once a day 1 tablet 24h September, Active Levothroid 50 mcg 1 Tablet by Oral route 1 time per day May, Active Lisinopril 20 MG Orally Once a day 1 tablet 24h Active Calcium Carbonate Antacid 350 MG Orally every 1 hours as needed 3 tablet Aug, Active Simvastatin 20 mg 1 Tablet by Oral route 1 time per day Apr, Active Levothyroxine Sodium 50 MCG Orally Once a day 1 tablet 24h Active Seroquel XR 50 mg 1 tablet by Oral route 1 time per daywith supper Dec, Active RESULTS No Results PROCEDURES Procedure Date Ordered Result Body Site Minor complication (15 mins) Jul 15, 2016 IMMUNIZATIONS No Known Immunizations
--- OUTSIDE RECORDS SUMMARY | 2018-02-05 08:36 | XMS REPORT ---
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
--- OUTSIDE RECORDS SUMMARY | 2018-02-05 08:36 | XMS REPORT ---
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 Active 34040432 Problem Hypothyroidism E03.9 Active 35511118 Problem Allergy, subsequent encounter T78.40XD Active 341649568 Problem Reactive depression F32.9 Active 21392619 Problem Aphasia R47.01 Active 64546732 Problem 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 Active 588613275 Problem 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, unspecified hemiplegia type I69.353 Active 290831049 Problem Alzheimers disease with late onset G30.1 Active 005155715 Problem Glaucoma of both eyes, unspecified glaucoma H40.9 Active 06050996 Problem Gastroesophageal reflux disease without esophagitis K21.9 Active 658978154 ALLERGIES Unknown Allergies SOCIAL HISTORY No smoking Hx information available PLAN OF CARE VITAL SIGNS MEDICATIONS Medication Instructions Dosage Frequency Start Date End Date Duration Status Tramadol HCl 50 mg Orally Once a day at HS 1 tablet as needed Jul, 30 days Active RESULTS No Results PROCEDURES No Known procedures IMMUNIZATIONS No Known Immunizations
--- OUTSIDE RECORDS SUMMARY | 2018-02-05 08:36 | XMS REPORT ---
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 Active 38455656 Problem Hypothyroidism E03.9 Active 14701337 Problem Allergy, subsequent encounter T78.40XD Active 730682718 Problem Reactive depression F32.9 Active 48121597 Problem Aphasia R47.01 Active 11327176 Problem 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 Active 362816381 Problem 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, unspecified hemiplegia type I69.353 Active 863487739 Problem Alzheimers disease with late onset G30.1 Active 874160224 Problem Glaucoma of both eyes, unspecified glaucoma H40.9 Active 62872176 Problem Gastroesophageal reflux disease without esophagitis K21.9 Active 321688508 ALLERGIES No Information ENCOUNTERS Encounter Location Date Diagnosis [facility] [address] [facility] [id number] [address] Aug, [facility] [id number] [place] [address] 732[address]- 1579 Aug, Arthropathy, unspecified M12.9 [employer] [address] [place] [id number] Jul, Diarrhea, unspecified type R19.7 [facility] [address] [id number] [id number] Jul, Arthropathy, unspecified M12.9 [facility] [id number] [place] [address] [id number] Jun, Arthropathy, unspecified M12.9 [facility] [id number] [place] [address] [id number] 7924 May, Arthropathy, unspecified M12.9 [facility] [id number] [place] [address] [id number] May, [employer] [facility] [address] [place] [id number] May, Localized edema R60.0 [facility] [id number] [place] [address] [phone] May, [facility] [id number] [place] [address] 17230- 9046 Apr, Arthropathy, unspecified M12.9 [facility] [address] [place] [address] 70385- 5613 Mar, Arthropathy, unspecified M12.9 [facility] [id number] [place] [address] 66831- 0062 Feb, Reactive depression F32.9 and 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 [facility] [id number] [place] [address] 52930- 2377 Feb, Reactive depression F32.9 and Rash R21 [facility] [address] [place] [address] 31536- 2780 Feb, Arthropathy, unspecified M12.9 [facility] [id number] [place] [address] 51681- 0042 Feb, [facility] [address] [place] [address] 08246- 0373 Jan, Reactive depression F32.9 ; Other insomnia G47.09 and 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 [facility] [address] [address] 08[address] Jan, [facility] [id number] [place] [address] 07490- 6063 Jan, Arthropathy, unspecified M12.9 [facility] [address] [address] 7827 Jan, [facility] [id number] [place] [address] 54987- 0150 Dec, Arthropathy, unspecified M12.9 [facility] [address] [place] [id number] Dec, Skin tag L91.8 ; Wart of scalp B07.9 and Weight gain R63.5 [facility] [id number] [place] [address] [id number] Dec, [facility] [id number] [place] [address] 06164- 6677 Dec, Reactive depression F32.9 [facility] [id number] [place] [address] [id number] Nov, Arthropathy, unspecified M12.9 [facility] [address] [address] 6767 Oct, [facility] [address] [place] [address] 35828- 0845 Oct, Arthropathy, unspecified M12.9 [facility] [address] [place] [id number] September, Reactive depression F32.9 and CVA (cerebral vascular accident) I63.9 [facility] [id number] [place] [address] 46385- 5381 September, Arthropathy, unspecified M12.9 [facility] [address] [place] [address] 53566- 6521 September, [facility] [address] [id number] [address] 1306 September, Arthropathy, unspecified M12.9 [facility] [id number] [place] [address] 66788- 6462 Aug, Arthropathy, unspecified M12.9 [facility] [address] [place] [address] 44280- 0013 Aug, [facility] [id number] [place] [address] [id number] Aug, [facility] [id number] [place] [address] 23796- 0391 Jul, [facility] [id number] [place] [address] 89884- 1196 Jul, [facility] [id number] [place] [address] [id number] Jul, [facility] [address] [place] [id number] Jun, Reactive depression F32.9 [facility] [address] [place] [address] 02729- 2657 Jun, Reactive depression F32.9 [facility] [id number] [place] [address] [id number] Jun, [facility] [address] [place] [id number] Jun, Reactive depression F32.9 and Other insomnia G47.09 [facility] [address] [place] [address] 09615- 5176 Jun, [facility] [address] [place] [address] 47324- 4893 May, [facility] [id number] [place] [address] [id number] May, [facility] [address] [place] [id number] Apr, CVA, old, 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 ; Allergy, subsequent encounter T78.40XD and Reactive depression F32.9 [facility] [address] [address]- 7116 Mar, [facility] [address] [place] [id number] Feb, Benign essential hypertension I10 [facility] [id number] [place] [address] 98376- 1456 Feb, [facility] [id number] [place] [address] 337735- 7722 Feb, [facility] [id number] [place] [address] 35766- 6751 Feb, [facility] [id number] [place] [address] 375635- 6164 Feb, [facility] [id number] [place] [address] 46435- 5116 Feb, [facility] [id number] [place] [address] 50000- 3686 Jan, [facility] [id number] [place] [address] 05704- 4678 Jan, [facility] [address] [place] [id number] Jan, CVA, old, 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 and Benign essential hypertension I10 [facility] [address] [address] 2546 Dec, [facility] [address] [place] [address] 96654- 9746 Nov, [facility] [id number] [place] [address] 64670- 8209 Nov, [facility] [id number] [place] [address] 41356- 1756 Oct, [facility] [address] [place] [address] 98897 2546 Oct, [facility] [address] [address]- 6578 Oct, 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 ; Benign essential hypertension I10 ; Reactive depression F32.9 and Urinary frequency R35.0 [facility] [address] [address]- 6405 14 Aug, 2015 UTI (urinary tract infection) N39.0 [facility] [address] 94381- 3473 07 Aug, 2015 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 [facility] [address] 51416- 6375 Jul, Benign essential hypertension I10 ; CVA, old, 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 and Hypothyroidism E03.9 [facility] [address] 74274- 2037 Jun, [facility] [address] 99590- 1285 Jun, Acute diarrhea R19.7 [facility] [address] 00592- 3037 May, CVA (cerebral vascular accident) I63.9 [place] [facility] [address] 20178- 9743 16 Apr, 2015 [facility] [address] 19668- 8711 Apr, [facility] [address] 35012- 2542 Apr, [facility] [address] 75463- 8473 Apr, [facility] [address] 24347- 4334 03 Apr, 2015 CVA (cerebral vascular accident) I63.9 and Constipation K59.00 [facility] [address] 33566- 9651 Apr, [facility] [address] [address]- 6533 Mar, [facility] [address] [place] [address] 678609- 2777 Mar, [facility] [id number] [place] [address] 60506- 8320 Mar, [facility] [id number] [place] [address] 829792- 6655 Mar, [facility] [address] [place] [address] 864341- 6024 Feb, [facility] [id number] [place] [address] 673283- 2837 Feb, CVA, old, 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 ; Allergic rhinitis J30.9 and Benign essential hypertension I10 [facility] [id number] [place] [address] 28253- 8722 Dec, CVA (cerebral vascular accident) 434.91 [facility] [id number] [place] [address] 42677- 9458 Dec, [facility] [id number] [place] [address] 84698- 3849 Oct, [facility] [address] [place] [address] 99135- 1340 Oct, [facility] [id number] [place] [address] 74921- 0326 Oct, CVA (cerebral vascular accident) 434.91 [facility] [id number] [place] [address] 519679- 1433 Oct, [facility] [address] [address]- 9864 September, [facility] [id number] [place] [address] 44210- 7763 September, Allergic rhinitis 477.9 and Arthropathy 716.90 [facility] [address] [address]- 9366 Aug, [facility] [address] [address]- 5402 Aug, [facility] [address] [address]- 1177 Jun, [facility] [address] [address]- 4799 Jun, [facility] [address] [place] [id number] Jun, [facility] [address] [address]- 1048 Jun, [facility] [address] [address]- 9016 Jun, [facility] [address] [address]- 7551 Jun, [facility] [address] [address]- 2179 Jun, [facility] [address] [address]- 0893 May, [facility] [address] [address]- 7019 May, [facility] [address] [address]- 6953 May, [facility] [address] [address]- 5232 May, [facility] [address]- 4283 Apr, [facility] [address] [id number] 9560 Apr, [facility] [place] [facility] [address] [id number] [place] [address]- 0338 Apr, [facility] [address] [facility] [id number] Apr, [facility] [address] [id number] [place] [address]- 5052 Apr, [facility] [address] [id number] [place] [address]- 5165 Apr, [facility] [address] [id number] [place] [address]- 5824 Apr, [facility] [address] [id number] [place] [address]- 9601 Apr, [facility] [address] [id number] [place] [address]- 7828 Apr, [facility] [address] [id number] [place] [address]- 3605 Apr, [facility] [address] [id number] [place] [address]- 5140 Apr, [facility] [address] [id number] [place] [address]- 2002 Mar, [facility] [address] [id number] [place] [address]- 0845 Mar, [facility] [place] [facility] [address] [id number] [place] [address]- 7268 Mar, [facility] [place] [facility] [address] [id number] [place] [address]- 2807 Mar, [facility] [place] [facility] [address] [id number] [place] [address]- 1530 Mar, [facility] [place] [facility] [address] [id number] [place] [address]- 5231 Mar, [facility] [place] [facility] [address] [id number] [place] [address]- 0820 Mar, [facility] [place] [facility] [address] [id number] [place] [address]- 3358 Mar, [facility] [place] [facility] [address] [id number] [place] [address]- 8204 Mar, [facility] [place] [facility] [address] [id number] [place] [address]- 8155 Mar, [facility] [place] [facility] [address] [id number] [place] [address]- 0942 Mar, [facility] [place] [facility] [address] [id number] [place] [address]- 6903 Mar, [facility] [place] [facility] [address] [id number] [place] [address]- 5262 Mar, [facility] [place] [facility] [address] [id number] [place] [address]- 4989 Feb, [facility] [place] [facility] [address] [id number] [place] [address]- 9640 Feb, [facility] [place] [facility] [address] [id number] [place] [address]- 4441 30 Feb, 2014 [facility] [place] [facility] [address] [id number] [place] [address]- 7602 30 Feb, 2014 [facility] [place] [facility] [address] [id number] [address]- 6513 Feb, [facility] [place] [facility] [address] [id number] [place] [address]- 2067 28 Feb, 2014 [facility] [place] [facility] [address] [id number] [place] [address]- 4392 10 Feb, 2014 [facility] [place] [facility] [address] [id number] [place] [address]- 6567 10 Feb, 2014 [facility] [place] [facility] [address] [id number] [place] [address]- 4717 11 Jan, 2014 [facility] [place] [facility] [address] [id number] [place] [address]- 4789 Jan, [facility] [place] [facility] [address] [id number] [place] [address]- 5039 Dec, [facility] [place] [facility] [address] [id number] [place] [address]- 9248 Dec, [facility] [place] [facility] [address] [id number] [place] [address]- 3899 Dec, [facility] [place] [facility] [address] [id number] [place] [address]- 3466 Dec, [facility] [place] [facility] [address] [id number] [place] [address]- 5575 Nov, [facility] [place] [facility] [address] [id number] [place] [address]- 3040 Nov, [facility] [place] [facility] [address] [id number] [place] [address]- 5549 Nov, [facility] [place] [facility] [address] [id number] [place] [address]- 0699 Nov, [facility] [place] [facility] [address] [id number] [place] [address]- 4534 Nov, [facility] [place] [facility] [address] [id number] [place] [address]- 1396 Nov, [facility] [place] [facility] [address] [id number] [place] [address]- 2854 Nov, [facility] [place] [facility] [address] [id number] [place] [address]- 1557 Oct, [facility] [place] [facility] [address] [id number] [place] [address]- 7521 Oct, [facility] [place] [facility] [address] [id number] [place] [address]- 0945 Oct, [facility] [place] [facility] [address] [id number] [place] [address]- 7767 Oct, [facility] [place] [facility] [address] [id number] [place] [address]- 3045 Oct, [facility] [place] [facility] [address] [id number] [place] 9610 Oct, [facility] [place] [facility] [address] [id number] [place] [address]- 5126 September, [facility] [place] [facility] [address] [id number] [place] [address]- 8961 September, [facility] [place] [facility] [address] [id number] [place] [address]- 3347 September, [facility] [place] [facility] [address] [id number] [place] [address]- 8483 September, [facility] [place] [facility] [address] [id number] [place] [address]- 1784 September, [facility] [place] [facility] [address] [id number] [place] [address]- 6383 September, [facility] [place] [facility] [address] [id number] [place] [address]- 4450 September, [facility] [place] [facility] [address] [id number] [place] [address]- 2589 September, [facility] [place] [facility] [address] [id number] [place] [address]- 4163 September, [facility] [place] [facility] [address] [id number] [place] [address]- 8993 Aug, [facility] [place] [facility] [address] [id number] [place] [address]- 2737 Jun, [facility] [place] [facility] [address] [id number] [place] [address]- 6607 Jun, [facility] [place] [facility] [address] [id number] [place] [address]- 4306 May, [facility] [place] [facility] [address] [id number] [place] [address]- 4448 Mar, [facility] [address] [id number] [place] [address]- 0844 Mar, [facility] [address] [id number] [address]- 9460 Oct, [facility] [address] [id number] [place] [address]- 5736 September, [facility] [address] [id number] [place] [address]- 0330 September, [facility] [address] [id number] [place] [address]- 1407 Aug, [facility] [address] [id number] [place] [address]- 9029 Jul, [facility] [address] [id number] [place] [address]- 1788 May, [facility] [address] [id number] [place] [address]- 5293 May, [facility] [address] [id number] [place] [address]- 5375 May, [facility] [address] [facility] [place] [id number] [place] [address]- 2152 Feb, [facility] [address] [id number] [place] [address]- 5090 Feb, [facility] [place] [facility] [address] [id number] [place] [address]- 3548 Feb, [facility] [address] [id number] [place] [address]- 0210 Feb, [facility] [place] [facility] [address] [facility] [place] [id number] [place] [address]- 8514 Feb, [facility] [address] [id number] [id number] Feb, [facility] [address] [id number] [place] [address]- 1414 10 Feb, 2012 [facility] [place] [facility] [address] [id number] [place] [address]- 3504 Feb, [facility] [place] [facility] [address] [id number] [place] [address] Feb, [facility] [place] [facility] [address] [id number] [place] [address] Jan, [facility] [place] [facility] [address] [id number] [place] [address] Dec, [facility] [place] [facility] [address] [id number] [place] [address] Dec, [facility] [place] [facility] [address] [id number] [place] [address] Dec, [facility] [place] [facility] [address] [id number] [place] [address] Nov, [facility] [place] [facility] [address] [id number] [place] [address] Nov, [facility] [place] [facility] [address] [id number] [place] [address] Oct, [facility] [place] [facility] [address] [id number] [place] [address] September, [facility] [place] [facility] [address] [id number] [place] [address] Aug, [facility] [place] [facility] [address] [id number] [place] [address] Aug, [facility] [place] [facility] [address] [id number] [place] [address] Jul, [facility] [place] [facility] [address] [id number] [place] [address] 16 Jul, 2011 [facility] [place] [facility] [address] [id number] [place] [address] Jul, [facility] [place] [facility] [address] [facility] [id number] [place] [id number] Jun, [facility] [address] [facility] [id number] [id number] Jun, IMMUNIZATIONS No Known Immunizations SOCIAL HISTORY Never Assessed REASON FOR VISIT Refill request PLAN OF CARE VITAL SIGNS MEDICATIONS Unknown Medications RESULTS No Results PROCEDURES No Known procedures INSTRUCTIONS MEDICATIONS ADMINISTERED No Known Medications
--- OUTSIDE RECORDS SUMMARY | 2018-02-05 08:36 | XMS REPORT ---
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 10913213 Problem Hypothyroidism E03.9 Active 97002858 Problem Allergy, subsequent encounter T78.40XD Active 352215490 Problem Reactive depression F32.9 Active 05819516 Problem Aphasia R47.01 Active 19875966 Problem 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
[2018-02-05 08:37] VITALS: BP 153/71
--- OUTSIDE RECORDS SUMMARY | 2018-02-05 08:37 | XMS REPORT ---
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 Active 06321505 Problem Hypothyroidism E03.9 Active 65561725 Problem Allergy, subsequent encounter T78.40XD Active 543311230 Problem Reactive depression F32.9 Active 19923621 Problem Aphasia R47.01 Active 21692660 Problem 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 Active 098846688 Problem 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, unspecified hemiplegia type I69.353 Active 821956043 Problem Alzheimers disease with late onset G30.1 Active 260086903 Problem Glaucoma of both eyes, unspecified glaucoma H40.9 Active 15633078 Problem Gastroesophageal reflux disease without esophagitis K21.9 Active 439037082 ALLERGIES No Information SOCIAL HISTORY Never Assessed PLAN OF CARE Activity Details Follow Up prn Reason: VITAL SIGNS MEDICATIONS Unknown Medications RESULTS No Results PROCEDURES Procedure Date Ordered Result Body Site Minor complication (15 mins) Jul 22, 2016 IMMUNIZATIONS No Known Immunizations
--- OUTSIDE RECORDS SUMMARY | 2018-02-05 08:37 | XMS REPORT ---
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 71522603 Problem Hypothyroidism E03.9 Active 71173817 Problem Allergy, subsequent encounter T78.40XD Active 897815210 Problem Reactive depression F32.9 Active 53728787 Problem Aphasia R47.01 Active 38785263 Problem 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 [id number] [address] Aug, [facility] [id number], [place] [address] Aug, Arthropathy, unspecified M12.9 [facility] [address] [place] [id number] Jul, Diarrhea, unspecified type R19.7 [facility] [address] [address] [address] Jul, Arthropathy, unspecified M12.9 [facility] [id number] [place] [address] [id number] Jun, Arthropathy, unspecified M12.9 [facility] [address] [place] [address] [id number]- 6180 May, Arthropathy, unspecified M12.9 [facility] [id number] [place] [address] [id number] May, [facility] [facility] [address] [id number] May, Localized edema R60.0 [facility] [id number] [place] [address] [id number] May, [facility] [address] [place] [address] 24265- 9734 Apr, Arthropathy, unspecified M12.9 [facility] [address] [place] [address] 97731- 9631 Mar, Arthropathy, unspecified M12.9 [facility] [address] [place] [address] 30995- 4842 Feb, Reactive depression F32.9 and 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 [facility] [address] [place] [address] 68524- 8610 Feb, Reactive depression F32.9 and Rash R21 [facility] [address] [place] [address] 85803- 8524 Feb, Arthropathy, unspecified M12.9 [facility] [id number] [place] [address] 45139- 4161 Feb, [facility] [address] [place] [address] 53765- 6096 Jan, Reactive depression F32.9 ; Other insomnia G47.09 and 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 [facility] [address], [place] [address] 378[address] Jan, [facility] [id number] [place] [address] 78713- 1536 Jan, Arthropathy, unspecified M12.9 [facility] [id number] [place] [address] 54293- 9228 Jan, [facility] [id number] [place] [address] 72522- 3408 Dec, Arthropathy, unspecified M12.9 [facility] [address] [id number] Dec, Skin tag L91.8 ; Wart of scalp B07.9 and Weight gain R63.5 [facility] [id number] [place] [address] [id number] Dec, [facility] [id number] [place] [address] 20664- 4231 Dec, Reactive depression F32.9 [facility] [id number] [place] [address] [id number] Nov, Arthropathy, unspecified M12.9 [facility] [address], [place] [address] 4610 Oct, [facility] [facility] [address] [place] [address] 63049- 1506 Oct, Arthropathy, unspecified M12.9 [facility] [address] [id number] September, Reactive depression F32.9 and CVA (cerebral vascular accident) I63.9 [facility] [id number] [place] [address] 90355- 7996 September, Arthropathy, unspecified M12.9 [facility] [address], [place] [address] 6666 September, [facility] [address] [id number] 6135 September, Arthropathy, unspecified M12.9 [facility] [id number] [place] [address] 84832- 6679 Aug, Arthropathy, unspecified M12.9 [facility] [id number] [place] [address] 42308- 8609 Aug, [facility] [id number] [place] [address] [id number] Aug, [facility] [id number] [place] [address] [phone]- 8014 Jul, [facility] [id number] [place] [address] 137468- 5156 Jul, [facility] [id number] [place] [address] [id number] Jul, [facility] [address] [place] [id number] Jun, Reactive depression F32.9 [facility] [id number] [place] [address] 70282- 1325 Jun, Reactive depression F32.9 [facility] [id number] [place] [address] [phone] Jun, [facility] [address] [id number] Jun, Reactive depression F32.9 and Other insomnia G47.09 [facility] [address] [place] [address] 65596- 1391 Jun, [facility] [address] [place] [address] 38033- 1519 May, [facility] [id number] [place] [address] [id number] May, [facility] [address] [id number] Apr, CVA, old, 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 ; Allergy, subsequent encounter T78.40XD and Reactive depression F32.9 [facility] [address], [place] [address] 1706 Mar, [employer] [facility] [address] [id number] Feb, Benign essential hypertension I10 [facility] [address], [place] [address] 9476 Feb, [facility] [id number] [place] [address] 43619- 1656 Feb, [facility] [id number] [place] [address] 19099- 6036 Feb, [facility] [id number] [place] [address] 93754- 1606 Feb, [facility] [id number] [place] [address] 78054 2546 Feb, [facility] [id number] [place] [address] 19076- 8786 Jan, [facility] [address] [place] [address] 47043- 3976 Jan, [facility] [facility] [address] [id number] Jan, CVA, old, 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 and Benign essential hypertension I10 [facility] [address], [place] [address] 2546 Dec, [facility] [address], [place] [address]- 0936 Nov, [facility] [address], [place] [address]- 0376 Nov, [facility] [id number] [place] [address] 32163- 8996 Oct, [facility] [address], [place] [address] 2546 Oct, [facility] [id number] [place] [address]- 9457 02 Oct, 2015 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 ; Benign essential hypertension I10 ; Reactive depression F32.9 and Urinary frequency R35.0 [facility] [id number] [place] [address] 91157 2542 14 Aug, 2015 UTI (urinary tract infection) N39.0 [facility] [address] [address] 2546 07 Aug, 2015 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 [facility] [id number] [place] [address] 63663 254 Jul, Benign essential hypertension I10 ; CVA, old, 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 and Hypothyroidism E03.9 [facility] [address] 15318- 8352 Jun, [facility] [address] 64942 2543 Jun, Acute diarrhea R19.7 [facility] [id number] [place] [address] 68535 2540 May, CVA (cerebral vascular accident) I63.9 [facility] [id number] [place] [address] 93193 2545 16 Apr, 2015 [facility] [id number] [place] [address] 27405 2546 16 Apr, 2015 [facility] [id number] [place] [address] 30011 2540 15 Apr, 2015 [facility] [address] 6[address]01 2546 04 Apr, 2015 [facility] [id number] [place] [address] 12515 2545 03 Apr, 2015 CVA (cerebral vascular accident) I63.9 and Constipation K59.00 [facility] [address] [place] [id number] 5250 Apr, [facility] [id number] [place] [address] 89160- 2234 Mar, [facility] [id number] [place] [address] 490375- 6982 Mar, [facility] [id number] [place] [address] 716435- 2437 Mar, [facility] [id number] [place] [address] 706393- 9588 Mar, [facility] [id number] [place] [address] 402925- 8262 Feb, [facility] [address] [place] [address] 206413- 2301 Feb, CVA, old, 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 ; Allergic rhinitis J30.9 and Benign essential hypertension I10 [facility] [address] [place] [address] 31045- 5297 Dec, CVA (cerebral vascular accident) 434.91 [facility] [id number] [place] [address] 97827- 3236 Dec, [facility] [id number] [place] [address] 79593- 4803 Oct, [facility] [id number] [place] [address] 102478- 4942 Oct, [facility] [id number] [place] [address] 30886- 9966 Oct, CVA (cerebral vascular accident) 434.91 [facility] [id number] [place] [address] 472358- 9606 Oct, [facility] [id number] [place] [address] 95754- 2158 September, [facility] [address] [place] [address] 84983- 1126 September, Allergic rhinitis 477.9 and Arthropathy 716.90 [facility] [address], [place] [address]- 7209 14 Aug, 2014 [facility] [id number], [place] [address]- 6264 Aug, [facility] [address], [place] [address]- 1572 Jun, [facility] [id number], [place] [address]- 3875 Jun, [facility] [address] [id number] Jun, [facility] [address], [place] [address]- 6789 Jun, [facility] [address] [place] [address] 02731- 9910 Jun, [facility] [address], [place] [address]- 7246 Jun, [facility] [address], [place] [address]- 8389 Jun, [facility] [address], [place] [address]- 5279 May, [facility] [address], [place] [address]- 9247 May, [facility] [id number], [place] [address]- 6424 May, [facility] [address], [place] [address]- 8900 May, [facility] [id number], [place] [address]- 5852 Apr, [facility] [id number], [place] [address]- 8251 Apr, [facility] [address] [id number] [place] [address]- 4238 Apr, [facility] [address] [facility] [id number] Apr, [facility] [place] [facility] [address] [id number] [place] [address]- 4278 Apr, [facility] [place] [facility] [address] [id number] [place] [address]- 1579 Apr, [facility] [place] [facility] [address] [id number] [place] [address]- 9918 Apr, [facility] [place] [facility] [address] [id number] [place] [address]- 3294 Apr, [facility] [place] [facility] [address] [id number] [place] [address]- 4461 Apr, [facility] [place] [facility] [address] [id number] [place] [address]- 5978 Apr, [facility] [place] [facility] [address] [id number] [place] [address]- 2502 Apr, [facility] [place] [facility] [address] [id number] [place] [address]- 0891 Mar, [facility] [place] [facility] [address] [id number] [place] [address]- 9953 Mar, [facility] [place] [facility] [address] [id number] [place] [address]- 5138 Mar, [facility] [place] [facility] [address] [id number] [place] [address]- 5778 Mar, [facility] [place] [facility] [address] [id number] [place] [address]- 8029 Mar, [facility] [place] [facility] [address] [id number] [place] [address]- 6095 Mar, [facility] [place] [facility] [address] [id number] [place] [address]- 2637 Mar, [facility] [place] [facility] [address] [id number] [place] [address]- 0659 Mar, [facility] [place] [facility] [address] [id number] [place] [address]- 4199 Mar, [facility] [place] [facility] [address] [id number] [place] 6724 Mar, [facility] [place] [facility] [address] [id number] [place] [address]- 1998 Mar, [facility] [place] [facility] [address] [id number] [place] [address]- 5458 Mar, [facility] [place] [facility] [address] [id number] [place] [address]- 1969 Mar, [facility] [place] [facility] [address] [id number] [place] [address]- 8310 Feb, [facility] [place] [facility] [address] [id number] [place] [address]- 1608 31 Feb, 2014 [facility] [place] [facility] [address] [id number] [place] [address]- 8822 30 Feb, 2014 [facility] [place] [facility] [address] [id number] [place] [address]- 2920 30 Feb, 2014 [facility] [place] [facility] [address] [id number], [place] [address]- 0648 Feb, [facility] [place] [facility] [address] [id number], [place] [address]- 7219 28 Feb, 2014 [facility] [place] [facility] [address] [id number] [place] [address]- 9166 10 Feb, 2014 [facility] [place] [facility] [address] [id number] [place] [address]- 8339 10 Feb, 2014 [facility] [place] [facility] [address] [id number] [place] [address]- 8331 11 Jan, 2014 [facility] [place] [facility] [address] [id number] [place] [address]- 1240 Jan, [facility] [place] [facility] [address] [id number] [place] [address]- 9227 Dec, [facility] [place] [facility] [address] [id number] [place] [address]- 8313 Dec, [facility] [place] [facility] [address] [id number] [place] [address]- 4587 Dec, [facility] [place] [facility] [address] [id number] [place] [address]- 5173 Dec, [facility] [place] [facility] [address] [id number] [place] [address]- 1863 Nov, [facility] [place] [facility] [address] [id number] [place] [address]- 0481 Nov, [facility] [place] [facility] [address] [id number] [place] [address]- 4288 Nov, [facility] [place] [facility] [address] [id number] [place] [address]- 4095 Nov, [facility] [place] [facility] [address] [id number] [place] [address]- 5685 Nov, [facility] [place] [facility] [address] [id number] [place] [address]- 5587 Nov, [facility] [place] [facility] [address] [id number] [place] [address]- 7302 Nov, [facility] [place] [facility] [address] [id number] [place] [address]- 7550 Oct, [facility] [place] [facility] [address] [id number] [place] [address]- 3567 Oct, [facility] [place] [facility] [address] [id number] [place] [address]- 0110 Oct, [facility] [place] [facility] [address] [id number] [place] [address]- 7384 Oct, [facility] [place] [facility] [address] [id number] [place] [address]- 1157 Oct, [facility] [place] [facility] [address] [id number] [place] 3292 Oct, [facility] [place] [facility] [address] [id number] [place] [address]- 6940 September, [facility] [place] [facility] [address] [id number] [place] [address]- 2984 September, [facility] [place] [facility] [address] [id number] [place] [address]- 7094 September, [facility] [place] [facility] [address] [id number] [place] [address]- 9339 September, [facility] [place] [facility] [address] [id number] [place] [address]- 1713 September, [facility] [place] [facility] [address] [id number] [place] [address]- 8974 September, [facility] [place] [facility] [address] [id number] [place] [address]- 6398 September, [facility] [place] [facility] [address] [id number] [place] [address]- 9831 September, [facility] [place] [facility] [address] [id number] [place] [address]- 0820 September, [facility] [place] [facility] [address] [id number] [place] [address]- 5522 Aug, [facility] [place] [facility] [address] [id number] [place] [address]- 2880 Jun, [facility] [place] [facility] [address] [id number] [place] [address]- 9636 Jun, [facility] [place] [facility] [address] [id number] [place] [address]- 7203 May, [facility] [place] [facility] [address] [id number], [place] [address]- 5506 Mar, [facility] [address] [id number], [place] [address]- 3968 Mar, [facility] [address] [id number], [place] [address]- 9679 Oct, [facility] [address] [id number], [place] [address]- 7568 September, [facility] [place] [facility] [address] [id number], [place] [address] September, [facility] [address] [id number] [place] [address] Aug, [facility] [address] [id number], [place] [address] Jul, [facility] [address] [id number], [place] [address] May, [facility] [address] [id number], [place] [address] May, [facility] [address] [id number], [place] [address] May, [facility] [address] [facility] [id number], [place] [address] Feb, [facility] [address] [id number], [place] [address] Feb, [facility] [address] [id number], [place] [address] Feb, [facility] [address] [id number], [place] [address] Feb, [facility] [place] [facility] [address] [facility] [id number], [place] [address] Feb, [facility] [address] [id number] [id number] Feb, [facility] [address] [facility] [id number] [place] [address] Feb, [facility] [place] [facility] [address] [id number] [place] [address] Feb, [facility] [place] [facility] [address] [id number] [place] [address] Feb, [facility] [place] [facility] [address] [id number] [place] [address] Jan, [facility] [place] [facility] [address] [id number] [place] [address] Dec, [facility] [place] [facility] [address] [id number] [place] [address] Dec, [facility] [place] [facility] [address] [id number] [place] [address] Dec, [facility] [place] [facility] [address] [id number] [place] [address] Nov, [facility] [place] [facility] [address] [id number] [place] [address] Nov, [facility] [place] [facility] [address] [id number] [place] [address] Oct, [facility] [place] [facility] [address] [id number] [place] [address] September, [facility] [place] [facility] [address] [id number] [place] [address] Aug, [facility] [place] [facility] [address] [id number] [place] [address] Aug, [facility] [place] [facility] [address] [id number] [place] [address] Jul, [facility] [place] [facility] [address] [id number] [place] [address] 16 Jul, 2011 [facility] [place] [facility] [address] [id number] [place] [address] Jul, [facility] [address] [facility] [id number] [place] [id number] Jun, [facility] [address] [facility] [id number][place] [address] Jun, IMMUNIZATIONS No Known Immunizations SOCIAL HISTORY Never Assessed REASON FOR VISIT Schedule appt. PLAN OF CARE VITAL SIGNS MEDICATIONS Unknown Medications RESULTS No Results PROCEDURES No Known procedures INSTRUCTIONS MEDICATIONS ADMINISTERED No Known Medications
--- OUTSIDE RECORDS SUMMARY | 2018-02-05 08:37 | XMS REPORT ---
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 28518627 Problem Hypothyroidism E03.9 Active 42886036 Problem Allergy, subsequent encounter T78.40XD Active 134326185 Problem Reactive depression F32.9 Active 36215519 Problem Aphasia R47.01 Active 07215197 Problem 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 Active 515426525 Problem 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, unspecified hemiplegia type I69.353 Active 739299405 Problem Alzheimers disease with late onset G30.1 Active 820285189 Problem Glaucoma of both eyes, unspecified glaucoma H40.9 Active 17971690 Problem Gastroesophageal reflux disease without esophagitis K21.9 Active 222136446 ALLERGIES No Information SOCIAL HISTORY Never Assessed PLAN OF CARE VITAL SIGNS MEDICATIONS Medication Instructions Dosage Frequency Start Date End Date Duration Status Tramadol HCl 50 mg Orally Once a day at HS 1 tablet Jul, 28 days Active RESULTS No Results PROCEDURES No Known procedures IMMUNIZATIONS No Known Immunizations
--- OUTSIDE RECORDS SUMMARY | 2018-02-05 08:37 | XMS REPORT ---
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 38678052 Problem Hypothyroidism E03.9 Active 11901555 Problem Allergy, subsequent encounter T78.40XD Active 862914816 Problem Reactive depression F32.9 Active 88241393 Problem Aphasia R47.01 Active 88496041 Problem 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 Active 209182894 Problem 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, unspecified hemiplegia type I69.353 Active 290481894 Problem Alzheimers disease with late onset G30.1 Active 250586867 Problem Glaucoma of both eyes, unspecified glaucoma H40.9 Active 37578893 Problem Gastroesophageal reflux disease without esophagitis K21.9 Active 999728460 ALLERGIES No Information SOCIAL HISTORY Never Assessed PLAN OF CARE VITAL SIGNS MEDICATIONS Medication Instructions Dosage Frequency Start Date End Date Duration Status Namzaric 7 & 14 & 21 &28 -10 MG as directed Jun, Active RESULTS No Results PROCEDURES No Known procedures IMMUNIZATIONS No Known Immunizations
--- OUTSIDE RECORDS SUMMARY | 2018-02-05 08:37 | XMS REPORT ---
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
--- OUTSIDE RECORDS SUMMARY | 2018-02-05 08:37 | XMS REPORT ---
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
--- OUTSIDE RECORDS SUMMARY | 2018-02-05 08:37 | XMS REPORT ---
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
--- OUTSIDE RECORDS SUMMARY | 2018-02-05 08:37 | XMS REPORT ---
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 31479345 Problem Hypothyroidism E03.9 Active 13490211 Problem Allergy, subsequent encounter T78.40XD Active 195670111 Problem Reactive depression F32.9 Active 50969630 Problem Aphasia R47.01 Active 56804838 Problem 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 Active 102470490 Problem 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, unspecified hemiplegia type I69.353 Active 295513563 Problem Alzheimers disease with late onset G30.1 Active 175605159 Problem Glaucoma of both eyes, unspecified glaucoma H40.9 Active 11925326 Problem Gastroesophageal reflux disease without esophagitis K21.9 Active 282625654 ALLERGIES No Information ENCOUNTERS Encounter Location Date Diagnosis [facility] [address] [place] [id number] Jul, Diarrhea, unspecified type R19.7 [facility] [id number] [address] Jul, Arthropathy, unspecified M12.9 [facility] [address] [id number] [id number] Jun, Arthropathy, unspecified M12.9 [facility] [address], [place] [address] May, Arthropathy, unspecified M12.9 [facility] [id number] [place] [id number] May, [facility] [address] [place] [id number] May, Localized edema R60.0 [facility] [id number] [place] [address] [id number] May, [facility] [id number] [place] [address] 26637- 6833 Apr, Arthropathy, unspecified M12.9 [facility] [id number] [place] [address] 72485- 3952 Mar, Arthropathy, unspecified M12.9 [facility] [id number] [place] [address] 45547- 1834 Feb, Reactive depression F32.9 and 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 [facility] [id number] [place] [address] 46900- 9071 Feb, Reactive depression F32.9 and Rash R21 [facility] [id number] [place] [address] 45679- 7779 Feb, Arthropathy, unspecified M12.9 [facility] [id number] [place] [address] 33260- 0708 Feb, [facility] [id number] [place] [address] 45511- 7790 Jan, Reactive depression F32.9 ; Other insomnia G47.09 and 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 [facility] [id number] [place] [address] 78229- 7387 Jan, [facility] [id number] [place] [address] 98751- 4357 Jan, Arthropathy, unspecified M12.9 [facility] [address], [place] [address] 8[address] Jan, [facility] [id number] [place] [address] 14703- 9141 Dec, Arthropathy, unspecified M12.9 [facility] [address] [place] [id number] Dec, Skin tag L91.8 ; Wart of scalp B07.9 and Weight gain R63.5 [facility] [id number] [place] [address] [id number] Dec, [facility] [id number] [place] [address] 03649- 5753 Dec, Reactive depression F32.9 [facility] [id number] [place] [address] [id number] Nov, Arthropathy, unspecified M12.9 [facility] [id number] [place] [address] 90592- 5877 Oct, [facility] [id number] [place] [address] 58819- 3982 Oct, Arthropathy, unspecified M12.9 [facility] [address] [id number] September, Reactive depression F32.9 and CVA (cerebral vascular accident) I63.9 [facility] [address], [place] [address] September, Arthropathy, unspecified M12.9 [facility] [address], [place] [address] 35[address] September, [facility] [id number] [place] [address] 85450- 1961 September, Arthropathy, unspecified M12.9 [facility] [address], [place] [address] Aug, Arthropathy, unspecified M12.9 [facility] [address], [place] [address] 2546 Aug, [facility] [id number] [place] [address] [id number] Aug, [facility] [id number] [place] [address] 23899 2546 Jul, [facility] [id number] [place] [address] 20239 2546 Jul, [facility] [id number] [place] [address] [id number] Jul, [facility] [address] [place] [id number] Jun, Reactive depression F32.9 [facility] [id number] [place] [address] 46108 2546 Jun, Reactive depression F32.9 [facility] [id number] [place] [address] [id number] Jun, [facility] [address] [place] [id number] Jun, Reactive depression F32.9 and Other insomnia G47.09 [facility] [id number] [place] [address] 71578 2546 Jun, [facility] [address] [place] [address] 58457- 5316 May, [facility] [id number] [place] [address] [id number] May, [facility] [address] [place] [id number] Apr, CVA, old, 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 ; Allergy, subsequent encounter T78.40XD and Reactive depression F32.9 [facility] [address] [place] [address] 00618 2546 Mar, [facility] [address] [place] [id number] Feb, Benign essential hypertension I10 [facility] [id number] [place] [address] 74803- 2197 Feb, [facility] [id number] [place] [address] 87141- 6212 18 Feb, 2016 [facility] [id number] [place] [address] 18713- 3959 Feb, [facility] [id number] [place] [address] 73294- 2160 14 Feb, 2016 [facility] [id number] [place] [address] 17988- 1018 Feb, [facility] [id number] [place] [address] 12615- 9448 Jan, [facility] [id number] [place] [address] 19781- 1719 Jan, [facility] [address] [place] [id number] Jan, CVA, old, 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 and Benign essential hypertension I10 [facility] [id number] [place] [address] 56849- 7684 Dec, [facility] [id number] [place] [address] 81522- 0096 Nov, [facility] [id number] [place] [address] 20718- 6719 Nov, [facility] [id number] [place] [address] 87376- 2161 Oct, [facility] [id number] [place] [address] 22370- 2844 Oct, [facility] [id number] [place] [address] 09284- 7302 Oct, 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 ; Benign essential hypertension I10 ; Reactive depression F32.9 and Urinary frequency R35.0 [facility] [id number] [place] [address] 96365- 9327 14 Aug, 2015 UTI (urinary tract infection) N39.0 [facility] [id number] [place] [address] 72433- 5236 07 Aug, 2015 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 [facility] [id number] [place] [address] 87401 2546 17 Jul, 2015 Benign essential hypertension I10 ; CVA, old, 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 and Hypothyroidism E03.9 [facility] [id number] [place] [address] 60069 2546 Jun, [facility] [address] 37481- 9426 Jun, Acute diarrhea R19.7 [facility] [address] [address]345- 5108 May, CVA (cerebral vascular accident) I63.9 [facility] [id number] [place] [address] 04857 2546 16 Apr, 2015 [facility] [id number] [place] [address] 92941- 4696 Apr, [facility] [id number] [place] [address] 16222 2549 Apr, [facility] [id number] [place] [address] 29059 2546 Apr, [facility] [id number] [place] [address] 93709 2546 Apr, CVA (cerebral vascular accident) I63.9 and Constipation K59.00 [facility] [address] 59335- 5976 Apr, [facility] [id number] [place] [address] 00047 2546 Mar, [facility] [address] 199228- 6602 Mar, [facility] [id number] [place] [address] 95092- 7466 Mar, [facility] [id number] [place] [address] 74963- 6395 Mar, [facility] [id number] [place] [address] 10850- 8878 Feb, [facility] [id number] [place] [address] 156888- 1448 Feb, CVA, old, 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 ; Allergic rhinitis J30.9 and Benign essential hypertension I10 [facility] [address] 40977- 3547 Dec, CVA (cerebral vascular accident) 434.91 [facility] [id number] [place] [address] 25563- 7988 Dec, [facility] [id number] [place] [address] 12561- 2840 Oct, [facility] [id number] [place] [address] 94498- 1295 Oct, [facility] [id number] [place] [address] 45683- 1815 Oct, CVA (cerebral vascular accident) 434.91 [facility] [id number] [place] [address] 28265- 7869 Oct, [facility] [id number] [place] [address] 38462- 2823 September, [facility] [id number] [place] [address] 43591- 2842 September, Allergic rhinitis 477.9 and Arthropathy 716.90 [facility] [id number] [place] [address] 39560- 5626 14 Aug, 2014 [facility] [id number] [place] [address] 53098- 2996 Aug, [facility] [address] [id number] [place] [address]- 3[address] Jun, [facility] [address] [facility] [id number] [place] [address]- 0337 Jun, [facility] [address] [place] [id number] Jun, [facility] [address] [id number] [place] [address]- 2416 Jun, [facility] [address] [facility] [id number] [place] [address]- 6943 Jun, [facility] [address] [facility] [id number] [place] [address]- 8913 Jun, [facility] [address] [facility] [id number] [place] [address]- 1847 Jun, [facility] [address] [facility] [id number], [place] [address]- 1307 May, [facility] [address] [facility] [id number], [place] [address]- 7489 May, [facility] [address] [facility] [id number], [place] [address]- 3748 May, [facility] [address] [facility] [id number], [place] [address]- 0701 May, [facility] [address] [facility] [id number], [place] [address]- 1635 Apr, [facility] [address] [facility] [id number], [place] [address]- 6270 Apr, [facility] [address] [facility] [id number], [place] [address]- 5693 Apr, [facility] [place] [address] [place] [id number] Apr, [facility] [address] [facility] [id number], [place] [address]- 0691 04 Apr, 2014 [facility] [place] [facility] [address] [id number] [place] [address]- 2908 03 Apr, 2014 [facility] [place] [facility] [address] [id number] [place] [address]- 7464 03 Apr, 2014 [facility] [place] [facility] [address] [facility] [id number] [place] [address]- 5659 Apr, [facility] [place] [facility] [address] [id number] [place] [address]- 1482 Apr, [facility] [place] [facility] [address] [id number] [place] [address]- 0538 Apr, [facility] [place] [facility] [address] [id number] [place] [address]- 2139 Apr, [facility] [place] [facility] [address] [facility] [id number] [place] [address]- 3315 18 Mar, 2014 [facility] [place] [facility] [address] [id number] [place] [address]- 7762 18 Mar, 2014 [facility] [place] [facility] [address] [id number] [place] [address]- 6257 18 Mar, 2014 [facility] [place] [facility] [address] [facility] [id number] [place] [address]- 3757 18 Mar, 2014 [facility] [place] [facility] [address] [id number], [place] [address]- 8774 17 Mar, 2014 [facility] [place] [facility] [address] [id number], [place] [address]- 4212 17 Mar, 2014 [facility] [place] [facility] [address] [id number] [place] [address]- 8459 17 Mar, 2014 [facility] [place] [facility] [address] [id number] [place] [address]- 0520 17 Mar, 2014 [facility] [place] [facility] [address] [facility] [id number] [place] [address]- 2707 16 Mar, 2014 [facility] [place] [facility] [address] [id number] [place] [address]- 0306 16 Mar, 2014 [facility] [place] [facility] [address] [id number] [place] 4604 05 Mar, 2014 [facility] [place] [facility] [address] [id number] [place] [address]- 3962 Mar, [facility] [place] [facility] [address] [id number] [place] [address]- 7865 Mar, [facility] [place] [facility] [address] [id number] [place] [address]- 8341 Feb, [facility] [place] [facility] [address] [id number] [place] [address]- 3623 Feb, [facility] [place] [facility] [address] [id number] [place] [address]- 6414 Feb, [facility] [place] [facility] [address] [id number] [place] [address]- 9751 Feb, [facility] [place] [facility] [address] [id number] [place] [address]- 3577 Feb, [facility] [place] [facility] [address] [id number] [place] [address]- 1288 Feb, [facility] [place] [facility] [address] [id number] [place] [address]- 4627 Feb, [facility] [place] [facility] [address] [id number] [place] [address]- 0093 Feb, [facility] [place] [facility] [address] [id number] [place] [address]- 2293 Jan, [facility] [place] [facility] [address] [id number] [place] [address]- 4555 Jan, [facility] [place] [facility] [address] [id number] [place] [address]- 5354 Dec, [facility] [place] [facility] [address] [id number] [place] [address]- 9272 Dec, [facility] [place] [facility] [address] [id number] [place] [address]- 6307 Dec, [facility] [place] [facility] [address] [id number] [place] [address]- 9770 Dec, [facility] [place] [facility] [address] [id number] [place] [address]- 7079 Nov, [facility] [place] [facility] [address] [id number] [place] [address]- 3884 Nov, [facility] [place] [facility] [address] [id number] [place] [address]- 4059 Nov, [facility] [place] [facility] [address] [id number] [place] [address]- 9246 Nov, [facility] [place] [facility] [address] [id number] [place] [address]- 4809 Nov, [facility] [place] [facility] [address] [id number] [place] [address]- 7906 Nov, [facility] [place] [facility] [address] [id number] [place] [address]- 7161 Nov, [facility] [place] [facility] [address] [id number] [place] [address]- 8910 Oct, [facility] [place] [facility] [address] [id number] [place] [address]- 7219 Oct, [facility] [place] [facility] [address] [id number] [place] [address]- 7024 Oct, [facility] [place] [facility] [address] [id number] [place] [address]- 3991 Oct, [facility] [place] [facility] [address] [id number] [place] [address]- 8472 Oct, [facility] [place] [facility] [address] [id number] [place] [address]- 1654 Oct, [facility] [place] [facility] [address] [id number] [place] [address]- 9135 September, [facility] [address] [id number] [place] [address]- 3205 September, [facility] [place] [facility] [address] [id number] [place] [address]- 0358 September, [facility] [place] [facility] [address] [id number] [place] [address]- 9915 September, [facility] [place] [facility] [address] [id number] [place] [address]- 8352 September, [facility] [place] [facility] [address] [id number] [place] [address]- 2184 September, [facility] [place] [facility] [address] [id number] [place] [address]- 8099 September, [facility] [address] [id number] [place] [address]- 8426 September, [facility] [place] [facility] [address] [id number] [place] [address]- 7554 September, [facility] [place] [facility] [address] [id number] [place] [address]- 7285 Aug, [facility] [place] [facility] [address] [id number] [place] [address]- 9038 Jun, [facility] [place] [facility] [address] [id number] [place] [address]- 7950 Jun, [facility] [place] [facility] [address] [id number] [place] [address]- 1603 May, [facility] [place] [facility] [address] [id number] [place] [address]- 1049 Mar, [facility] [place] [facility] [address] [id number] [place] [address]- 7684 Mar, [facility] [place] [facility] [address] [id number] [place] [address]- 5232 Oct, [facility] [place] [facility] [address] [id number] [place] [address]- 3641 September, [facility] [address] [id number] [place] [address]- 2546 September, [facility] [address] [id number] [place] [address]- 2546 Aug, [facility] [place] [facility] [address] [id number] [place] [address]- 2546 Jul, [facility] [address] [id number] [place] [address]- 0242 May, [facility] [address] [id number] [place] [address]- 3356 May, [facility] [address] [id number] [place] [address]- 9571 May, [facility] [address] [id number] [place] [address]- 5993 Feb, [facility] [address] [id number] [place] [address] Feb, [facility] [address] [id number], [place] [address] Feb, [facility] [address] [id number] [place] [address] Feb, [facility] [address] [id number], [place] [address] Feb, [facility] [address] [id number] [id number] Feb, [facility] [place] [facility] [address] [id number] [place] [address] Feb, [facility] [place] [facility] [address] [id number], [place] [address] Feb, [facility] [address] [id number], [place] [address] Feb, [facility] [address] [facility] [id number] [place] [address] Jan, [facility] [address] [facility] [id number], [place] [address] Dec, [facility] [address] [id number], [place] [address] Dec, [facility] [address] [facility] [id number], [place] [address] Dec, [facility] [address] [facility] [id number] [place] [address] Nov, [facility] [address] [facility] [id number], [place] [address] Nov, [facility] [address] [id number], [place] [address] Oct, [facility] [address] [id number], [place] [address] September, [facility] [address] [id number], [place] [address] Aug, [facility] [id number], [place] [address] Aug, [facility] [id number], [place] [address] Jul, [facility] [address] [facility] [id number], [place] [address] Jul, [facility] [address] [facility] [id number], [place] [address] Jul, [facility] [address] [id number], [place] [address] Jun, 2011 [facility] [address] [id number], [place] [address] Jun, IMMUNIZATIONS No Known Immunizations SOCIAL HISTORY Never Assessed REASON FOR VISIT Refill request PLAN OF CARE VITAL SIGNS MEDICATIONS Unknown Medications RESULTS No Results PROCEDURES No Known procedures INSTRUCTIONS MEDICATIONS ADMINISTERED No Known Medications
--- OUTSIDE RECORDS SUMMARY | 2018-02-05 08:38 | XMS REPORT ---
Author Author RENETTA ELIZONDO Organization [employer] Address Unknown Phone Unavailable Care Team Providers Care Car Storer Name Role Phone RENETTA ELIZONDO CP Unavailable [...]
--- OUTSIDE RECORDS SUMMARY | 2018-02-05 08:38 | XMS REPORT ---
Author RENETTA Bergman [facility] e[employer]Works Address Unknown Phone Unavailable Care Team Providers Care Validation Leader Name Role Phone RENETTA ELIZONDO Unavailable Allergies No Known Allergies Problems Problem [...] Instructions Start Date End Date Status Dosage Guaifenesin [facility] [address]-39 100 MG/5ML Orally every 6 hrs 10 ml as needed Calcium Carbonate Antacid [facility] [address]-14 400 MG Orally every 1 hour 3 tablet as needed Benadryl [facility] [address]-28 25 MG Orally Once a day for insomnia 2 capsule Tylenol [facility] [address]-80 325 MG Orally every 4 hrs 2 tablets as needed Coreg [facility] [address]-19 25 MG Orally 2 times a day 1 tablet Metamucil Smooth Texture [facility] [address]605-86869 28 % Orally Once a day 1 packet with 8 ounces of liquid as needed Promethazine HCl [facility] [address]-83 25 MG Orally every 6 hrsfor nausea 1 tablet as needed Ranitidine HCl [facility] [address]-97 150 MG Orally twice a day 1 tablet at bedtime Melatonin [facility] [address]-37 3 MG Orally Once a day at Dec 29, 2015 1 tablet at bedtime as needed with food Aggrenox [facility] [address]-69 25-200 MG Orally Twice a day 1 capsule Zyrtec Allergy [facility] [address]-50 10 MG Orally Once a day 1 tablet Seroquel [facility] [address]-37 50 mg Orally Once a day 1 tablet Levothyroxine Sodium [facility] [address]-64 50 MCG Orally Once a day 1 tablet Imodium A-D [facility] [address]-68 2 MG Orally every 6 hours as needed 1 tablet Tramadol HCl [facility] [address]-35 50 mg Orally Once a day at HS for pain 1 tablet as needed Norvasc [facility] [address]-45 5 MG Orally Once a day 1 tablet Simvastatin [facility] [address]-66 20 MG Orally Once a day 1 tablet in the evening Aricept [facility] [address]-40 10 MG Orally Once a day 1 tablet at bedtime Cymbalta [facility] [address]-94 30 MG Orally Once a day 1 capsule Lisinopril [facility] [address]-04 20 MG Orally Once a day 1 tablet Results No Known Results Summary Purpose eClinicalWorks Submission
--- OUTSIDE RECORDS SUMMARY | 2018-02-05 08:38 | XMS REPORT ---
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 19023129 Problem Hypothyroidism E03.9 Active 45296327 Problem Allergy, subsequent encounter T78.40XD Active 261275563 Problem Reactive depression F32.9 Active 03151916 Problem Aphasia R47.01 Active 65141039 Problem 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 Active 410805613 Problem 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, unspecified hemiplegia type I69.353 Active 706914582 Problem Alzheimers disease with late onset G30.1 Active 540197514 Problem Glaucoma of both eyes, unspecified glaucoma H40.9 Active 70830515 Problem Gastroesophageal reflux disease without esophagitis K21.9 Active 297566537 ALLERGIES Unknown Allergies SOCIAL HISTORY No smoking Hx information available PLAN OF CARE VITAL SIGNS MEDICATIONS Medication Instructions Dosage Frequency Start Date End Date Duration Status Cymbalta 60 MG Orally Once a day 1 capsule 24h Mar, Active RESULTS No Results PROCEDURES No Known procedures IMMUNIZATIONS No Known Immunizations
--- OUTSIDE RECORDS SUMMARY | 2018-02-05 08:38 | XMS REPORT ---
Author Author RENETTA ELIZONDO Organization [employer] Address Unknown Phone Unavailable Care Team Providers Care Cotton Bag Clipper Name Role Phone RENETTA ELIZONDO CP Unavailable [...] Start Date End Date Status Dosage Xanax [facility] [address]-44 0.25 MG Orally every 4-6 hours as needed (PT [facility] IN [facility]) Feb 12, 2016 1 tablet Results No Known Results Summary Purpose eClinicalWorks Submission
--- OUTSIDE RECORDS SUMMARY | 2018-02-05 08:38 | XMS REPORT ---
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 Active 326289394 Problem Benign essential hypertension I10 Active 4213782 Problem Hypothyroidism E03.9 Active 49565775 Problem CVA (cerebral vascular accident) I63.9 Active 977073373 ALLERGIES Unknown Allergies SOCIAL HISTORY No smoking Hx information available PLAN OF CARE VITAL SIGNS MEDICATIONS Medication Instructions Dosage Frequency Start Date End Date Duration Status Tramadol HCl 50 mg Orally Once a day at HS for pain ([facility] PT) 1 tablet as needed 8 Feb, 2016 30 days Active RESULTS No Results PROCEDURES No Known procedures IMMUNIZATIONS No Known Immunizations
--- OUTSIDE RECORDS SUMMARY | 2018-02-05 08:38 | XMS REPORT ---
Author Author RENETTA ELIZONDO Organization [employer] Address Unknown Phone Unavailable Care Team Providers Care Business Development Officer Name Role Phone RENETTA ELIZONDO CP Unavailable [...]
--- OUTSIDE RECORDS SUMMARY | 2018-02-05 08:38 | XMS REPORT ---
Author Author RENETTA ELIZONDO Organization [employer] Address Unknown Phone Unavailable Care Team Providers Care Manager Retention Name Role Phone RENETTA ELIZONDO CP Unavailable [...]
--- OUTSIDE RECORDS SUMMARY | 2018-02-05 08:38 | XMS REPORT ---
Author Author RENETTA ELIZONDO Organization [employer] Address Unknown Phone Unavailable Care Team Providers Care Community Facilitator Name Role Phone RENETTA ELIZONDO CP Unavailable [...]
--- OUTSIDE RECORDS SUMMARY | 2018-02-05 08:38 | XMS REPORT ---
Author Author RENETTA ELIZONDO Organization [employer] Address Unknown Phone Unavailable Care Team Providers Care Licensed Customs Broker Name Role Phone RENETTA ELIZONDO CP Unavailable [...]
--- OUTSIDE RECORDS SUMMARY | 2018-02-05 08:38 | XMS REPORT ---
Author Author RENETTA ELIZONDO Organization [employer] Address Unknown Phone Unavailable Care Team Providers Care Nurses Assistant Name Role Phone RENETTA ELIZONDO CP Unavailable [...]
[2018-02-05] MEDS: TETRACAINE 0.5% OPHTH SOLN 4 ML BTL (SINGLE DOSE ONLY) OU PRN ×4 (08:43→09:03)
--- OUTSIDE RECORDS SUMMARY | 2018-02-05 08:44 | XMS REPORT ---
Author Author [facility] Medical Staff Organization [facility] Address [address] [place], [place] [address] Phone [phone] Summary purpose CCDA Sent to [facility] Chief Complaint and Reason for Visit Admit Diagnosis 1 REC DEPR PSYCH-PSYCHOTIC Problem list Condition Status Certainty Chronicity Onset .Altered mental status; hx of depression, paranoia Active .Hypertension Active Actual Encounters The following conditions tracked for encounter diagnoses were recorded for this visit: Finding or Diagnosis Status Certainty Chronicity Onset .Altered mental status; hx of depression, paranoia Active .Hypertension Active Actual Medications Home Medications Medication Directions Started Status Source Aspirin Low Dose 81 mg tablet,delayed release 81 mg oral -Daily Current Coreg 3.125 mg tablet 3.125 mg oral -Daily Current Levothroid 50 mcg tablet 50 microgram oral -Daily Current Seroquel 50 mg tablet 50 mg oral At bed time Current simvastatin 20 mg tablet 20 mg oral -Daily Current traZODone 100 mg tablet 100 mg oral At bed time Current Vitamin D3 1,000 unit tablet 1 tablet oral -Daily Current Xanax 0.5 mg tablet 0.5 mg oral 3 times daily Current Allergies, adverse reactions, alerts Allergen Category Ingredient Status Reaction Severity Onset Penicillins Drug Penicillins Active Immunizations No immunizations recorded for this patient visit Relevant diagnostic tests and/or laboratory data RESULTS CBC 65-45-331507:40:00 Result Normal Range Units WBC 6.45 4.60-10.20 x 103/uL RBC 5.14 4.04-6.13 x 106/uL Hemoglobin 15.0 12.2-18.1 g/dl Hematocrit 45.0 37.7-53.7 % MCV 87.5 80.0-97.0 FL MCH 29.2 27.0-31.2 pg MCHC 33.3 31.8-35.4 g/dl RDW 13.1 11.6-14.8 % Platelets 316 142-424 x 103/uL Manual Diff Not Indicated MPV 10.0 9.4-12.4 FL Neutrophil % 61.2 37-80 % Neutrophils 3.95 2.0-6.9 x 103/uL Lymphocyte % 26.0 10-50 % Lymphocytes 1.68 0.6-3.4 x 103/uL Monocyte % 10.9 0-12 % Monocytes 0.70 0.0-1.0 x 103/uL Eosinophil % 1.4 0-7 % Eosinophils 0.09 0-0.7 x 103/uL Basophil % 0.5 0-2 % Basophils 0.03 0.0-0.1 x 103/uL :02:00 Result Normal Range Units WBC 6.17 4.60-10.20 x 103/uL RBC 4.90 4.04-6.13 x 106/uL Hemoglobin 14.2 12.2-18.1 g/dl Hematocrit 42.5 37.7-53.7 % MCV 86.7 80.0-97.0 FL MCH 29.0 27.0-31.2 pg MCHC 33.4 31.8-35.4 g/dl RDW 13.0 11.6-14.8 % Platelets 304 142-424 x 103/uL MPV 9.6 9.4-12.4 FL Neutrophil % 50.7 37-80 % Neutrophils 3.13 2.0-6.9 x 103/uL Lymphocyte % 36.5 10-50 % Lymphocytes 2.25 0.6-3.4 x 103/uL Monocyte % 9.1 0-12 % Monocytes 0.56 0.0-1.0 x 103/uL Eosinophil % 3.1 0-7 % Eosinophils 0.19 0-0.7 x 103/uL Basophil % 0.6 0-2 % Basophils 0.04 0.0-0.1 x 103/uL Urinalysis :02:00 Result Normal Range Units Site Voided Culture Pending Urine Color Yellow Yellow Urine Appearance Clear Clear Urine Glucose Negative Negative Urine Bilirubin Negative Negative Urine Ketones Negative Negative Urine Specific [place] 1.010 1.010-1.020 Urine PH 7.0 5.5-7.5 Urine Protein Negative Negative Urine Urobilinogen 0.2 0.2-1.0 Urine Nitrites Negative Negative Urine Blood Negative Negative Urine Leukocytes AB Trace Negative Urine WBC's 6-10 Urine RBC's None Seen [facility]pi's 2+ Chemistry Group [id number]:40:00 Result Normal Range Units Glucose 90 65-110 mg/dl BUN 20 7-21 mg/dl Creatinine 1.1 0.7-1.5 mg/dl Sodium 140 137-145 mmol/L Potassium 3.7 3.6-5.0 mmol/L Chloride 103 98-107 mmol/L CO2 28 22-30 mmol/L BUN/Creatinine Ratio 17.8 7-25 Ratio Calcium 9.4 8.4-10.2 mg/dl Osmolality 273 261-280 mOsm/kg Anion GAP 9.0 mmol/L 60-46-833289:02:00 Result Normal Range Units Glucose H 120 65-110 mg/dl BUN 16 7-21 mg/dl Creatinine 1.2 0.7-1.5 mg/dl Sodium 141 137-145 mmol/L Potassium 3.9 3.6-5.0 mmol/L Chloride 106 98-107 mmol/L CO2 27 22-30 mmol/L BUN/Creatinine Ratio 13.7 7-25 Ratio Calcium 9.6 8.4-10.2 mg/dl Protein Total 7.5 6.3-8.2 g/dl Albumin 4.6 3.5-5.0 g/dl A/G Ratio 1.6 1.2-2.2 Ratio AST 35 15-46 U/L ALT 35 7-56 U/L ALP 88 38-126 U/L Bilirubin Total 0.6 0.2-1.3 mg/dl Osmolality 274 261-280 mOsm/kg Globulin 2.9 2.4-3.5 g/dL Free T4 1.16 0.70-1.48 ng/dl TSH 1.47 0.35-4.94 uIU/mL Reference Lab Group [id number]:00 Result Normal Range Units Source Unformed Result Amended on 2014-05-24 at 21:09:42. Previous status was FR. The [employer] Gastrointestinal Panel is intended as an aid in the diagnosis of specific agents of gastrointestinal illness and results are meant to be used in conjunction with other clinical, laboratory, and epidemiological data.Testing should only be performed on individuals with signs and/or symptoms of gastrointestinal illness (i.e. diarrhea).This test is not intended to monitor or guide treatment for C.difficle infection in adults or detection in children less than 2 years of age. Campylobacter Not Detected Not Detected Result Amended on 2014-05-24 at 21:09:41. Previous status was FR. C difficile toxin A/B Not Detected Not Detected Result Amended on 2014-05-24 at 21:09:41. Previous status was FR. Plesiomonas shigelloid Not Detected Not Detected Result Amended on 2014-05-24 at 21:09:41. Previous status was FR. Salmonella Not Detected Not Detected Result Amended on 2014-05-24 at 21:09:41. Previous status was FR. Vibrio Not Detected Not Detected Result Amended on 2014-05-24 at 21:09:42. Previous status was FR. Vibrio cholerae Not Detected Not Detected Result Amended on 2014-05-24 at 21:09:42. Previous status was FR. Yersinia enterocolitica Not Detected Not Detected Result Amended on 2014-05-24 at 21:09:42. Previous status was FR. Enteroaggregative Ecoli Not Detected Not Detected Result Amended on 2014-05-24 at 21:09:42. Previous status was FR. Enteropathogenic Ecoli Not Detected Not Detected Result Amended on 2014-05-24 at 21:09:42. Previous status was FR. Enterotoxigenic Ecoli Not Detected Not Detected Result Amended on 2014-05-24 at 21:09:42. Previous status was FR. Shig-like toxin Ecoli Not Detected Not Detected Result Amended on 2014-05-24 at 21:09:42. Previous status was FR. Shig/Enteroinvasiv Ecoli Not Detected Not Detected Result Amended on 2014-05-24 at 21:09:42. Previous status was FR. Cryptosporidium Not Detected Not Detected Result Amended on 2014-05-24 at 21:09:42. Previous status was FR. Cyclospora cayetanens. Not Detected Not Detected Result Amended on 2014-05-24 at 21:09:42. Previous status was FR. Entamoeba histolytica Not Detected Not Detected Result Amended on 2014-05-24 at 21:09:42. Previous status was FR. Giardia Lamblia Not Detected Not Detected Result Amended on 2014-05-24 at 21:09:42. Previous status was FR. Adenovirus F 40/41 Not Detected Not Detected Result Amended on 2014-05-24 at 21:09:42. Previous status was FR. Asterovirus Not Detected Not Detected Result Amended on 2014-05-24 at 21:09:42. Previous status was FR. Norovirus GI/GII Not Detected Not Detected Result Amended on 2014-05-24 at 21:09:42. Previous status was FR. Rotavirus Not Detected Not Detected Result Amended on 2014-05-24 at 21:09:42. Previous status was FR. Sapovirus Not Detected Not Detected Result Amended on 2014-05-24 at 21:09:42. Previous status was FR. 13-00-153136:40:00 Result Normal Range Units Adenovirus Not Detected Not Detected Result Amended on 2014-05-24 at 13:58:30. Previous status was FR. Adeno2 Not Detected Not Detected Result Amended on 2014-05-24 at 13:58:30. Previous status was FR. Coronavirus 229E Not Detected Not Detected Result Amended on 2014-05-24 at 13:58:30. Previous status was FR. Coronavirus HKU1 Not Detected Not Detected Result Amended on 2014-05-24 at 13:58:30. Previous status was FR. Coronavirus NL63 Not Detected Not Detected Result Amended on 2014-05-24 at 13:58:30. Previous status was FR. Coronavirus OC43 Not Detected Not Detected Result Amended on 2014-05-24 at 13:58:30. Previous status was FR. Human Metapneumovir. Not Detected Not Detected Result Amended on 2014-05-24 at 13:58:30. Previous status was FR. Entero1 Not Detected Not Detected Result Amended on 2014-05-24 at 13:58:30. Previous status was FR. Entero2 Not Detected Not Detected Result Amended on 2014-05-24 at 13:58:30. Previous status was FR. Human Rhinovirus 1 Not Detected Not Detected Result Amended on 2014-05-24 at 13:58:30. Previous status was FR. Human Rhinovirus 2 Not Detected Not Detected Result Amended on 2014-05-24 at 13:58:30. Previous status was FR. Human Rhinovirus 3 Not Detected Not Detected Result Amended on 2014-05-24 at 13:58:30. Previous status was FR. Human Rhinovirus 4 Not Detected Not Detected Result Amended on 2014-05-24 at 13:58:31. Previous status was FR. [id number] Not Detected Not Detected Result Amended on 2014-05-24 at 13:58:31. Previous status was FR. FluA-H1-wright Not Detected Not Detected Result Amended on 2014-05-24 at 13:58:31. Previous status was FR. FluA-H3 Not Detected Not Detected Result Amended on 2014-05-24 at 13:58:31. Previous status was FR. FluA-pan1 Not Detected Not Detected Result Amended on 2014-05-24 at 13:58:31. Previous status was FR. FluA-pan2 Not Detected Not Detected Result Amended on 2014-05-24 at 13:58:31. Previous status was FR. Influenza B Not Detected Not Detected Result Amended on 2014-05-24 at 13:58:31. Previous status was FR. Parainfluenza Virus 1 Not Detected Not Detected Result Amended on 2014-05-24 at 13:58:31. Previous status was FR. Parainfluenza Virus 2 Not Detected Not Detected Result Amended on 2014-05-24 at 13:58:31. Previous status was FR. Parainfluenza Virus 3 Not Detected Not Detected Result Amended on 2014-05-24 at 13:58:31. Previous status was FR. Parainfluenza Virus 4 Not Detected Not Detected Result Amended on 2014-05-24 at 13:58:31. Previous status was FR. Respiratory Syncytial Vir Not Detected Not Detected Result Amended on 2014-05-24 at 13:58:31. Previous status was FR. Bordetella pertussis Not Detected Not Detected Result Amended on 2014-05-24 at 13:58:31. Previous status was FR. Chlamydophila pnemon Not Detected Not Detected Result Amended on 2014-05-24 at 13:58:31. Previous status was FR. Mycoplasma pneumoni Not Detected Not Detected Result Amended on 2014-05-24 at 13:58:31. Previous status was FR. :02:00 EKG See Manual Report Urinalysis :02:00 Result Normal Range Units Site Voided Culture Pending Urine Color Yellow Yellow Urine Appearance Clear Clear Urine Glucose Negative Negative Urine Bilirubin Negative Negative Urine Ketones Negative Negative Urine Specific [place] 1.010 1.010-1.020 Urine PH 7.0 5.5-7.5 Urine Protein Negative Negative Urine Urobilinogen 0.2 0.2-1.0 Urine Nitrites Negative Negative Urine Blood Negative Negative Urine Leukocytes AB Trace Negative Urine WBC's 6-10 Urine RBC's None Seen Squamous Epi's 2+ Gram Positive Bacteria 90-82-337403:40:00 Result Normal Range Units Entero1 Not Detected Not Detected Result Amended on 2014-05-24 at 13:58:30. Previous status was FR. History of procedures No procedures recorded for this patient visit. Functional status Functional Status Finding Observation Time Dexterity Right-handed :00 Weight Bearing Statu Full 99-17-027855:30 Transferring/Ambulat Independent : Bathing Needs Assistance : Dressing Independent : Eating Independent : Drinking Independent : Toileting Independent : Able to Turn Self in Independent : Stairs Not Done :00 Cognitive Status Finding Observation Time Level of Consciousne Alert 55-05-370227:40 Oriented to Person Yes 77-02-327188:[address] Yes 28-49-869405:40 Oriented to Time Yes 47-52-884631:40 Eyes - LEIGH ANN Yes 16-18-215754:40 Vital signs Type Value Date Respirations 18 72-81-680977:51 Pulse 69 31-59-938676:51 O2 Saturation 98% 72-05-373325:51 Systolic Blood Press 162mm/HG 25-25-326429:51 Diastolic Blood Pres 88mm/HG 02-86-049654:51 Temperature (Fahr) 97.6Degrees 86-01-502443:51 Height 61in 16-96-741440:00 Weight 157LB 53-44-502714:30 Social history Type Value Smoking Status NEVER SMOKER Treatment Plan Treatment Plan at F/U with Dr. Aquino [facility] discharge instructions Diagnosis Discharged to [facility] with current medication Diet Regular Activity Level As tolerated Personal Items Retur Yes Flu Vaccine Given Comment: No vaccine indicated Pneumonia Vaccine Gi Comment: No vaccine indicated Follow up with Dr. Dion Aquino Appointment Date and 05-30-2014 @ 1871
--- OUTSIDE RECORDS SUMMARY | 2018-02-05 08:44 | XMS REPORT ---
Author Author [facility] Medical Staff Organization [facility] Address [address] [place], [place] [address] Phone [phone] Summary purpose CCDA Sent to [facility] Chief Complaint and Reason for Visit No authorized Reason for Visit (Admitting Diagnosis) is available for this visit. Problem list No authorized problems tracked for continuity of care are available for this visit. Encounters No authorized problems tracked for encounter diagnoses are available for this visit. Medications No home medications recorded for this patient visit Allergies, adverse reactions, alerts Allergen Category Ingredient Status Reaction Severity Onset Penicillins Drug Penicillins Active Immunizations No immunizations recorded for this patient visit Relevant diagnostic tests and/or laboratory data No authorized results are available for this patient visit History of procedures Procedure Code Code Type Description Date Performed Performing Physician 60806 CPT-4 ELECTROCARDIOGRAM REPORT 05-15-2014 [facility] Functional status No functional or cognitive status [...]
[2018-02-05] MEDS ORDERED: EPINEPHrine INJECTION 1 MG/ML AMP INJ ONE (08:45)
[2018-02-05] MEDS ORDERED: LIDOCAINE PF 1% 2 ML AMP IR PRN (08:45)
[2018-02-05] MEDS ORDERED: POVIDONE (BETADINE) OPHTH SOLN 5% 30 ML OP ONE (08:45)
[2018-02-05] MEDS ORDERED: VANCOMYCIN/BSS (COMPOUNDED) 10 MG/ML SYR OP ONE (08:45)
[2018-02-05] MEDS ORDERED: TIMOLOL MALEATE 0.5% 5 ML (TIMOPTIC) BTL OU PRN (08:45)
--- OUTSIDE RECORDS SUMMARY | 2018-02-05 08:45 | XMS REPORT ---
Author Author [facility] Medical Staff Organization [facility] Address [address] [place], [place] [address] Phone [phone] Summary purpose CCDA Sent to [facility] Chief Complaint and Reason for Visit No authorized Reason for Visit (Admitting Diagnosis) is available for this visit. Problem list Condition Status Certainty Chronicity Onset [...] diagnostic tests and/or laboratory data RESULTS CBC 05-36-337078:40:00 Result Normal Range Units WBC 6.45 4.60-10.20 [...] Negative Urine Ketones Negative Negative Urine Specific [place] 1.010 1.010-1.020 Urine PH 7.0 5.5-7.5 Urine Protein Negative Negative Urine Urobilinogen 0.2 0.2-1.0 Urine Nitrites Negative Negative Urine Blood Negative Negative Urine Leukocytes AB Trace Negative Urine WBC's 6-10 Urine RBC's None Seen [facility] 2+ Chemistry Group [id number]:40:00 Result Normal Range Units Glucose 90 65-110 mg/dl BUN 20 7-21 mg/dl Creatinine 1.1 0.7-1.5 mg/dl Sodium 140 137-145 mmol/L Potassium 3.7 3.6-5.0 mmol/L Chloride 103 98-107 mmol/L CO2 28 22-30 mmol/L BUN/Creatinine Ratio 17.8 7-25 Ratio Calcium 9.4 8.4-10.2 mg/dl Osmolality 273 261-280 mOsm/kg Anion GAP 9.0 mmol/L 12-51-902635:02:00 Result Normal Range Units Glucose H 120 [...] TSH 1.47 0.35-4.94 uIU/mL Reference Lab Group [id number]:37:00 Result Normal Range Units Source Unformed Result Amended on 2014-05-24 at 21:09:42. Previous status was FR. The [employer] Gastrointestinal Panel is intended as an aid [...] 2014-05-24 at 21:09:42. Previous status was FR. 54-40-999486:40:00 Result Normal Range Units Adenovirus Not Detected [...] 2014-05-24 at 13:58:31. Previous status was FR. [id number] Not Detected Not Detected Result Amended on [...] Negative Urine Ketones Negative Negative Urine Specific [place] 1.010 1.010-1.020 Urine PH 7.0 5.5-7.5 Urine Protein Negative Negative Urine Urobilinogen 0.2 0.2-1.0 Urine Nitrites Negative Negative Urine Blood Negative Negative Urine Leukocytes AB Trace Negative Urine WBC's 6-10 Urine RBC's None Seen Squamous Epi's 2+ History of procedures No procedures recorded for this patient visit. Functional status Functional Status Finding Observation Time Dexterity Right-handed :00 Weight Bearing Statu Full 14-09-554311:30 Transferring/Ambulat Independent :00 Bathing Needs Assistance : Dressing Independent : Eating Independent : Drinking Independent : Toileting Independent : Able to Turn Self in Independent : Stairs Not Done :00 Cognitive Status Finding Observation Time Level of Consciousne Alert :40 Oriented to Person Yes 67-38-192464:[address] Yes :40 Oriented to Time Yes 09-24-365884:40 Eyes - LEIGH ANN Yes :40 Vital signs Type Value Date Respirations 18 59-29-691969:51 Pulse 69 33-40-049271:51 O2 Saturation 98% 83-80-890528:51 Systolic Blood Press 162mm/HG 99-78-517410:51 Diastolic Blood Pres 88mm/HG 74-76-651583:51 Temperature (Fahr) 97.6Degrees 71-09-631795:51 Height 61in 38-87-214985:00 Weight 157LB 93-80-839167:30 Social history Type Value Smoking Status NEVER SMOKER Treatment Plan Treatment Plan at F/U with Dr[facility] Aquino [facility] discharge instructions Diagnosis Discharged to [facility] with current medication Diet Regular Activity Level As tolerated Personal Items Retur Yes Flu Vaccine Given Comment: No vaccine indicated Pneumonia Vaccine Gi Comment: No vaccine indicated Follow up with Dr. Dion Aquino Appointment Date and 05-30-2014 @ 3827
[2018-02-05] MEDS: CYCLOPENTOLATE 1% (CYCLOGYL) 2 ML DROPS OP SCH ×3 (08:55→09:03)
[2018-02-05] MEDS: PHENYLEPHRINE 10% OPHTH (NEO-SYN) 5 ML BTL OU SCH ×3 (08:55→09:03)
[2018-02-05] MEDS ORDERED: MIDAZOLAM 2 MG/2 ML (VERSED) VIAL ONE (09:04)
--- NOTE | 2018-02-05 09:21 | Ophthalmologist Pre-Op Note ---
Pre-Operative Progress Note H&P Reviewed The H&P was reviewed, patient examined and no changes noted. Date H&P Reviewed: Feb 05, 2018 Time H&P Reviewed: 09:21 Pre-Op Dx Cataract, Right Eye MERARY NORIEGA MD Feb 05, 2018 09:21
--- NOTE | 2018-02-05 09:49 | Ophthalmology Operative Report ---
Cataract, Miotic Pupil PREOPERATIVE DIAGNOSIS: 1. Cataract Right Eye 2. Miotic Pupil POSTOPERATIVE DIAGNOSIS: 1. Cataract Right Eye 2. Miotic Pupil PROCEDURE: 1. Cataract removal and placement of posterior chamber implant, right eye 2. Pupillary expansion with malyugin ring SURGEON: Rell Noriega ANESTHESIA: Topical with sedation COMPLICATIONS: None ESTIMATED BLOOD LOSS: Minimal DESCRIPTION OF PROCEDURE: After proper informed consent was obtained, the patient, a 82 female, was taken to the Operating Room and the right eye was anesthetized with Tetracaine. The eye was then prepped and draped in the usual manner. A wire lid speculum was placed. A paracentesis was made at the left hand position. Preservative free lidocaine was injected into anterior chamber followed by viscoelastic. A clear corneal incision was made in the temporal position. The malyugin ring was injected into the anterior chamber and the pupil was dilated. A capsulorrhexis was preformed and the central nuclear and cortical material were removed. The posterior capsule was polished and José 22.5 [id number] IOL was placed into the capsular bag. The malyugin ring was removed. The residual viscoelastic was aspirated and the balanced saline solution was injected into the anterior chamber. Vancomycin was injected into the anterior chamber. The wound was checked and found to be water tight. The patient tolerated the procedure well without complications. RELL NORIEGA MD Feb 05, 2018 09:49
[2018-02-05 09:55] VITALS: BP 130/60
--- NOTE | 2018-02-05 13:18 | Anesthesia-General Post-Op ---
MAC Patient Condition Mental Status/LOC: Same as Preop Cardiovascular: Satisfactory Nausea/Vomiting: Absent Respiratory: Satisfactory Pain: Controlled Complications: Absent Post Op Complications Complications None Follow Up Care/Instructions Patient Instructions None needed. Anesthesiology Discharge Order Discharge Order Patient is doing well, no complaints, stable vital signs, no apparent adverse anesthesia problems. No complications reported per nursing. VINCENT BYRD CRNA Feb 05, 2018 13:18
== END 2018-02-05 09:55 | disposition home or self-care (01) ==
LOC: SDC 08:17
PROVIDERS: ATTEND Specialist
DX: H25.11 Age-related nuclear cataract, right eye (principal); I10 Essential (primary) hypertension; G30.9 Alzheimer's disease, unspecified; F02.80 Dementia in other diseases classified elsewhere, unspecified severity, without behavioral disturbance, psychotic disturbance, mood disturbance, and anxiety; I69.351 Hemiplegia and hemiparesis following cerebral infarction affecting right dominant side; I69.328 Other speech and language deficits following cerebral infarction; Z79.82 Long term (current) use of aspirin; Z79.899 Other long term (current) drug therapy

== ENCOUNTER → 2019-05-28 | Outpatient (CLI) | payer MEDICARE, MEDICAID ==
[~2019-05-28] MED LIST changes: -AMLO10TA6 PO; +AMLO10TA7 PO
== END ==
LOC: LABNPT 15:06
PROVIDERS: ATTEND Nurse Practitioner Family
DX: I69.353 Hemiplegia and hemiparesis following cerebral infarction affecting right non-dominant side (principal); F51.02 Adjustment insomnia; R11.2 Nausea with vomiting, unspecified; H26.9 Unspecified cataract; T78.40XA Allergy, unspecified, initial encounter; K21.9 Gastro-esophageal reflux disease without esophagitis; E78.2 Mixed hyperlipidemia; F32.89 Other specified depressive episodes; K59.00 Constipation, unspecified; J30.2 Other seasonal allergic rhinitis; E56.8 Deficiency of other vitamins; M25.80 Other specified joint disorders, unspecified joint; H40.219 Acute angle-closure glaucoma, unspecified eye; F03.91 Unspecified dementia, unspecified severity, with behavioral disturbance; G47.00 Insomnia, unspecified; E03.8 Other specified hypothyroidism; R52 Pain, unspecified; F41.1 Generalized anxiety disorder; I10 Essential (primary) hypertension; N39.0 Urinary tract infection, site not specified
CPT/HCPCS: 87804

== ENCOUNTER → 2020-02-11 | Outpatient (CLI) | payer MEDICARE, MEDICAID ==
[~2020-02-11] MED LIST changes: -GUAI400T71 PO; +GUAI400T86 PO; -MONT10TA24 PO; +MONT10TA26 PO; -TRAM50TA2 PO; +TRM50T PO
== END ==
LOC: LAB 11:05
PROVIDERS: ATTEND Internal Medicine
DX: R51 Headache (principal); R53.1 Weakness; R68.84 Jaw pain
CPT/HCPCS: 36415; 85652; 86141

== ENCOUNTER 2020-06-27 11:22 | Emergency (ER) | payer MEDICARE, MEDICAID ==
[~2020-06-27] VITALS: Ht 154.9 cm; Wt 71.8 kg
[~2020-06-27 11:22] MED LIST changes: +AMLO-251 PO; -AMLO10TA7 PO; +MIRT-94 PO; -MIRT30TA PO; -MONT10TA26 PO; +MONT10TA97 PO
--- NOTE | 2020-06-27 11:42 | ED General ---
General Chief Complaint: Dizziness/Syncope Stated Complaint: SYNCOPE Source of Information: Patient Exam Limitations: No Limitations History of Present Illness Date Seen by Provider: Jun 27, 2020 Time Seen by Provider: 11:42 Initial Comments To ER with reports of a syncopal event while at Dr. HOSKINS's office having her eyes checked as she has a recent diagnosis of temporal arteritis. She is on the low end of a steroid taper for the past several weeks. Currently on 5 mg/day. From the [facility]. On arrival she denies any symptoms other than feeling tired. No chest pain no shortness of breath. Timing/Duration: 1-3 Hours Associated Systoms: Denies Symptoms Allergies and Home Medications Allergies Coded Allergies: Penicillins (Verified Allergy, Unknown, 10/11/13) Home Medications Amlodipine Besylate 10 Mg Tablet, 10 MG PO DAILY, (Reported) Carvedilol 25 Mg Tab, 25 MG PO BID, (Reported) Cefuroxime Axetil 250 Mg Tablet, 250 MG PO BID Prescribed by: SOWMYA MENDEZ on 06/27/20 1415 Cetirizine HCl 10 Mg Tablet, 10 MG PO DAILY, (Reported) Dipyridamole/Aspirin 1 Ea Cap, 1 CAP PO BID, (Reported) Docusate Sodium 100 Mg Capsule, 100 MG PO DAILY, (Reported) Duloxetine HCl 30 Mg Capsule.dr, 30 MG PO BID, (Reported) Guaifenesin 400 Mg Tablet, 400 MG PO Q12H PRN for SEASONAL ALLERGIC RHINITIS, (Reported) Levothyroxine Sodium 50 Mcg Tablet, 50 MCG PO DAILY, (Reported) Lisinopril 20 Mg Tablet, 20 MG PO DAILY, (Reported) Melatonin/Pyridoxine HCl (B6) 1 Each Tablet, 6 MG PO HS, (Reported) TAKE 2 (3MG) TABS Memantine HCl/Donepezil HCl 1 Each Cap.spr.24, 1 EACH PO DAILY, (Reported) Mirtazapine 30 Mg Tablet, 30 MG PO DAILY, (Reported) Montelukast Sodium 10 Mg Tablet, 10 MG PO HS, (Reported) Tramadol HCl 50 Mg Tablet, 50 MG PO DAILY, (Reported) Patient Home Medication List Home Medication List Reviewed: Yes Review of Systems Review of Systems Constitutional: see HPI EENTM: see HPI Respiratory: no symptoms reported Cardiovascular: no symptoms reported Genitourinary: no symptoms reported Musculoskeletal: no symptoms reported Skin: no symptoms reported Psychiatric/Neurological: No Symptoms Reported Hematologic/Lymphatic: No Symptoms Reported Past Vofznyb-Zmwrmb-Ukomfi Hx Patient Social History Recent Hopitalizations: Yes (2005 [facility] K+) Immunizations Up To Date Tetanus Booster (TDap): Unknown Date of Pneumonia Vaccine: Nov 22, 2009 Date of Influenza Vaccine: Feb 22, 2014 Seasonal Allergies Seasonal Allergies: No Past Medical History Hysterectomy High Cholesterol, Hypertension Dementia, Stroke Reproductive Disorders: No 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 Sexually Transmitted Disease: No HIV/AIDS: No Diverticulosis Glaucoma Sleep Difficulties, Anxiety, Depression Adverse Reaction/Blood Tranf: No Family Medical History Alcoholism 03 FATHER Cancer BROTHERS/SISTERS(9 ALL TOGETHE Family history: Alzheimer's disease Family history: Arthritis 03 MOTHER BROTHERS/SISTERS(9 ALL TOGETHE Family history: Breast disease BROTHERS/SISTERS(9 ALL TOGETHE Family history: Cardiovascular disease 03 FATHER BROTHERS/SISTERS(9 ALL TOGETHE Family history: Hypertension 03 MOTHER BROTHERS/SISTERS(9 ALL TOGETHE Heart disease 03 FATHER BROTHERS/SISTERS(9 ALL TOGETHE Malignant neoplasm of lung BROTHERS/SISTERS(9 ALL TOGETHE Myocardial infarction 03 FATHER BROTHERS/SISTERS(9 ALL TOGETHE Psychotic disorder BROTHERS/SISTERS(9 ALL TOGETHE Heart Disease Physical Exam Vital Signs Vital Signs - First Documented 06/27/20 11:24 Temp 36.3 Pulse 79 Resp 18 B/P (MAP) 141/65 (90) Pulse Ox 98 O2 Delivery Room Air Capillary Refill : Height, Weight, BMI Height: 5'1.00" Weight: 176lbs. 0.0oz. [id number]; 28.32 BMI Method:Stated General Appearance: No Apparent Distress, WD/WN Eyes: Bilateral Eye Normal Inspection, Bilateral Eye PERRL, Bilateral Eye EOMI Neck: Full Range of Motion, Normal Inspection Respiratory: No Accessory Muscle Use, No Respiratory Distress Cardiovascular: Regular Rate, Rhythm, Normal Peripheral Pulses Gastrointestinal: Normal Bowel Sounds, Non Tender, Soft Extremity: Normal Capillary Refill, Normal Inspection Neurologic/Psychiatric: Alert, No Motor/Sensory Deficits Skin: Normal Color, Warm/Dry Progress/Results/Core Measures Suspected Sepsis SIRS Temperature: Pulse: Respiratory Rate: Laboratory Tests 06/27/20 11:52: White Blood Count 11.0 Blood Pressure / Mean: Laboratory Tests 2/3/21 11:52: Creatinine 1.17, Platelet Count 362, Total Bilirubin 0.3 Results/Orders Lab Results Laboratory Tests Test 06/27/20 11:52 06/27/20 12:17 06/27/20 14:04 Range/Units White Blood Count 11.0 4.3-11.0 10^3/uL Red Blood Count 3.59 L 3.80-5.11 10^6/uL Hemoglobin 11.9 11.5-16.0 g/dL Hematocrit 37 35-52 % Mean Corpuscular Volume 104 H 80-99 fL Mean Corpuscular Hemoglobin 33 25-34 pg Mean Corpuscular Hemoglobin Concent 32 32-36 g/dL Red Cell Distribution Width 14.1 10.0-14.5 % Platelet Count 362 130-400 10^3/uL Mean Platelet Volume 9.0 9.0-12.2 fL Immature Granulocyte % (Auto) 2 % Neutrophils (%) (Auto) 80 H 42-75 % Lymphocytes (%) (Auto) 9 L 12-44 % Monocytes (%) (Auto) 8 0-12 % Eosinophils (%) (Auto) 1 0-10 % Basophils (%) (Auto) 0 0-10 % Neutrophils # (Auto) 8.8 H 1.8-7.8 10^3/uL Lymphocytes # (Auto) 1.0 1.0-4.0 10^3/uL Monocytes # (Auto) 0.9 0.0-1.0 10^3/uL Eosinophils # (Auto) 0.1 0.0-0.3 10^3/uL Basophils # (Auto) 0.0 0.0-0.1 10^3/uL Immature Granulocyte # (Auto) 0.2 H 0.0-0.1 10^3/uL Erythrocyte Sedimentation Rate 34 H 0-30 MM/HR Sodium Level 142 135-145 MMOL/L Potassium Level 4.2 3.6-5.0 MMOL/L Chloride Level 104 98-107 MMOL/L Carbon Dioxide Level 27 21-32 MMOL/L Anion Gap 11 5-14 MMOL/L Blood Urea Nitrogen 21 H 7-18 MG/DL Creatinine 1.17 0.60-1.30 MG/DL Estimat Glomerular Filtration Rate 44 BUN/Creatinine Ratio 18 Glucose Level 68 L 70-105 MG/DL Calcium Level 8.9 8.5-10.1 MG/DL Corrected Calcium 9.1 8.5-10.1 MG/DL Total Bilirubin 0.3 0.1-1.0 MG/DL Aspartate Amino Transf (AST/SGOT) 12 5-34 U/L Alanine Aminotransferase (ALT/SGPT) 21 0-55 U/L Alkaline Phosphatase 43 40-136 U/L Troponin I 0.032 H 0.030 H <0.028 NG/ML C-Reactive Protein High Sensitivity 1.80 H 0.00-0.50 MG/DL Total Protein 6.4 6.4-8.2 GM/DL Albumin 3.8 3.2-4.5 GM/DL Urine Color YELLOW Urine Clarity CLEAR Urine pH 5.0 5-9 Urine Specific [place] 1.025 H 1.016-1.022 Urine Protein TRACE H NEGATIVE Urine Glucose (UA) NEGATIVE NEGATIVE Urine Ketones 1+ H NEGATIVE Urine Nitrite NEGATIVE NEGATIVE Urine Bilirubin NEGATIVE NEGATIVE Urine Urobilinogen 0.2 < = 1.0 MG/DL Urine Leukocyte Esterase 1+ H NEGATIVE Urine RBC (Auto) NEGATIVE NEGATIVE Urine RBC NONE /HPF Urine WBC 25-50 H /HPF Urine Squamous Epithelial Cells 5-10 /HPF Urine Crystals NONE /LPF Urine Bacteria LARGE H /HPF Urine Casts PRESENT /LPF Urine Hyaline Casts 0-2 H /LPF Urine Mucus NEGATIVE /LPF Urine Culture Indicated YES My Orders Orders - SOWMYA MENDEZ APRN Erythrocyte Sedimentation Rate (06/27/20 11:41) Hs C Reactive Protein (06/27/20 11:41) Cbc With Automated Diff (06/27/20 11:41) Comprehensive Metabolic Panel (06/27/20 11:41) Ua Culture If Indicated (06/27/20 11:41) Troponin I (06/27/20 11:41) Ekg Tracing (06/27/20 11:41) Chest 1 View, Ap/Pa Only (06/27/20 11:41) Ct Head Wo (06/27/20 11:41) Urine Culture (06/27/20 12:17) Ceftriaxone For Iv Use (Rocephin For I (06/27/20 12:45) Tetracaine 0.5% Ophth Mary Ellen Sdv (Tetracai (06/27/20 13:30) Tetracaine 0.5% Ophth Mary Ellen Sdv (Tetracai (06/27/20 13:22) Troponin I (06/27/20 14:10) Medications Given in ED Current Medications Medications Dose Ordered Sig/Ismael Route Start Time Stop Time Status Last Admin Dose Admin Ceftriaxone Sodium 1000 mg/ Sterile Water 10 ml @ 200 mls/hr ONCE ONCE IV 06/27/20 12:45 06/27/20 12:47 DC 06/27/20 13:04 200 MLS/HR Vital Signs/I&O 06/27/20 11:24 Temp 36.3 Pulse 79 Resp 18 B/P (MAP) 141/65 (90) Pulse Ox 98 O2 Delivery Room Air Capillary Refill : Departure Communication (Admissions) Patient's nurse practitioner Anna Wong called, states she would like to have an order written for the patient to be sent to neurology for referral regarding the persistent headaches and elevated inflammatory markers. They are trending down with the use of steroids however. I did call can our eye care. The intraocular pressures of each eye were 10 and 11mmHg. . 1447-to ER patient has no chest pain or shortness of breath. Repeat troponin stable. Discussed with Dr. Wise and we will discharge to home. Impression Primary Impression: UTI (urinary tract infection) Qualified Codes: N30.00 - Acute cystitis without hematuria Additional Impression: Syncope Qualified Codes: R55 - Syncope and collapse Disposition: 01 HOME, SELF-CARE Condition: Stable Departure-Patient Inst. Decision time for Depature: 14:14 Referrals: [facility] [place] (PCP/Family) Primary Care Physician Patient Instructions: Urinary Tract Infection, Adult ED, Syncope (Fainting) Scripts Cefuroxime Axetil (Cefuroxime) 250 Mg Tablet 250 MG PO BID, #10 TAB Prov: SOWMYA MENDEZ MANUFACTURING LABORER 06/27/20 SOWMYA MENDEZ MANUFACTURING LABORER Jun 27, 2020 11:42
[2020-06-27 11:58] LABS: BASOPHILS % (AUTO) 0 % (0-10); EOSINOPHILS # (AUTO) 0.1 10^3/uL (0.0-0.3); EOSINOPHILS % (AUTO) 1 % (0-10); HEMATOCRIT 37 % (35-52); HEMOGLOBIN 11.9 g/dL (11.5-16.0); LYMPHOCYTES % (AUTO) 9 % (12-44); MEAN CORPUSCULAR HEMOGLOBIN 33 pg (25-34); MEAN CORPUSCULAR HGB CONC 32 g/dL (32-36); MEAN CORPUSCULAR VOLUME 104 fL (80-99); MONOCYTES # (AUTO) 0.9 10^3/uL (0.0-1.0); MONOCYTES % (AUTO) 8 % (0-12); NEUTROPHILS # (AUTO) 8.8 10^3/uL (1.8-7.8); NEUTROPHILS % (AUTO) 80 % (42-75); PLATELET COUNT 362 10^3/uL (130-400)
[2020-06-27 12:08] LABS: ALBUMIN 3.8 GM/DL (3.2-4.5); POTASSIUM 4.2 MMOL/L (3.6-5.0)
[2020-06-27 12:09] LABS: CALCIUM 8.9 MG/DL (8.5-10.1)
[2020-06-27 12:11] LABS: TOTAL PROTEIN 6.4 GM/DL (6.4-8.2)
[2020-06-27 12:12] LABS: BILIRUBIN,TOTAL 0.3 MG/DL (0.1-1.0)
[2020-06-27 12:14] LABS: CREATININE SERUM 1.17 MG/DL (0.60-1.30)
[2020-06-27 12:15] LABS: ERYTHROCYTE SEDIMENTATION RATE 34 MM/HR (0-30)
--- NOTE | 2020-06-27 12:20 | Diagnostic Imaging Report ---
PROCEDURE: CT head without contrast. TECHNIQUE: Multiple contiguous axial images were obtained through the brain without the use of intravenous contrast. Auto Exposure Controls were utilized during the CT exam to meet ALARA standards for radiation dose reduction. INDICATION: Weakness. COMPARISON: 07/17/2016. FINDINGS: Cerebral cortical atrophy, periventricular white matter disease, and old left temporal encephalomalacia are chronic. Intracranial atherosclerotic vascular calcifications are chronic. There is no hemorrhage. Hyperdense inspissated secretions in the left greater than right sphenoid sinuses have increased. No paranasal sinus air-fluid level. The mastoids are clear. The calvarium is unremarkable. IMPRESSION: Chronic findings in the brain. No hemorrhage, edema, or acute finding. Progressive chronic appearing paranasal sinus disease. Dictated by: Dictated on workstation # [id number]
--- NOTE | 2020-06-27 12:21 | Diagnostic Imaging Report ---
INDICATION: Dizziness, syncope. FINDINGS: The cardiomediastinal and hilar contours are stable. No vascular congestion, edema, pneumonia, effusion, or pneumothorax. IMPRESSION: No acute appearing abnormality. Dictated by: Dictated on workstation # [id number]
[2020-06-27 12:22] LABS: CLARITY,URINE CLEAR; COLOR,URINE YELLOW; GLUCOSE, URINE (UA) NEGATIVE (NEGATIVE); KETONES,URINE 1+ (NEGATIVE); LEUKOCYTE ESTERASE ,URINE 1+ (NEGATIVE); NITRITE,URINE NEGATIVE (NEGATIVE); PROTEIN,URINE TRACE (NEGATIVE)
[2020-06-27 12:35] LABS: BACTERIA,URINE LARGE /HPF; HYALINE CASTS, URINE 0-2 /LPF; WBC,URINE 25-50 /HPF
[2020-06-27 12:36] LABS: BILIRUBIN,URINE NEGATIVE (NEGATIVE)
[2020-06-27] MEDS ORDERED: cefTRIAXone FOR IV USE 1,000 MG in WATER (STERILE) FOR INJECTION 10 ML IV ONE (12:45)
[2020-06-27] MEDS ORDERED: TETRACAINE 0.5% OPHTH SOLN 4 ML BTL (SINGLE DOSE ONLY) ONE (13:22)
[2020-06-27] MEDS ORDERED: TETRACAINE 0.5% OPHTH SOLN 4 ML BTL (SINGLE DOSE ONLY) OP ONE (13:30)
[2020-06-27] MEDS ORDERED: CEFU250T80 PO (14:15)
--- NOTE | 2020-06-27 14:16 | NUR ---
2ND TROPONIN DRAWN
[2020-06-27 14:57] VITALS: BP 171/89
== END 2020-06-27 14:57 | disposition home or self-care (01) ==
LOC: EDUNIT# 11:22 → ER 11:24
DX: R55 Syncope and collapse (principal); N39.0 Urinary tract infection, site not specified; I10 Essential (primary) hypertension; F41.9 Anxiety disorder, unspecified; F32.9 Major depressive disorder, single episode, unspecified; Z86.73 Personal history of transient ischemic attack (TIA), and cerebral infarction without residual deficits; Z88.0 Allergy status to penicillin; Z79.82 Long term (current) use of aspirin; Z82.49 Family history of ischemic heart disease and other diseases of the circulatory system
CPT/HCPCS: 36415; 70450; 71045; 80053; 81000; 84484; 85025; 85652; 86141; 87077; 87088; 93005

== ENCOUNTER 2020-07-26 17:57 | Emergency (ER) | payer MEDICARE, MEDICAID ==
[~2020-07-26] VITALS: Ht 157 cm; Wt 68.0 kg
[~2020-07-26 17:57] MED LIST changes: +CEFU250T80 PO; -LISI-552 PO; +LISI20TA26 PO; +MONT10TA32 PO; -MONT10TA97 PO
--- NOTE | 2020-07-26 18:33 | ED GI ---
General Stated Complaint: DIARRHEA Source of Information: Patient Exam Limitations: No Limitations History of Present Illness Date Seen by Provider: Jul 26, 2020 Time Seen by Provider: 18:31 Initial Comments Patient is an 84-year-old female who presents from a local long-term by EMS with a chief complaint from the long-term of increasing lethargy, decline in function. Patient is requiring maximal assist at the long-term for activities of daily living. Patient has also been complaining of some diarrhea ongoing over the course of the last 2 weeks. Patient cannot tell me if she was on antibiotics 2 weeks ago but was recently started on Levaquin on July 23 for urinary tract infection. Patient states that she feels a little bit short of breath today. She is not coughing. She denies any upper respiratory congestion, sore throat. She denies abdominal pain, nausea, vomiting. No increased swelling in her lower extremities. She is alert to self and place but not to date. Patient denies any dysuria, urgency or frequency currently. She is not aware of any black or bloody stools. She states that she has not had any fevers that she is aware of. She does not feel lightheaded or dizzy. All other review of systems reviewed and negative except as stated. Timing/Duration: Constant (Over the course of 2 weeks) Severity/Quality: Mild Activities at Onset: None Associated Symptoms: Other ("lethargic") Allergies and Home Medications Allergies Coded Allergies: Penicillins (Verified Allergy, Unknown, 10/11/13) Home Medications Amlodipine Besylate 10 Mg Tablet, 10 MG PO DAILY, (Reported) Carvedilol 25 Mg Tab, 25 MG PO BID, (Reported) Cefuroxime Axetil 250 Mg Tablet, 250 MG PO BID Prescribed by: SOWMYA MENDEZ on 06/27/20 1415 Cetirizine HCl 10 Mg Tablet, 10 MG PO DAILY, (Reported) Dipyridamole/Aspirin 1 Ea Cap, 1 CAP PO BID, (Reported) Docusate Sodium 100 Mg Capsule, 100 MG PO DAILY, (Reported) Duloxetine HCl 30 Mg Capsule.dr, 30 MG PO BID, (Reported) Guaifenesin 400 Mg Tablet, 400 MG PO Q12H PRN for SEASONAL ALLERGIC RHINITIS, (Reported) Levothyroxine Sodium 50 Mcg Tablet, 50 MCG PO DAILY, (Reported) Lisinopril 20 Mg Tablet, 20 MG PO DAILY, (Reported) Melatonin/Pyridoxine HCl (B6) 1 Each Tablet, 6 MG PO HS, (Reported) TAKE 2 (3MG) TABS Memantine HCl/Donepezil HCl 1 Each Cap.spr.24, 1 EACH PO DAILY, (Reported) Mirtazapine 30 Mg Tablet, 30 MG PO DAILY, (Reported) Montelukast Sodium 10 Mg Tablet, 10 MG PO HS, (Reported) Tramadol HCl 50 Mg Tablet, 50 MG PO DAILY, (Reported) Patient Home Medication List Home Medication List Reviewed: Yes Review of Systems Review of Systems Constitutional: see HPI EENTM: No Symptoms Reported Respiratory: Denies Cough; SOA at Rest Cardiovascular: No Symptoms Reported; Denies Chest Pain Gastrointestinal: Denies Abdominal Pain; Diarrhea; Denies Nausea; Poor Appetite Genitourinary: No Symptoms Reported Musculoskeletal: no symptoms reported Skin: no symptoms reported All Other Systems Reviewed Negative Unless Noted: Yes Past Zhepgvv-Etiltb-Yvefwm Hx Patient Social History Recent Hopitalizations: Yes ([facility]) Immunizations Up To Date Tetanus Booster (TDap): Unknown Date of Pneumonia Vaccine: Nov 22, 2009 Date of Influenza Vaccine: Feb 22, 2014 Seasonal Allergies Seasonal Allergies: No Past Medical History Surgeries: Yes (HYSTERECTOMY AGE 43 AND TONSIL AGE 16) Hysterectomy Respiratory: No Cardiac: Yes High Cholesterol, Hypertension 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 Sexually Transmitted Disease: No HIV/AIDS: No Gastrointestinal: Yes Diverticulosis Musculoskeletal: No Endocrine: No Glaucoma Cancer: No Psychosocial: Yes Sleep Difficulties, Anxiety, Depression Integumentary: No Blood Disorders: No Adverse Reaction/Blood Tranf: No Family Medical History Alcoholism 03 FATHER Cancer BROTHERS/SISTERS(9 ALL TOGETHE Family history: Alzheimer's disease Family history: Arthritis 03 MOTHER BROTHERS/SISTERS(9 ALL [place]GET[place] Family history: Breast disease BROTHERS/SISTERS(9 ALL TOGETHE Family history: Cardiovascular disease 03 FATHER BROTHERS/SISTERS(9 ALL [place]GET[place] Family history: Hypertension 03 MOTHER BROTHERS/SISTERS(9 ALL [place]GET[place] Heart disease 03 FATHER BROTHERS/SISTERS(9 ALL [place]GET[place] Malignant neoplasm of lung BROTHERS/SISTERS(9 ALL [place]GET[place] Myocardial infarction 03 FATHER BROTHERS/SISTERS(9 ALL [place]GET[place] Psychotic disorder [facility]SIST[facility] Physical Exam Vital Signs Vital Signs - First Documented 07/26/20 18:03 Temp 35.6 Pulse 71 Resp 20 B/P (MAP) 114/42 (66) Pulse Ox 96 O2 Delivery Room Air Capillary Refill : Height/Weight/BMI Height: 5'1.00" Weight: 176lbs. 0.0oz. [id number]; 29.00 BMI Method:Stated General Appearance: WD/WN, no apparent distress HEENT: PERRL/EOMI Neck: normal inspection Respiratory: lungs clear, normal breath sounds, no respiratory distress, no accessory muscle use Cardiovascular: regular rate, rhythm Gastrointestinal: non tender, soft Extremities: normal inspection, no pedal edema, normal capillary refill Neurologic/Psychiatric: no motor/sensory deficits, alert, normal mood/affect Skin: normal color, warm/dry Focused Exam Lactate Level 07/26/20 19:35: Lactic Acid Level 1.28 Lactic Acid Level Laboratory Tests Test 07/26/20 19:35 Lactic Acid Level 1.28 MMOL/L (0.50-2.00) Progress/Results/Core Measures Results/Orders Lab Results Laboratory Tests Test 07/26/20 18:03 07/26/20 19:12 07/26/20 19:35 Range/Units White Blood Count 9.2 4.3-11.0 10^3/uL Red Blood Count 3.37 L 3.80-5.11 10^6/uL Hemoglobin 10.6 L 11.5-16.0 g/dL Hematocrit 34 L 35-52 % Mean Corpuscular Volume 100 H 80-99 fL Mean Corpuscular Hemoglobin 32 25-34 pg Mean Corpuscular Hemoglobin Concent 32 32-36 g/dL Red Cell Distribution Width 13.8 10.0-14.5 % Platelet Count 478 H 130-400 10^3/uL Mean Platelet Volume 9.1 9.0-12.2 fL Immature Granulocyte % (Auto) 1 % Neutrophils (%) (Auto) 73 42-75 % Lymphocytes (%) (Auto) 14 12-44 % Monocytes (%) (Auto) 10 0-12 % Eosinophils (%) (Auto) 1 0-10 % Basophils (%) (Auto) 0 0-10 % Neutrophils # (Auto) 6.7 1.8-7.8 10^3/uL Lymphocytes # (Auto) 1.3 1.0-4.0 10^3/uL Monocytes # (Auto) 0.9 0.0-1.0 10^3/uL Eosinophils # (Auto) 0.1 0.0-0.3 10^3/uL Basophils # (Auto) 0.0 0.0-0.1 10^3/uL Immature Granulocyte # (Auto) 0.1 0.0-0.1 10^3/uL Sodium Level 141 135-145 MMOL/L Potassium Level 3.4 L 3.6-5.0 MMOL/L Chloride Level 111 H 98-107 MMOL/L Carbon Dioxide Level 18 L 21-32 MMOL/L Anion Gap 12 5-14 MMOL/L Blood Urea Nitrogen 12 7-18 MG/DL Creatinine 1.20 0.60-1.30 MG/DL Estimat Glomerular Filtration Rate 43 BUN/Creatinine Ratio 10 Glucose Level 174 H 70-105 MG/DL Calcium Level 8.2 L 8.5-10.1 MG/DL Corrected Calcium 8.9 8.5-10.1 MG/DL Total Bilirubin 0.2 0.1-1.0 MG/DL Aspartate Amino Transf (AST/SGOT) 10 5-34 U/L Alanine Aminotransferase (ALT/SGPT) 9 0-55 U/L Alkaline Phosphatase 58 40-136 U/L Total Protein 5.6 L 6.4-8.2 GM/DL Albumin 3.1 L 3.2-4.5 GM/DL Urine Color YELLOW Urine Clarity SL CLOUDY Urine pH 5.5 5-9 Urine Specific [place] >=1.030 1.016-1.022 Urine Protein TRACE H NEGATIVE Urine Glucose (UA) NEGATIVE NEGATIVE Urine Ketones TRACE H NEGATIVE Urine Nitrite NEGATIVE NEGATIVE Urine Bilirubin 1+ H NEGATIVE Urine Urobilinogen 0.2 < = 1.0 MG/DL Urine Leukocyte Esterase NEGATIVE NEGATIVE Urine RBC (Auto) NEGATIVE NEGATIVE Urine RBC NONE /HPF Urine WBC 2-5 /HPF Urine Crystals PRESENT H /LPF Urine Amorphous Sediment FEW ELVIA URATES H /LPF Urine Bacteria TRACE /HPF Urine Casts PRESENT /LPF Urine Hyaline Casts 25-50 H /LPF Urine Mucus NEGATIVE /LPF Urine Culture Indicated NO Lactic Acid Level 1.28 0.50-2.00 MMOL/L My Orders Orders - TIFFANIE,CATALINO M MD Stool Culture (07/26/20 18:54) C Difficile Ag + Toxin A/B. (07/26/20 18:54) Isolation Central Supply Req (07/26/20 18:54) Orthostatic Vital Signs (Adult (07/26/20 18:54) Cbc With Automated Diff (07/26/20 18:55) Comprehensive Metabolic Panel (07/26/20 18:55) Blood Culture (07/26/20 18:55) Urinalysis (07/26/20 18:55) Urine Culture (07/26/20 18:55) Chest 1 View, Ap/Pa Only (07/26/20 18:55) Ed Iv/Invasive Line Start (07/26/20 18:55) Ed Iv/Invasive Line Start (07/26/20 18:55) Vital Signs Adult Sepsis Patie Q15M (07/26/20 18:55) O2 (07/26/20 18:55) Remove Rings In Anticipation O (07/26/20 18:55) Lactic Acid Analyzer (07/26/20 18:55) Ns Iv 1000 Ml (Sodium Chloride 0.9%) (07/26/20 20:30) Vital Signs/I&O 07/26/20 07/26/20 18:03 19:37 Temp 35.6 Pulse 71 71 70 82 Resp 20 B/P (MAP) 114/42 (66) 100/46 (64) 97/48 (64) 115/94 (101) Pulse Ox 96 O2 Delivery Room Air Progress Progress Note : Time: 21:02 Progress Note Patient seen and examined, 84-year-old with a chief complaint of generalized weakness, mild shortness of breath, diarrhea for 2 weeks. Evaluation today includes a CBC, CMP, lactic acid, blood cultures urinalysis and chest x-ray. Patient also had orthostatic vital signs done. These were negative. Patient is noted to have increased specific gravity on urinalysis without signs of infection. Patient is treated in the emergency department with 1 L of IV fluids. Her vital signs remained stable. Patient appears clinically well. I did talk to one of the nurses who take care of her at [facility]. They were concerned about her decreased overall activity today and "lethargy". Patient again clinically looks well. No clinical or objective findings to warrant further studies from the emergency department. No indications for admission. Patient will be discharged back to the long-term with C. difficile and stool cultures pending. Patient is comfortable with the plan of care. All questions are sought and answered. Patient is stable for discharge. Diagnostic Imaging Diagonstic Imaging: Xray Plain Films/CT/US/NM/MRI: chest Comments [facility], [facility]. [place], [place] NAME: JONAS SALGADO [facility] REC#: [id number] PT STATUS: REG ER : 1935 PHYSICIAN: CATALINO MORENO MD ADMIT DATE: 07/26/20/ER Draft Date of Exam:07/26/20 CHEST 1 VIEW, AP/PA ONLY HISTORY: Sepsis COMPARISON: 06/27/2020 TECHNIQUE: Frontal view of the chest. FINDINGS: There is stable elevation of the right hemidiaphragm. No focal consolidation is seen. There is no pleural effusion or pneumothorax. The cardiac silhouette is normal in size. IMPRESSION: 1. No acute pulmonary abnormality. Dictated on workstation # [id number] Dict: 07/26/201935 Trans: 07/26/201938 CVB [id number] Interpreted by: WESLEY MARIANO MD Electronically signed by: Departure Impression Primary Impression: Generalized weakness Additional Impression: Dehydration Disposition: 01 HOME, SELF-CARE Condition: Stable Departure-Patient Inst. Decision time for Depature: 21:03 Referrals: [facility] (PCP/Family) Primary Care Physician RENETTA ELIZONDO MD Patient Instructions: Dehydration, Adult (DC) Add. Discharge Instructions: Drink plenty of fluids to stay well-hydrated. Continue your home daily medications. Finish out your prescription for the Levaquin. We have tested you for bacteria in your stool. These test should be available in 24 to 48 hours. Your primary care physician will follow up on these to determine if any further treatment is needed. Return to the emergency room for any worsening symptoms, new emergent concerns. Copy Copies To 1: RENETTA ELIZONDO MD, KATHRYN M MD Jul 26, 2020 18:33
[2020-07-26 19:05] LABS: ALBUMIN 3.1 GM/DL (3.2-4.5)
[2020-07-26 19:06] LABS: BASOPHILS % (AUTO) 0 % (0-10); EOSINOPHILS # (AUTO) 0.1 10^3/uL (0.0-0.3); EOSINOPHILS % (AUTO) 1 % (0-10); HEMATOCRIT 34 % (35-52); HEMOGLOBIN 10.6 g/dL (11.5-16.0); LYMPHOCYTES # (AUTO) 1.3 10^3/uL (1.0-4.0); LYMPHOCYTES % (AUTO) 14 % (12-44); MEAN CORPUSCULAR HEMOGLOBIN 32 pg (25-34); MEAN CORPUSCULAR HGB CONC 32 g/dL (32-36); MEAN CORPUSCULAR VOLUME 100 fL (80-99); MEAN PLATELET VOLUME 9.1 fL (9.0-12.2); MONOCYTES # (AUTO) 0.9 10^3/uL (0.0-1.0); MONOCYTES % (AUTO) 10 % (0-12); NEUTROPHILS # (AUTO) 6.7 10^3/uL (1.8-7.8); NEUTROPHILS % (AUTO) 73 % (42-75); PLATELET COUNT 478 10^3/uL (130-400); POTASSIUM 3.4 MMOL/L (3.6-5.0); WHITE BLOOD COUNT 9.2 10^3/uL (4.3-11.0)
[2020-07-26 19:07] LABS: CALCIUM 8.2 MG/DL (8.5-10.1)
[2020-07-26 19:08] LABS: TOTAL PROTEIN 5.6 GM/DL (6.4-8.2)
[2020-07-26 19:10] LABS: BILIRUBIN,TOTAL 0.2 MG/DL (0.1-1.0)
[2020-07-26 19:12] LABS: CREATININE SERUM 1.2 MG/DL (0.60-1.30)
[2020-07-26 19:37] VITALS: BP_SYST 100; BP_SYST 115; BP_SYST 97; BP_DIAS 46; BP_DIAS 48; BP_DIAS 94
--- NOTE | 2020-07-26 19:40 | Diagnostic Imaging Report ---
HISTORY: Sepsis COMPARISON: 06/27/2020 TECHNIQUE: Frontal view of the chest. FINDINGS: There is stable elevation of the right hemidiaphragm. No focal consolidation is seen. There is no pleural effusion or pneumothorax. The cardiac silhouette is normal in size. IMPRESSION: 1. No acute pulmonary abnormality. Dictated by: Dictated on workstation # [id number]
[2020-07-26 19:45] LABS: CLARITY,URINE SL CLOUDY; COLOR,URINE YELLOW; GLUCOSE, URINE (UA) NEGATIVE (NEGATIVE); KETONES,URINE TRACE (NEGATIVE); LEUKOCYTE ESTERASE ,URINE NEGATIVE (NEGATIVE); NITRITE,URINE NEGATIVE (NEGATIVE); PH,URINE 5.5 (5-9); PROTEIN,URINE TRACE (NEGATIVE)
[2020-07-26 19:53] LABS: BILIRUBIN,URINE 1+ (NEGATIVE)
[2020-07-26 19:55] LABS: HYALINE CASTS, URINE 25-50 /LPF
[2020-07-26 19:58] LABS: AMORPHOUS SEDIMENT,UR FEW AMOR URATES /LPF; BACTERIA,URINE TRACE /HPF
[2020-07-26] MEDS ORDERED: NS IV 1000 ML 1,000 ML IV SCH (20:30)
[2020-07-26 21:45] VITALS: BP 105/44
== END 2020-07-26 22:00 | disposition home or self-care (01) ==
LOC: EDUNIT# 17:57 → ER 17:59
DX: R53.1 Weakness (principal); E86.0 Dehydration; F41.9 Anxiety disorder, unspecified; I10 Essential (primary) hypertension; F32.9 Major depressive disorder, single episode, unspecified; F03.90 Unspecified dementia, unspecified severity, without behavioral disturbance, psychotic disturbance, mood disturbance, and anxiety; Z88.0 Allergy status to penicillin; Z86.73 Personal history of transient ischemic attack (TIA), and cerebral infarction without residual deficits; Z82.61 Family history of arthritis; Z82.49 Family history of ischemic heart disease and other diseases of the circulatory system; Z80.1 Family history of malignant neoplasm of trachea, bronchus and lung; Z79.82 Long term (current) use of aspirin
CPT/HCPCS: 36415; 71045; 80053; 81000; 83605; 85025; 87015; 87040; 87045; 87046; 87088; 87324; 87449; 87899

== ENCOUNTER → 2020-08-02 | Outpatient (CLI) | payer MEDICARE, MEDICAID | PROVIDERS: ATTEND Internal Medicine | DX: R19.7 Diarrhea, unspecified (principal) | CPT/HCPCS: 87324; 87328; 87329; 87449; 89055 ==

== ENCOUNTER 2020-09-12 09:50 | Observation (INO) | payer MEDICARE, MEDICAID ==
[~2020-09-12] VITALS: Ht 162.5 cm; Wt 69.0 kg
[2020-09-12] VITALS (7 sets, daily range): BP systolic 168–194; BP diastolic 71–87
[2020-09-12 10:04] LABS: BASOPHILS # (AUTO) 0.1 10^3/uL (0.0-0.1); BASOPHILS % (AUTO) 1 % (0-10); EOSINOPHILS # (AUTO) 0.3 10^3/uL (0.0-0.3); EOSINOPHILS % (AUTO) 3 % (0-10); HEMATOCRIT 37 % (35-52); HEMOGLOBIN 11.5 g/dL (11.5-16.0); LYMPHOCYTES # (AUTO) 1.6 10^3/uL (1.0-4.0); LYMPHOCYTES % (AUTO) 16 % (12-44); MEAN CORPUSCULAR HEMOGLOBIN 30 pg (25-34); MEAN CORPUSCULAR HGB CONC 31 g/dL (32-36); MEAN CORPUSCULAR VOLUME 98 fL (80-99); MEAN PLATELET VOLUME 9.7 fL (9.0-12.2); MONOCYTES # (AUTO) 0.7 10^3/uL (0.0-1.0); MONOCYTES % (AUTO) 6 % (0-12); NEUTROPHILS # (AUTO) 7.4 10^3/uL (1.8-7.8); NEUTROPHILS % (AUTO) 73 % (42-75); PLATELET COUNT 379 10^3/uL (130-400); WHITE BLOOD COUNT 10.1 10^3/uL (4.3-11.0)
[2020-09-12 10:13] LABS: CHLORIDE 103 MMOL/L (98-107); POTASSIUM 3.5 MMOL/L (3.6-5.0); SODIUM 141 MMOL/L (135-145)
[2020-09-12 10:14] LABS: CALCIUM 8.9 MG/DL (8.5-10.1)
[2020-09-12 10:15] LABS: GLUCOSE 182 MG/DL (70-105); TOTAL PROTEIN 6.4 GM/DL (6.4-8.2)
[2020-09-12 10:16] LABS: CARBON DIOXIDE 26 MMOL/L (21-32)
[2020-09-12 10:17] LABS: BILIRUBIN,TOTAL 0.3 MG/DL (0.1-1.0)
[2020-09-12 10:18] LABS: ALKALINE PHOSPHATASE 49 U/L (40-136)
[2020-09-12 10:19] LABS: CREATININE SERUM 0.86 MG/DL (0.60-1.30); GFR ESTIMATED > 60
[2020-09-12 10:20] LABS: BUN/CREATININE RATIO 21
[2020-09-12 10:21] LABS: ALANINE AMINOTRANSFERASE 20 U/L (0-55)
[2020-09-12 10:28] LABS: FIBRIN DEGRADATION PRODUCTS <= 0.27 UG/ML (0.00-0.49); PARTIAL THROMBOPLASTIN TIME 24 SEC (24-35); PROTHROMBIN TIME PATIENT 13.2 SEC (12.2-14.7)
--- NOTE | 2020-09-12 10:58 | Diagnostic Imaging Report ---
PROCEDURE: CT head wo r/o stroke. TECHNIQUE: Multiple contiguous axial images were obtained through the brain without the use of intravenous contrast. Auto Exposure Controls were utilized during the CT exam to meet ALARA standards for radiation dose reduction. INDICATION: Focal neuro deficit. Altered mental status. COMPARISON: 06/27/2020 FINDINGS: Again identified is moderate-sized area of old infarct in the posterolateral left frontal lobe. There is no new large area of loss of normal wells-white matter junction differentiation to suggest new acute territorial infarct. There are also scattered and confluent areas of decreased attenuation within the periventricular and subcortical deep white matter consistent with background chronic small vessel ischemic changes. Ventricles and cortical sulci remain diffusely prominent consistent with underlying age-related cerebral volume loss. There is no new mass effect or midline shift. No intra or extra-axial intracranial hemorrhage is seen. Bony calvarium is intact. Paranasal sinuses show moderate mucosal thickening of the posterior ethmoid air cells and near complete opacification of the right sphenoid sinus. There is also complete opacification on the left. Mastoid air cells are clear. IMPRESSION: 1. No new acute intracranial abnormality. No CT evidence of acute infarct, mass, nor hemorrhage. 2. 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 3. Paranasal sinus disease. Clinical correlation is advised. Results were called to Dr. Hamm by Dr. Harris [id number] on 09/12/2020 Dictated by: Dictated on workstation # [id number]
--- NOTE | 2020-09-12 11:12 | Diagnostic Imaging Report ---
INDICATION: Hypertension, leg weakness, syncope COMPARISON: 07/26/2020 FINDINGS: Elevation of the right diaphragm stable. No consolidation, failure, effusion or pneumothorax. IMPRESSION: No acute appearing abnormality. Dictated by: Dictated on workstation # [id number]
[2020-09-12 11:26] LABS: BILIRUBIN,URINE NEGATIVE (NEGATIVE); CLARITY,URINE CLEAR; COLOR,URINE YELLOW; GLUCOSE, URINE (UA) NEGATIVE (NEGATIVE); KETONES,URINE NEGATIVE (NEGATIVE); LEUKOCYTE ESTERASE ,URINE TRACE (NEGATIVE); NITRITE,URINE NEGATIVE (NEGATIVE); PROTEIN,URINE NEGATIVE (NEGATIVE)
[2020-09-12] MEDS ORDERED: NS 100 ML (IVPB) BAG IV ONE (11:30)
[2020-09-12] MEDS ORDERED: IOHEXOL 350 MG/ML 100 ML (OMNIPAQUE 350) VIAL IV ONE (11:30)
[2020-09-12] MEDS ORDERED: HOLD METFORMIN - RECEIVED CONTRAST 20 ML VIAL IV SCH (11:30)
[2020-09-12 11:45] LABS: BACTERIA,URINE TRACE /HPF
--- NOTE | 2020-09-12 12:23 | Diagnostic Imaging Report ---
PROCEDURE: CT angiography of the head and CT angiography of the neck with and without contrast. TECHNIQUE: Contiguous noncontrast images were obtained from the skull base through the vertex. After intravenous contrast administration, helical CT angiography of the neck was performed. Source data was reformatted into 3D MIP projections. Delayed post contrast acquisition was also obtained. Auto Exposure Controls were utilized during the CT exam to meet ALARA standards for radiation dose reduction. INDICATION: Weakness and confusion. Delayed postcontrast enhanced imaging showed no abnormal parenchymal or meningeal enhancement. 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 There is enhancement of the major dural venous sinuses. 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 Great vessels are patent. The bilateral subclavian arteries patent. The vertebral arteries are codominant, both showing multiple areas of mild narrowing of 50% or less likely owing to diffuse atherosclerotic disease without appreciable calcifications areas of subsegmental fibromuscular dysplasia could not be excluded. No evidence for dissection or occlusion. The bilateral common carotid arteries are widely patent. There is some mixed soft and hard plaque at the right carotid bulb with may be 30% luminal narrowing maximal. Remaining cervical internal carotids are widely patent. CT angiogram head: The intracranial ICAs are patent. There is some non-stenosing calcified plaques at their cavernous segments. The A1 segments bilaterally patent. The A-comm is patent and the paired anterior cerebral arteries are patent. There is mild diffuse atherosclerotic disease. There is occlusion of the proximal left middle cerebral artery which may be chronic given the stable chronic findings in the left hemisphere. However progressive or new ischemia suspected. This could be further evaluated with MRI brain. The right MCA shows mild diffuse atherosclerotic disease but no large vessel occlusion. There are similar findings in the intrathecal segments of the vertebrals with scattered areas of mild stenosis owing to atherosclerosis. There is also multifocal areas of mild atherosclerotic narrowing of the basilar artery all of 50% or less. The left LACE CUTTER is in origin off the anterior circulation and is patent. The right LACE CUTTER patent although both show some mild diffuse atherosclerotic narrowing. 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 However MRI may be of use if there is clinical suspicion for active or evolving ischemic insult. I have no prior angiographic study for comparison. Diffuse cervical and intrathecal areas of mild to moderate atherosclerotic narrowing of the bilateral vertebrals as well as the basilar artery. Mild anterior circulation intracranial atherosclerosis without hemodynamic significant stenosis. 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 Dictated by: Dictated on workstation # [id number]
--- NOTE | 2020-09-12 13:21 | ED Neurological Problem ---
General Chief Complaint: Neuro-Stroke Like Symptoms Stated Complaint: PASSED OUT Nursing Triage Note: pt reports feeling dizzy, nauseated, and having a headache. onset this am after breakfast. Nursing Sepsis Screen: No Definite Risk Source: patient, EMS, residential records, old records Exam Limitations: no limitations History of Present Illness Date Seen by Provider: Sep 12, 2020 Time Seen by Provider: 09:52 Initial Comments This 85-year-old woman presents to the emergency room via EMS after having a syncopal episode at the residential. 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 They sat her down at a chair and gave her Zofran. She then proceeded to lose consciousness. They reported a blood pressure of 127/74 at 08:20. After giving Zofran she had a blood pressure of 189/81 at approximately 09:00. Her unresponsive episode lasted about 1 minute. Blood pressure after the episode was 210/78. Blood sugar was 245. Patient was found to have a slightly weak right lower extremity and some difficulty with word finding and speech. Stroke activation was paged. NIH score was initially 6. Deficits included dysarthria, minor aphasia, confusion between right and left, and left leg weakness. Although the original lower extremity weakness was detected in the right, there was weakness on the left during the time of exam. After further review of the situation with residential staff, her stuttering speech and difficulty with word finding are chronic for her. She does not, however, typically have severe hypertension. She did take her medications this morning according to staff. Review of her chart notes an echocardiogram in 2015 showing some valvular disease and an EF of 60%. Heart cath in 2011 showed no obstructi ve disease. Last known well time this morning was 08:00. Patient complains of headache and nausea at this time. Allergies and Home Medications Allergies Coded Allergies: Penicillins (Verified Allergy, Unknown, 10/11/13) sulfamethoxazole (Unverified Allergy, Unknown, 09/12/20) trimethoprim (Unverified Allergy, Unknown, 09/12/20) Home Medications Amlodipine Besylate 10 Mg Tablet, 10 MG PO DAILY, (Reported) Last Action: Last Taken Edited Carvedilol 25 Mg Tab, 25 MG PO BID, (Reported) Last Action: Last Taken Edited Cefuroxime Axetil 250 Mg Tablet, 250 MG PO BID Prescribed by: SOWMYA MENDEZ on 06/27/20 1415 Last Action: Last Taken Edited Cetirizine HCl 10 Mg Tablet, 10 MG PO DAILY, (Reported) Last Action: Last Taken Edited Dipyridamole/Aspirin 1 Ea Cap, 1 CAP PO BID, (Reported) Last Action: Last Taken Edited Docusate Sodium 100 Mg Capsule, 100 MG PO DAILY, (Reported) Last Action: Last Taken Edited Duloxetine HCl 30 Mg Capsule.dr, 30 MG PO BID, (Reported) Last Action: Last Taken Edited Guaifenesin 400 Mg Tablet, 400 MG PO Q12H PRN for SEASONAL ALLERGIC RHINITIS, (Reported) Last Action: Last Taken Edited Levothyroxine Sodium 50 Mcg Tablet, 50 MCG PO DAILY, (Reported) Last Action: Last Taken Edited Lisinopril 20 Mg Tablet, 20 MG PO DAILY, (Reported) Last Action: Last Taken Edited Melatonin/Pyridoxine HCl (B6) 1 Each Tablet, 6 MG PO HS, (Reported) TAKE 2 (3MG) TABS Last Action: Last Taken Edited Memantine HCl/Donepezil HCl 1 Each Cap.spr.24, 1 EACH PO DAILY, (Reported) Last Action: Last Taken Edited Mirtazapine 30 Mg Tablet, 30 MG PO DAILY, (Reported) Last Action: Last Taken Edited Montelukast Sodium 10 Mg Tablet, 10 MG PO HS, (Reported) Last Action: Last Taken Edited Tramadol HCl 50 Mg Tablet, 50 MG PO DAILY, (Reported) Last Action: Last Taken Edited Patient Home Medication List Home Medication List Reviewed: Yes Review of Systems Review of Systems Constitutional: no symptoms reported Eyes: No Symptoms Reported Ears, Nose, Mouth, Throat: no symptoms reported Respiratory: no symptoms reported Cardiovascular: see HPI Gastrointestinal: see HPI Genitourinary: no symptoms reported : No Musculoskeletal: no symptoms reported Skin: no symptoms reported Psychiatric/Neurological: See HPI Endocrine: No Symptoms Reported Hematologic/Lymphatic: No Symptoms Reported Past Qsyiwjn-Bbpkcb-Phsqnc Hx Past Med/Social Hx: Reviewed Nursing Past Med/Soc Hx Patient Social History Alcohol Use: Denies Use Smoking Status: Never a Smoker 2nd Hand Smoke Exposure: No Recent Infectious Disease Expo: No Recent Hopitalizations: No Immunizations Up To Date Tetanus Booster (TDap): Unknown Date of Pneumonia Vaccine: Nov 22, 2009 Date of Influenza Vaccine: Feb 23, 2020 Seasonal Allergies Seasonal Allergies: No Past Medical History Surgeries: Yes (HYSTERECTOMY AGE 43 AND TONSIL AGE 16) Hysterectomy Respiratory: No Cardiac: Yes High Cholesterol, Hypertension 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 Sexually Transmitted Disease: No HIV/AIDS: No Gastrointestinal: Yes Diverticulosis Musculoskeletal: No Endocrine: No Glaucoma Cancer: No Psychosocial: Yes Sleep Difficulties, Anxiety, Depression Integumentary: No Blood Disorders: No Adverse Reaction/Blood Tranf: No Family Medical History Alcoholism 03 FATHER Cancer BROTHERS/SISTERS(9 ALL TOGETHE Family history: Alzheimer's disease Family history: Arthritis 03 MOTHER BROTHERS/SISTERS(9 ALL TOGETHE Family history: Breast disease BROTHERS/SISTERS(9 ALL TOGETHE Family history: Cardiovascular disease 03 FATHER BROTHERS/SISTERS(9 ALL TOGETHE Family history: Hypertension 03 MOTHER BROTHERS/SISTERS(9 ALL TOGETHE Heart disease 03 FATHER BROTHERS/SISTERS(9 ALL TOGETHE Malignant neoplasm of lung BROTHERS/SISTERS(9 ALL TOGETHE Myocardial infarction 03 FATHER BROTHERS/SISTERS(9 ALL TOGETHE Psychotic disorder BROTHERS/SISTERS(9 ALL TOGETHE Heart Disease Physical Exam Vital Signs Vital Signs - First Documented 09/12/20 09:57 Temp 36.0 Pulse 78 Resp 14 B/P (MAP) 197/88 (124) Pulse Ox 94 Capillary Refill : Less Than 3 Seconds Height, Weight, BMI Height: 5'1.00" Weight: 176lbs. 0.0oz. 79.686272so; 28.00 BMI Method:Stated General Appearance: WD/WN, no apparent distress HEENT: PERRL/EOMI, normal ENT inspection Neck: normal inspection Respiratory: lungs clear, normal breath sounds, no respiratory distress, no accessory muscle use Cardiovascular: regular rate, rhythm, no edema, no murmur Gastrointestinal: normal bowel sounds, non tender, soft Back: normal inspection Extremities: normal inspection, no pedal edema Neurologic/Psychiatric: alert, normal mood/affect, other (Stroke forearm. Patient was disoriented to month and age. She exhibited initially right leg weakness but later left leg weakness during the NIHSS. She had some difficulty with reading, word finding, and dysarthria. She confused her right and left multiple times.) Crainal Nerves: normal hearing, PERRL Coordination/Gait: normal gait Motor/Sensory: no sensory deficit Skin: normal color, warm/dry Stroke NIH Stroke Scale Assessment Select: Initial Level of Consciousness: 0=Alert (0), Level of Consciousness- Questions: 2=Answer neither question (2), LOC Commands: 0=Performs both tasks (0), Gaze: Normal (0), Visual [place]: 0=No visual loss (0), Facial Movement (Facial Paresis): 0=Normal symmetrical mnt (0), Motor Function-Arms Right: 0=No drift (0), Motor Function-Arms Left: 0=No drift (0), Motor Function-Legs Right: 0=No drift (0), Motor Function-Legs Left: 1=Drift (1), Limb Ataxia: 0=Absent (0), Sensory: 0=Normal:no loss (0), Best Language: 1=Mild to moderat aphasia (1), Dysarthria: 1=Mild to moderate loss (1), Extinction & Inattention: 1=Visual,tactile,auditory (1), Total: 6 Stroke Thrombolytic Exclusion Age 18 or Over: Yes History of CVA: Yes Severe Hypertension: No GI or Bleed: No Subarachnoid Hemorrhage: No Intracranial Neoplasm/Aneurysm: No Puncture of Non-Compressible V: No Recent CPR: No Diabetic Hemorrhagic Retinopat: No Organ Biopsy: No Recent Obstetric Delivery: No Significant Hepatic Dysfunctio: No NIH Stoke Scale >22: No Improving Symptoms: Yes Progress/Results/Core Measures Results/Orders Lab Results Laboratory Tests Test 09/12/20 09:54 09/12/20 09:56 09/12/20 10:16 09/12/20 11:17 Range/Units White Blood Count 10.1 4.3-11.0 10^3/uL Red Blood Count 3.80 3.80-5.11 10^6/uL Hemoglobin 11.5 11.5-16.0 g/dL Hematocrit 37 35-52 % Mean Corpuscular Volume 98 80-99 fL Mean Corpuscular Hemoglobin 30 25-34 pg Mean Corpuscular Hemoglobin Concent 31 L 32-36 g/dL Red Cell Distribution Width 15.5 H 10.0-14.5 % Platelet Count 379 130-400 10^3/uL Mean Platelet Volume 9.7 9.0-12.2 fL Immature Granulocyte % (Auto) 1 % Neutrophils (%) (Auto) 73 42-75 % Lymphocytes (%) (Auto) 16 12-44 % Monocytes (%) (Auto) 6 0-12 % Eosinophils (%) (Auto) 3 0-10 % Basophils (%) (Auto) 1 0-10 % Neutrophils # (Auto) 7.4 1.8-7.8 10^3/uL Lymphocytes # (Auto) 1.6 1.0-4.0 10^3/uL Monocytes # (Auto) 0.7 0.0-1.0 10^3/uL Eosinophils # (Auto) 0.3 0.0-0.3 10^3/uL Basophils # (Auto) 0.1 0.0-0.1 10^3/uL Immature Granulocyte # (Auto) 0.1 0.0-0.1 10^3/uL Prothrombin Time 13.2 12.2-14.7 SEC INR Comment 1.0 0.8-1.4 Activated Partial Thromboplast Time 24 24-35 SEC D-Dimer <= 0.27 0.00-0.49 UG/ML Sodium Level 141 135-145 MMOL/L Potassium Level 3.5 L 3.6-5.0 MMOL/L Chloride Level 103 98-107 MMOL/L Carbon Dioxide Level 26 21-32 MMOL/L Anion Gap 12 5-14 MMOL/L Blood Urea Nitrogen 18 7-18 MG/DL Creatinine 0.86 0.60-1.30 MG/DL Estimat Glomerular Filtration Rate > 60 BUN/Creatinine Ratio 21 Glucose Level 182 H 70-105 MG/DL Calcium Level 8.9 8.5-10.1 MG/DL Corrected Calcium 8.9 8.5-10.1 MG/DL Total Bilirubin 0.3 0.1-1.0 MG/DL Aspartate Amino Transf (AST/SGOT) 12 5-34 U/L Alanine Aminotransferase (ALT/SGPT) 20 0-55 U/L Alkaline Phosphatase 49 40-136 U/L Troponin I < 0.028 <0.028 NG/ML Total Protein 6.4 6.4-8.2 GM/DL Albumin 4.0 3.2-4.5 GM/DL Thyroid Stimulating Hormone (TSH) 3.46 0.35-4.94 UIU/ML Glucometer 128 H 70-110 MG/DL Urine Color YELLOW Urine Clarity CLEAR Urine pH 6.0 5-9 Urine Specific [place] 1.020 1.016-1.022 Urine Protein NEGATIVE NEGATIVE Urine Glucose (UA) NEGATIVE NEGATIVE Urine Ketones NEGATIVE NEGATIVE Urine Nitrite NEGATIVE NEGATIVE Urine Bilirubin NEGATIVE NEGATIVE Urine Urobilinogen 0.2 < = 1.0 MG/DL Urine Leukocyte Esterase TRACE H NEGATIVE Urine RBC (Auto) NEGATIVE NEGATIVE Urine RBC NONE /HPF Urine WBC 5-10 H /HPF Urine Squamous Epithelial Cells 2-5 /HPF Urine Crystals NONE /LPF Urine Bacteria TRACE /HPF Urine Casts NONE /LPF Urine Mucus NEGATIVE /LPF Urine Culture Indicated YES My Orders Orders - MITCHELL BARRIENTOS MD Cbc With Automated Diff (09/12/20 09:57) Comprehensive Metabolic Panel (09/12/20 09:57) Troponin I (09/12/20 09:57) Ua Culture If Indicated (09/12/20 09:57) Ekg Tracing (09/12/20:57) Monitor-Rhythm Ecg Trace Only (09/12/20 09:57) Orthostatic Vital Signs (Adult (09/12/20 09:57) Ed Iv/Invasive Line Start (09/12/20 09:57) Thyroid Stimulating Hormone (09/12/20 10:01) Protime With Inr (09/12/20 10:10) Partial Thromboplastin Time (09/12/20 10:10) Fibrin Degradation Products (09/12/20 10:10) Chest 1 View, Ap/Pa Only (09/12/20 10:10) Catheter(Urinary) Insert & Ass 03,15 (09/12/20 10:10) Accucheck Stat ONCE (09/12/20 10:10) Ct Head Wo-R/O Stroke (09/12/20 10:10) O2 (09/12/20 10:10) Dysphagia Screening Tool (09/12/20 10:10) Post Thrombolytic Adminstratio (09/12/20 10:10) Lipid Panel (09/13/20 06:00) Ct Angio Head/Neck (09/12/20 11:11) Accucheck Stat ONCE (09/12/20 11:23) Ed Iv/Invasive Line Start (09/12/20 11:23) Ed Iv/Invasive Line Start (09/12/20 11:23) O2 (09/12/20 11:23) Intake & Output 06,14,22 (09/12/20 11:23) Dysphagia Screening Tool (09/12/20 11:23) Post Thrombolytic Adminstratio (09/12/20 11:23) Iohexol Injection (Omnipaque 350 Mg/Ml 1 (09/12/20 11:30) Received Contrast (Hold Metformin- Contr (09/12/20 11:30) Ns (Ivpb) (Sodium Chloride 0.9% Ivpb Bag (09/12/20 11:30) Urine Culture (09/12/20 11:17) Medications Given in ED Current Medications Medications Dose Ordered Sig/Ismael Route Start Time Stop Time Status Last Admin Dose Admin Iohexol 75 ml ONCE ONCE IV 09/12/20 11:30 09/12/20 11:31 DC 09/12/20 11:43 75 ML Sodium Chloride 100 ml ONCE ONCE IV 09/12/20 11:30 09/12/20 11:31 DC 09/12/20 11:44 80 ML Vital Signs/I&O 09/12/20 09/12/20 09:57 10:11 Temp 36.0 Pulse 78 83 87 92 Resp 14 B/P (MAP) 197/88 (124) 193/84 (120) 181/87 (118) 168/87 (114) Pulse Ox 94 Blood Pressure Mean: 114 FSBG Bedside Testing Finger Stick Blood Glucose: 128 Progress Progress Note : Time: 13:15 Progress Note Patient symptoms seem to be resolved. She is feeling much better. Blood pressure is trending toward normal. Work-up has been grossly unremarkable for acute issues. 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 Patient is able to get up and walk and does not appear to have any acute deficits at this time. Per residential staff's description, she appears to be at baseline. Patient was not a TPA candidate initially because her NIH score was only 6. The weakness in the legs seem to be transient and alternating laterality. The difficulty with speech and word finding is chronic based on residential staff report. There is still concerned about the syncopal episode and the transient weakness of the legs and perhaps exacerbation of her speech issues. Patient was therefore not a TPA candidate since there was no definitive acute stroke syndrome in the context of chronic deficits and transient or alternating symptoms. I spoke with Dr. Bruce, stroke neurologist at [facility] at 13:00. He recommends admission for observation and MRI. MRI will be available in the morning. Patient has subtle urinary tract infection that we will treat orally. A liter of IV normal saline will be administered to help prevent contrast-induced nephropathy. Patient passed her dysphagia screen. Initial ECG Impression Date: Sep 12, 2020 Initial ECG Impression Time: 10:05 Initial ECG Rate: 80 Initial ECG Rhythm: Normal Sinus Initial ECG Impression: Normal Comment Normal sinus rhythm with no ST elevation or depression. No abnormal intervals or axis deviation. Diagnostic Imaging Diagonstic Imaging: CT Plain Films/CT/US/NM/MRI: head Comments CT head viewed by me and report reviewed. See report below: NAME: JONAS SALGADO [facility] REC#: [id number] PT STATUS: REG ER : 1935 PHYSICIAN: MITCHELL BARRIENTOS MD ADMIT DATE: 09/12/20/ER Signed Date of Exam:09/12/20 CT HEAD WO-R/O STROKE PROCEDURE: CT head wo r/o stroke. TECHNIQUE: Multiple contiguous axial images were obtained through the brain without the use of intravenous contrast. Auto Exposure Controls were utilized during the CT exam to meet ALARA standards for radiation dose reduction. INDICATION: Focal neuro deficit. Altered mental status. COMPARISON: 06/27/2020 FINDINGS: Again identified is moderate-sized area of old infarct in the posterolateral left frontal lobe. There is no new large area of loss of normal wells-white matter junction differentiation to suggest new acute territorial infarct. There are also scattered and confluent areas of decreased attenuation within the periventricular and subcortical deep white matter consistent with background chronic small vessel ischemic changes. Ventricles and cortical sulci remain diffusely prominent consistent with underlying age-related cerebral volume loss. There is no new mass effect or midline shift. No intra or extra-axial intracranial hemorrhage is seen. Bony calvarium is intact. Paranasal sinuses show moderate mucosal thickening of the posterior ethmoid air cells and near complete opacification of the right sphenoid sinus. There is also complete opacification on the left. Mastoid air cells are clear. IMPRESSION: 1. No new acute intracranial abnormality. No CT evidence of acute infarct, mass, nor hemorrhage. 2. 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 3. Paranasal sinus disease. Clinical correlation is advised. Results were called to Dr. Hamm by Dr. Marinelli 1045 on 09/12/2020 Dictated by: Dictated on workstation # [id number] Dict: 09/12/20 1044 Trans: 09/12/20 1103 [facility] [id number] Interpreted by: DHRUV MARINELLI MD Electronically signed by: DHRUV MARINELLI MD 09/12/20 1107 Diagonstic Imaging: CT Plain Films/CT/US/NM/MRI: other (Angio head and neck) Comments NAME: JONAS SALGADO [facility] REC#: [id number] PT STATUS: ADM Nupur : 1935 PHYSICIAN: MITCHELL BARRIENTOS MD ADMIT DATE: 09/12/20 Signed Date of Exam:09/12/20 CT ANGIO HEAD/NECK PROCEDURE: CT angiography of the head and CT angiography of the neck with and without contrast. TECHNIQUE: Contiguous noncontrast images were obtained from the skull base through the vertex. After intravenous contrast administration, helical CT angiography of the neck was performed. Source data was reformatted into 3D MIP projections. Delayed post contrast acquisition was also obtained. Auto Exposure Controls were utilized during the CT exam to meet ALARA standards for radiation dose reduction. INDICATION: Weakness and confusion. Delayed postcontrast enhanced imaging showed no abnormal parenchymal or meningeal enhancement. 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 There is enhancement of the major dural venous sinuses. 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 Great vessels are patent. The bilateral subclavian arteries patent. The vertebral arteries are codominant, both showing multiple areas of mild narrowing of 50% or less likely owing to diffuse atherosclerotic disease without appreciable calcifications areas of subsegmental fibromuscular dysplasia could not be excluded. No evidence for dissection or occlusion. The bilateral common carotid arteries are widely patent. There is some mixed soft and hard plaque at the right carotid bulb with may be 30% luminal narrowing maximal. Remaining cervical internal carotids are widely patent. CT angiogram head: The intracranial ICAs are patent. There is some non-stenosing calcified plaques at their cavernous segments. The A1 segments bilaterally patent. The A-comm is patent and the paired anterior cerebral arteries are patent. There is mild diffuse atherosclerotic disease. There is occlusion of the proximal left middle cerebral artery which may be chronic given the stable chronic findings in the left hemisphere. However progressive or new ischemia suspected. This could be further evaluated with MRI brain. The right MCA shows mild diffuse atherosclerotic disease but no large vessel occlusion. There are similar findings in the intrathecal segments of the vertebrals with scattered areas of mild stenosis owing to atherosclerosis. There is also multifocal areas of mild atherosclerotic narrowing of the basilar artery all of 50% or less. The left TRANSIT MECHANIC is in origin off the anterior circulation and is patent. The right TRANSIT MECHANIC patent although both show some mild diffuse atherosclerotic narrowing. 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 However MRI may be of use if there is clinical suspicion for active or evolving ischemic insult. I have no prior angiographic study for comparison. Diffuse cervical and intrathecal areas of mild to moderate atherosclerotic narrowing of the bilateral vertebrals as well as the basilar artery. Mild anterior circulation intracranial atherosclerosis without hemodynamic significant stenosis. Left TRANSIT MECHANIC via the anterior circulation with origin as a variant with intact [place] of [place]. Dictated by: Dictated on workstation # [id number] Dict: 09/12/20 1148 Trans: 09/12/20 1430 [facility] [id number] Interpreted by: URIAH GUDINO Electronically signed by: URIAH GUDION 09/12/20 1430 Diagonstic Imaging: Xray Plain Films/CT/US/NM/MRI: chest Comments NAME: JONAS SALGADO [facility] REC#: [id number] PT STATUS: ADM Nupur : 1935 PHYSICIAN: MITCHELL BARRIENTOS MD ADMIT DATE: 09/12/20 Signed Date of Exam:09/12/20 CHEST 1 VIEW, AP/PA ONLY INDICATION: Hypertension, leg weakness, syncope COMPARISON: 07/26/2020 FINDINGS: Elevation of the right diaphragm stable. No consolidation, failure, effusion or pneumothorax. IMPRESSION: No acute appearing abnormality. Dictated by: Dictated on workstation # [id number] Dict: 09/12/20 1110 Trans: 09/12/20 1430 [facility] [id number] Interpreted by: URIAH GUDINO Electronically signed by: URIAH GUDINO 09/12/20 1430 Departure Communication (Admissions) Time/Spoke to Admitting Phy: 13:10 Dr. Ricks Impression Primary Impression: Syncope Qualified Codes: R55 - Syncope and collapse Additional Impressions: Weakness of lower extremity Qualified Codes: R29.898 - Other symptoms and signs involving the musculoskeletal system Urinary tract infection Qualified Codes: N39.0 - Urinary tract infection, site not specified Disposition: ADMITTED INPATIENT Condition: Improved Admissions Decision to Admit Reason: Admit from ER (General) Decision to Admit/Date: Sep 12, 2020 Time/Decision to Admit Time: 13:10 Departure-Patient Inst. Referrals: [facility] (PCP/Family) Primary Care Physician MITCHELL BARRIENTOS MD Sep 12, 2020 13:20
[2020-09-12] MEDS ORDERED: NS IV 1000 ML 1,000 ML IV SCH (13:45)
[2020-09-12] MEDS: inSUlin ASPART (NovoLOG) 1 UNIT/0.01 ML (CHARGE PER UNIT) SC SCH ×2 (15:29→20:03)
[2020-09-12] MEDS: NITROFURANTOIN 100 MG (MACROBID) CAPSULE PO SCH ×2 (15:33→19:42)
--- NOTE | 2020-09-12 17:19 | History & Physical-Hospitalist ---
History of Present Illness HPI/Chief Complaint CC: Syncope r/o CVA HPI: This is an 85yoWF [place] patient of [facility] who presented to the ER with complaints of syncopal episode with elevated BP suspicious for CVA. ER evaluated her along with [facility] CVA expert and although no residual deficits noted it was recommended to admit for observation obtain MRI and evaluate BP trend. Currently she is unable to recall the details about this episode and dementia precludes significant details. I reviewed ER note. She feels back to baseline and no deficits are noted. Source: patient, RN/MD, old records Exam Limitations: clinical condition (dementia) Date Seen 09/12/20 Time Seen by a Provider: 16:00 Attending Physician Caryn Ricks DO [facility] Referring Physician Date of Admission Sep 12, 2020 at 13:38 Home Medications & Allergies Home Medications Reviewed patient Home Medication Reconciliation performed by pharmacy medication reconciliations cardiovascular technician and/or nursing. Patients Allergies have been reviewed. Allergies Allergies Coded Allergies Penicillins (Verified Allergy, Unknown, 10/11/13) sulfamethoxazole (Unverified Allergy, Unknown, 09/12/20) trimethoprim (Unverified Allergy, Unknown, 09/12/20) Patient Social History Marrital Status: single Employed/Student: retired Tobacco Use?: No Smoking Status: Never a Smoker Substance use?: No Alcohol Use?: No HISTORY OF ETOH USE Pt stated abuse/neglect: No Immunizations Up To Date Influenza Vaccine Up-to-Date: Yes; Up-to-Date Tetanus Booster (TDap): Unknown Hepatitis A: No Hepatitis B: No TB Skin Test: None Date of Pneumonia Vaccine: Nov 22, 2009 Current Status status: No status: No Do you have an Advance Directi: No Communicates: Verbally Primary Language: Turkish Preferred Spoken Language: Turkish Is interpretation needed?: No Implanted or Applied Medical D: None Past Medical History Past Medical History 1. Dementia 2. Generalized anxiety disorder 3. HTN 4. HLP Past Surgical History 1. Hysterectomy 2. Appendectomy 3. Tonsillectomy Review of Systems Constitutional: see HPI, malaise, weakness Physical Exam Physical Exam Vital Signs Vital Signs - First Documented 09/12/20 09/12/20 09/13/20 09:57 14:08 04:25 Temp 36.0 Pulse 78 Resp 14 B/P (MAP) 197/88 (124) Pulse Ox 94 O2 Delivery Room Air O2 Flow Rate 4.00 Capillary Refill : Less Than 3 Seconds Height, Weight, BMI Height: 5'1.00" Weight: 176lbs. 0.0oz. 79.020598di; 26.16 BMI Method:Stated General Appearance: No Apparent Distress, Chronically ill Eyes: Right Eye Normal Inspection, Right Eye PERRL HEENT: PERRL/EOMI, Normal ENT Inspection, Pharynx Normal, Moist Mucous Membranes Neck: Full Range of Motion, Normal Inspection, Non Tender Respiratory: Chest Non Tender, Lungs Clear, Normal Breath Sounds, No Accessory Muscle Use, No Respiratory Distress Cardiovascular: Regular Rate, Rhythm, No Edema, No Gallop, No JVD, No Murmur, Normal Peripheral Pulses Gastrointestinal: Normal Bowel Sounds, No Organomegaly, No Pulsatile Mass, Non Tender, Soft Back: Normal Inspection, No CVA Tenderness, No Vertebral Tenderness Extremity: Normal Capillary Refill, Normal Inspection, Normal Range of Motion, Non Tender, No Calf Tenderness, No Pedal Edema Neurologic/Psychiatric: Alert, Oriented x3, No Motor/Sensory Deficits, Normal Mood/Affect, Disoriented Skin: Normal Color, Warm/Dry Lymphatic: No Adenopathy Results Results/Procedures Labs Laboratory Tests 09/12/20 09:54 09/12/20 09:56 Patient resulted labs reviewed. Assessment/Plan Admission Diagnosis Assessment: Syncopal episode HTN Dementia UTI Plan: Admit Observe BP management MRI PT OT Lipid check Admission Status: Observation Diagnosis/Problems Diagnosis/Problems (1) Syncope Status: Acute Qualifiers: Syncope type: unspecified Qualified Codes: R55 - Syncope and collapse (2) Weakness of lower extremity Status: Acute Qualifiers: Laterality: bilateral Qualified Codes: R29.898 - Other symptoms and signs involving the musculoskeletal system (3) Urinary tract infection Status: Acute Qualifiers: Urinary tract infection type: site unspecified Hematuria presence: without hematuria Qualified Codes: N39.0 - Urinary tract infection, site not specified CARYN RICKS DO Sep 12, 2020 17:19
[2020-09-12] MEDS ORDERED: amLODIPine 5 MG (NORVASC) TAB PO NR (17:30)
[2020-09-12] MEDS: DIPYRIDAMOLE/ASA ER CAPSULE (AGGRENOX) PO SCH (19:41)
[2020-09-12] MEDS ORDERED: ONDANSETRON 4 MG/2 ML (SDV) Z0FRAN IVP PRN (23:45)
[2020-09-13] VITALS: BP 160/96
[2020-09-13 04:25] VITALS: BP 153/71
[2020-09-13 05:45] LABS: BASOPHILS % (AUTO) 0 % (0-10); EOSINOPHILS # (AUTO) 0.1 10^3/uL (0.0-0.3); EOSINOPHILS % (AUTO) 1 % (0-10); HEMATOCRIT 38 % (35-52); HEMOGLOBIN 11.7 g/dL (11.5-16.0); LYMPHOCYTES # (AUTO) 0.3 10^3/uL (1.0-4.0); LYMPHOCYTES % (AUTO) 2 % (12-44); MEAN CORPUSCULAR HEMOGLOBIN 30 pg (25-34); MEAN CORPUSCULAR HGB CONC 31 g/dL (32-36); MEAN CORPUSCULAR VOLUME 98 fL (80-99); MEAN PLATELET VOLUME 9.9 fL (9.0-12.2); MONOCYTES # (AUTO) 0.3 10^3/uL (0.0-1.0); MONOCYTES % (AUTO) 3 % (0-12); NEUTROPHILS # (AUTO) 11.5 10^3/uL (1.8-7.8); NEUTROPHILS % (AUTO) 93 % (42-75); PLATELET COUNT 311 10^3/uL (130-400); WHITE BLOOD COUNT 12.3 10^3/uL (4.3-11.0)
[2020-09-13 05:56] LABS: POTASSIUM 3.2 MMOL/L (3.6-5.0)
[2020-09-13 05:57] LABS: CALCIUM 8.4 MG/DL (8.5-10.1)
[2020-09-13 06:02] LABS: CREATININE SERUM 0.92 MG/DL (0.60-1.30)
[2020-09-13] MEDS: inSUlin ASPART (NovoLOG) 1 UNIT/0.01 ML (CHARGE PER UNIT) SC SCH ×2 (06:14→12:34)
[2020-09-13] MEDS ORDERED: FUROSEMIDE 40 MG/4 ML INJ (LASIX) IVP ONE (06:15)
[2020-09-13 06:17] LABS: LYMPHOCYTES % (MANUAL) 3 %; NEUTROPHILS % (MANUAL) 97 %; RBC MORPH NORMAL
[2020-09-13 07:28] VITALS: BP_SYST 132; BP_DIAS 63; BP_DIAS 79
[2020-09-13] MEDS: DIPYRIDAMOLE/ASA ER CAPSULE (AGGRENOX) PO SCH (08:43)
[2020-09-13] MEDS: NITROFURANTOIN 100 MG (MACROBID) CAPSULE PO SCH (08:45)
[2020-09-13] MEDS ORDERED: amLODIPine 5 MG (NORVASC) TAB PO SCH (09:00)
--- NOTE | 2020-09-13 09:56 | Occupational Therapy Eval ---
OT Evaluation-General/PLF Medical Diagnosis Admission Date Sep 12, 2020 at 13:38 Medical Diagnosis: syncope Onset Date: Sep 12, 2020 Therapy Diagnosis Therapy Diagnosis: weakness Height/Weight Height (Feet): 5 Height (Inches): 1.00 Weight (Pounds): 176 Weight (Ounces): 0.0 Precautions Precautions/Isolations: Fall Prevention, Standard Precautions Referral Physician: Millicent Referral Reason: Evaluation/Treatment Medical History Pertinent Medical History: CVA, Dementia, HTN Current History ED due to c/o syncopal episode with elevated BP. Social History Home: Long Term ADL-Prior Level of Function SCALE: Activities may be completed with or without assistive devices. 6-Jdeltydupj-pxutwjl completes the activity by him/herself with no assistance from a helper. 5-Set-up or Clean-up Assistance-helper sets up or cleans up; patient completes a ctivity. [place] assists only prior to or following the activity. 4-Supervision or Touching Assistance-helper provides verbal cues and/or touching/steadying and/or contact guard assistance as patient completes activity. Assistance may be provided throughout the activity or intermittently. 3-Partial/Moderate Assistance-helper does LESS THAN HALF the effort. [place] lifts, holds or supports trunk or limbs, but provides less than half the effort. 2-Substantial/Maximal Assistance-helper does MORE THAN HALF the effort. [place] lifts or holds trunk or limbs and provides more than half the effort. 2-Zwqkysfwo-aodanf does ALL the effort. Patient does none of the effort to complete the activity. Or, the assistance of 2 or more helpers is required for the patient to complete the activity. If activity was not attempted, code reason: 7-Patient Refused. 9-Not Applicable-not attempted and the patient did not perform the activity before the current illness, exacerbation or injury. 10-Not Attempted due to Environmental Limitations-(lack of equipment, weather restraints, etc.). 88-Not Attempted due to Medical Conditions or Safety Concerns. ADL PLOF Comments Pt unable to provide information about PLOF Self Care: Unknown Functional Cognition: Needed Some Help OT Current Status Subjective Pt laying in bed, agreeable to OT tx. Pt replied with 1 word responses to some questions, and mumbled with other questions and throughout tx. Mental Status/Objective Patient Orientation: Confused Current Dentures/Partials: Yes Upper Extremity ROM RUE shoulder flexion to approx 80 degrees, LUE shoulder flexion to approx 110 degrees. Upper Extremity Coordination decreased Upper Extremity Sensation unable to assess Upper Extremity Strength unable to formally test, grossly 2+/5 BUEs ADL-Treatment Eating (QC): 5 (Assist to cut food and open containers. Pt able to feed self using fingers, did not use utensils for meal.) Oral Hygiene (QC): 1 (Pt unable to remove dentures to clean, did not initiate brushing teeth when handed toothbrush. Per nursing staff, pt required assistance placing dentures into mouth.) Shower/Bathe Self (QC): 1 (Based on clinical judgement, pt would require assistance with all parts.) Other Treatments Pt laying in bed, breakfast tray in front of her. When OT asked pt if she was finished, pt mumbled. Unclear if pt was done with meal or not. OT encouraged pt to participate in ADL tx, she agreed. OT set up for oral care, pt unable to open toothbrush. OT placed toothbrush with toothpaste in pts hand but she did not initiate brushing her teeth. OT asked pt if she had dentures, she indicated yes. Pt attempts to remove dentures but unsuccessful. Nursing staff indicate pt unable to place dentures in her mouth this AM prior to breakfast, required assistance. Pt then handed warm wash cloth and instructed to wash her face, pt washed her mouth. Max A overall with face washing. OT placed hair brush in pt's hand, instructing her to brush her hair, pt did not initiate task. Total assist with hair brushing. Post tx, pt laying in bed, call light in reach and all needs met. Education OT Patient Education: Correct positioning, Modified ADL techniques, Progress toward Goal/Update tx plan, Purpose of tx/functional activities, Rehab process Teaching Recipient: Patient Teaching Methods: Discussion Response to Teaching: Reinforcement Needed OT Brushing Operator Goals Chcf Goals Time Frame: Sep 21, 2020 Eating (QC): 5 Oral Hygiene (QC): 4 Toileting Hygiene (QC): 4 Shower/Bathe Self (QC): 3 Upper Body Dressing (QC): 3 Lower Body Dressing (QC): 3 On/Off Footwear (QC): 2 Additional Goals: 1-Demonstrate ADL Tasks, 2-Verbalize Understanding, 3-Improv eStrength/Ann 1=Demonstrate adherence to instructed precautions during ADL tasks. 2=Patient will verbalize/demonstrate understanding of assistive devices/modifications for ADL. 3=Patient will improve strength/tolerance for activity to enable patient to p erform ADL's. OT Education/Plan Problem List/Assessment Assessment: Decreased Activ Tolerance, Decreased UE Strength, Impaired Cognition, Impaired Coordination, Impaired I ADL's, Impaired Self-Care Skills Pt would benefit from short term skilled OT services in order to maximize LOF for safe return to [place]. Discharge Recommendations Plan/Recommendations: Continue POC Treatment Plan/Plan of Care Patient would benefit from OT for education, treatment and training to promote independence in ADL's, mobility, safety and/or upper extremity function for ADL's. Plan of Care: ADL Retraining, Functional Mobility, UE Funct Exercise/Act Treatment Duration: Sep 21, 2020 Frequency: 5 times per week Estimated Hrs Per Day: .25 hour per day Time/GCodes Start Time: 09:30 Stop Time: 09:44 Total Time Billed (hr/min): 14 Billed Treatment Time 1, GRISELDA BANKS OT Sep 13, 2020 09:56
[2020-09-13] MEDS ORDERED: MAGN400T39 PO (09:58)
[2020-09-13] MEDS ORDERED: ACET-2267 PO (09:58)
[2020-09-13] MEDS ORDERED: DULO20CA19 PO (09:58)
[2020-09-13] MEDS ORDERED: LACT1CAP28 PO (09:58)
[2020-09-13] MEDS ORDERED: DONE10TA41 PO (09:58)
[2020-09-13] MEDS ORDERED: METF-397 PO (09:58)
[2020-09-13] MEDS ORDERED: ONDA4TAB11 PO (09:58)
[2020-09-13] MEDS ORDERED: LOPE-175 PO (09:58)
[2020-09-13] MEDS ORDERED: CALC-308 PO (09:58)
[2020-09-13] MEDS ORDERED: MEMA28CA5 PO (09:58)
[2020-09-13] MEDS ORDERED: LATA2.5D19 OU (09:58)
[2020-09-13] MEDS ORDERED: AGGRENOX PO (09:58)
[2020-09-13] MEDS ORDERED: MIRT45TA75 PO (09:58)
[2020-09-13] MEDS ORDERED: MAGN400O7 PO (09:58)
[2020-09-13] MEDS ORDERED: AMLO-250 PO (09:58)
[2020-09-13] MEDS ORDERED: MELA3TAB39 PO (09:58)
[2020-09-13] MEDS ORDERED: FAMO-119 (09:58)
[2020-09-13] MEDS ORDERED: PRD10T PO (09:58)
[2020-09-13] MEDS ORDERED: POTA10TA36 PO (09:58)
--- NOTE | 2020-09-13 10:38 | Physical Therapy Evaluation ---
PT Evaluation-General Medical Diagnosis Admission Date Sep 12, 2020 at 13:38 Medical Diagnosis: syncope/UTI/weakness Onset Date: Sep 12, 2020 Therapy Diagnosis Therapy Diagnosis: generalized weakness/debility Height/Weight Height (Feet): 5 Height (Inches): 1.00 Weight (Pounds): 176 Weight (Ounces): 0.0 Precautions Precautions/Isolations: Fall Prevention, Standard Precautions Referral Physician: Millicent Reason for Referral: Evaluation/Treatment Medical History Pertinent Medical History: CVA, Dementia, HTN Current History EMS from [place] secondary to syncope Social History Home: [facility] Prior Prior Level of Function SCALE: Activities may be completed with or without assistive devices. 3-Oceeqvzuke-cmphycq completes the activity by him/herself with no assistance from a helper. 5-Set-up or Clean-up Assistance-helper sets up or cleans up; patient completes activity. [place] assists only prior to or following the activity. 4-Supervision or Touching Assistance-helper provides verbal cues and/or touching/steadying and/or contact guard assistance as patient completes activity. Assistance may be provided throughout the activity or intermittently. 3-Partial/Moderate Assistance-helper does LESS THAN HALF the effort. [place] lifts, holds or supports trunk or limbs, but provides less than half the effort. 2-Substantial/Maximal Assistance-helper does MORE THAN HALF the effort. [place] lifts or holds trunk or limbs and provides more than half the effort. 3-Smbdovtbw-lgqbrb does ALL the effort. Patient does none of the effort to complete the activity. Or, the assistance of 2 or more helpers is required for the patient to complete the activity. If activity was not attempted, code reason: 7-Patient Refused. 9-Not Applicable-not attempted and the patient did not perform the activity before the current illness, exacerbation or injury. 10-Not Attempted due to Environmental Limitations-(lack of equipment, weather restraints, etc.). 88-Not Attempted due to Medical Conditions or Safety Concerns. Bed Mobility: 4 Transfers (B,C,W/C): 4 Gait: 4 Stairs: 9 Indoor Mobility (Ambulation): Independent Stairs: Not Applicalbe Prior Devices Use: Walker PT Evaluation-Current Subjective Patient in bed. Incontinent Urine requiring assist to change and cleanse Objective Patient Orientation: Confused ROM/Strength ROM Lower Extremities bilateral LE WFL Strength Lower Extremities 3/5 grossly bilateral LE Integumentary/Posture Bowel Incontinence: Yes Bladder Incontinence: Yes Posture kyphotic Neuromuscular (Tone, Coordination, Reflexes) diminished coordination due to weakness Sensory Vision: Functional Hearing: Impaired (2) Transfers Roll Left to Right (QC): 2 Sit to Lying (QC): 2 Lying to Sitting/Side of Bed(Q: 2 Sit to Stand (QC): 2 Chair/Xqr-ux-Lcvdf Xfer(QC): 2 Gait Does the Patient Walk?: Yes Mode of Locomotion: Walk Anticipated Mode of Locomotion: Walk Walk 10 feet (QC): 2 Walk 50 ft with 2 Turns(QC): 88 Walk 150 ft (QC): 88 Gait Assistive Device: FWW Comments/Gait Description unsteady/shuffle gait sequence Balance Sitting Static: Poor Sitting Dynamic: Poor Standing Static: Poor Standing Dynamic: Poor Assessment/Needs 85 y.o. female, will benefit from skilled PT to address functional strength and mobility to improve current LOF to return to NH at maximum LOF. Rehab Potential: Poor PT Intermediate Goals Senior Controls Technician Goals PT Intermediate Goals Time Frame: September 22, 2020 Roll Left & Right (QC): 4 Sit to Lying (QC): 4 Lying-Sitting on Side/Bed(QC): 4 Sit to Stand (QC): 4 Chair/Tmk-pa-Aczaj Xfer(QC): 4 Toilet Transfer (QC): 4 Does the Patient Walk: Yes Walk 10 feet (QC): 4 Walk 50ft with 2 Turns (QC): 4 Walk 150 ft (QC): 4 PT Plan Problem List Problem List: Activity Tolerance, Functional Strength, Safety, Balance, Gait, Transfer, Bed Mobility Treatment/Plan Treatment Plan: Continue Plan of Care Treatment Plan: Bed Mobility, Education, Functional Activity Ann, Functional Strength, Gait, Safety, Therapeutic Exercise, Transfers Treatment Duration: September 22, 2020 Frequency: 6 times per week Estimated Hrs Per Day: .25 hour per day Time/GCodes Time In: 1018 Time Out: 1030 Total Billed Treatment Time: 12 Total Billed Treatment 1 visit EVMod 12 min JOZEF RAMIREZ PT Sep 13, 2020 10:38
[2020-09-13 11:13] VITALS: BP 125/58
[2020-09-13] MEDS ORDERED: DIPYRIDAMOLE PO (11:50)
[2020-09-13] MEDS ORDERED: NITR100C10 PO (11:50)
[2020-09-13] MEDS ORDERED: ASPIRIN PO (11:50)
[2020-09-13] MEDS ORDERED: ATOR40TA PO (11:50)
--- NOTE | 2020-09-13 11:51 | Discharge Summary ---
Discharge Summary Hospital Course Was the Problem List Reviewed?: Yes Problems/Dx: (1) Syncope Status: Acute Qualifiers: Qualified Codes: R55 - Syncope and collapse (2) Weakness of lower extremity Status: Acute Qualifiers: Qualified Codes: R29.898 - Other symptoms and signs involving the musculoskeletal system (3) Urinary tract infection Status: Acute Qualifiers: Qualified Codes: N39.0 - Urinary tract infection, site not specified Hospital Course Date of Admission: Sep 12, 2020 at 13:38 Admission Diagnosis : Family Physician/Provider: [place] Date of Discharge: 09/13/20 Discharge Diagnosis: syncope, neurological deficit now back to baseline, old CVA, dementia, HTN Hospital Course: Pt had an uneventful night BP much better Pt had so much dementia and PT OT evaluated to be back to baseline that we will go ahead and DC on a statin, maintain the Aggrenox and send her back to the [facility]. Labs and Pending Lab Test: Laboratory Tests 09/12/20 15:26: Glucometer 181H 09/12/20 19:59: Glucometer 151H 09/13/20 02:38: Glucometer 145H 09/13/20 05:20: White Blood Count 12.3H, Red Blood Count 3.85, Hemoglobin 11.7, Hematocrit 38, Mean Corpuscular Volume 98, Mean Corpuscular Hemoglobin 30, Mean Corpuscular Hemoglobin Concent 31L, Red Cell Distribution Width 15.7H, Platelet Count 311, Mean Platelet Volume 9.9, Immature Granulocyte % (Auto) 1, Neutrophils (%) (Auto) 93H, Lymphocytes (%) (Auto) 2L, Monocytes (%) (Auto) 3, Eosinophils (%) (Auto) 1, Basophils (%) (Auto) 0, Neutrophils # (Auto) 11.5H, Lymphocytes # (Auto) 0.3L, Monocytes # (Auto) 0.3, Eosinophils # (Auto) 0.1, Basophils # (Auto) 0.0, Immature Granulocyte # (Auto) 0.1, Neutrophils % (Manual) 97, Lymphocytes % (Manual) 3, Blood Morphology Comment NORMAL, Sodium Level 143, Potassium Level 3.2L, Chloride Level 104, Carbon Dioxide Level 21, Anion Gap 18H , Blood Urea Nitrogen 16, Creatinine 0.92, Estimat Glomerular Filtration Rate 58, BUN/Creatinine Ratio 17, Glucose Level 146H, Calcium Level 8.4L, Triglycerides Level 227H, Cholesterol Level 228H, LDL Cholesterol Direct 148H, VLDL Cholesterol 45H, HDL Cholesterol 60 09/13/20 09:54: Glucometer 191H Home Meds Active Lipitor (Atorvastatin Calcium) 40 Mg Tablet 40 Mg PO DAILY 365 Days [Dipyridamole/Aspirin] 1 EA Cap 1 Ea PO BID 365 Days Nitrofurantoin Labette-Mcr 100 mg (Nitrofurantoin Monohyd/M-Cryst) 100 Mg Capsule 100 Mg PO BID 6 Days Reported Ondansetron Odt (Ondansetron) 4 Mg Tab.rapdis 4 Mg PO Q12H PRN Calcium (Calcium Carbonate) 500 Mg Tab.chew 1,500 Mg PO EVERY 30 MINUTES PRN Pepcid (Famotidine) 20 Mg Tablet 20 Mg DAILY PRN Milk of Magnesia (Magnesium Hydroxide) 400 Mg/5 Ml Oral.susp 30 Ml PO DAILY PRN Imodium A-D (Loperamide HCl) 2 Mg Capsule 2-4 Mg PO UD PRN GIVE 2 TABS AFTER THE FIRST LOOSE STOOL THEN 1 TAB AFTER EACH LOOSE STOOL UNTIL RESOLVE Tylenol Extra Strength (Acetaminophen) 500 Mg Tablet 500-1,000 Mg PO Q8H PRN Metformin HCl 500 Mg Tablet 1,000 Mg PO BID TAKES 2 (500MG) TABS [Aggrenox] 25/,200 Cap 1 Ea PO BID Acidophilus (Lactobacillus Acidophilus) 1 Each Capsule 1 Each PO BID Xalatan (Latanoprost) 2.5 Ml Drops 1 Drop OU HS Prednisone 10 Mg Tab 10 Mg PO DAILY Potassium Chloride 10 Meq Tab.er.prt 10 Meq PO DAILY Magnesium (Magnesium Oxide) 400 Mg Tablet 400 Mg PO DAILY Donepezil HCl 10 Mg Tablet 10 Mg PO DAILY Mirtazapine 45 Mg Tablet 45 Mg PO HS Memantine HCl ER (Memantine HCl) 28 Mg Cap.spr.24 28 Mg PO DAILY Melatonin 3 Mg Tablet 12 Mg PO HS Duloxetine HCl 20 Mg Capsule.dr 40 Mg PO DAILY TAKES 2 (20MG) CAPS Amlodipine Besylate 5 Mg Tablet 5 Mg PO DAILY HOLD FOR SBP <100 Cetirizine HCl 10 Mg Tablet 10 Mg PO DAILY Tramadol HCl 50 Mg Tablet 50 Mg PO Q8H PRN Lisinopril 20 Mg Tablet 20 Mg PO DAILY Guaifenesin 400 Mg Tablet 400 Mg PO Q12H PRN Coreg (Carvedilol) 25 Mg Tab 25 Mg PO BID HOLD FOR SBP<100 PULSE <60 Colace (Docusate Sodium) 100 Mg Capsule 100 Mg PO DAILY Levothyroxine Sodium 50 Mcg Tablet 50 Mcg PO 1400 Assessment/Pt Instructions [facility] 1 week Discharge Planning: <30 minutes discharge planning Discharge Instructions Discharge Diet: Cardiac Diet Activity as Tolerated: Yes Discharge Physical Examination Vital Signs Vital Signs Date Time Temp Pulse Resp B/P (MAP) Pulse Ox O2 Delivery O2 Flow Rate FiO2 09/13/20 07:28 36.1 103 22 132/63 (86) 92 Nasal Cannula 4.00 General Appearance: No Apparent Distress, WD/WN, Chronically ill Respiratory: Lungs Clear Cardiovascular: Regular Rate, Rhythm Neurologic/Psychiatric: Disoriented Allergies: Coded Allergies: Penicillins (Verified Allergy, Unknown, 10/11/13) sulfamethoxazole (Unverified Allergy, Unknown, 09/12/20) trimethoprim (Unverified Allergy, Unknown, 09/12/20) Discharge Summary Date of Admission Sep 12, 2020 at 13:38 Date of Discharge Discharge Date: Sep 13, 2020 Admission Diagnosis Assessment: Syncopal episode HTN Dementia UTI Plan: Admit Observe BP management MRI PT OT Lipid check Discharge Diagnosis (1) Syncope Status: Acute Qualifiers: Qualified Codes: R55 - Syncope and collapse (2) Weakness of lower extremity Status: Acute Qualifiers: Qualified Codes: R29.898 - Other symptoms and signs involving the musculoskeletal system (3) Urinary tract infection Status: Acute Qualifiers: Qualified Codes: N39.0 - Urinary tract infection, site not specified DANIELLE BUTTERFIELD DO Sep 13, 2020 11:51
[2020-09-13] MEDS ORDERED: ACETAMINOPHEN 500 MG TAB (TYLENOL) PO PRN (12:00)
[2020-09-13] MEDS ORDERED: MILK OF MAGNESIA 400 MG/5 ML 30 ML UDC PO PRN (12:00)
[2020-09-13] MEDS ORDERED: ONDANSETRON 4 MG (ZOFRAN) ORAL DISSOLVE TAB PO PRN (12:00)
[2020-09-13] MEDS ORDERED: LOPERAMIDE 2 MG (IMODIUM) TABLET PO PRN (12:00)
[2020-09-13] MEDS ORDERED: FAMOTIDINE 20 MG (PEPCID) TABLET PO PRN (12:00)
[2020-09-13] MEDS ORDERED: CALCIUM CARBONATE 500 MG (TUMS) TAB.CHEW PO PRN (12:15)
--- NOTE | 2020-09-13 12:18 | Progress Note ---
LADARIUS GUILLEN MED STUDENT 09/13/20 1218: Progress Note CC: Syncopal episode rule out CVA HPI: This is an 85yoWF [place] patient of [facility] who was sent to the [facility] ED from shelter after she complained of nausea followed by syncopal episode lasting approximately 1 minute with elevated BP (210/78) suspicious for CVA. ER evaluated her along with [facility] CVA expert. She had mild aphasia and dysarthria, which shelter said was her baseline, as well as LE weakness. CXR, Head CT and CTA were all negative. Although no residual deficits noted it was re commended to admit for observation to obtain MRI and evaluate BP trend. This morning patient was feeling much better with stable vitals and no nausea. Left LE weakness was noted (+4/5); however, it is unclear if this deficit is new or chronic considering evidence of old infarct on CT and overall debility. She is unable to recall the details about syncopal episode and dementia precludes significant details, but she feels back to baseline. MRI was cancelled due to improvement of symptoms and patient's inability to withstand the imaging; likely would not sit still for it and results would not change treatment. She will be discharged back to [facility] in [place] today with instructions to restart home medications as well as 6 days of Macrobid to treat UTI incidentally found, Aggrenox, and new addition of Lipitor 40 mg daily as per stroke guidelines. Patient should return to ED with any worsening symptoms or recurrent syncopal episodes. CARYN BUTTERFIELD DO 09/14/20 0536: Supervisory-Addendum Brief Verification & Attestation Participated in pt care: history, MDM, physical Personally performed: exam, history, MDM, supervision of care Care discussed with: Medical Student Procedures: n/a Results interpretation: Verified all documentation Verification and Attestation of Medical Student E/M Service A medical student performed and documented this service in my presence. I reviewed and verified all information documented by the medical student and made modifications to such information, when appropriate. I personally performed the physical exam and medical decision making. Caryn Butterfield, Sep 14, 2020,05:36 LADARIUS GUILLEN MED STUDENT Sep 13, 2020 12:18 CARYN BUTTERFIELD DO Sep 14, 2020 05:36
[2020-09-13] MEDS ORDERED: guaiFENesin (MUCINEX) 600 MG TAB PO PRN (12:30)
[2020-09-13] MEDS ORDERED: LEVOTHYROXINE 50 MCG (LEVOTHROID) TAB PO SCH (14:00)
[2020-09-13] MEDS ORDERED: MEMANTINE 10 MG (NAMENDA) TABLET PO SCH (21:00)
[2020-09-13] MEDS ORDERED: metFORMIN 500 MG (GLUCOPHAGE) TAB PO SCH (21:00)
[2020-09-13] MEDS ORDERED: LACTOBACILLUS ACIDOPHILUS (PROBIOTIC) CAPSULE PO SCH (21:00)
[2020-09-13] MEDS ORDERED: MELATONIN 3 MG TABLET PO SCH (21:00)
[2020-09-13] MEDS ORDERED: LATANOPROST 0.005% (XALATAN) OPHTH SOLN 2.5 ML OU SCH (21:00)
[2020-09-13] MEDS ORDERED: MIRTAZAPINE 15 MG (REMERON) TAB PO SCH (21:00)
[2020-09-13] MEDS ORDERED: CARVEDILOL 12.5 MG (COREG) TABLET PO SCH (21:00)
[2020-09-13] MEDS ORDERED: DIPYRIDAMOLE/ASA ER CAPSULE (AGGRENOX) PO SCH (21:00)
[2020-09-14] MEDS ORDERED: DOCUSATE SODIUM 100 MG (COLACE) CAP PO SCH (09:00)
[2020-09-14] MEDS ORDERED: predniSONE 10 MG TAB PO SCH (09:00)
[2020-09-14] MEDS ORDERED: amLODIPine 5 MG (NORVASC) TAB PO SCH (09:00)
[2020-09-14] MEDS ORDERED: DULoxetine 20 MG (CYMBALTA) CAP PO SCH (09:00)
[2020-09-14] MEDS ORDERED: KCL 10 MEQ TAB (MICRO K) PO SCH (09:00)
[2020-09-14] MEDS ORDERED: LORATADINE (CLARITIN) 10 MG TAB PO SCH (09:00)
[2020-09-14] MEDS ORDERED: DONEPEZIL 10 MG (ARICEPT) TAB PO SCH (09:00)
[2020-09-14] MEDS ORDERED: MAGNESIUM OXIDE (MAG-OX)400 MG TAB PO SCH (09:00)
[2020-09-14] MEDS ORDERED: lisINopril 20 MG (PRINIVIL) TABLET PO SCH (09:00)
== END 2020-09-13 15:00 ==
LOC: EDUNIT# 09:50 → ER 09:52 → 4TH 13:38
PROVIDERS: ADMIT Internal Medicine; ATTEND Internal Medicine
DX: R55 Syncope and collapse (principal); N39.0 Urinary tract infection, site not specified; I10 Essential (primary) hypertension; F03.90 Unspecified dementia, unspecified severity, without behavioral disturbance, psychotic disturbance, mood disturbance, and anxiety; E78.00 Pure hypercholesterolemia, unspecified; F41.9 Anxiety disorder, unspecified; F32.9 Major depressive disorder, single episode, unspecified; R29.898 Other symptoms and signs involving the musculoskeletal system; Z79.899 Other long term (current) drug therapy; Z80.9 Family history of malignant neoplasm, unspecified; Z90.710 Acquired absence of both cervix and uterus
CPT/HCPCS: 36415; 70450; 70496; 70498; 71045; 80048; 80053; 80061; 81000; 82962; 84443; 84484; 85007; 85025; 85027; 85379; 85610; 85730; 87088; 93005; 93041

== ENCOUNTER → 2020-10-22 | Outpatient (CLI) | payer MEDICARE, MEDICAID ==
[~2020-10-22] MED LIST changes: +ACET-2267 PO; +AGGRENOX PO; +AMLO-250 PO; +ASPIRIN PO; +ATOR40TA PO; +CALC-308 PO; +DIPYRIDAMOLE PO; +DULO20CA19 PO; +FAMO-119; +LACT1CAP28 PO; +LATA2.5D19 OU; +LOPE-175 PO; +MAGN400O7 PO; +MAGN400T39 PO; +MELA3TAB39 PO; +MEMA28CA5 PO; +METF-397 PO; +MIRT45TA75 PO; +NITR100C10 PO; +ONDA4TAB11 PO; +POTA10TA36 PO; +PRD10T PO
[2020-10-22 14:20] LABS: BILIRUBIN,URINE NEGATIVE (NEGATIVE); CLARITY,URINE CLEAR; COLOR,URINE YELLOW; GLUCOSE, URINE (UA) NEGATIVE (NEGATIVE); KETONES,URINE NEGATIVE (NEGATIVE); LEUKOCYTE ESTERASE ,URINE TRACE (NEGATIVE); NITRITE,URINE NEGATIVE (NEGATIVE); PROTEIN,URINE 1+ (NEGATIVE)
[2020-10-22 14:33] LABS: BACTERIA,URINE FEW /HPF
== END ==
LOC: LABNPT 14:14
PROVIDERS: ATTEND Internal Medicine
DX: R30.0 Dysuria (principal)
CPT/HCPCS: 81000; 87088